=== PATIENT | female | born 1990 ===

== ENCOUNTER 2019-12-25 21:12 | Emergency (ER) | payer OTHER, SELFPAY ==
--- NOTE | ~2019-12-25 | XR_ITS ---
EXAMINATION: XR ankle LT min 3V DATE: 12/25/2019 22:10 INDICATION: Lateral sided left ankle pain and swelling TECHNIQUE: Anteroposterior, oblique, mortise, and lateral views of the left ankle were obtained. COMPARISON: None. FINDINGS: Alignment is normal. No fracture. Joint spaces are well maintained. Small plantar calcaneal spur. No ankle joint effusion. Soft tissue swelling overlying the lateral malleolus. IMPRESSION: 1. No acute osseous abnormality. Reviewed, dictated and finalized at location A.
[2019-12-25 21:13] VITALS: BP 154/97; PULSE 114; RESP 18; TEMP 36.8; O2SAT 98
--- NOTE | 2019-12-25 23:12 | ED.LOWEXIN ---
HPI - Extremity Injury (Lower) General Chief Complaint: Extremity Injury, Lower Stated Complaint: ankle injury Time Seen by Provider: 12/25/19 23:03 History of Present Illness HPI Narrative: Patient presents with her boyfriend after stepping into the grass and twisting her left ankle. That happened prior to presentation. The left ankle is swollen and she has difficulty bearing weight. She has not previously had an ankle fracture. She works as a camp counselor, in [employer]. She has not been sick in the last week or 2. She vapes, drinks some alcohol, does not do marijuana. She takes several psychiatric medications, and metformin. complaint: ankle injury and fall Onset (ago): hour(s) Injury: Left: ankle Type of Injury: inversion Place: street/outdoors Severity: moderate Relieving factors: immobilization Exacerbating factors: weight bearing Related Data Home Medications Medication Instructions Recorded Confirmed aripiprazole mg 12/25/19 buspirone mg 12/25/19 duloxetine mg PO 12/25/19 metformin mg PO 12/25/19 Allergies Allergy/AdvReac Type Severity Reaction Status Date / Time codeine Allergy Unknown Unknown Verified 12/25/19 21:22 cobalt Allergy Unknown Verified 12/25/19 21:22 No Known Allergies Allergy Verified 12/25/19 21:22 Review of Systems Review of Systems: Narrative: CONSTITUTIONAL: Denies fever, chills, or sweats. EYES: Denies visual changes, redness, or discharge. ENT: Denies rhinorrhea, congestion, sore throat, or otalgia. CARDIOVASCULAR: Denies chest pain, palpitations, or edema. RESPIRATORY: Denies cough or dyspnea. GASTROINTESTINAL: Denies abdominal pain, nausea, vomiting, or diarrhea. GENITOURINARY: Denies dysuria or hematuria. SKIN: Denies rash or itching. MUSCULOSKELETAL: Denies back pain, or myalgia. NEUROLOGIC: Denies headache, numbness, or weakness. PSYCHIATRIC: Denies anxiety or depression. [facility] Family History Family History (Updated 02/17/16 @ 23:19 by DOCTOR UNKNOWN) Father Hypertension Family history of diabetes mellitus in first degree relative Other Family history of cardiovascular disease Social History Social History (Updated 12/25/19 @ 23:14 by Arlin Schaefer MD) Smoking status: Never smoker Tobacco type: e-cigarettes/vaping Alcohol intake: current Substance use: never Gender identity (if verbalized by the patient): Female Exam Narrative: Exam Narrative: GENERAL: Well-appearing, well-nourished, and in no acute distress. HEAD: Normocephalic, atraumatic. EYES: PERRLA and EOMI. ENT: Nares clear, no rhinorrhea or epistaxis. Mucous membranes moist. NECK: Supple. CHEST: Clear to auscultation. No respiratory distress. HEART: Regular rate and rhythm. No murmur heard. Normal peripheral pulses. ABDOMEN: Soft, nontender, nondistended, normal active bowel sounds. EXTREMITIES: Left ankle swollen at the lateral side SKIN: Warm, dry, no rash. NEURO: No focal deficits. Alert and oriented x3. PSYCH: Normal mood and affect. Course Vital Signs Vital signs: Vital Signs Temperature 98.3 F 12/25/19 21:13 Pulse Rate 114 H 12/25/19 21:13 Respiratory Rate 18 12/25/19 21:13 Blood Pressure 154/97 H 12/25/19 21:13 Pulse Oximetry 98 12/25/19 21:13 Temperature 98 F 12/25/19 23:19 Pulse Rate 99 12/25/19 23:19 Respiratory Rate 16 12/25/19 23:19 Blood Pressure 142/93 H 12/25/19 23:19 Pulse Oximetry 96 12/25/19 23:19 MDM - Extremity Injury (Lower) Imaging Data Radiologist's impression: ITS Impressions Ankle X-Ray 12/25/19 22:24 IMPRESSION: 1. No acute osseous abnormality. Discharge Plan Discharge Clinical Impression: Ankle sprain Qualifiers: Encounter type: initial encounter Involved ligament of ankle: unspecified ligament Laterality: left Qualified Code(s): S93.402A - Sprain of unspecified ligament of left ankle, initial encounter Patient Disposition: Home, Self-Care Condition: Stable I
[2019-12-25 23:19] VITALS: BP 142/93; PULSE 99; RESP 16; TEMP 36.6; O2SAT 96
== END 2019-12-25 23:29 | disposition home or self-care (01) ==
PROVIDERS: Emergency Provider Emergency Medicine; PCP Family Medicine
DX: S93.402A Sprain of unspecified ligament of left ankle, initial encounter (principal); Z79.84 Long term (current) use of oral hypoglycemic drugs; X50.9XXA Other and unspecified overexertion or strenuous movements or postures, initial encounter; F17.290 Nicotine dependence, other tobacco product, uncomplicated
CPT/HCPCS: 73610; 99283; A9270

== ENCOUNTER 2025-02-17 04:20 | Outpatient (CLI) | payer OTHER, SELFPAY ==
[2025-02-17] VITALS (9 sets, daily range): BP systolic 116–160; BP diastolic 71–112; PULSE 89–101; RESP 24; O2SAT 97–100; BMI 48.8
--- OUTSIDE RECORDS SUMMARY | 2025-02-17 04:06 | XMS_ITS | Encounter Summary ---
Author Organization [facility] Address [facility]ly [facility] [place] [address] Care Team Providers Care Derrick Worker Name Role Phone Suad Haney COMPOSITE ENGINEER Primary Care Provider Cherelle Perez COMPOSITE ENGINEER Primary Care Provider [phone] Nadiya Vidal COMPOSITE ENGINEER Primary Care Provider [phone] Encounter Details Date Type Department Care Team (Late st Contact Info) Description 01/23/2022 [employer] Message Enc [facility] Medical [facility] Family Medicine - [address] [address] Suad Haney, MU Keto diet and diabetes Social History Tobacco Use Types Packs/Day Years Used Date Smoking Tobacco: Every Day Cigarettes Smokeless Tobacco: Never Comments:I use a nicotine va pe not tobacco. Alcohol Use Standard Drinks/Week Comments Yes 0 (1 standard drink = 0.6 oz pur e alcohol) Socially PHQ-2 Answer Date Recorded PHQ-2 Score - If the patient scores above 3, please move on to questions 3-9 1 10/19/2021 Comments No Sex and Gender Information Value Date Recorded Sex Assigned at Not on file Legal Sex Female 8:00 PM CDT Gender Identity Female 11/07/2023 9:43 AM CDT Sexual Orientation Straight 04/03/2022 3: 38 PM CDT documented as of this encounter Plan of Treatment Not on file documented as of this encounter Visit Diagnoses Not on filedocumented in this encounter Additional Health Concerns Assessment Noted Time PHQ-9 Depression Total Score: 1 10/20/19 22 8:33 AM CDT documented as of this encounter Care Teams Derrick Worker Relationship Specialty Start Date End Date Suad Haney, COMPOSITE ENGINEER PCP - General NURSE PRACTITIONER 12/17/18 12/18/23 Cherelle Brown NP [address] [place] [address] PCP - General NURSE PRACTITIONER 12/19/23 05/03/24 Nadiya Vidal NP [address] [place] [address] PCP - General NURSE PRACTITIONER 05/04/24 documented as of this encounter
--- OUTSIDE RECORDS SUMMARY | 2025-02-17 04:06 | XMS_ITS | Encounter Summary ---
Author Organization [facility] Address [facility] [place] [address] Care Team Providers Care Can Piler Name Role Phone Suad Haney CHAINSTITCH ZIPPER SETTER Primary Care Provider Cherelle Perez CHAINSTITCH ZIPPER SETTER Primary Care Provider [phone] Nadiya Vidal CHAINSTITCH ZIPPER SETTER Primary Care Provider [phone] Encounter Details Date Type Department Care Team (Late st Contact Info) Description 10/25/2023 [employer] - It's what's in storehart Message Enc [facility] Medical [facility] Family Medicine [address] [address] [place], [facility] Provider Cruz Social History Tobacco Use Types Packs/Day Years Used Date Smoking Tobacco: Former Cigarettes Smokeless Tobacco: Never Comments:I use a nicotine va pe not tobacco. Alcohol Use Standard Drinks/Week Comments Not Currently 0 (1 standard drink = 0.6 oz pur e alcohol) Socially PHQ-2 Answer Date Recorded Patient Health Questionnaire-2 Score 2 08/23/2022 Comments No Sex and Gender Information Value [...] Assessment Noted Time PHQ-9 Depression Total Score: 6 08/23/19 23 8:03 AM CHURCH WARDEN documented as of this encounter Care Teams Can Piler Relationship Specialty Start Date End Date Suad Haney NP PCP - General NURSE PRACTITIONER 12/17/18 12/18/23 Cherelle Brown NP [address] [place] [address] PCP - General NURSE PRACTITIONER 12/19/23 05/03/24 [address]ya Vidal [place] [address] PCP - General NURSE PRACTITIONER 05/04/24 documented as of this encounter
--- OUTSIDE RECORDS SUMMARY | 2025-02-17 04:06 | XMS_ITS | Encounter Summary ---
Author Organization [facility] Address [facility] [place] [address] Care Team Providers Care Vegetable Tester Name Role Phone Suad Haney MANAGER MECHANICAL Primary Care Provider Cherelle Perez MANAGER MECHANICAL Primary Care Provider [phone] Nadiya Vidal MANAGER MECHANICAL Primary Care Provider [phone] Encounter Details Date Type Department Care Team (Late st Contact Info) Description 06/05/2022 [employer] Message Enc [facility] Medical [facility] Family Medicine - [address] [address] Suad Haney, MANAGER MECHANICAL About [employer] Social History Tobacco Use Types Packs/Day Years [...] Orientation Straight 04/03/2022 3: 38 PM CDT COVID-19 Exposure Response Date Recorded In the last 10 days, have yo u been in contact with someone who was confirmed or suspected to have Coronavirus/COVID-19? No / Unsure 05/17/2022 7:41 AM CDT documented as of this encounter Progress Notes * Huy Flores RN - 06/05/2022 2:19 PM CST Please advise. Thanks RITY ASSURANCE SPECIALIST documented in this encounter Plan of Treatment Not on file documented as of this encounter Visit Diagnoses Not on filedocumented in this encounter Additional Health Concerns Assessment Noted Time PHQ-9 Depression Total Score: 1 10/20/19 22 8:33 AM CDT documented as of this encounter Care Teams Vegetable Tester Relationship Specialty Start Date End Date Suad Haney NP PCP - General NURSE PRACTITIONER 12/17/18 12/18/23 Cherelle Brown NP [address] [place] [address] PCP - General NURSE PRACTITIONER 12/19/23 05/03/24 Nadiya Vidal NP [address] [place] [address] PCP - General NURSE PRACTITIONER 05/04/24 documented as of this encounter
--- OUTSIDE RECORDS SUMMARY | 2025-02-17 04:06 | XMS_ITS | Encounter Summary ---
Author Organization [facility] Address [facility] [place] [address] Care Team Providers Care Business Developer Name Role Phone Suad Haney ROTARY DUMP OPERATOR Primary Care Provider Cherelle Perez ROTARY DUMP OPERATOR Primary Care Provider [phone] Nadiya Vidal ROTARY DUMP OPERATOR Primary Care Provider [phone] Encounter Details Date Type Department Care Team (Late st Contact Info) Description 06/05/2023 MyChart Message Enc [facility] Medical [facility] Family Medicine - [address] [address] Suad Haney, ROTARY DUMP OPERATOR psychiatry Social History Tobacco Use Types Packs/Day Years [...] PM CDT documented as of this encounter Progress Notes * Rasta Lin MA - 06/05/2023 2:53 PM CST See pt response. AIDE documented in this encounter Plan of Treatment Not on file documented as of this encounter Visit Diagnoses Not on filedocumented in this encounter Additional Health Concerns Assessment Noted Time PHQ-9 Depression Total Score: 6 08/23/19 23 8:03 AM DIET AIDE documented as of this encounter Care Teams Business Developer Relationship Specialty Start Date End Date Suad Haney NP PCP - General NURSE PRACTITIONER 12/17/18 12/18/23 Cherelle Brown NP [address] [place] [address] PCP - General NURSE PRACTITIONER 12/19/23 05/03/[address] [place] [address] PCP - General NURSE PRACTITIONER 05/04/24 documented as of this encounter
--- OUTSIDE RECORDS SUMMARY | 2025-02-17 04:06 | XMS_ITS | Encounter Summary ---
Author Organization [facility] Address [facility] [place] [address] Care Team Providers Care Auto Body Mechanic Name Role Phone Suad Haney VACCINE SPECIALIST Primary Care Provider Cherelle Perez VACCINE SPECIALIST Primary Care Provider [phone] Nadiya Vidal VACCINE SPECIALIST Primary Care Provider [phone] Encounter Details Date Type Department Care Team (Late st Contact Info) Description 01/24/2023 [employer] Message Enc [facility] Medical [facility] Family Medicine [address] [address] Suad Haney, VACCINE SPECIALIST Scheduling Labs Social History Tobacco Use Types Packs/Day Years [...] Total Score: 6 08/23/19 23 8:03 AM POWDERED SUGAR SUPERVISOR documented as of this encounter Care Teams Auto Body Mechanic Relationship Specialty Start Date End Date Suad Haney NP PCP - General NURSE PRACTITIONER 12/17/18 12/18/23 Cherelle Brown NP [address] [place] [address] PCP - General NURSE PRACTITIONER 12/19/23 05/03/24 Nadiya Vidal [place] [address] PCP - General NURSE PRACTITIONER 05/04/24 documented as of this encounter
--- OUTSIDE RECORDS SUMMARY | 2025-02-17 04:06 | XMS_ITS | Encounter Summary ---
Author Organization [facility] Address [facility] [place] [address] Care Team Providers Care Electromechanical Engineer Name Role Phone Suad Haney CLINICAL LABORATORY TECHNICIAN Primary Care Provider Cherelle Perez CLINICAL LABORATORY TECHNICIAN Primary Care Provider [phone] Nadiya Vidal CLINICAL LABORATORY TECHNICIAN Primary Care Provider [phone] Encounter Details Date Type Department Care Team (Late st Contact Info) Description 09/25/2022 MyChart Message Enc [facility] Medical Group Family Medicine [address] [address] Suad Haney, CLINICAL LABORATORY TECHNICIAN Should I schedule a covid test? Social History Tobacco Use Types Packs/Day Years [...] suspected to have Coronavirus/COVID-19? No / Unsure 09/10/2022 7:02 AM PAPER MAKER documented as of this encounter Progress Notes * Huy Flores RN - 09/25/2022 12:59 PM CST Please advise. Thanks R MAKER documented in this encounter Plan of Treatment Not on file documented as of this encounter Visit Diagnoses Not on filedocumented in this encounter Additional Health Concerns Assessment Noted Time PHQ-9 Depression Total Score: 6 08/23/19 23 8:03 AM PAPER MAKER documented as of this encounter Care Teams Electromechanical Engineer Relationship Specialty Start Date End Date Suad Haney NP PCP - General NURSE PRACTITIONER 12/17/18 12/18/23 Cherelle Brown NP [address] [place] [address] PCP - General NURSE PRACTITIONER 12/19/23 05/03/24 Nadiya [place] [address] PCP - General NURSE PRACTITIONER 05/04/24 documented as of this encounter
--- OUTSIDE RECORDS SUMMARY | 2025-02-17 04:06 | XMS_ITS | Clinical Summary ---
Author Organization [facility] Address [facility] [place] [address] Care Team Providers Care Manager Assessment Name Role Phone Nadiya Vidal MU Primary Care Provider [phone] Allergies Active Allergy Reactions Criticality Noted Date Comments [place] Unknown,Rash Medium 10/18/2015 Codeine Unknown,Rash Medium 10/18/2015 Lamotrigine Cough 01/20/2024 Losartan Dizziness,Other (see comment) 2023 Tape Unknown,Rash Medium 10/18/2015 Medications Blood Glucose Monitoring Suppl (BLOOD GLUCOSE MONITOR SYSTEM) w/Device KitIndications: Diabetes mellitus type 2 in obese ([facility]) Please give what is covered by insurance. Use with each blood sugar check once daily and when symtomatic 1 kit 9 Active Lancets MiscIndications :Type 2 diabetes mellitus with hyperglycemia, without long-term current use of insulin ([facility]) Ar finger qd for blood sugar check. 100 each 1 4 Active Glucose Blood (ONETOUCH VERIO) test stripIndication s:Type 2 diabetes mellitus with hyperglycemia, without long-term current use of insulin ([facility]) 1 strip by Other route daily. 100 strip 3 4 Active metFORMIN (GLUCOPHAGE) 500 MG tablet Take 1 tablet (500 mg total) by mouth daily with breakfast. Active Active Problems Problem Noted Date Diagnosed Date Anxiety and depression 01/20/2024 Overview (01/20/2024): Chronic condition that is controlled with current medications. Currently follows with psych every month. Also in therapy. Informed patient can discuss with psychiatry about switching patient from Abilify to Vraylar prevent progression and with metabolic syndrome. Type 2 diabetes mellitus wit hout complication, without long-term current use of insulin ([facility]) 02/19/2019 Overview (03/02/2024): Type 2 DM- Last A1C 7.0 11/14/23. Denies any polyuria, polydipsia, or polyphagia. Denies neuropathy. Is not checking her blood sugars currently. Is working on eating better. Diabetic eye exam is up to date. Assessment & Plan (03/02/2024 8:29 AM CDT): A1C 7.2 today. Will increase Rybelsus to 14mg -Goal for blood sugars to be between 80-130 fasting and 180 or less two hours after eating. Be sure you have a diabetic eye exam yearly. Encourage daily foot checks, avoid walking around barefoot. Goal for A1C to be below 7 MARIAELENA-no Statin- no Urine microalbumin - 08/13/23, normal Monofilament exam- 11/14/23 Encourage following a low fat, low carb diet, encorperate whole foods such as fresh fruits and vegetables and whole grains into your diet, encourage 5 small meals per day. Avoid sugar-sweetened beverages, added sugars, processed meats, refined grains and oils or other processed foods. Encourage to get at least 150 minutes of moderate aerobic activity or 75 minutes of vigorous aerobic activity a week, or a combination of moderate and vigorous activity. Assessment & Plan (01/20/2024 1:23 PM CDT): Type 2 DM- Last A1C 7.0 11/14/23. Denies any polyuria, polydipsia, or polyphagia. Denies neuropathy. Needing refills today on her Rybelsus and Jardiance. Tolerates them well. Is not checking her blood sugars currently. Is working on eating better. -Goal for blood sugars to be between 80-130 fasting and 180 or less two hours after eating. Be sure you have a diabetic eye exam yearly. Encourage daily foot checks, avoid walking around barefoot. Goal for A1C to below 7 MARIAELENA-no Statin- no Urine microalbumin - 08/13/23, normal Monofilament exam- 11/14/23 Elevated blood pressure reading 04/29/2018 Assessment & Plan (01/20/2024 1:29 PM CDT): BP elevated today. Will recheck at follow up. Anxious today as pulse is elevated some as well. Panic attack 03/14/2018 Assessment & Plan (01/20/2024 1:21 PM CDT): Uses clonidine PRN Obesity 10/18/2015 Assessment & Plan (01/20/2024 1:21 PM CDT): Diet and lifestyle discussed. Resolved Problems Problem Noted Date Diagnosed Date Resolved Date Generalized anxiety disorder 05/04/2019 01/20/2024 Gastroenteritis 05/13/2018 01/20/2024 Need for Tdap vaccination 05/05/2018 Tuberculosis screening 04/29/201804/01 Dysfunction of right eustachian tube 03/18/2017 01/20/2024 Upper respiratory infection 11/01/2016 01/20/2024 Annual physical exam 09/06/2016 024 Bipolar disorder, unspecifie d ([facility]) 10/18/2015 01/20/2024 Encounter for preventive health examination 10/18/2015 04/01/2020 Immunizations Immunization Administration Dates Next Due Dtap 10/22/1996,10/09/1993,1992 ,1992,1992 Hepatitis B Pediatric 11/24/1996,1992,03/23 Hib (PedvaxHIB)3 Dose 1992,1992 MMR 10/22/1996,05/22/1993 Polio IPV (Ipol) 10/22/1996,10/09/1993, 2,1992 Polio Ipv (Generic) 10/22/1996,10/09/1993,1991,1992 Tdap (Generic) 05/05/2018,05/05/2018 Family History Medical History Relation Comments Diabetes Father Rheumatoid Arthritis Father Heart Disease Maternal Grandfather Fibromyalgia Mother Rheumatoid Arthritis Mother Sjogrens Mother Diabetes Paternal Grandmother Diabetes Paternal Uncle Relation Status Comments Father Alive Maternal Grandfather Mother Alive Paternal Grandmother Paternal Uncle Social History Tobacco Use Types Packs/Day Years Used Date Smoking Tobacco: Former Cigarettes Passive Smoke Exposure: Past Smokeless Tobacco: Never Tobacco Cessation:Counseling Given: No Comments:I use a nicotine vape not tobacco. Alcohol Use Standard Drinks/Week Comments Not Currently 0 (1 standard drink = 0.6 oz pur e alcohol) Socially PHQ-2 Answer Date Recorded Patient Health Questionnaire-2 Score 0 07/23/2024 Hunger Vital Sign Answer Date Recorded Within the past 12 months, y ou worried that your food would run out before you got the money to buy more. Never true 07/09/20 24 Within the past 12 months, t he food you bought just didn't last and you didn't have money to get more. Never true 07/09/2024 Comments No Sex and Gender Information Value Date Recorded Sex Assigned at Not on file Legal Sex Female 8:00 PM CDT Gender Identity Female 11/07/2023 9:43 AM CDT Sexual Orientation Straight 04/03/2022 3: 38 PM CDT Last Filed Vital Signs Vital Sign Reading Time Taken Comments Blood Pressure 132/89 07/01/2024 10:04 AM VIBRATION ENGINEER Pulse 95 07/01/2024 9:56 AM VIBRATION ENGINEER Temperature 36.9 C (98.5 F) 07/01/2024 9:56 AM VIBRATION ENGINEER Respiratory Rate 14 07/01/2024 9:56 AM VIBRATION ENGINEER Oxygen Saturation 100% 07/01/2024 9:56 AM VIBRATION ENGINEER Inhaled Oxygen Concentration - - Weight 108.9 kg (240 lb) 07/01/2024 9:56 AM VIBRATION ENGINEER Height 160 cm (5' 3) 07/01/2024 9:56 AM VIBRATION ENGINEER Body Mass Index 42.51 07/01/2024 9:56 AM VIBRATION ENGINEER Plan of Treatment Health Maintenance Due Date Last Done Comments Pneumococcal Vaccine: Pediatrics (0 to 5 Years) and At-Risk Patients (6 to 49 Years) (1 of 2 - PCV) 02/11/2011 HPV Vaccines (1 - 3-dose SCDM series) 02/11/2019 Cervical Cancer Screening Pap with HPV Testing (Age 30 to 64) Every 5 Years 02/11/2022 COVID-19 Vaccine ( season) 2024 Cervical Cancer Screening Pap Smear (Age 30 to 64) Every 3 Years 10/24/2024 10/24/2021 Cervical Cancer Screening with HPV 10/24/2024 Diabetes: Retinopathy Eye Exam 12/22/2024 12/22/2022 Annual Physical 01/19/2025 01/20/2024 Hemoglobin A1C 02/03/2025 08/06/2024, 06/21, 03/02/2024, Additional history exists Kidney Health Evaluation 07/01/2025 07/01/2024 Lipid Panel 07/01/2025 07/01/2024, 02/19, 09/10/2022, Additional history exists DTaP, Tdap and Td Vaccines (8 - Td or Tdap) 05/05/2028 05/05/2018, 05/05/2018, 10/22/1996, Additional history exists Hepatitis B Vaccines Completed 11/24/1996, 1992, 1992 PHQ-2 (Physician [place]) Completed 07/23/2024 Hepatitis C Completed 08/06/2024, 06/21, 03/02/2024 Meningococcal B Vaccine Aged Out No l onger eligible based on patient's age to complete this topic Meningococcal Vaccine Aged Out No brittany edy eligible based on patient's age to complete this topic RSV Immunizations Under 20 Months Aged Out No longer eligible based on patient's age to complete this topic Procedures Procedure Name Priority Date/Time Associated Diagnosis Comments HEPATITIS C ANTIBODY Routine 07/01/2024 11:07 AM VIBRATION ENGINEER Type 2 diabetes mellitus with hyperglycemia, without long-term current use of insulin ([facility]) Positive test ([facility]) LIPID PANEL Routine 07/01/2024 11:07 AM VIBRATION ENGINEER Type 2 diabetes mellitus with hyperglycemia, without long-term current use of insulin ([facility]) Positive test ([facility]) HEMOGLOBIN, GLYCOSYLATED Routine 07/01/2024 11:07 AM VIBRATION ENGINEER Type 2 diabetes mellitus with hyperglycemia, without long-term current use of insulin ([facility]) Positive test ([facility]) DIABETIC RETINOPATHY EXAM (NEGATIVE)(SCAN ORDER) Routine 12/22/2022 from Last 3 Months or Most Recently Relevant to Health Maintenance Results * (ABNORMAL) HEMOGLOBIN, GLYCOSYLATED (07/01/2024 11:07 AM VIBRATION ENGINEER) HGB A1C 6.8(H) <5.7 % 07/01/2024 12:07 PM [facility] Comment: ADA GUIDELINES 2010 5.7 TO 6.4% INCREASED RISK OF DIABETES > OR = 6.5% CONSISTENT WITH DIABETES ESTIMATED AVG GLUCOSE 148 mg/dL 07/01/2024 12:07 PM [facility] 07/01/2024 11:0 7 AM VIBRATION ENGINEER Nadiya Vidal NP LABORATORY Final Result [facility] [address] [place] [address], * (ABNORMAL) LIPID PANEL (07/01/2024 11:07 AM VIBRATION ENGINEER) CHOLESTEROL 188 <200 MG/DL 07/01/2024 12:04 PM [facility] TRIGLYCERIDES 90 <150 MG/DL 07/01/2024 12:04 PM [facility] HDL 59 >40.0 MG/DL 07/01/2024 12:04 PM [facility] LDL (CALCULATED) 111(H) <100 MG/DL 07/01/2024 12:04 PM [facility] NON HDL CHOLESTEROL 129 <130 MG/DL 07/01/2024 12:04 PM [facility] CHOL/HDL RATIO 3.2 0.0 - 4.5 07/01/2024 12:04 PM VIBRATION ENGINEER [facility] VLDL CALCULATION 18 5 - 55 MG/DL 07/01/2024 12:04 PM VIBRATION ENGINEER [facility] LIPID INTERPRETATION 07/01/2024 12:04 PM VIBRATION ENGINEER [facility] Comment: NIH CONCENSUS REPORT RECOMMENDATIONS: ADULT CHILD LOW RISK: CHOLESTEROL <200 <170 TRIGLYCERIDE <150 --- HDL >=60 --- LDL <100 <110 BORDERLINE: CHOLESTEROL 200-239 170-199 TRIGLYCERIDE 150-199 --- HDL 40-59 --- LDL 100-159 110-129 HIGH RISK: CHOLESTEROL >=240 >=200 TRIGLYCERIDE >=200 --- HDL <40 --- LDL >=160 >=130 07/01/2024 11:0 7 AM VIBRATION ENGINEER Nadiya Vidal OFFICE ENGINEER LABORATORY Final Result Performing Organization Address City/[facility]/ZIP Co de Phone Number [facility] [address] [place] [address], [place] [phone] * HEPATITIS C ANTIBODY (07/01/2024 11:07 AM VIBRATION ENGINEER) HEPATITIS C AB NON-REACTI VE NON-REACTI VE 07/01/2024 12:35 PM VIBRATION ENGINEER [facility] 07/01/2024 11:0 7 AM VIBRATION ENGINEER Nadiya Marcy OFFICE ENGINEER LABORATORY Final Result Performing Organization Address City/[facility]/ZIP Co de Phone Number [facility] [address] [place] [address], [place] [phone] * DIABETIC RETINOPATHY EXAM (NEGATIVE)(SCAN) (12/22/2022) [facility] Scanned SCANNING Final Resu lt Performing Organization Address City/[facility]/ZIP Co de Phone Number [facility] from Last 3 Months or Most Recently Relevant to Health Maintenance Insurance BACH Care Teams Manager Assessment Relationship Specialty Start Date End Date Nadiya Vidal [place] [address] PCP - General NURSE PRACTITIONER 05/04/24
--- OUTSIDE RECORDS SUMMARY | 2025-02-17 04:06 | XMS_ITS | Encounter Summary ---
Author Organization [facility] Address [facility] [place] [address] Care Team Providers Care Licensed Customs Broker Name Role Phone Cherelle Brown ONCOLOGY RADIATION PHYSICIAN Primary Care Provider [phone] Nadiya Vidal ONCOLOGY RADIATION PHYSICIAN Primary Care Provider [phone] Encounter Details Date Type Department Care Team (Late st Contact Info) Description 05/01/2024 [employer] Message Enc [facility] Medical Group Family Medicine - [place] [address] [place], [place] [address] Cherelle Brown, ONCOLOGY RADIATION PHYSICIAN [address] [place] [address] Question about Rybelsus and at home testing Social History Tobacco Use Types Packs/Day Years Used Date Smoking Tobacco: Former Cigarettes Passive Smoke Exposure: Past Smokeless Tobacco: Never Comments:I use a nicotine va pe not tobacco. Alcohol Use Standard Drinks/Week Comments Yes 0 (1 standard drink = 0.6 oz pur e alcohol) Socially PHQ-2 Answer Date Recorded Patient Health Questionnaire-2 Score 1 01/20/2024 Comments No Sex and Gender Information Value [...] Assessment Noted Time PHQ-9 Depression Total Score: 2 01/20/20 24 12:46 PM CDT documented as of this encounter Care Teams Licensed Customs Broker Relationship Specialty Start Date End Date Cherelle Brown NP [address] [place] [address] PCP - General NURSE PRACTITIONER 12/19/23 05/03/24 Nadiya Vidal [place] [address] PCP - General NURSE PRACTITIONER 05/04/24 documented as of this encounter
--- OUTSIDE RECORDS SUMMARY | 2025-02-17 04:06 | XMS_ITS | Encounter Summary ---
Author Organization [facility] Address [facility] [place] [address] Care Team Providers Care Flight Attendant Inflight Services Name Role Phone Suad Haney BASEBOARD HEATING INSTALLER Primary Care Provider Cherelle Perez BASEBOARD HEATING INSTALLER Primary Care Provider [phone] Nadiya Vidal BASEBOARD HEATING INSTALLER Primary Care Provider [phone] Encounter Details Date Type Department Care Team (Late st Contact Info) Description 07/26/2023 [employer] Message Enc [facility] Medical Group Family Medicine [address] [address] [place], [facility] Provider [facility] Social History Tobacco Use Types Packs/Day Years [...] Total Score: 6 08/23/19 23 8:03 AM CATTLE FARMER documented as of this encounter Care Teams Flight Attendant Inflight Services Relationship Specialty Start Date End Date Suad Haney NP PCP - General NURSE PRACTITIONER 12/17/18 12/18/23 Cherelle Brown NP [address] [place] [address] PCP - General NURSE PRACTITIONER 12/19/23 05/03/24 Nadiya Vidal [place] [address] PCP - General NURSE PRACTITIONER 05/04/24 documented as of this encounter
--- OUTSIDE RECORDS SUMMARY | 2025-02-17 04:06 | XMS_ITS | Encounter Summary ---
Author Organization [facility] Address [facility] [place] [address] Care Team Providers Care Art Gallery Director Name Role Phone Suad Haney MACHINIST AUTOMOTIVE Primary Care Provider Cherelle Perez MACHINIST AUTOMOTIVE Primary Care Provider [phone] Nadiya Vidal MACHINIST AUTOMOTIVE Primary Care Provider [phone] Encounter Details Date Type Department Care Team (Late st Contact Info) Description 10/27/2022 MyChart Message Enc [facility] Medical Group Family Medicine [address] [address] Suad Haney, MACHINIST AUTOMOTIVE Trulicity Social History Tobacco Use Types Packs/Day Years [...] suspected to have Coronavirus/COVID-19? No / Unsure 10/16/2022 7:39 AM CDT documented as of this encounter Progress Notes * Aysha Courtney MA - 10/29/2022 3:43 PM CDTFrom: Vivien Youssef To: Suad Haney Sent: 10/27/2022 3:31 PM CDT Subject: Trulicity When my prescription for Trulicity was sent in, I was asked to inform you four weeks before needinga refill. I took my second of four doses yesterday. I do have a follow up appointment later this month on the , though I will have administered my last available dose on the . Also I did notice that my face gets extremely dry and flaky around my nose, mouth and under my eyes the day after Iinject a dose. It is slightly itchy and feels like windburn. Is that cause for concern? It does go away after two or three days, and a day faster if I put moisturizer on. Thank you for all your help! documented in this encounter Plan of Treatment Not on file documented as of this encounter Visit Diagnoses Not on filedocumented in this encounter Additional Health Concerns Assessment Noted Time PHQ-9 Depression Total Score: 6 08/23/19 23 8:03 AM WELLNESS RN documented as of this encounter Care Teams Art Gallery Director Relationship Specialty Start Date End Date Suad Haney, MU PCP - General NURSE PRACTITIONER 12/17/18 12/18/23 Cherelle Brown NP [address] [place] [address] PCP - General NURSE PRACTITIONER 12/19/23 05/03/24 Nadiya [place] [address] PCP - General NURSE PRACTITIONER 05/04/24 documented as of this encounter
--- OUTSIDE RECORDS SUMMARY | 2025-02-17 04:06 | XMS_ITS | Encounter Summary ---
Author Organization [facility] Address [facility] [place] [address] Care Team Providers Care Agriscience Technology Instructor Name Role Phone Suad Haney ACADEMIC ADVISOR Primary Care Provider Cherelle Perez ACADEMIC ADVISOR Primary Care Provider [phone] Nadiya Vidal ACADEMIC ADVISOR Primary Care Provider [phone] Encounter Details Date Type Department Care Team (Late st Contact Info) Description 04/30/2022 [employer] Message Enc [facility] Medical Group Family Medicine - [address] [address] Suad Haney, ACADEMIC ADVISOR Home tests and diabetes/medications Social History Tobacco Use Types Packs/Day Years [...] Progress Notes * Huy Flores RN - 04/30/2022 1:08 PM CDT Please advise. The orders in there now are . Thanks * Huy Flores RN - 04/30/2022 12:41 PM CDT Please advise. Thanks documented in this encounter Plan of Treatment Not on file documented as of this encounter Visit Diagnoses Not on filedocumented in this encounter Additional Health Concerns Assessment Noted Time PHQ-9 Depression Total Score: 1 10/20/19 22 8:33 AM CDT documented as of this encounter Care Teams Agriscience Technology Instructor Relationship Specialty Start Date End Date Suad Haney NP PCP - General NURSE PRACTITIONER 12/17/18 12/18/23 Cherelle Brown NP [address] [place] [address] PCP - General NURSE PRACTITIONER 12/19/23 05/03/24 Nadi[place] [address] PCP - General NURSE PRACTITIONER 05/04/24 documented as of this encounter
--- OUTSIDE RECORDS SUMMARY | 2025-02-17 04:06 | XMS_ITS | Referral Summary ---
Author Organization [facility] Address [address] [place] [address] Care Team Providers Care Computer Architect Name Role Phone No, Physician Primary Care Provider [phone] Encounters Date Type Department Care Team Description 02/16/2025 Documentation [facility] Maternal- Medicine [facility] [address] [facility] Medical Office [address] [place] [phone] Sis Edwards MD Glycemic control meeting 02/15/2025 Telephone [facility] Maternal- Medicine [facility] Outpatient Health 7th Floor [address] [place] [address] Tressa Soares, TRANSPORT ASSISTANT Appointment 02/11/2025 9:25 AM CDT - 02/15/2025 5:43 PM CDT Hospital Encounter [address] [phone] Yuval Madrid MD Whitley, Julia D.E., Jeb Arango MD care following vaginal delivery (Primary Dx) Discharge Disposition: Discharge to home or self care 02/13/2025 - 02/13/2025 1:40 AM CDT Surgery [address] [phone] Jeb Swift MD REPAIR VAGINA 2025 5:18 AM CDT Anesthesia Event [facility] 1 [place] [address] Galen Hoover MD Uche, Chiamaka P., MD 02/11/2025 Telephone [facility] Maternal- Medicine [address] [place] [address] Floor [address] [place] [address] Beulah Lee NP 02/11/2025 8:30 AM CDT Clinical Support [facility] Obstetrics and Gynecology [address] [place] [phone] Pre-existing type 2 diabetes mellitus during , antepartum (Primary Dx); Obesity affecting , antepartum, unspecified obesity type 02/09/2025 Documentation [facility] Maternal- Medicine [facility] [address] [facility] Medical Office [address] [place] [address] Sis Edwards MD Glycemic control meeting 02/08/2025 9:00 AM CDT Clinical Support [facility] Obstetrics and Gynecology [address] [place] [phone] Pre-existing type 2 diabetes mellitus during , antepartum (Primary Dx); Supervision of high-risk , third trimester; Obesity affecting , antepartum, unspecified obesity type 02/04/2025 8:30 AM CDT Clinical Support [facility] Obstetrics [facility] Gynecology [address] [place] [phone] Pre-existing type 2 diabetes mellitus during , antepartum (Primary Dx); Pre-existing essential hypertension complicating in third trimester; Obesity affecting , antepartum, unspecified obesity type 02/01/2025 10:30 AM CDT Clinical Support [facility] Obstetrics and Gynecology [address] [place] [phone] Supervision of high-risk , third trimester (Primary Dx); Pre-existing type 2 diabetes mellitus during , antepartum; Pre-existing essential hypertension complicating in second trimester 02/01/2025 11:15 AM CDT Office Visit [facility] Maternal- Medicine [address] [place] [address] Floor [address] [place] [address] Obesity affecting , antepartum, unspecified obesity type (Primary Dx); Pre-existing type 2 diabetes mellitus during , antepartum; Supervision of high-risk , third trimester; Anxiety and depression; Pre-existing essential hypertension complicating in second trimester; Polyhydramnios in third trimester, not applicable or unspecified fetus 01/28/2025 8:30 AM CDT Clinical Support [facility] Ob[facility]etrics [facility] Gynecology [address] [place] [phone] Pre-existing type 2 diabetes mellitus during , antepartum (Primary Dx); Pre-existing essential hypertension complicating in third trimester; Obesity affecting , antepartum, unspecified obesity type 01/26/[address] [phone] Sis Edwards MD Glycemic control meeting 01/25/2025 8:30 AM CDT Clinical Support [facility] Ob[facility]etrics [facility] Gynecology [address] [place] [phone] Supervision of high-risk , third trimester (Primary Dx); Pre-existing type 2 diabetes mellitus during , antepartum; Pre-existing essential hypertension complicating in second trimester 01/25/2025 9:04 AM CDT - 01/25/2025 12:26 PM CDT Hospital [address] [phone] Yuval Madrid MD Discharge Disposition: Discharge to home or self care 01/21/2025 9:00 AM CDT Clinical Support [facility] Obstetrics and Gynecology [address] [place] [phone] Pre-existing type 2 diabetes mellitus during , antepartum (Primary Dx); Pre-existing essential hypertension complicating in third trimester; Obesity affecting , antepartum, unspecified obesity type 01/19/2025 Orders Only [facility] Maternal- Medicine [address] [place] [address] Floor [address] [place] [phone] Regina Adan, RN Supervision of high-risk , third trimester (Primary Dx); Obesity affecting , antepartum, unspecified obesity type 01/18/2025 8:45 AM CDT Office Visit [facility] Maternal- Medicine [address] [place] [address] Health 7th Floor [address] [place] [address] Obesity affecting , antepartum, unspecified obesity type (Primary Dx); Pre-existing essential hypertension complicating in second trimester; Pre-existing type 2 diabetes mellitus during , antepartum; Polyhydramnios in third trimester, not applicable or unspecified fetus 01/18/2025 7:42 AM CDT - 01/18/2025 11:59 PM CDT Hospital Encounter [facility] Outpatient [facility] - Ultrasound [address] [place] [address], [address] [place] [address], [address] [place], [place] [phone] Pre-existing type 2 diabetes mellitus during , antepartum; Pyelectasis of fetus on ultrasound; Polyhydramnios in third trimester, not applicable or unspecified fetus Discharge Disposition: Discharge to home or self care 01/15/2025 9:00 AM CDT Clinical Support [facility] Obstetrics and Gynecology [address] [place] [phone] Pre-existing type 2 diabetes mellitus during , antepartum (Primary Dx); Pre-existing essential hypertension complicating in third trimester 01/12/2025 Documentation [facility] Maternal- Medicine [facility] [address] [facility] Medical [address] [place] [phone] Sis Edwards MD Glycemic control meeting 01/12/2025 8:20 AM CDT Office Visit [facility] Maternal- Medicine [address] [place] [address] [address] [place] [address] Anxiety and depression (Primary Dx); Obesity affecting , antepartum, unspecified obesity type; Polyhydramnios in third trimester, not applicable or unspecified fetus; Pre-existing essential hypertension complicating in second trimester; Pre-existing type 2 diabetes mellitus during , antepartum; Supervision of high-risk , second trimester; Rh negative state in antepartum period 01/12/2025 7:24 AM CDT - 01/12/2025 11:59 PM CDT Hospital Encounter [facility] Outpatient Health - Ultrasound [address] [place] [address], [address] [place] [address] Pre-existing type 2 diabetes mellitus during , antepartum; Pyelectasis of fetus on ultrasound; Polyhydramnios in third trimester, not applicable or unspecified fetus Discharge Disposition: Discharge to home or self care 01/07/2025 9:38 AM CDT - 01/07/2025 11:59 PM CDT Hospital Encounter [facility] - Ultrasound [address] [place] [address], [address] [place] [address] Pre-existing type 2 diabetes mellitus during , antepartum; Pyelectasis of fetus on ultrasound; Polyhydramnios in third trimester, not applicable or unspecified fetus Discharge Disposition: Discharge to home or self care 01/07/2025 Orders Only [facility] Maternal- Medicine [address] [place] [address] [address] [place] [address] Regina Adan RN 01/07/2025 9:00 AM CDT Clinical Support [facility] Obstetrics and Gynecology [address] [place] [phone] 01/05/2025 Documentation [facility] 1 [place] [address] Sis Edwards MD Glycemic control meeting 01/04/2025 11:52 AM CDT - 01/04/2025 11:59 PM CDT Hospital En[facility] [place] [address] [place] [address], [address] [place] [address] Pyelectasis of fetus on ultrasound; Polyhydramnios in third trimester, not applicable or unspecified fetus; Supervision of high-risk , second trimester Discharge Disposition: Discharge to home or self care 01/04/2025 1:30 PM CDT Office Visit [facility] Obstetrics and Gynecology [address] [place] [address] [address] [place] [address] Supervision of high-risk , second trimester (Primary Dx); Rh negative state in antepartum period; Pyelectasis of fetus on ultrasound; Pre-existing type 2 diabetes mellitus during , antepartum; Pre-existing essential hypertension complicating in second trimester; Polyhydramnios in third trimester, not applicable or unspecified fetus; Obesity affecting , antepartum, unspecified obesity type; Anxiety and depression 12/29/2024 Documentation [facility] 1 [place] [address] Sis Edwards MD Glycemic control review 12/24/2024 3:20 PM CDT Office Visit [facility] Maternal- Medicine [address] [place] [address] 7th Floor [address] [place] [phone] Anxiety and depression (Primary Dx); Obesity affecting , antepartum, unspecified obesity type; Pre-existing essential hypertension complicating in second trimester; Pre-existing type 2 diabetes mellitus during , antepartum; Pyelectasis of fetus on ultrasound; Supervision of high-risk , second trimester; Polyhydramnios in third trimester, not applicable or unspecified fetus 12/24/2024 2:30 PM CDT - 12/24/2024 11:59 PM CDT Hospital Encounter [facility] Outpatient [facility] - Ultrasound [address] [place] [address], 7th [facility], [address] [place] [address] Obesity affecting , antepartum, unspecified obesity type; Pre-existing essential hypertension complicating in second trimester; Pre-existing type 2 diabetes mellitus during , antepartum Discharge Disposition: Discharge to home or self care 12/15/2024 9:05 AM CDT Lab [facility] Outpatient Health [address] [place] [phone] Pre-existing type 2 diabetes mellitus during , antepartum; Supervision of high-risk , second trimester 12/15/2024 11:00 AM CDT Office Visit [facility] Maternal- Medicine [address] [place] [address] 7th Floor [address] [place] [phone] Supervision of high-risk , second trimester (Primary Dx); Pyelectasis of fetus on ultrasound; Pre-existing type 2 diabetes mellitus during , antepartum; Pre-existing essential hypertension complicating in second trimester; Obesity affecting , antepartum, unspecified obesity type; Anxiety and depression 12/08/[address] [phone] Yumiko Cox MD 12/04/2024 1:45 PM CDT Telemedicine [facility] Maternal- Medicine [facility] [address] [facility] [address] [place] [phone] Obesity affecting , antepartum, unspecified obesity type (Primary Dx); Pre-existing type 2 diabetes mellitus during , antepartum; GBS bacteriuria; Rh negative state in antepartum period; Supervision of high-risk , second trimester; Anxiety and depression; Pre-existing essential hypertension complicating in second trimester; Pyelectasis of fetus on ultrasound; Polyhydramnios in third trimester, not applicable or unspecified fetus 12/03/2024 Orders Only [facility] Maternal- Medicine [address] [place] [address] Outpatient Health 7th Floor [address] [place] [address] Celine Rose RN 12/01/[address] [phone] Dian Edwards MD 11/26/2024 4:20 PM CDT Office Visit [facility] Maternal- Medicine [address] [place] [address] Outpatient Health 7th Floor [address] [place] [address] Anxiety and depression (Primary Dx); Obesity affecting , antepartum, unspecified obesity type; Pre-existing essential hypertension complicating in second trimester; Pre-existing type 2 diabetes mellitus during , antepartum; Supervision of high-risk , second trimester; Pyelectasis of fetus on ultrasound 11/26/2024 2:30 PM CDT - 11/26/2024 11:59 PM CDT Hospital Encounter [facility] for Out[facility] - Ultrasound [address] [place] [address], 7th Floor, [address] [place] [facility] [place] [address] Pre-existing type 2 diabetes mellitus during , antepartum Discharge Disposition: Discharge to home or self care from Last 3 Months Allergies Active Allergy Reactions Criticality Noted Date Comments Adhesive Rash Medium 10/18/2015 [place] Rash Medium 10/18/2015 Codeine Rash Medium 10/18/2015 Lamotrigine Cough Low 01/20/2024 Losartan Dizziness,Other (See comments) Low 01/19 Medications OneTouch Delica Plus Lancet 33 gauge misc CHECK BLOOD SUGAR ONCE A DAY 07/17/20 24 Active vit [id number] -dha 27mg iron- 800 mcg-250 mg capsule Take by mouth Active blood-glucose meter,continu ous (Dexcom G7 [employer]idential [employer] Sales Manager) miscIndicatio ns:Pre-existi ng type 2 diabetes mellitus during in first trimester Use continuously to check blood sugars 1 each 2 08/10/19 25 Active blood-glucose sensor (Dexcom G7 Sensor) deviceIndicat ions:Pre-exis ting type 2 diabetes mellitus during in first trimester Use with Apptio clarity quirino to monitor your blood sugar values continuously. Please change the sensor every 10 days. 3 each 6 12/16/19 25 Active pen needle, diabetic (TRUEplus Pen Needle) 32 gauge x 5/32 needle USE TO INJECT FOUR TIMES DAILY 100 each 1 02/11/20 25 Active metFORMIN (GLUCOPHAGE) 500 mg tablet Take 1 tablet (500 mg total) by mouth daily with breakfast 30 tablet 2 02/17/20 25 025 Active acetaminophen 500 mg capsuleIndica tions:Pain Take 2 capsules (1,000 mg total) by mouth every 6 (six) hours as needed for pain 90 tablet 02/16/20 25 Active docusate sodium (COLACE) 100 mg capsuleIndica tions:constip ation,Stool Softener Take 1 capsule (100 mg total) by mouth 2 (two) times a day as needed for constipation 30 capsule 02/16/20 25 Active ferrous sulfate 325 mg (65 mg of elemental iron) tabletIndicat ions:Iron Deficiency Anemia Take 1 tablet (325 mg total) by mouth daily with breakfast 30 tablet 02/16/20 25 Active ibuprofen (ADVIL,MOTRIN ) 600 mg tabletIndicat ions:Pain Take 1 tablet (600 mg total) by mouth every 6 (six) hours as needed for pain 90 tablet 02/16/20 25 Active polyethylene glycol (MIRALAX) 17 gram/dose bulk powder Take 17 g by mouth daily as needed (constipation) 289 g 02/16/20 25 Active oxyCODONE (ROXICODONE) 5 mg immediate release tabletIndicat ions:Pain Take 0.5 tablets (2.5 mg total) by mouth every 4 (four) hours as needed for pain for up to 10 doses 5 tablet 02/16/20 25 Active gabapentin (NEURONTIN) 300 mg capsule Take 1 capsule (300 mg total) by mouth 3 (three) times a day as needed (pain) 30 capsule 02/16/20 25 Active OneTouch Verio test strips strip TEST BLOOD SUGAR ONCE A DAY INSTRUCTED 07/17/20 24 025 Discontinued(S top Taking at Discharge) blood glucose diagnostic (glucose blood) strip 1 each by other route daily 07/21/20 24 025 Discontinued(S top Taking at Discharge) aspirin 81 mg chewable tabletIndicat ions:Pre-exis ting type 2 diabetes mellitus during , antepartum Take 1 tablet (81 mg total) by mouth daily 30 tablet 11 08/05/19 025 Discontinued(S top Taking at Discharge) insulin glargine 100 unit/mL (3 mL) pen for injection Inject 20 units under the skin at bedtime. 15 mL 3 09/15/19 25 025 Discontinued(S top Taking at Discharge) glucagon (BAQSIMI) 3 mg/actuation spray,non-aer osol Administer 1 spray into one nostril as needed (hypoglycemia) 1 each 1 11/03/19 25 025 Discontinued(S top Taking at Discharge) pen needle, diabetic 33 gauge x 5/32 needle 4 INJECTIONS DAILY DIRECTED 100 each 3 11/05/19 25 025 Discontinued metFORMIN XR (GLUCOPHAGE XR) 500 mg 24 hr tablet Take 2 tablets (1,000 mg total) by mouth 2 (two) times a day 120 tablet 5 12/25/19 25 025 Discontinued(S top Taking at Discharge) insulin lispro (HumaLOG) 100 unit/mL pen for injection Inject 18 units under the skin with breakfast, 18 with lunch, and 22 units with dinner 15 mL 3 01/01/20 25 025 Discontinued(S top Taking at Discharge) Active Problems Problem Noted Date Diagnosed Date care following vaginal delivery 02/13 Overview (02/15/2025): # ID: Afebrile. No signs/symptoms of infection. S/p 2 doses of cefoxitin during vaginal laceration repair. #Rh neg: s/p rhogam 12/15/24. Per PP rhogam protocol, rhogam not needed as Rh negative. # Heme: EBL 2000mL Hemodynamically stable. Hgb trend 11.1 > 9.8 > 8.1 > 7.7 > 7.1 > 7.6> 8.4. PO iron ordered. S/p Iron transfusion and orthostats negative. Patient reports dizziness is resolved. # CV/Pulm: Chronic hypertension - Blood pressures well controlled on no meds. Asymptomatic, denies FLYNN/RUQ pain/vision changes. Enrolled in remote blood pressure monitoring.UPC 0.207, AST/ALT WNL, Cr 0.54. #Vaginal repair: Obstetric laceration with left sulcal; deep right sulcal involving pararectal, paravaginal spaces; bilateral labial minora lacerations following delivery. Urogyn consult for evaluation of deep right sulcal. Cysto with bilateral jets, right more sluggish. 2x iodoform tied together vaginal packing removed Saturday. Renal US ordered for 02/13 to assess for hydroureter on right, normal appearance of kidneys, no hydronephrosis. Passed void trial # GI/: Tolerating PO. Voiding spontaneously. # MSK: some left hip and leg flexion weakness. Improving today. Likely from positioning during prolonged vaginal repair and temporary femoral nerve paresis. Resolved. # Pain: Controlled with above regimen. # MOC: s/p nexplanon placement 02/15. #T2DM: Pre- regimen: metformin, Rybelsus, Jardiance OD. PP plan for metformin 500mg daily. Fasting BS 159 on PPD#1. Ordered for POC glucose TID beofre meals. #BMI 50 #Anxiety: On no meds. S/p SW PP # MOF: . Urine drug screen not indicated. Patient informed of results: N/A. # Post DVT prophylaxis: The patient has the following MAJOR risk factors BMI >/= 40 and the following MINOR risk factors none. enoxaparin 40 mg BID ordered for VTE prophylaxis to start Wednesday 02/14. # Disposition: Follow up task sent to [facility] scheduling pool for appointments in 2 and 6 weeks. Desires discharge home today. heart rate deceleratio ns affecting management of mother 02/11/2025 Encounter for induction of labor 02/11/2025 Overview (2025): Keisha Youssef is a 35 y.o. female at 37w2d who is dated by L=1 and is being admitted for an induction of labor secondary to decels at term. Admit to L&D: Labs: CBC Hgb 11.1, T&S done. Induction of labor with cervidil. Pt would like to try all other induction methods prior to pitocin due to concerns about relation of pitocin to PPD per prior notes. Upon discussion with her on admission, pt amenable to pitocin if it is felt necessary to progress her labor. Would like to try holding pitocin when starting to push but is fine with restarting if needed while pushing. FWB: Continuous monitoring. Reactive NST with variable decels ID: 3rd trimester HIV (>28 wga) negative on 12/15/24. GBS uria on 08/08/24, pt receiving PCN. RPR on admission: pending. History of genital HSV or HSV 1/2 seropositivity: No. Membrane Status: intact. Indications for UDS: none. Verbal consent obtained for UDS: Not indicated. MOF: Plans to breastfeed. Urine drug screen not indicated. Patient informed of results: N/A. MOC: Plans to use nexplanon for contraception. Pain management: Desires epidural. Post DVT prophylaxis: The patient has the following MAJOR risk factors BMI >/= 40 and the following MINOR risk factors none. enoxaparin 40 mg BID will be ordered for VTE prophylaxis . complicated by: #T2DM: current regimen: lantus 28q qHS, Lispro , Metformin 500mg BID. Pre- regimen: metformin, Rybelsus, Jardiance OD. For intrapartum insulin gtt. PP plan for metformin 500mg daily #cHTN: on no meds. MR BPs with current admission, one nonsustained severe BP 02/11. UPC 0.207, AST/ALT WNL, Cr 0.54. #BMI 50 #anxiety: on no meds. For SW PP #mild polyhydramnios: noted on 12/24/24 US, resolved, returned on 01/18/25 US with CAMILA 26.4cm #Rh neg: s/p rhogam 12/15/24. For PP rhogam protocol Polyhydramnios in third trim delvis, not applicable or unspecified fetus 12/24/2024 Overview (01/18/2025): 12/24/2024 mild poly, counseled in US -> resolved 01/0401/18/2025 Mild poly with amniotic fluid 26.4 cm Recommend tight glycemic control Continue to monitor Pyelectasis of fetus on ultrasound (res olved) 11/26/2024 Overview (01/15/2025): Noted on US 11/26/2024 and counseled S/p low risk NIPT 12/24/2024 Left renal pelvis is dilated to 7.4 mm and there is mild ureteral dilation seen. A2-3 UTD, s/p counseling in US- referral to [facility] to help coordinate peds urology 01/04: normal kidneys bilaterally - 6.8 and 6.4 mm. Recommend repeating kidney assessment on next US but no need for f/u if UTD remains resolved. If returns, can coordinate follow-up for baby. Back to [facility] Assessment & Plan (01/12/2025 12:20 PM CDT): Continue to monitor with serial US Anxiety and depression 09/01/2024 Overview (11/02/2024): History of MDD and CAN since 14 Previously treated by [facility] Previously on Duloxetine, Aripiprazole, Buspirone OD and Clonidine as needed Current regimen: No meds Info provided for [facility] psych and therapy Close monitoring of her mood with restart of pharmacologic therapy if needed. Assessment & Plan (01/04/2025 1:26 PM CDT): EPDS 16 today with never for Q10. Her mood is up and down but tolerable off medications. Her partner corroborates this. She declines restarting medication at this time. Assessment & Plan (10/30/2024 2:49 PM CDT): Emotional support provided. Assessment & Plan (09/24/2024 3:50 PM HOME THERAPY CLINICIAN): Mood is stable. No acute concerns today. Pre-existing essential hyper tension complicating in second trimester 09/01/2024 Overview (01/15/2025): Ms Youssef does not have a formal diagnosis of HTN but review of her notes after she was seen is consistent with HTN. Her DBP is mildly elevated at initial M visit Previously counseled Current regimen: No meds Plan [x] ASA 81 mg daily [x] Labs: Baseline wnl [x] EKG - ordered 09/24/24 WNL [] Growth and testing per GDM Assessment & Plan (01/04/2025 1:24 PM CDT): DBP 90 today, asymptomatic. Assessment & Plan (12/24/2024 5:04 PM CDT): BP mild range today. Pt reports bps are always higher in the office and then normalize. Pt asymptomatic. PreE precautions reviewed. Attempted to validate a bp cuff but was not successful. Plan for close monitoring during weekly nst visits. Assessment & Plan (12/15/2024 11:27 AM CDT): BP mild range today, repeat normal. Asymptomatic. PreE precautions reviewed. Assessment & Plan (09/24/2024 3:49 PM HOME THERAPY CLINICIAN): Normotensive today Plan [x] ASA 81 mg daily [x] Labs: Baseline wnl [] EKG - ordered 09/24/24 [] Serial US q 4 weeks at 24 weeks [] NST at 32 weeks ( Diabetes Mellitus) [] TOD 38-39 but earlier if indicated Rh negative state in antepartum period Overview (01/04/2025): S/p 28w RhoGam Supervision of high-risk , third trimes ter 08/17/2024 Overview (02/04/2025): [x] Full MFM Care; [x] Blue Team MEI per pt request, Primary OB aware per the pt, email for global sent on 09/30 Referring Provider: Glen Velazquez [phone] [] or Medicare Insurance [x] Dating Criteria: LMP 05/26/24 with RUPA 03/02/25 [x] Labs: Rh [A-], Ab [negative], Rubella [immune], HIV [non-reactive], HepBSAg [non-reactive], HepBSAb [not done], HepBCAb {non-reactive], RPR [non-reactive], Hep C [non-reactive], Varicella [not done], GC/CT [negative/negative] [x] Aneuploidy Screenin08/12/24: NIPT low risk [] Carrier Screening: [x] Hgb electrophoresis: 08/06/24 normal Hgb pattern [x] CBC/Hgb: 13.9/42.9/plt 354 [x] A1c 08/06/24: 6.6 [x] UCx: 08/06/24: <100,000 colonies/mL GBS [x] Pap: 10/24/21: NILM [x] LD ASA (if indicated): taking [] EPDS [ ]; PNBHS referral (if indicated): 2nd Trimester [x] Anatomy ultrasound: complete [x] CBC 24-28wks: [x] Rhogam at 28 wks (if Rh neg): 12/15/2024 3rd Trimester [x] CBC: 12.1/35.5/364K HIV: NR RPR: NR T&S: A negative, negative [x] GBS: +uria [] testinx/weekly at 32w 2/2 diabetes Counseling [x] MOD: IOL to be scheduled at 39w, 02/25/25 [x] Place of delivery: [facility] [] Epidural: [] Accepts Blood Products: [] Stop ASA: [x] MOC: Nexplanon [x] Method of feeding: breast [] Supervisor [employer] (specifically which provider): pt calling around [x] PP Depression Discussed: [] PP visits scheduled: Vaccines [] Flu Shot (Mar-Jun): [] COVID vaccine: [x] Tdap (27-36wks): 12/15/2024 Patient hopes to avoid induction of labor and epidural. She is very worried about increased risk of pp depression following pitocin and would like to try everything else possible before starting pitocin. She has been well counseled on induction meds, recommendations to use pitocin and that there is no good data for increased risks of pp depression in the setting of pitocin use. She has been counseled and understands risks of diabetes in and does not want to increase risks by waiting spontaneous labor after 39w. Will continue to address. Assessment & Plan (09/24/2024 3:50 PM HOME THERAPY CLINICIAN): Continue co-management with primary OB GBS bacteriuria 08/10/2024 Obesity affecting , antepartum 08/05/19 Overview (02/01/2025): Previously counseled Plan: [x] Initiate aspirin 81 mg at 12 weeks for preeclampsia risk reduction [x] Specialized anatomic survey at 20 weeks [] Anesthesia consult 02/01/25 @ 1300 [] testing per T2DM Assessment & Plan (09/24/2024 3:49 PM HOME THERAPY CLINICIAN): Plan: [x] Initiate aspirin 81 mg at 12 weeks for preeclampsia risk reduction [] Specialized anatomic survey at 20 weeks [] 3rd trimester anesthesia consultation if BMI >/=50 [] NST/BPP ( see DM) - Type 2 diabetes 08/05/2024 Overview (02/16/2025): History & Counseling Diagnosed age 29 ( 2019 with A1C 7.4) History of DKA? N Last hemoglobin A1C: 6.6% on 08/06/24 Pre- regimen: metformin, Rybelsus and Jardiance OD Pre- weight: 246 lbs MFM counselin08/27/2024 Dexcom: clinic login, name is Keisha Mena Plan FROM FAVD ON 02/13 Current regimen: 02/16/2025 - no changes Metformin 500 mg qD MFM suspended remote reviews on 02/16 - Physician adjusting insulin dosage: MFM Assessment & Plan (01/12/2025 12:20 PM CDT): Hypoglycemic precautions reviewed Assessment & Plan (12/15/2024 11:25 AM CDT): Continues to have elevated blood sugars with meals. Slight adjustments made after discussion with the patient. Encouraged continued calibration and making notes when sensor is not accurate. Assessment & Plan (12/04/2024 1:53 PM CDT): Will increase dosing another 20% today. Plan - Current regimen: 12/04/2024 Lantus 24u qHS > 28u QHS Lispro 07/02/14 > Metformin 1000 mg BID Assessment & Plan (10/30/2024 2:52 PM CDT): BS reviewed and insulin adjustments above. Hypoglycemic precautions reviewed. Discussed risks of diabetes in and increased risk of stillbirth/LGA growth and recommendation for delivery by 39 weeks. Discussed IOL methods. Reviewed risks of failed IOL without the use of pitocin. To my knowledge there is no data for increased risks of pp depression with pitocin but will f/u with MFM team. Will continue to address as the progresses. Pt understands that she is in control the the decisions she makes regarding her ongoing care and that these are just our recommendations. Assessment & Plan (10/16/2024 3:26 PM CDT): Overall good control. Continue current regimen. Assessment & Plan (09/24/2024 3:48 PM HOME THERAPY CLINICIAN): 09/24/24 CGM data reviewed. Fasting values improved with Lantus. Postprandial excursions may be secondary to diet choices. We reviewed that mealtime insulin may be needed if values remain elevated going forward. Plan - Current regimen: 09/24/2024 Lantus 20u qHS Metformin 1000 mg BID - Physician adjusting insulin dosage: MFM [x] Counseling performed - done 08/27/24 [x] Diabetes education, completed on 08/20/24 [] Recommend weekly review of BG/insulin data to adjust insulin dosing [] Glucagon prescribed [] Needs ophthalmology for comprehensive eye exam ( last eye exam 2022) [x] Baseline CMP wnl, recommend baseline UP:C, done on 08/27/24 [] A1c qTrimester [x] 1st T: 6.6% [] 2nd T: [] 3rd T: [x] First trimester TSH - normal [x] ASA starting at 12 weeks gestation [] Baseline EKG, consider maternal TTE - EKG Ordered 09/24/24 [] Specialized anatomy ultrasound at 18-20 weeks [] echocardiogram at 20-22 weeks - ordered 09/24/24 [] Serial growth scans starting at 24 weeks [] Twice weekly testing starting at 32 weeks [] insulin plan by 32 weeks [] Delivery at 39 0/7-39 6/7 (36 0/7 to 38 6/7 with vascular complications or poorly controlled) Generalized anxiety disorder 05/04/2019 Panic attack 03/14/2018 Bipolar disorder, unspecified 10/18/2015 Immunizations Immunization Administration Dates Next Due DTaP 10/22/1996, 4,1992,1992,0 1992 DTaP / IPV 10/22/1996,10/09/1993,1992 ,1992 Hep B, Adolescent or Pediatric 11/24/1996,1991,1992 Hib (PRP-OMP) 1992,1992 IPV 10/22/1996,10/09/1993,1992 ,1992 MMR 10/22/1996,05/22/1993 Tdap 12/15/2024,05/05/2018 Social History Tobacco Use Types Packs/Day Years Used Date Smoking Tobacco: Former Vaping Smokeless Tobacco: Never Tobacco Cessation:Counseling Given: Not Answered Comments:Will quit when/if I become . [facility] Utilities Answer Date Recorded In the past 12 months has th e FRS, gas, oil, or water company threatened to shut off services in your home? No 02/14/2025 Social Connection and Isolat ion Panel [NHANES] Answer Date Recorded In a typical week, how many times do you talk on the phone with family, friends, or neighbors? More than three times a week 02/14/2025 How often do you get togethe r with friends or relatives? More than three times a week 02/14/2025 How often do you attend chur ch or gnosticism services? Never 02/14/2025 Do you belong to any clubs o r organizations such as anabaptism groups, unions, fraternal or athletic groups, or school groups? No 02/14/2025 How often do you attend meet ings of the clubs or organizations you belong to? Never 02/14/2025 Are you , , di vorced, , never , or living with a partner? Living with partner 02/14/2025 AUDIT-C Answer Date Recorded Q1: How often do you have a drink containing alcohol? Never 08/27/2024 Q2: How many drinks containi ng alcohol do you have on a typical day when you are drinking? Patient does not drink Q3: How often do you have si x or more drinks on one occasion? Never 08/27/2024 Overall Financial Resource Strain (CARDIA) Answe r Date Recorded How hard is it for you to pa y for the very basics like food, housing, medical care, and heating? Not hard at all 02/14/2025 PHQ-2 Answer Date Recorded PHQ-2 Total Score 0 02/14/2025 Hunger Vital Sign Answer Date Recorded Within the past 12 months, y ou worried that your food would run out before you got the money to buy more. Never true 02/15/20 25 Within the past 12 months, t he food you bought just didn't last and you didn't have money to get more. Never true 02/14/2025 PRAPARE - Transportation Answer Date Re corded In the past 12 months, has l ack of transportation kept you from medical appointments or from getting medications? No 01/20 In the past 12 months, has l ack of transportation kept you from meetings, work, or from getting things needed for daily living? No 02/14/2025 [place] Depression Scale Answer Date Recorded [place] Depression Scale Total 14 08/05/2024 The thought of harming myself has occurred to me . Never 08/05/2024 Housing Stability Vital Sign Answer Gurmeet e Recorded In the last 12 months, was t here a time when you were not able to pay the mortgage or rent on time? No 02/14/2025 In the past 12 months, how m any times have you moved where you were living? 0 02/14/2025 At any time in the past 12 m [facility], were you homeless or living in a assisted (including now)? No 02/14/2025 Personal Safety Answer Date Recorded Have you ever been in or are you currently in a harmful physical or emotional relationship or is someone making you feel afraid or unsafe? Denies 02/11/2025 Comments No Sex and Gender Information Value Date Recorded Sex Assigned at Not on file Legal Sex Female 9:29 PM HOME THERAPY CLINICIAN Gender Identity Not on file Sexual Orientation Straight 04/04/2022 8: 28 AM CDT Last Filed Vital Signs Vital Sign Reading Time Taken Comments Blood Pressure 107/71 02/15/2025 3:50 PM CDT Pulse 86 02/15/2025 3:50 PM CDT Temperature 37.1 C (98.8 F) 02/15/2025 2:25 PM CDT Respiratory Rate 17 02/15/2025 7:22 AM CDT Oxygen Saturation 100% 02/15/2025 3:50 PM CDT Inhaled Oxygen Concentration - - Weight 128.5 kg (283 lb 3.2 oz) 02/11/2025 9:30 AM CDT Height 160 cm (5' 3) 02/11/2025 9:30 AM CDT Body Mass Index 50.17 02/11/2025 9:30 AM CDT Plan of Treatment Not on file Procedures Procedure Name Priority Date/Time Associated Diagnosis Comments CBC WITHOUT DIFFERENTIAL STAT 025 9:59 AM CDT POCT GLUCOSE DEVICE Routine 02/15/2025 9:01 AM CDT POCT GLUCOSE DEVICE Routine 02/14/2025 11:34 PM CDT POCT GLUCOSE DEVICE Routine 02/14/2025 4:48 PM CDT POCT GLUCOSE DEVICE Routine 02/14/2025 1:22 PM CDT CBC WITHOUT DIFFERENTIAL Timed 025 10:30 AM CDT POCT GLUCOSE DEVICE Routine 02/14/2025 8:33 AM CDT EGFR Routine 02/14/2025 3:51 AM CDT BASIC METABOLIC PANEL Routine 02/14/2025 3:51 AM CDT CBC WITHOUT DIFFERENTIAL Routine 025 3:51 AM CDT POCT GLUCOSE DEVICE Routine 02/13/2025 9:37 PM CDT US KIDNEY COMPLETE IP Routine 02/13/2025 8:50 PM CDT POCT GLUCOSE DEVICE Routine 02/13/2025 6:51 PM CDT ABO/RH Routine 02/13/2025 1:01 PM CDT EGFR Timed 02/13/2025 12:23 PM CDT RH IMMUNE GLOBULIN EVAL Timed 02/14/20 12:23 PM CDT BASIC METABOLIC PANEL Timed 02/13/2025 12:23 PM CDT CBC WITHOUT DIFFERENTIAL Timed 025 12:23 PM CDT POCT GLUCOSE DEVICE Routine 02/13/2025 7:17 AM CDT POCT GLUCOSE DEVICE Routine 02/13/2025 6:11 AM CDT EGFR Timed 02/13/2025 3:21 AM CDT FIBRINOGEN Timed 02/13/2025 3:21 AM CDT PROTIME-INR Timed 02/13/2025 3:21 AM CDT COMPREHENSIVE METABOLIC PANEL Timed 02/13/2025 3:21 AM CDT CBC WITHOUT DIFFERENTIAL Timed 025 3:21 AM CDT APTT Timed 02/13/2025 3:21 AM CDT POC THROMBOELASTOMETRY PANEL - HEPARIN Routine 02/13/2025 1:02 AM CDT POC THROMBOELASTOMETRY PANEL - INTRINSIC Routine 02/13/2025 1:01 AM CDT POC THROMBOELASTOMETRY PANEL - EXTRINSIC Routine 02/13/2025 1:01 AM CDT POC THROMBOELASTOMETRY PANEL - FIBRINOGEN Routine 02/13/2025 1:00 AM CDT POC BLOOD GAS AND CHEMISTRIES, VENOUS Routine 02/13/2025 1:00 AM CDT CRITICAL RESULT CALLBACK HEMATOLOGY STAT 02/13/2025 12:52 AM CDT FIBRINOGEN STAT 02/13/2025 12:52 AM CDT APTT STAT 02/13/2025 12:52 AM CDT PROTIME-INR STAT 02/13/2025 12:52 AM CDT CBC WITHOUT DIFFERENTIAL STAT 025 12:52 AM CDT POCT GLUCOSE DEVICE Routine 2025 11:14 PM CDT URINALYSIS, MICROSCOPIC ONLY Routine 2025 10:11 PM CDT URINE CULTURE Routine 2025 10:11 PM CDT URINALYSIS AND REFLEX TO MICROSCOPIC AND CULTURE Routine 2025 10:11 PM CDT POCT GLUCOSE DEVICE Routine 2025 10:10 PM CDT POCT GLUCOSE DEVICE Routine 2025 9:11 PM CDT POCT GLUCOSE DEVICE Routine 2025 8:06 PM CDT POCT GLUCOSE DEVICE Routine 2025 7:30 PM CDT VARICELLA ZOSTER ANTIBODY, IGG Routine 2025 7:30 PM CDT POCT GLUCOSE DEVICE Routine 2025 5:17 PM CDT POCT GLUCOSE DEVICE Routine 2025 2:54 PM CDT POCT GLUCOSE DEVICE Routine 2025 12:03 PM CDT POCT GLUCOSE DEVICE Routine 2025 10:01 AM CDT POCT GLUCOSE DEVICE Routine 2025 8:01 AM CDT POCT GLUCOSE DEVICE Routine 2025 6:47 AM CDT POCT GLUCOSE DEVICE Routine 2025 5:57 AM CDT MA AN PROCEDURE PLACEHOLDER Routine 2025 5:23 AM CDT POCT GLUCOSE DEVICE Routine 2025 4:53 AM CDT POCT GLUCOSE DEVICE Routine 2025 2:55 AM CDT POCT GLUCOSE DEVICE Routine 2025 12:43 AM CDT POCT GLUCOSE DEVICE Routine 02/11/2025 10:22 PM CDT POCT GLUCOSE DEVICE Routine 02/11/2025 8:24 PM CDT POCT GLUCOSE DEVICE Routine 02/11/2025 6:28 PM CDT POCT GLUCOSE DEVICE Routine 02/11/2025 4:57 PM CDT POCT GLUCOSE DEVICE Routine 02/11/2025 2:55 PM CDT POCT GLUCOSE DEVICE Routine 02/11/2025 12:35 PM CDT TYPE AND SCREEN STAT 02/11/2025 11:27 AM CDT RPR STAT 02/11/2025 11:27 AM CDT EGFR STAT 02/11/2025 10:15 AM CDT DIFFERENTIAL AUTO STAT 02/11/2025 10:15 AM CDT PROTEIN / CREATININE RATIO, URINE, RANDOM STAT 02/11/2025 10:15 AM CDT COMPREHENSIVE METABOLIC PANEL STAT 02/11/2025 10:15 AM CDT CBC WITH AUTO DIFFERENTIAL STAT 02/11/2025 10:15 AM CDT POCT URINALYSIS (CLINITEK) Routine 02/11/2025 10:13 AM CDT NONSTRESS TEST Routine 02/11/2025 9:56 AM CDT Pre-existing type 2 diabetes mellitus during , antepartum Obesity affecting , antepartum, unspecified obesity type NONSTRESS TEST Routine 02/08/2025 9:59 AM CDT Pre-existing type 2 diabetes mellitus during , antepartum Supervision of high-risk , third trimester Obesity affecting , antepartum, unspecified obesity type NONSTRESS TEST Routine 02/04/2025 9:53 AM CDT Pre-existing type 2 diabetes mellitus during , antepartum Pre-existing essential hypertension complicating in third trimester Obesity affecting , antepartum, unspecified obesity type NONSTRESS TEST Routine 02/01/2025 11:05 AM CDT Supervision of high-risk , third trimester Pre-existing type 2 diabetes mellitus during , antepartum Pre-existing essential hypertension complicating in second trimester NONSTRESS TEST Routine 01/28/2025 9:01 AM CDT Pre-existing type 2 diabetes mellitus during , antepartum Pre-existing essential hypertension complicating in third trimester Obesity affecting , antepartum, unspecified obesity type POCT GLUCOSE DEVICE Routine 01/25/2025 9:55 AM CDT EGFR STAT 01/25/2025 9:48 AM CDT DIFFERENTIAL AUTO STAT 01/25/2025 9:48 AM CDT PROTEIN / CREATININE RATIO, URINE, RANDOM STAT 01/25/2025 9:48 AM CDT COMPREHENSIVE METABOLIC PANEL STAT 01/25/2025 9:48 AM CDT CBC WITH AUTO DIFFERENTIAL STAT 01/25/2025 9:48 AM CDT POCT URINALYSIS (CLINITEK) Routine 01/25/2025 9:44 AM CDT NONSTRESS TEST Routine 01/25/2025 8:52 AM CDT Supervision of high-risk , third trimester Pre-existing type 2 diabetes mellitus during , antepartum Pre-existing essential hypertension complicating in second trimester NONSTRESS TEST Routine 01/21/2025 9:51 AM CDT Pre-existing type 2 diabetes mellitus during , antepartum Pre-existing essential hypertension complicating in third trimester Obesity affecting , antepartum, unspecified obesity type OB FOLLOW UP Schedule Routine, Read Routine (OP Routine) 01/18/2025 7:42 AM CDT Pre-existing type 2 diabetes mellitus during , antepartum Pyelectasis of fetus on ultrasound Polyhydramnios in third trimester, not applicable or unspecified fetus NONSTRESS TEST Routine 01/15/2025 9:27 AM CDT Pre-existing type 2 diabetes mellitus during , antepartum Pre-existing essential hypertension complicating in third trimester US OB LIMITED Schedule Routine, Read Routine (OP Routine) 01/12/2025 7:24 AM CDT Pre-existing type 2 diabetes mellitus during , antepartum Pyelectasis of fetus on ultrasound Polyhydramnios in third trimester, not applicable or unspecified fetus US OB LIMITED Schedule Routine, Read Routine (OP Routine) 01/07/2025 9:38 AM CDT Pre-existing type 2 diabetes mellitus during , antepartum Pyelectasis of fetus on ultrasound Polyhydramnios in third trimester, not applicable or unspecified fetus US OB DETAIL ANATOMY SINGLE OR FIRST GESTATION Schedule Routine, Read Routine (OP Routine) 01/04/2025 11:52 AM CDT Pyelectasis of fetus on ultrasound Polyhydramnios in third trimester, not applicable or unspecified fetus Supervision of high-risk , second trimester US OB FOLLOW UP Schedule Routine, Read Routine (OP Routine) 12/24/2024 2:30 PM CDT Obesity affecting , antepartum, unspecified obesity type Pre-existing essential hypertension complicating in second trimester Pre-existing type 2 diabetes mellitus during , antepartum CBC WITHOUT DIFFERENTIAL Routine 025 9:14 AM CDT Supervision of high-risk , second trimester HEMOGLOBIN A1C Routine 12/15/2024 9:14 AM CDT Pre-existing type 2 diabetes mellitus during , antepartum HIV 1/2 ANTIBODY PLUS P24 ANTIGEN Routine 12/15/2024 9:14 AM CDT Supervision of high-risk , second trimester RPR Routine 12/15/2024 9:14 AM CDT Supervision of high-risk , second trimester TYPE AND SCREEN Routine 12/15/2024 9:11 AM CDT Supervision of high-risk , second trimester OB FOLLOW UP Schedule Routine, Read Routine (OP Routine) 11/26/2024 2:30 PM CDT Pre-existing type 2 diabetes mellitus during , antepartum HEPATITIS C ANTIBODY Routine 08/06/2024 9:00 AM HOME THERAPY CLINICIAN Encounter for supervision of normal in first trimester, unspecified PAP WITH REFLEX TO HIGH RISK HPV Routine 10/24/2021 11:19 AM CDT Encounter for annual routine gynecological examination from Last 3 Months or Most Recently Relevant to Health Maintenance Results * (ABNORMAL) CBC without differential (02/15/2025 9:59 AM CDT) WBC 16.54(H) 3.80 - 9.90 K/cumm Hgb 8.4(L) 11.9 - 15.5 g/dL [facility] Hct 25.8(L) 35.6 - 45.5 % [facility] Plt 326 150 - 400 K/cumm [facility] MPV 9.6 9.1 - 12.3 fL [facility] RBC 2.94(L) 3.90 - 5.20 M/cumm [facility] MCV 87.8 81.3 - 96.4 fL [facility] MCH 28.6 27.1 - 33.3 pg [facility] MCHC 32.6 32.3 - 35.7 g/dL [facility] RDW CV 14.1 11.1 - 14.9 % [facility] RDW SD 44.7 35.7 - 48.1 fL [facility] NRBC abs 0.03(H) 0.00 - 0.01 K/cumm [facility] Blood 02/15/2025 9:59 AM CDT 02/15/2025 10:10 AM CDT Khadijah Pate NP LAB BLOOD ORDERABLES Final Result Performing Organization Address [facility] de Phone Number [facility] [place] [address] * POCT glucose (02/15/2025 9:01 AM CDT) Glucose, POC 142 70 - 199 mg/dL Blood 02/15/2025 9:01 AM CDT 02/15/2025 9:01 AM CDT Jeb Swift MD LAB POCT ORDERABLES - DEV ICE Final Result Performing Organization Address [facility] de Phone Number [facility] [place] [address] * POCT glucose (02/14/2025 11:34 PM CDT) Glucose, POC 155 70 - 199 mg/dL Blood 02/14/2025 11:3 4 PM CDT 02/14/2025 11:34 PM CDT Jeb Swift MD LAB POCT ORDERABLES - DEV ICE Final Result Performing Organization Address [facility] de Phone Number [facility] [place] [address] * POCT glucose (02/14/2025 4:48 PM CDT) Glucose, POC 165 70 - 199 mg/dL Blood 02/14/2025 4:48 PM CDT 02/14/2025 4:48 PM CDT Jeb Swift MD LAB POCT ORDERABLES - DEV ICE Final Result Performing Organization Address [facility] de Phone Number [facility] Department [place] [address] * POCT glucose (02/14/2025 1:22 PM CDT) [facility] Glucose, POC 103 70 - 199 mg/dL Blood 02/14/2025 1:22 PM CDT 02/14/2025 1:22 PM CDT us Jeb Swift MD LAB POCT ORDERABLES - DEV ICE Final Result Performing Organization Address [facility] de Phone Number [facility] [place] [address] * (ABNORMAL) CBC without differential (02/14/2025 10:30 AM CDT) [facility] WBC 18.68(H) 3.80 - 9.90 K/cumm Hgb 7.6(L) 11.9 - 15.5 g/dL [facility] Hct 23.4(L) 35.6 - 45.5 % [facility] Plt 299 150 - 400 K/cumm [facility] MPV 9.8 9.1 - 12.3 fL [facility] RBC 2.67(L) 3.90 - 5.20 M/cumm [facility] MCV 87.6 81.3 - 96.4 fL [facility] MCH 28.5 27.1 - 33.3 pg [facility] MCHC 32.5 32.3 - 35.7 g/dL [facility] RDW CV 14.2 11.1 - 14.9 % [facility] RDW SD 44.6 35.7 - 48.1 fL [facility] NRBC abs 0.00 0.00 - 0.01 K/cumm [facility] Blood 02/14/2025 10:3 0 AM CDT 02/14/2025 10:53 AM CDT us Jeb Swift MD LAB BLOOD ORDERABLES Farhana l Result Performing Organization Address City/[facility]/ZIP Co de Phone Number [facility] [place] [address] * POCT glucose (02/14/2025 8:33 AM CDT) Glucose, POC 103 70 - 199 mg/dL Blood 02/14/2025 8:33 AM CDT 02/14/2025 8:33 AM CDT Jeb Swift MD LAB POCT ORDERABLES - DEV ICE Final Result Performing Organization Address [facility] Co de Phone Number [facility] [place] [address] * eGFR (02/14/2025 3:51 AM CDT) [facility] eGFR >90 >=60 mL/min/1. 73 m2 Comment: Interpretive Data Reference Interval Normal >/= 90 mL/min/1.73m2 Mildly decreased* 60 - 89 mL/min/1.73m2 Mildly to moderately decreased 45 - 59 mL/min/1.73m2 Moderately to severely decreased 30 - 44 mL/min/1.73m2 Severely decreased 15 - 29 mL/min/1.73m2 Kidney Failure < 15 mL/min/1.73m2 *Relative to young adult level Estimated glomerular filtration rate is determined by the 2020 CKD-EPI equation recommended by the National Kidney Foundation (A Unifying Approach to GFR Estimation: Recommendations of the NKF-ASK Task Force on Reassessing the Inclusion of Race in Diagnosing Kidney Disease, JASN 2020). The CKD-EPI equation should not be used for patients with unstable renal function and has not been validated in children and those over 70. Current interpretive data was last reviewed 2021. Blood 02/14/2025 3:51 AM CDT 02/14/2025 4:36 AM CDT us Jeb Swift MD LAB BLOOD ORDERABLES Farhana l Result Performing Organization Address City/[facility]/ZIP Co de Phone Number [facility] [place] [address] * (ABNORMAL) CBC without differential (02/14/2025 3:51 AM CDT) [facility] WBC 18.03(H) 3.80 - 9.90 K/cumm Hgb 7.1(L) 11.9 - 15.5 g/dL [facility] Hct 21.5(L) 35.6 - 45.5 % [facility] Plt 291 150 - 400 K/cumm [facility] MPV 9.8 9.1 - 12.3 fL [facility] RBC 2.48(L) 3.90 - 5.20 M/cumm [facility] MCV 86.7 81.3 - 96.4 fL [facility] MCH 28.6 27.1 - 33.3 pg [facility] MCHC 33.0 32.3 - 35.7 g/dL [facility] RDW CV 13.9 11.1 - 14.9 % [facility] RDW SD 43.7 35.7 - 48.1 fL [facility] NRBC abs 0.00 0.00 - 0.01 K/cumm [facility] Blood 02/14/2025 3:51 AM CDT 02/14/2025 4:36 AM CDT us Jeb Swift MD LAB BLOOD ORDERABLES Farhana l Result [facility] [place] [address] * (ABNORMAL) Basic metabolic panel (02/14/2025 3:51 AM CDT) [facility] Sodium 139 135 - 145 mmol/L Potassium, pl 4.1 3.3 - 4.9 mmol/L [facility] Chloride 107 97 - 110 mmol/L [facility] CO2 24 22 - 32 mmol/L [facility] Anion gap 8 2 - 15 mmol/L [facility] BUN 6 6 - 25 mg/dL [facility] Creatinine 0.54(L) 0.60 - 1.10 mg/dL [facility] Glucose 87 70 - 199 mg/dL [facility] Comment: Interpretive Data Fasting glucose >/= 126 mg/dl is diagnostic for diabetes. Fasting is defined as no caloric intake for at least 8 hours. Fasting glucose between 100 mg/dl to 125 mg/dl is diagnostic of prediabetes. In a patient with classic symptoms of hyperglycemia or hyperglycemic crisis, a random glucose >/= 200 mg/dl is diagnostic for diabetes. In the absence of unequivocal hyperglycemia, results should be confirmed by repeat testing. The classification and Diagnosis of Diabetes Diabetes Care 2021; 46: S19-S40. Current interpretive data was last revised 2022. Calcium 8.5 8.5 - 10.3 mg/dL [facility] Blood 02/14/2025 3:51 AM CDT 02/14/2025 4:36 AM CDT Jeb Swift MD LAB BLOOD ORDERABLES Farhana l Result Performing Organization Address City/[facility]/ZIP Co de Phone Number [facility] [place] [address] * POCT glucose (02/13/2025 9:37 PM CDT) [facility] Signature Glucose, POC 105 70 - 199 mg/dL Blood 02/13/2025 9:37 PM CDT 02/13/2025 9:37 PM CDT Jeb Swift MD LAB POCT ORDERABLES - DEV ICE Final Result Performing Organization Address [facility]/ZIP Co de Phone Number [facility] [place] [address] * US Kidney Complete (02/13/2025 8:50 PM CDT) Anatomical Region Laterality Modality Kidney N/A Ultrasound 02/14/2025 7:14 AM CDT Impressions 02/14/2025 7:14 AM CDT Normal ultrasound appearance of the kidneys. No hydronephrosis. Electronically signed by: Galen Houser M.D. Narrative 02/14/2025 7:14 AM CDT EXAMINATION: COMPLETE RENAL SONOGRAM HISTORY: Assess for hydronephrosis FINDINGS: Kidneys: The echogenicity of both kidneys is normal. The kidneys are normal in size. There is no hydronephrosis in either kidney. There are no renal calculi visualized. Bladder: The urinary bladder is decompressed by a Hopper catheter. There is small volume fluid in the pelvis surrounding the urinary bladder. Procedure Note Galen Houser MD - 02/14/2025 EXAMINATION: COMPLETE RENAL SONOGRAM HISTORY: Assess for hydronephrosis FINDINGS: Kidneys: The echogenicity of both kidneys is normal. The kidneys are normal in size. There is no hydronephrosis in either kidney. There are no renal calculi visualized. Bladder: The urinary bladder is decompressed by a Hopper catheter. There is small volume fluid in the pelvis surrounding the urinary bladder. IMPRESSION: Normal ultrasound appearance of the kidneys. No hydronephrosis. Electronically signed by: Galen Houser M.D. us Jeb Swift MD IMG US PROCEDURES Final R esult * POCT glucose (02/13/2025 6:51 PM CDT) Glucose, POC 115 70 - 199 mg/dL Blood 02/13/2025 6:51 PM CDT 02/13/2025 6:51 PM CDT us Jeb Swift MD LAB POCT ORDERABLES - DEV ICE Final Result [facility] Department [place] [address] * ABO/Rh (02/13/2025 1:01 PM CDT) ABO Rh A Negative Blood 02/13/2025 1:01 PM CDT 02/13/2025 1:01 PM CDT us Jeb Swift MD LAB BLOOD BANK TEST ORDER SOLOMON Final Result Performing Organization Address City/[facility] Co de Phone Number [facility] [place] [address] * Rh Immune Globulin Eval (02/13/2025 12:23 PM CDT) RhIg Administration Not applicable RhIg Eligible No, not eligible [facility] Blood 02/13/2025 12:2 3 PM CDT 02/13/2025 12:34 PM CDT Narrative [facility] - 02/13/2025 1:03 PM CDT Number of weeks ?->Greater than or equal to 12 weeks antibody screen result:->Negative Rhogam given?->Unknown Number of vials requested:->1 Jeb Swift MD LAB BLOOD BANK TEST ORDER SOLOMON Final Result Performing Organization Address [facility] de Phone Number [facility] [place] [address] * eGFR (02/13/2025 12:23 PM CDT) eGFR >90 >=60 mL/min/1. 73 m2 Comment: Interpretive Data Reference Interval Normal >/= 90 mL/min/1.73m2 Mildly decreased* 60 - 89 mL/min/1.73m2 Mildly to moderately decreased 45 - 59 mL/min/1.73m2 Moderately to severely decreased 30 - 44 mL/min/1.73m2 Severely decreased 15 - 29 mL/min/1.73m2 Kidney Failure < 15 mL/min/1.73m2 *Relative to young adult level Estimated glomerular filtration rate is determined by the 2020 CKD-EPI equation recommended by the National Kidney Foundation (A Unifying Approach to GFR Estimation: Recommendations of the NKF-ASK Task Force on Reassessing the Inclusion of Race in Diagnosing Kidney Disease, JASN 2020). The CKD-EPI equation should not be used for patients with unstable renal function and has not been validated in children and those over 70. Current interpretive data was last reviewed 2021. Blood 02/13/2025 12:2 3 PM CDT 02/13/2025 12:32 PM CDT us Jeb Swift MD LAB BLOOD ORDERABLES Farhana espinoza Result Performing Organization Address [facility]/ZIP Co de Phone Number [facility] [place] [address] * (ABNORMAL) CBC without differential (02/13/2025 12:23 PM CDT) WBC 16.71(H) 3.80 - 9.90 K/cumm Hgb 7.7(L) 11.9 - 15.5 g/dL [facility] Hct 23.0(L) 35.6 - 45.5 % [facility] Plt 271 150 - 400 K/cumm [facility] MPV 9.9 9.1 - 12.3 fL [facility] RBC 2.66(L) 3.90 - 5.20 M/cumm [facility] MCV 86.5 81.3 - 96.4 fL [facility] MCH 28.9 27.1 - 33.3 pg [facility] MCHC 33.5 32.3 - 35.7 g/dL [facility] RDW CV 13.8 11.1 - 14.9 % [facility] RDW SD 43.3 35.7 - 48.1 fL [facility] NRBC abs 0.00 0.00 - 0.01 K/cumm [facility] Blood 02/13/2025 12:2 3 PM CDT 02/13/2025 12:32 PM CDT us Jeb Swift MD LAB BLOOD ORDERABLES Farhana l Result Performing Organization Address City/[facility]/ZIP Co de Phone Number [facility] [place] [address] * (ABNORMAL) Basic metabolic panel (02/13/2025 12:23 PM CDT) Pathologist [facility] Sodium 135 135 - 145 mmol/L Potassium, pl 3.8 3.3 - 4.9 mmol/L [facility] Chloride 104 97 - 110 mmol/L [facility] CO2 22 22 - 32 mmol/L [facility] Anion gap 9 2 - 15 mmol/L [facility] BUN 9 6 - 25 mg/dL [facility] Creatinine 0.59(L) 0.60 - 1.10 mg/dL [facility] Glucose 171 70 - 199 mg/dL [facility] Comment: Interpretive Data Fasting glucose >/= 126 mg/dl is diagnostic for diabetes. Fasting is defined as no caloric intake for at least 8 hours. Fasting glucose between 100 mg/dl to 125 mg/dl is diagnostic of prediabetes. In a patient with classic symptoms of hyperglycemia or hyperglycemic crisis, a random glucose >/= 200 mg/dl is diagnostic for diabetes. In the absence of unequivocal hyperglycemia, results should be confirmed by repeat testing. The classification and Diagnosis of Diabetes Diabetes Care 2021; 46: S19-S40. Current interpretive data was last revised 2022. Calcium 8.4(L) 8.5 - 10.3 mg/dL [facility] Blood 02/13/2025 12:2 3 PM CDT 02/13/2025 12:32 PM CDT Jeb Swift MD LAB BLOOD ORDERABLES Farhana l Result Performing Organization Address City/[facility]/ZIP Co de Phone Number [facility] [place] [address] * POCT glucose (02/13/2025 7:17 AM CDT) Glucose, POC 147 70 - 199 mg/dL Blood 02/13/2025 7:17 AM CDT 02/13/2025 7:17 AM CDT Jeb Swift MD LAB POCT ORDERABLES - DEV ICE Final Result Performing Organization Address [facility]/ZIP Co de Phone Number [facility] [place] [address] * POCT glucose (02/13/2025 6:11 AM CDT) Glucose, POC 159 70 - 199 mg/dL Blood 02/13/2025 6:11 AM CDT 02/13/2025 6:11 AM CDT Jeb Swift MD LAB POCT ORDERABLES - DEV ICE Final Result Performing Organization Address [facility] Co de Phone Number SHAYE [facility] [place] [address] * eGFR (02/13/2025 3:21 AM CDT) Pathologist [facility] eGFR >90 >=60 mL/min/1. 73 m2 Comment: Interpretive Data Reference Interval Normal >/= 90 mL/min/1.73m2 Mildly decreased* 60 - 89 mL/min/1.73m2 Mildly to moderately decreased 45 - 59 mL/min/1.73m2 Moderately to severely decreased 30 - 44 mL/min/1.73m2 Severely decreased 15 - 29 mL/min/1.73m2 Kidney Failure < 15 mL/min/1.73m2 *Relative to young adult level Estimated glomerular filtration rate is determined by the 2020 CKD-EPI equation recommended by the National Kidney Foundation (A Unifying Approach to GFR Estimation: Recommendations of the NKF-ASK Task Force on Reassessing the Inclusion of Race in Diagnosing Kidney Disease, JASN 2020). The CKD-EPI equation should not be used for patients with unstable renal function and has not been validated in children and those over 70. Current interpretive data was last reviewed 2021. Blood 02/13/2025 3:21 AM CDT 02/13/2025 4:06 AM CDT Jeb Swift MD LAB BLOOD ORDERABLES Farhana l Result Performing Organization Address City/[facility]/ZIP Co de Phone Number [facility] [place] [address] * (ABNORMAL) aPTT (02/13/2025 3:21 AM CDT) aPTT 22(L) 28 - 38 sec Comment: Interpretive Data Heparin therapeutic range: 66.0 - 100.0 seconds. Range based on correlation with therapeutic heparin activity range of 0.3 - 0.7 Units/mL. Current interpretive data was last revised on 2023. Blood 02/13/2025 3:21 AM CDT 02/13/2025 4:09 AM CDT Jeb Swift MD LAB BLOOD ORDERABLES Farhana l Result Performing Organization Address [facility] Co de Phone Number SHAYE [facility] [place] [address] * Protime-INR (02/13/2025 3:21 AM CDT) Pathologist [facility] PT 10.8 9.7 - 13.0 sec INR 1.00 0.90 - 1.20 [facility] Comment: Interpretive data Oral anticoagulant therapeutic ranges: Venous thromboembolism prophylaxis or treatment: 2.0-3.0 CARDIOLOGY Standard range: 2.0-3.0 High-intensity range: 2.5-3.5 Refer to indication-specific guidelines for appropriate target ranges for prosthetic heart valve replacement. Current interpretive data was last revised on 2019. Blood 02/13/2025 3:21 AM CDT 02/13/2025 4:09 AM CDT Jbe Swift MD LAB BLOOD ORDERABLES Farhana l Result Performing Organization Address [facility] Co de Phone Number [facility] [place] [address] * (ABNORMAL) Fibrinogen (02/13/2025 3:21 AM CDT) Fibrinogen 520(H) 170 - 400 mg/dL Blood 02/13/2025 3:21 AM CDT 02/13/2025 4:09 AM CDT Jeb Swift MD LAB BLOOD ORDERABLES Farhana l Result [facility] [place] [address] * (ABNORMAL) CBC without differential (02/13/2025 3:21 AM CDT) Pathologist [facility] WBC 20.21(H) 3.80 - 9.90 K/cumm Hgb 8.1(L) 11.9 - 15.5 g/dL [facility] Hct 24.4(L) 35.6 - 45.5 % [facility] Plt 296 150 - 400 K/cumm [facility] MPV 9.9 9.1 - 12.3 fL [facility] RBC 2.84(L) 3.90 - 5.20 M/cumm [facility] MCV 85.9 81.3 - 96.4 fL [facility] MCH 28.5 27.1 - 33.3 pg [facility] MCHC 33.2 32.3 - 35.7 g/dL [facility] RDW CV 13.7 11.1 - 14.9 % [facility] RDW SD 43.0 35.7 - 48.1 fL [facility] NRBC abs 0.00 0.00 - 0.01 K/cumm [facility] Blood 02/13/2025 3:21 AM CDT 02/13/2025 4:06 AM CDT us Jeb Swift MD LAB BLOOD ORDERABLES Farhana l Result [facility] Department of [facility] [place], [place] [id number] * (ABNORMAL) Comprehensive metabolic panel (02/13/2025 3:21 AM CDT) Pathologist [facility] Sodium 136 135 - 145 mmol/L Potassium, pl 3.8 3.3 - 4.9 mmol/L [facility] Chloride 106 97 - 110 mmol/L [facility] CO2 19(L) 22 - 32 mmol/L [facility] Anion gap 11 2 - 15 mmol/L [facility] BUN 9 6 - 25 mg/dL [facility] Creatinine 0.56(L) 0.60 - 1.10 mg/dL [facility] Glucose 155 70 - 199 mg/dL [facility] Comment: Interpretive Data Fasting glucose >/= 126 mg/dl is diagnostic for diabetes. Fasting is defined as no caloric intake for at least 8 hours. Fasting glucose between 100 mg/dl to 125 mg/dl is diagnostic of prediabetes. In a patient with classic symptoms of hyperglycemia or hyperglycemic crisis, a random glucose >/= 200 mg/dl is diagnostic for diabetes. In the absence of unequivocal hyperglycemia, results should be confirmed by repeat testing. The classification and Diagnosis of Diabetes Diabetes Care 202; 46: S19-S40. Current interpretive data was last revised 2022. Calcium 7.7(L) 8.5 - 10.3 mg/dL [facility] Bilirubin, total 0.5 0.1 - 1.2 mg/dL [facility] Protein, pl 5.2(L) 6.5 - 8.5 g/dL [facility] Albumin 2.6(L) 3.5 - 5.0 g/dL [facility] Alk phos 92 40 - 130 Units/L [facility] ALT 10 7 - 45 Units/L [facility] AST 15 10 - 45 Units/L [facility] Blood 02/13/2025 3:21 AM CDT 02/13/2025 4:06 AM CDT us Jeb Swift MD LAB BLOOD ORDERABLES Farhana l Result [facility] Department [place] [address] * (ABNORMAL) POC Thromboelastometry Panel - Heparin (02/13/2025 1:02 AM CDT) HEPTEM-CT, POC <122(L) 141 - 215 sec HEPTEM-A5, POC 52(H) 33 - 51 mm [facility] HEPTEM-A10, POC 63(H) 44 - 61 mm [facility] HEPTEM-A20, POC 71(H) 52 - 67 mm [facility] HEPTEM-MCF, POC 75(H) 54 - 69 mm [facility] HEPTEM-Run Time, POC (hh:mm:ss) 02:00:01 [facility] Blood 02/13/2025 1:02 AM CDT 02/13/2025 1:02 AM CDT Jeb Swift MD LAB POCT ORDERABLES - DEV ICE Edited Result - Final Performing Organization Address [facility]/ZIP Co de Phone Number [facility] [place] [address] * (ABNORMAL) POC Thromboelastometry Panel - Intrinsic (02/13/2025 1:01 AM CDT) [facility] INTEM-CT, POC <123(L) 139 - 205 sec INTEM-A5, POC 54 36 - 54 mm [facility] INTEM-A10, POC 65(H) 46 - 63 mm [facility] INTEM-A20, POC 72(H) 53 - 68 mm [facility] INTEM-MCF, POC 76(H) 55 - 70 mm [facility] INTEM-LI60, POC 100 93 - 100 % [facility] INTEM-ML, POC 4 0 - 7 % [facility] INTEM-Run Time, POC (hh:mm:ss) 02:00:01 [facility] Blood 02/13/2025 1:01 AM CDT 02/13/2025 1:01 AM CDT us Jeb Swift MD LAB POCT ORDERABLES - DEV ICE Edited Result - Final Performing Organization Address City/[facility]/ZIP Co de Phone Number [facility] [place] [address] * (ABNORMAL) POC Thromboelastometry Panel - Extrinsic (02/13/2025 1:01 AM CDT) EXTEM-CT, POC <45(L) 51 - 73 sec EXTEM-A5, POC 59(H) 33 - 52 mm [facility] EXTEM-A10, POC 69(H) 45 - 62 mm [facility] EXTEM-A20, POC 75(H) 54 - 69 mm [facility] EXTEM-MCF, POC 77(H) 57 - 72 mm [facility] EXTEM-LI60, POC 100 94 - 100 % [facility] EXTEM-ML, POC 5 0 - 6 % [facility] EXTEM-Run Time, POC (hh:mm:ss) 02:00:01 [facility] Blood 02/13/2025 1:01 AM CDT 02/13/2025 1:01 AM CDT Jeb Swift MD LAB POCT ORDERABLES - DEV ICE Edited Result - Final SHAYE GUTIERREZ [facility] Department [place] [address] * (ABNORMAL) POC Thromboelastometry Panel - Fibrinogen (02/13/2025 1:00 AM CDT) FIBTEM-A5, POC 24(H) 5 - 16 mm FIBTEM-A10, POC 26(H) 6 - 17 mm [facility] FIBTEM-A20, POC 28(H) 6 - 18 mm [facility] FIBTEM-MCF, POC 30(H) 9 - 19 mm [facility] FIBTEM-Run Time, POC (hh:mm:ss) 02:00:02 [facility] Blood 02/13/2025 1:00 AM CDT 02/13/2025 1:00 AM CDT Jeb Swift MD LAB POCT ORDERABLES - DEV ICE Edited Result - Final Performing Organization Address City/[facility]/ZIP Co de Phone Number SH[facility] [place] [address] * (ABNORMAL) POC Blood Gas and Chemistries, Venous - (02/13/2025 1:00 AM CDT) pH, Dalila POC 7.38 7.32 - 7.43 pCO2, dalila POC 28(L) 40 - 50 mmHg [facility] pO2, dalila POC 69 mmHg [facility] Na, POC 134(L) 135 - 145 mmol/L [facility] K POC 4.2 3.3 - 4.9 mmol/L [facility] Comment: Interpretive Data Not all point of care methods assess for hemolysis. Confirm with instrument and retest K+ if not consistent with clinical signs and symptoms. Current Interpretive Data was last revised on 2023. Cl, POC 109 97 - 110 mmol/L [facility] Ionized Ca, POC 4.04(L) 4.50 - 5.10 mg/dL [facility] Glucose, POC 157 70 - 199 mg/dL [facility] Lactate POC 3.2(H) 0.7 - 2.0 mmol/L [facility] O2 Sat, Dalila POC (Ethel) 94 % [facility] Base excess, POC -7.4 mmol/L [facility] HCO3, Dalila POC 17(L) 20 - 30 mmol/L [facility] Hct, POC 32.0(L) 36.3 - 45.3 % [facility] Total Hb, POC 10.6(L) 11.9 - 15.5 g/dL [facility] Blood 02/13/2025 1:00 AM CDT 02/13/2025 1:00 AM CDT us Jeb Swift MD LAB POCT ORDERABLES - DEV ICE Final Result [facility] Department [place] [address] * Critical Result Callback Hematology (02/13/2025 12:52 AM CDT) Date Notified [id number] Time Notified 156 [facility] TestName aPTT SH[facility] Called/Read Back Manuel CR [facility] Credentials RN SHAYE [facility] Called By JÚNIOR CR [facility] Blood 02/13/2025 12:5 2 AM CDT 02/13/2025 1:17 AM CDT Ashutosh De Los Santos MD LAB BLOOD ORDERABLES Final Result Performing Organization Address [facility] Co de Phone Number [facility] [place] [address] * (ABNORMAL) aPTT (02/13/2025 12:52 AM CDT) aPTT >150(C) 28 - 38 sec Comment: Repeated and verified. Interpretive Data Heparin therapeutic range: 66.0 - 100.0 seconds. Range based on correlation with therapeutic heparin activity range of 0.3 - 0.7 Units/mL. Current interpretive data was last revised on 2023. Blood 02/13/2025 12:5 2 AM CDT 02/13/2025 1:17 AM CDT Ashutosh De Los Santos MD LAB BLOOD ORDERABLES Final Result Performing Organization Address [facility] de Phone Number [facility] [place] [address] * Protime-INR (02/13/2025 12:52 AM CDT) PT 9.9 9.7 - 13.0 sec INR 0.92 0.90 - 1.20 [facility] Comment: Interpretive data Oral anticoagulant therapeutic ranges: Venous thromboembolism prophylaxis or treatment: 2.0-3.0 CARDIOLOGY Standard range: 2.0-3.0 High-intensity range: 2.5-3.5 Refer to indication-specific guidelines for appropriate target ranges for prosthetic heart valve replacement. Current interpretive data was last revised on 2019. Blood 02/13/2025 12:5 2 AM CDT 02/13/2025 1:17 AM CDT Ashutosh De Los Santos MD LAB BLOOD ORDERABLES Final Result Performing Organization Address [facility] de Phone Number [facility] [place] [address] * (ABNORMAL) Fibrinogen (02/13/2025 12:52 AM CDT) Fibrinogen 586(H) 170 - 400 mg/dL Blood 02/13/2025 12:5 2 AM CDT 02/13/2025 1:17 AM CDT Ashutosh De Los Santos MD LAB BLOOD ORDERABLES Final Result Performing Organization Address [facility] de Phone Number [facility] [place] [address] * (ABNORMAL) CBC without differential (02/13/2025 12:52 AM CDT) Pathologist [facility] WBC 23.41(H) 3.80 - 9.90 K/cumm Hgb 9.8(L) 11.9 - 15.5 g/dL [facility] Hct 29.4(L) 35.6 - 45.5 % [facility] Plt 352 150 - 400 K/cumm [facility] MPV 10.0 9.1 - 12.3 fL [facility] RBC 3.38(L) 3.90 - 5.20 M/cumm [facility] MCV 87.0 81.3 - 96.4 fL [facility] MCH 29.0 27.1 - 33.3 pg [facility] MCHC 33.3 32.3 - 35.7 g/dL [facility] RDW CV 13.8 11.1 - 14.9 % [facility] RDW SD 43.8 35.7 - 48.1 fL [facility] NRBC abs 0.00 0.00 - 0.01 K/cumm [facility] Blood 02/13/2025 12:5 2 AM CDT 02/13/2025 1:05 AM CDT us Ashutosh De Los Santos MD LAB BLOOD ORDERABLES Final Result Performing Organization Address City/[facility]/ZIP Co de Phone Number [facility] [place] [address] * POCT glucose (2025 11:14 PM CDT) Glucose, POC 111 70 - 199 mg/dL Blood 2025 11:1 4 PM CDT 2025 11:14 PM CDT Jeb Swift MD LAB POCT ORDERABLES - DEV ICE Final Result Performing Organization Address [facility] de Phone Number [facility] [place] [address] * (ABNORMAL) Urinalysis reflex to microscopic and culture Urine, bladder (2025 10:11 PM CDT) Color, ur Yellow Yellow Clarity, ur Cloudy(A) Clear [facility] Specific gravity, ur 1.037(H) 1.003 - 1.030 [facility] pH, urine 6.0 [facility] Comment: Interpretive Data U rine pH is affected by diet, medications, systemic acid-base disturbances, and renal tubular function. pH may affect urinary stone formation. For example, urine pH below 6.0 may help reduce the tendency for calcium phosphate stones and pH greater than 6.0 may reduce the tendency for uric acid stone formation. Source: [facility] Current Interpretive Data was last revised on 2017 Protein, ur ql 3+(A) Negative [facility] Glucose, ur ql Trace(A) Negative [facility] Ketones, ur 4+(A) Negative [facility] Bilirubin, ur Negative Negative [facility] Blood, ur 3+(A) Negative [facility] Urobilinogen, ur <2.0 <2.0 mg/dL [facility] Nitrite, ur Negative Negative [facility] Leukocyte esterase, ur Trace(A) Negative [facility] UA reflex comment Reflex to microscopic UA will be performed. [facility] Urine, bladder 2025 10 :11 PM CDT 2025 10:23 PM CDT Jeb Swift MD LAB MICROBIOLOGY - GENERA L ORDERABLES Final Result Performing Organization Address [facility] de Phone Number [facility] [place] [address] * (ABNORMAL) Urinalysis, microscopic only (2025 10:11 PM CDT) WBC, ur 21-50(A) 0 - 5 /HPF RBC, ur >50(A) 0 - 2 /HPF [facility] Epithelial cells, squamous, ur 6-10(A) 0 - 5 /HPF [facility] Comment:Suggestive of contam ination. Consider recollection by clean catch. Mucous, ur Present(A) [facility] Culture Reflex Comment Reflex to urine culture will be performed. [facility] Urine, bladder 2025 10 :11 PM CDT 2025 10:23 PM CDT Jeb Swift MD LAB URINE ORDERABLES Farhana l Result Performing Organization Address [facility] de Phone Number [facility] [place] [address] * Urine culture Urine, bladder (2025 10:11 PM CDT) Report Final Report: No growth Urine, bladder 2025 10 :11 PM CDT 2025 10:58 PM CDT Narrative [facility] - 02/14/2025 7:31 AM CDT Urine culture reflexed based upon urinalysis results. Testing performed by [facility] ([phone]) Jeb Swift MD LAB MICROBIOLOGY - GENERA L ORDERABLES Final Result Performing Organization Address [facility] de Phone Number [facility] [place] [address] * POCT glucose (2025 10:10 PM CDT) Glucose, POC 102 70 - 199 mg/dL Blood 2025 10:1 0 PM CDT 2025 10:10 PM CDT us Jeb Swift MD LAB POCT ORDERABLES - DEV ICE Final Result Performing Organization Address [facility] de Phone Number [facility] [place] [address] * POCT glucose (2025 9:11 PM CDT) Glucose, POC 110 70 - 199 mg/dL Blood 2025 9:11 PM CDT 2025 9:11 PM CDT Jeb Swift MD LAB POCT ORDERABLES - DEV ICE Final Result Performing Organization Address [facility] de Phone Number [facility] [place] [address] * POCT glucose (2025 8:06 PM CDT) Glucose, POC 109 70 - 199 mg/dL Blood 2025 8:06 PM CDT 2025 8:06 PM CDT Jeb Swift MD LAB POCT ORDERABLES - DEV ICE Final Result Performing Organization Address [facility]/ZIP Co de Phone Number [facility] [place] [address] * POCT glucose (2025 7:30 PM CDT) Glucose, POC 98 70 - 199 mg/dL Blood 2025 7:30 PM CDT 2025 7:30 PM CDT us Jeb Swift MD LAB POCT ORDERABLES - DEV ICE Final Result Performing Organization Address [facility] [place] [address] * Varicella Zoster IgG antibody Blood (2025 7:30 PM CDT) [facility] VZV IgG Reactive Reactive Comment:Reactive: Results zaman ggest response to immunization or prior exposure to the virus. Blood 2025 7:30 PM CDT 2025 8:11 PM CDT Yuval Madrid MD LAB MICROBIOLOGY - GENERAL ORDERABLES Final Result Performing Organization Address [facility] Co de Phone Number [facility] [place] [address] * POCT glucose (2025 5:17 PM CDT) [facility] Glucose, POC 104 70 - 199 mg/dL Blood 2025 5:17 PM CDT 2025 5:17 PM CDT Yuvla Madrid MD LAB POCT ORDERABL ES - DEVICE Final Result Performing Organization Address [facility] Co de Phone Number [facility] [place] [address] * POCT glucose (2025 2:54 PM CDT) Glucose, POC 98 70 - 199 mg/dL Blood 2025 2:54 PM CDT 2025 2:54 PM CDT Yuval Madrid MD LAB POCT ORDERABL ES - DEVICE Final Result Performing Organization Address [facility] Co de Phone Number [facility] [place] [address] * POCT glucose (2025 12:03 PM CDT) Glucose, POC 97 70 - 199 mg/dL Blood 2025 12:0 3 PM CDT 2025 12:03 PM CDT Yuval Madrid MD LAB POCT ORDERABL ES - DEVICE Final Result Performing Organization Address [facility] Co de Phone Number [facility] [place] [address] * POCT glucose (2025 10:01 AM CDT) Glucose, POC 101 70 - 199 mg/dL Blood 2025 10:0 1 AM CDT 2025 10:01 AM CDT Yuval Madrid MD LAB POCT ORDERABL ES - DEVICE Final Result Performing Organization Address [facility] Co de Phone Number [facility] [place] [address] * POCT glucose (2025 8:01 AM CDT) Glucose, POC 115 70 - 199 mg/dL Blood 2025 8:01 AM CDT 2025 8:01 AM CDT Cecilia Archer MD LAB POCT ORDERABLES - RAKEL CE Final Result Performing Organization Address [facility] de Phone Number [facility] [place] [address] * POCT glucose (2025 6:47 AM CDT) Glucose, POC 132 70 - 199 mg/dL Blood 2025 6:47 AM CDT 2025 6:47 AM CDT Cecilia Archer MD LAB POCT ORDERABLES - RAKEL CE Final Result Performing Organization Address [facility] Phone Number [facility] [place] [address] * POCT glucose (2025 5:57 AM CDT) Glucose, POC 130 70 - 199 mg/dL Blood 2025 5:57 AM CDT 2025 5:57 AM CDT Cecilia Archer MD LAB POCT ORDERABLES - RAKEL CE Final Result Performing Organization Address [facility] [place] [address] * MA AN PROCEDURE PLACEHOLDER (2025 5:23 AM CDT) Narrative Galen Hoover MD - 2025 5:23 AM CDT Galen Hoover MD 2025 5:24 AM Epidural Block Patient location: L&D Start time: 2025 5:07 AM End time: 2025 5:23 AM Reason for block: labor analgesia Staff: Supervising provider: Galen Hoover MD Placed by: Resident: Radha Sheffield MD Procedure prep: Preprocedure checklist: patient identified, procedure contraindications assessed, procedure consent obtained, surgical consent, IV checked, risks, benefits and alternatives discussed, monitors and equipment checked and timeout performed Patient Position: sitting Procedure performed while patient: awake Monitoring: ECG, oximetry and blood pressure Prep solution: chlorhexadine/alcohol PPE: provider hat/mask, sterile gloves and sterile drape Skin infiltrated with lidocaine 1%: yes Epidural: Approach: midline Location: L3-4 Number of attempts:3 Epidural needle: Injection technique: NANCY saline Needle type: Tuohy Needle gauge: 17 G Needle length: 9 cm Loss of resistance: 9 cm Catheter: Catheter type: multi-orifice. Catheter at skin depth: 14 cm Negative aspiration of blood: no Negative aspiration of CSF: no Test dose: negative Assessment: Sensory level - left: full eval pending Sensory level - right: full eval pending Events: patient tolerated procedure well with no complications Galen Hoover MD ANESTHESIA ORDERABLES Final Re sult * POCT glucose (2025 4:53 AM CDT) Glucose, POC 124 70 - 199 mg/dL Blood 2025 4:53 AM CDT 2025 4:53 AM CDT Cecilia Archer MD LAB POCT ORDERABLES - RAKEL CE Final Result Performing Organization Address [facility] Co fl Phone Number [facility] [place] [address] * POCT glucose (2025 2:55 AM CDT) Glucose, POC 103 70 - 199 mg/dL Blood 2025 2:55 AM CDT 2025 2:55 AM CDT Cecilia Archer MD LAB POCT ORDERABLES - RAKEL CE Final Result Performing Organization Address [facility] Co de Phone Number [facility] [place] [address] * POCT glucose (2025 12:43 AM CDT) Glucose, POC 93 70 - 199 mg/dL Blood 2025 12:4 3 AM CDT 2025 12:43 AM CDT Cecilia Archer MD LAB POCT ORDERABLES - RAKEL CE Final Result Performing Organization Address [facility] [place] [address] * POCT glucose (02/11/2025 10:22 PM CDT) Glucose, POC 103 70 - 199 mg/dL Blood 02/11/2025 10:2 2 PM CDT 02/11/2025 10:22 PM CDT Cecilia Archer MD LAB POCT ORDERABLES - RAKEL CE Final Result Performing Organization Address [facility] Co de Phone Number [facility] [place] [address] * POCT glucose (02/11/2025 8:24 PM CDT) Glucose, POC 89 70 - 199 mg/dL Blood 02/11/2025 8:24 PM CDT 02/11/2025 8:24 PM CDT Cecilia Archer MD LAB POCT ORDERABLES - RAKEL CE Final Result Performing Organization Address [facility] Co de Phone Number [facility] [place] [address] * POCT glucose (02/11/2025 6:28 PM CDT) Glucose, POC 93 70 - 199 mg/dL Blood 02/11/2025 6:28 PM CDT 02/11/2025 6:28 PM CDT Yuval Madrid MD LAB POCT ORDERABL ES - DEVICE Final Result Performing Organization Address [facility] Co de Phone Number [facility] [place] [address] * POCT glucose (02/11/2025 4:57 PM CDT) Glucose, POC 83 70 - 199 mg/dL Blood 02/11/2025 4:57 PM CDT 02/11/2025 4:57 PM CDT Yuvla Madrid MD LAB POCT ORDERABL ES - DEVICE Final Result Performing Organization Address [facility] de Phone Number [facility] [place] [address] * POCT glucose (02/11/2025 2:55 PM CDT) Glucose, POC 86 70 - 199 mg/dL Blood 02/11/2025 2:55 PM CDT 02/11/2025 2:55 PM CDT Yuval Madrid MD LAB POCT ORDERABL ES - DEVICE Final Result Performing Organization Address [facility] de Phone Number [facility] [place] [address] * POCT glucose (02/11/2025 12:35 PM CDT) Glucose, POC 93 70 - 199 mg/dL Blood 02/11/2025 12:3 5 PM CDT 02/11/2025 12:35 PM CDT Yuval Madrid MD LAB POCT ORDERABL ES - DEVICE Final Result Performing Organization Address [facility] Co de Phone Number [facility] [place] [address] * RPR Blood (02/11/2025 11:27 AM CDT) Pathologist [facility] RPR Nonreactive Nonreactive Blood 02/11/2025 11:2 7 AM CDT 02/11/2025 11:46 AM CDT Margaret Velazquez NP LAB MICROBIOLOGY - GENERAL ORDERABLES Final Result Performing Organization Address [facility] Co de Phone Number [facility] [place] [address] * Type and screen (02/11/2025 11:27 AM CDT) [facility] Nubia, indirect Negative ABO Rh A Negative [facility] Blood 02/11/2025 11:2 7 AM CDT 02/11/2025 11:39 AM CDT Narrative [facility] - 02/11/2025 12:50 PM CDT Has the patient had Daratumumab or Isatuximab in the past 6 months?->Unknown Margaret Velazquez NP LAB BLOOD BANK MARU T ORDERABLES Final Result Performing Organization Address [facility] Co de Phone Number [facility] [place] [address] * eGFR (02/11/2025 10:15 AM CDT) [facility] eGFR >90 >=60 mL/min/1. 73 m2 Comment: Interpretive Data Reference Interval Normal >/= 90 mL/min/1.73m2 Mildly decreased* 60 - 89 mL/min/1.73m2 Mildly to moderately decreased 45 - 59 mL/min/1.73m2 Moderately to severely decreased 30 - 44 mL/min/1.73m2 Severely decreased 15 - 29 mL/min/1.73m2 Kidney Failure < 15 mL/min/1.73m2 *Relative to young adult level Estimated glomerular filtration rate is determined by the 2020 CKD-EPI equation recommended by the National Kidney Foundation (A Unifying Approach to GFR Estimation: Recommendations of the NKF-ASK Task Force on Reassessing the Inclusion of Race in Diagnosing Kidney Disease, JASN 2020). The CKD-EPI equation should not be used for patients with unstable renal function and has not been validated in children and those over 70. Current interpretive data was last reviewed 2021. Blood 02/11/2025 10:1 5 AM CDT 02/11/2025 10:34 AM CDT Margaret Velazquez NP LAB BLOOD ORDERABL ES Final Result [facility] [place] [address] * (ABNORMAL) Differential, auto (02/11/2025 10:15 AM CDT) Neutrophil abs 9.42(H) 1.50 - 6.50 K/cumm Imm gran abs 0.13(H) 0.00 - 0.10 K/cumm [facility] Lymphocyte abs 2.64 0.80 - 3.30 K/cumm [facility] Monocyte abs 1.22(H) 0.20 - 0.80 K/cumm [facility] Eosinophil abs 0.15 0.00 - 0.50 K/cumm [facility] Basophil abs 0.05 0.00 - 0.10 K/cumm [facility] Neutrophil pct 69.1 % [facility] Comment: Interpretive Data Percent cell count reference ranges are not reported, since discordance with absolute values may lead to misinterpretation of CBC data. Current Interpretive Data was last revised on 2017. Imm gran pct 1.0 % [facility] Comment: Interpretive Data Percent cell count reference ranges are not reported, since discordance with absolute values may lead to misinterpretation of CBC data. Current Interpretive Data was last revised on 2017. Lymphocyte pct 19.4 % [facility] Comment: Interpretive Data Percent cell count reference ranges are not reported, since discordance with absolute values may lead to misinterpretation of CBC data. Current Interpretive Data was last revised on 2017. Monocyte pct 9.0 % [facility] Comment: Interpretive Data Percent cell count reference ranges are not reported, since discordance with absolute values may lead to misinterpretation of CBC data. Current Interpretive Data was last revised on 2017. Eosinophil pct 1.1 % [facility] Comment: Interpretive Data Percent cell count reference ranges are not reported, since discordance with absolute values may lead to misinterpretation of CBC data. Current Interpretive Data was last revised on 2017. Basophil pct 0.4 % [facility] Comment: Interpretive Data Percent cell count reference ranges are not reported, since discordance with absolute values may lead to misinterpretation of CBC data. Current Interpretive Data was last revised on 2017. Blood 02/11/2025 10:1 5 AM CDT 02/11/2025 10:36 AM CDT Margaret Velazquez BILINGUAL RECEPTIONIST LAB BLOOD ORDERABL ES Final Result [facility] [place] [address] * (ABNORMAL) CBC with auto differential (02/11/2025 10:15 AM CDT) WBC 13.61(H) 3.80 - 9.90 K/cumm Hgb 11.1(L) 11.9 - 15.5 g/dL [facility] Hct 32.7(L) 35.6 - 45.5 % [facility] Plt 347 150 - 400 K/cumm [facility] MPV 10.0 9.1 - 12.3 fL [facility] RBC 3.87(L) 3.90 - 5.20 M/cumm [facility] MCV 84.5 81.3 - 96.4 fL [facility] MCH 28.7 27.1 - 33.3 pg [facility] MCHC 33.9 32.3 - 35.7 g/dL [facility] RDW CV 13.7 11.1 - 14.9 % [facility] RDW SD 42.4 35.7 - 48.1 fL [facility] NRBC abs 0.00 0.00 - 0.01 K/cumm [facility] Blood 02/11/2025 10:1 5 AM CDT 02/11/2025 10:36 AM CDT Margaret Velazquez NP LAB BLOOD ORDERABL ES Final Result Performing Organization Address [facility] de Phone Number [facility] [place] [address] * (ABNORMAL) Protein / creatinine ratio, urine, random (02/11/2025 10:15 AM CDT) Protein, ur, quant 27.2 mg/dL Comment: Interpretive Data No reference range established. Current interpretive data was last revised 2018. Creatinine Ur 131.4 mg/dL [facility] Comment: Interpretive Data No reference range established. Current interpretive data was last revised 2018. Protein/creatinin e ratio 207.0(H) 0.0 - 180.0 mg/g CR [facility] Urine 02/11/2025 10:1 5 AM CDT 02/11/2025 10:33 AM CDT Margaret Velazquez NP LAB URINE ORDERABL ES Final Result Performing Organization Address [facility] de Phone Number [facility] [place] [address] * (ABNORMAL) Comprehensive metabolic panel (02/11/2025 10:15 AM CDT) [facility] Sodium 138 135 - 145 mmol/L Potassium, pl 3.9 3.3 - 4.9 mmol/L [facility] Chloride 105 97 - 110 mmol/L [facility] CO2 21(L) 22 - 32 mmol/L [facility] Anion gap 12 2 - 15 mmol/L [facility] BUN 9 6 - 25 mg/dL [facility] Creatinine 0.54(L) 0.60 - 1.10 mg/dL [facility] Glucose 110 70 - 199 mg/dL [facility] Comment: Interpretive Data Fasting glucose >/= 126 mg/dl is diagnostic for diabetes. Fasting is defined as no caloric intake for at least 8 hours. Fasting glucose between 100 mg/dl to 125 mg/dl is diagnostic of prediabetes. In a patient with classic symptoms of hyperglycemia or hyperglycemic crisis, a random glucose >/= 200 mg/dl is diagnostic for diabetes. In the absence of unequivocal hyperglycemia, results should be confirmed by repeat testing. The classification and Diagnosis of Diabetes Diabetes Care 202; 46: S19-S40. Current interpretive data was last revised 2022. Calcium 9.0 8.5 - 10.3 mg/dL [facility] Bilirubin, total 0.3 0.1 - 1.2 mg/dL [facility] Protein, pl 7.0 6.5 - 8.5 g/dL [facility] Albumin 3.4(L) 3.5 - 5.0 g/dL [facility] Alk phos 116 40 - 130 Units/L [facility] ALT 15 7 - 45 Units/L [facility] AST 18 10 - 45 Units/L [facility] Blood 02/11/2025 10:1 5 AM CDT 02/11/2025 10:34 AM CDT Margaret Velazquez NP LAB BLOOD ORDERABL ES Final Result [facility] [place] [address] * (ABNORMAL) POCT urinalysis (Clinitek) (02/11/2025 10:13 AM CDT) Color, ur, POC Yellow Yellow Clarity, UA, POC Clear Clear [facility] Glucose, ur, POC 2+(A) Negative [facility] Bilirubin, ur, POC Negative Negative [facility] Ketones, ur, POC 1+(A) Negative [facility] Specific gravity, ur, POC >=1.030(A) 1.010 - 1.025 [facility] Blood, ur, POC Negative Negative [facility] pH, ur, POC 6.0 [facility] Comment: Interpretive Data Urine pH is affected by diet, medications, systemic acid-base disturbances, and renal tubular function. pH may affect urinary stone formation. For example, urine pH below 6.0 may help reduce the tendency for calcium phosphate stones and pH greater than 6.0 may reduce the tendency for uric acid stone formation. Source: [facility]. Last Revised Date: 08-01-2017 Protein, ur, POC 1+(A) Negative [facility] Urobilinogen, ur, POC 0.2 mg/dL mg/dL [facility] Nitrites, ur, POC Negative Negative [facility] Leukocyte esterase, ur, POC Trace(A) Negative [facility] Urine 02/11/2025 10:1 3 AM CDT 02/11/2025 10:13 AM CDT Yuavl Madrid MD LAB POCT ORDERABL ES - DEVICE Final Result Performing Organization Address City/State/[facility] Co de Phone Number [facility] [place] [address] * (ABNORMAL) nonstress test - (02/11/2025 9:56 AM CDT) Beulah Lee NP OB GYNE ORDERABLES Final Result * nonstress test - (02/08/2025 9:59 AM CDT) Result [facility] Gaby Quesada MD OB GYNE ORDERABLES Final Result * nonstress test - (02/04/2025 9:53 AM CDT) Zakia Pulido MD OB GYNE ORDERABLE S Final Result * nonstress test - (02/01/2025 11:05 AM CDT) Yuval Madrid MD OB GYNE ORDERABLE S Final Result * nonstress test - (01/28/2025 9:01 AM CDT) Dian Edwards MD OB GYNE ORDERABLES Final R esult * POCT glucose (01/25/2025 9:55 AM CDT) Glucose, POC 83 70 - 199 mg/dL Blood 01/25/2025 9:55 AM CDT 01/25/2025 9:55 AM CDT Yuval Madrid MD LAB POCT ORDERABL ES - DEVICE Final Result Performing Organization Address City/State/[facility] Co de Phone Number [facility] [place] [address] * eGFR (01/25/2025 9:48 AM CDT) eGFR >90 >=60 mL/min/1. 73 m2 Comment: Interpretive Data Reference Interval Normal >/= 90 mL/min/1.73m2 Mildly decreased* 60 - 89 mL/min/1.73m2 Mildly to moderately decreased 45 - 59 mL/min/1.73m2 Moderately to severely decreased 30 - 44 mL/min/1.73m2 Severely decreased 15 - 29 mL/min/1.73m2 Kidney Failure < 15 mL/min/1.73m2 *Relative to young adult level Estimated glomerular filtration rate is determined by the 2020 CKD-EPI equation recommended by the National Kidney Foundation (A Unifying Approach to GFR Estimation: Recommendations of the NKF-ASK Task Force on Reassessing the Inclusion of Race in Diagnosing Kidney Disease, JASN 2020). The CKD-EPI equation should not be used for patients with unstable renal function and has not been validated in children and those over 70. Current interpretive data was last reviewed 2021. Blood 01/25/2025 9:48 AM CDT 01/25/2025 10:17 AM CDT Margaret Velazquez BILINGUAL RECEPTIONIST LAB BLOOD ORDERABL ES Final Result [facility] [place] [address] * (ABNORMAL) Differential, auto (01/25/2025 9:48 AM CDT) Neutrophil abs 8.78(H) 1.50 - 6.50 K/cumm Imm gran abs 0.15(H) 0.00 - 0.10 K/cumm [facility] Lymphocyte abs 2.67 0.80 - 3.30 K/cumm [facility] Monocyte abs 0.99(H) 0.20 - 0.80 K/cumm [facility] Eosinophil abs 0.16 0.00 - 0.50 K/cumm [facility] Basophil abs 0.05 0.00 - 0.10 K/cumm [facility] Neutrophil pct 68.5 % [facility] Comment: Interpretive Data Percent cell count reference ranges are not reported, since discordance with absolute values may lead to misinterpretation of CBC data. Current Interpretive Data was last revised on 2017. Imm gran pct 1.2 % [facility] Comment: Interpretive Data Percent cell count reference ranges are not reported, since discordance with absolute values may lead to misinterpretation of CBC data. Current Interpretive Data was last revised on 2017. Lymphocyte pct 20.9 % [facility] Comment: Interpretive Data Percent cell count reference ranges are not reported, since discordance with absolute values may lead to misinterpretation of CBC data. Current Interpretive Data was last revised on 2017. Monocyte pct 7.7 % [facility] Comment: Interpretive Data Percent cell count reference ranges are not reported, since discordance with absolute values may lead to misinterpretation of CBC data. Current Interpretive Data was last revised on 2017. Eosinophil pct 1.3 % [facility] Comment: Interpretive Data Percent cell count reference ranges are not reported, since discordance with absolute values may lead to misinterpretation of CBC data. Current Interpretive Data was last revised on 2017. Basophil pct 0.4 % [facility] Comment: Interpretive Data Percent cell count reference ranges are not reported, since discordance with absolute values may lead to misinterpretation of CBC data. Current Interpretive Data was last revised on 2017. Blood 01/25/2025 9:48 AM CDT 01/25/2025 10:17 AM CDT us Margaret Velazquez BILINGUAL RECEPTIONIST LAB BLOOD ORDERABL ES Final Result [facility] Department [place] [address] * (ABNORMAL) CBC with auto differential (01/25/2025 9:48 AM CDT) WBC 12.80(H) 3.80 - 9.90 K/cumm Hgb 12.1 11.9 - 15.5 g/dL [facility] Hct 36.1 35.6 - 45.5 % [facility] Plt 368 150 - 400 K/cumm [facility] MPV 9.8 9.1 - 12.3 fL [facility] RBC 4.20 3.90 - 5.20 M/cumm [facility] MCV 86.0 81.3 - 96.4 fL [facility] MCH 28.8 27.1 - 33.3 pg [facility] MCHC 33.5 32.3 - 35.7 g/dL [facility] RDW CV 14.0 11.1 - 14.9 % [facility] RDW SD 43.7 35.7 - 48.1 fL [facility] NRBC abs 0.00 0.00 - 0.01 K/cumm [facility] Blood 01/25/2025 9:48 AM CDT 01/25/2025 10:17 AM CDT us Margaret Velazquez NP LAB BLOOD ORDERABL ES Final Result Performing Organization Address [facility] Co de Phone Number [facility] [place] [address] * Protein / creatinine ratio, urine, random (01/25/2025 9:48 AM CDT) Protein, ur, quant 10.9 mg/dL Comment: Interpretive Data No reference range established. Current interpretive data was last revised 2018. Creatinine Ur 77.9 mg/dL [facility] Comment: Interpretive Data No reference range established. Current interpretive data was last revised 2018. Protein/creatinin e ratio 139.9 0.0 - 180.0 mg/g CR [facility] Urine 01/25/2025 9:48 AM CDT 01/25/2025 10:17 AM CDT Margaret Velazquez NP LAB URINE ORDERABL ES Final Result Performing Organization Address [facility] de Phone Number [facility] Department [place] [address] * (ABNORMAL) Comprehensive metabolic panel (01/25/2025 9:48 AM CDT) [facility] Sodium 137 135 - 145 mmol/L Potassium, pl 4.2 3.3 - 4.9 mmol/L [facility] Chloride 103 97 - 110 mmol/L [facility] CO2 22 22 - 32 mmol/L [facility] Anion gap 12 2 - 15 mmol/L [facility] BUN 8 6 - 25 mg/dL [facility] Creatinine 0.51(L) 0.60 - 1.10 mg/dL [facility] Glucose 82 70 - 199 mg/dL [facility] Comment: Interpretive Data Fasting glucose >/= 126 mg/dl is diagnostic for diabetes. Fasting is defined as no caloric intake for at least 8 hours. Fasting glucose between 100 mg/dl to 125 mg/dl is diagnostic of prediabetes. In a patient with classic symptoms of hyperglycemia or hyperglycemic crisis, a random glucose >/= 200 mg/dl is diagnostic for diabetes. In the absence of unequivocal hyperglycemia, results should be confirmed by repeat testing. The classification and Diagnosis of Diabetes Diabetes Care 2021; 46: S19-S40. Current interpretive data was last revised 2022. Calcium 9.4 8.5 - 10.3 mg/dL [facility] Bilirubin, total 0.3 0.1 - 1.2 mg/dL [facility] Protein, pl 7.2 6.5 - 8.5 g/dL [facility] Albumin 3.6 3.5 - 5.0 g/dL [facility] Alk phos 107 40 - 130 Units/L [facility] ALT 11 7 - 45 Units/L [facility] AST 14 10 - 45 Units/L [facility] Blood 01/25/2025 9:48 AM CDT 01/25/2025 10:17 AM CDT Margaret Velazquez NP LAB BLOOD ORDERABL ES Final Result [facility] Department [place] [address] * (ABNORMAL) POCT urinalysis (Clinitek) (01/25/2025 9:44 AM CDT) Color, ur, POC Yellow Yellow Clarity, UA, POC Clear Clear [facility] Glucose, ur, POC Negative Negative [facility] Bilirubin, ur, POC Negative Negative [facility] Ketones, ur, POC 2+(A) Negative [facility] Specific gravity, ur, POC 1.015 1.010 - 1.025 [facility] Blood, ur, POC Negative Negative [facility] pH, ur, POC 6.0 [facility] Comment: Interpretive Data Urine pH is affected by diet, medications, systemic acid-base disturbances, and renal tubular function. pH may affect urinary stone formation. For example, urine pH below 6.0 may help reduce the tendency for calcium phosphate stones and pH greater than 6.0 may reduce the tendency for uric acid stone formation. Source: [employer]. Last Revised Date: 08-01-2017 Protein, ur, POC Negative Negative [facility] Urobilinogen, ur, POC 0.2 mg/dL mg/dL [facility] Nitrites, ur, POC Negative Negative [facility] Leukocyte esterase, ur, POC 1+(A) Negative [facility] Urine 01/25/2025 9:44 AM CDT 01/25/2025 9:44 AM CDT Yuval Madrid MD LAB POCT ORDERABL ES - DEVICE Final Result [facility] Department [place] [address] * nonstress test - (01/25/2025 8:52 AM CDT) Gilma King MD OB GYNE ORDERABLES Fi nal Result * nonstress test - (01/21/2025 9:51 AM CDT) Gilma King MD OB GYNE ORDERABLES Fi nal Result * US Ob Follow Up (01/18/2025 7:42 AM CDT) Fetus# Fetus1 VIEWPOINT Estimated Weight 2,390 g&grams VIEWPOINT Placenta Details anterior, Previa-no, no placental masses VIEWPOINT Presentation Vertex VIEWPOINT Anatomical Region Laterality Modality Abdomen N/A Ultrasound 01/18/2025 7:43 AM CDT Impressions 01/18/2025 8:36 AM CDT Normal biometry 2390 g at 56%. Mild polyhydramnios with amniotic fluid 26.4 cm. The biophysical profile is 8/8 with normal breathing motion, body motion, tone and amniotic fluid volume. Stable fibroid. Narrative Procedure Note Janae Mayorga MD - 01/18/2025 IMPRESSION: Normal biometry 2390 g at 56%. Mild polyhydramnios with amniotic fluid26.4 cm. The biophysical profile is 8/8 with normal breathing motion,body motion, tone and amniotic fluid volume. Stable fibroid. Beulah Lee NP IMG OB US PROCEDURE S Final Result * nonstress test - (01/15/2025 9:27 AM CDT) Gaby Quesada MD OB GYNE ORDERABLES Final Result * US Ob Limited (01/12/2025 7:24 AM CDT) Fetus# Fetus1 VIEWPOINT Placenta Details anterior, Previa-no, no placental masses VIEWPOINT Presentation Vertex VIEWPOINT Anatomical Region Laterality Modality Abdomen N/A Ultrasound 01/12/2025 7:34 AM CDT Impressions 01/12/2025 8:52 AM CDT IUP at 33 weeks for surveillance. Vertex presentation. The BPP was 8 out of 8 and reassuring. Bilateral UTD A1 is noted. The amniotic fluid volume measured within normal limits. Narrative Procedure Note Gilma King MD - 01/12/2025 IMPRESSION: IUP at 33 weeks for surveillance. Vertex presentation. The BPPwas 8 out of 8 and reassuring. Bilateral UTD A1 is noted. The amnioticfluid volume measured within normal limits. Beulah Lee NP IMG OB US PROCEDURE S Final Result * US Ob Limited (01/07/2025 9:38 AM CDT) Fetus# Fetus1 VIEWPOINT Placenta Details anterior, Previa-no, no placental masses VIEWPOINT Presentation Vertex VIEWPOINT Anatomical Region Laterality Modality Abdomen N/A Ultrasound 01/07/2025 9:43 AM CDT Impressions 01/07/2025 10:52 AM CDT 32w 2d IUP for evaluation of wellbeing ? BPP 8/8. Vertex presentation. Normal CAMILA. Narrative Procedure Note Janae Mayorga MD - 06/19/2025 IMPRESSION: 32w 2d IUP for evaluation of wellbeing ? BPP 8/8. Vertexpresentation. Normal CAMILA. us Beulah Lee NP IMG OB US PROCEDURE S Final Result * US Ob Detail Anatomy Single Or First Gestation (01/04/2025 11:52 AM CDT) Fetus# Fetus1 VIEWPOINT Placenta Details anterior, Previa-no VIEWPOINT Presentation Vertex VIEWPOINT Anatomical Region Laterality Modality Body N/A Ultrasound 01/04/2025 11:5 6 AM CDT Impressions 01/04/2025 1:16 PM CDT IUP at 31w6d who presents for reevaluation of the kidneys and BPP in setting of T2DM. 1. Vertex presentation. 2. The bilateral kidney, ureters, bladder, and amniotic fluid are all normal today. The UTD has resolved on today's scan. 3. The biophysical profile is 8/8 with normal breathing motion, body motion, tone and amniotic fluid volume. Narrative Procedure Note Zakia Pulido MD - 01/04/2025 IMPRESSION: IUP at 31w6d who presents for reevaluation of the kidneys and BPP insetting of T2DM. 1. Vertex presentation. 2. The bilateral kidney, ureters, bladder, and amniotic fluid are allnormal today. The UTD has resolved on today's scan. 3. The biophysical profile is 8/8 with normal breathing motion, bodymotion, tone and amniotic fluid volume. us Glen Velazquez MD IMG OB US PROCEDURES Final Result * US Ob Follow Up (12/24/2024 2:30 PM CDT) Fetus# Fetus1 VIEWPOINT Estimated Weight 1,658 g&grams VIEWPOINT Placenta Details anterior, Previa-no VIEWPOINT Presentation Vertex VIEWPOINT Anatomical Region Laterality Modality Abdomen N/A Ultrasound 12/24/2024 2:31 PM CDT Impressions 12/24/2024 3:11 PM CDT IUP at 30w 2d who presents for growth assessment. Vertex presentation. Normal growth. The EFW plots at the 58%. Left renal pelvis is dilated to 7.4 mm and there is mild ureteral dilation seen. A2-3 UTD. The amniotic fluid volume is increased- mild polyhydramnios. Findings reviewed with the patient. referral to pediatric urology recommended through the [facility]. MFM BILINGUAL RECEPTIONIST visit to follow. Narrative Procedure Note Zakia Giordano MD - 12/24/2024 IMPRESSION: IUP at 30w 2d who presents for growth assessment. Vertex presentation. Normal growth. The EFW plots at the 58%. Left renal pelvis is dilated to 7.4 mm and there is mild ureteral dilationseen. A2-3 UTD. The amniotic fluid volume is increased- mild polyhydramnios. Findingsreviewed with the patient. referral to pediatric urologyrecommended through the [facility]. MFM BILINGUAL RECEPTIONIST visit to follow. us Beulah Lee NP IMG OB US PROCEDURE S Final Result * HIV 1/2 Antibody plus p24 Antigen Blood (12/15/2024 9:14 AM CDT) HIV 1/2 ab + p24 ag Nonreactive Nonreactive Comment:Nonreactive for HIV- 1 antigen and HIV-1/HIV-2 antibodies. No laboratory evidence of HIV infection. If acute HIV infection is suspected, consider testing for HIV-1 RNA. Current interpretive data was last revised on 22. Blood 12/15/2024 9:14 AM CDT 12/15/2024 10:03 AM CDT us Beulah Lee NP LAB MICROBIOLOGY - GENERAL ORDERABLES Final Result [facility] Department [place] [address] * RPR Blood (12/15/2024 9:14 AM CDT) Pathologist [facility] RPR Nonreactive Nonreactive Blood 12/15/2024 9:14 AM CDT 12/15/2024 10:03 AM CDT Beulah Lee BILINGUAL RECEPTIONIST LAB MICROBIOLOGY - GENERAL ORDERABLES Final Result Performing Organization Address City/[facility]/ZIP Co de Phone Number [facility] [place] [address] * (ABNORMAL) CBC without differential (12/15/2024 9:14 AM CDT) [facility] WBC 14.46(H) 3.80 - 9.90 K/cumm Hgb 12.1 11.9 - 15.5 g/dL [facility] Hct 35.5(L) 35.6 - 45.5 % [facility] Plt 364 150 - 400 K/cumm [facility] MPV 10.0 9.1 - 12.3 fL [facility] RBC 4.07 3.90 - 5.20 M/cumm [facility] MCV 87.2 81.3 - 96.4 fL [facility] MCH 29.7 27.1 - 33.3 pg [facility] MCHC 34.1 32.3 - 35.7 g/dL [facility] RDW CV 14.9 11.1 - 14.9 % [facility] RDW SD 47.5 35.7 - 48.1 fL [facility] NRBC abs 0.00 0.00 - 0.01 K/cumm [facility] Blood 12/15/2024 9:14 AM CDT 12/15/2024 10:03 AM CDT Beulah Lee BILINGUAL RECEPTIONIST LAB BLOOD ORDERABLE S Final Result [facility] Department [place] [address] * (ABNORMAL) Hemoglobin A1c (12/15/2024 9:14 AM CDT) [facility] Hgb A1C 6.2(H) 4.0 - 5.6 % Estimated Average Glucose 131 mg/dL [facility] Comment: The ADA recommends reporting an estimated Average Glucose (eAG) with all Hemoglobin A1c results using the equation derived from a study of 507 normal and diabetic adults. Minority populations were underrepresented and children were not included. (Diabetes Care 2020; 43(S1): S66-S76). The eAG is not equivalent to a fasting glucose. Blood 12/15/2024 9:14 AM CDT 12/15/2024 10:03 AM CDT Beulah Lee NP LAB BLOOD ORDERABLE S Final Result Performing Organization Address City/[facility] Co de Phone Number [facility] Department [place] [address] * Type and screen (12/15/2024 9:11 AM CDT) [facility] ABO Rh A Negative Nubia, indirect Negative [facility] Blood 12/15/2024 9:11 AM CDT 12/15/2024 11:29 AM CDT Narrative [facility] - 12/15/2024 12:45 PM CDT Has the patient had Daratumumab or Isatuximab in the past 6 months?->Unknown Beulah Lee NP LAB BLOOD BANK TEST ORDERABLES Final Result [facility] [place] [address] * US Ob Follow Up (11/26/2024 2:30 PM CDT) [facility] Fetus# Fetus1 VIEWPOINT Estimated Weight 942 g&grams VIEWPOINT Placenta Details anterior, Previa-no VIEWPOINT Presentation Vertex VIEWPOINT Anatomical Region Laterality Modality Abdomen N/A Ultrasound 11/26/2024 2:57 PM CDT Impressions 11/26/2024 3:54 PM CDT Rowley IUP at 26w 2d who presents for growth assessment. 1. Vertex presentation. 2. The interval growth has been appropriate. The EFW plots at the 46%. 3. The left renal pelvis is dilated to 6.2 mm. The right kidney appears normal. There is no peripheral calyceal or ureteral dilation. The bladder and amniotic fluid volume are normal. This is consistent with UTD A1. 4. 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 The patient was counseled in ultrasound regarding persistent UTD A1. Discussed this is often a transient finding. Discussed possible associations, including UPJ or UVJ obstruction, posterior urethral valves, vesicoureteral reflux, or rare findings like MCDK. Discussed that though this can be associated with trisomy 21, in the setting of low-risk cffDNA, this association is unlikely. Plan for repeat evaluation with growth ultrasounds. Narrative Procedure Note Sis Edwards MD - 11/26/2024 IMPRESSION: Rowley IUP at 26w 2d who presents for growth assessment. 1. Vertex presentation. 2. The interval growth has been appropriate. The EFW plots at the46%. 3. The left renal pelvis is dilated to 6.2 mm. The right kidney appearsnormal. There is no peripheral calyceal or ureteral dilation. The bladderand amniotic fluid volume are normal. This is consistent with UTD A1. 4. There is a myoma in the left lateral wall of the uterus measuring 5.1cm, stable from prior imaging. The patient was counseled in ultrasound regarding persistent UTD A1.Discussed this is often a transient finding. Discussed possibleassociations, including UPJ or UVJ obstruction, posterior urethral valves,vesicoureteral reflux, or rare findings like MCDK. Discussed that thoughthis can be associated with trisomy 21, in the setting of low-risk cffDNA,this association is unlikely. Plan for repeat evaluation with growthultrasounds. us Beulah Lee NP IMG OB US PROCEDURE S Final Result * Hepatitis C antibody Blood (08/06/2024 9:00 AM HOME THERAPY CLINICIAN) Hep C Ab Nonreactive Nonreactive Comment: Antibodies to HCV not detected. Does NOT exclude the possibility of recent exposure to HCV. Current interpretive data was last revised on 22 Interpretive Data Nonreactive: Antibodies to HCV not detected. Does NOT exclude the possibility of recent exposure to HCV. Equivocal: Equivocal for HCV antibodies. Supplemental molecular testing will be automatically performed to determine infection status in accordance with current CDC screening recommendations. Reactive: Positive for HCV antibodies. This may represent current or past HCV infection. Supplemental molecular testing will be automatically performed to determine current infection status in accordance with current CDC screening recommendations. Interpretive data was last revised on 2019. Blood 08/06/2024 9:00 AM HOME THERAPY CLINICIAN 08/06/2024 12:38 PM HOME THERAPY CLINICIAN us Glen Velazquez MD LAB MICROBIOLOGY - GENERAL ORDERABLES Final Result Performing Organization Address City/State/[facility] Co fl Phone Number [facility] [address] [facility] [place] [address] * Pap with reflex to High Risk HPV (10/24/2021 11:19 AM CDT) Thin prep (Pap test) 10/24/2021 11:19 AM CDT 10/25/2021 11:19 AM CDT Narrative PATHOLOGY [facility] - 10/31/2021 4:06 PM CDT [facility] Department of Pathology [address] [place] [id number] Final Report Note to Patients: This report may contain a detailed description of human tissue sent by a health care provider to the laboratory for pathologic evaluation. The content of this report is essential for diagnosis and may provide important critical findings. This information may be unfamiliar to patients to review without a medical professional present. It is advised that the patient review this report in the presence of a health care provider who can answer questions and explain the details. Patient Name: KEISHA YOUSSEF Address: [address] [place] [id number] Gender: F : 1990 (Age: 31) Service: Laboratory Location: Hospital #: [id number] Patient Type: [facility] SPECIMEN Taken: 10/24/2021 Received: 10/25/2021 Accessioned:: 10/26/2021 Reported: 10/31/2021 Physician(s): Melida Artis [facility] Diagnosis: Source of Specimen: Imaged Thinprep Pap Test w/ Reflex HPV - Balance Staff Inspector Cytologic Material Specimen Adequacy: - Satisfactory for evaluation; endocervical/transformation zone component present General Category: - Negative for intraepithelial lesion or malignancy HUY Harvey(ASCP) HUY Sanchez(ASCP) Report Electronically Reviewed and Signed Out By HUY Sanchez(ASCP) 10/31/2021 16:06:44 Specimen(s) Received: A: Imaged Thinprep Pap Test w/ Reflex HPV - Balance Staff Inspector Cytologic Material Clinical History: Last Menstrual Period: 10/10/21 Menstrual History: Previous Negative Pap: 08/2019 per patient The Pap test is a screening test used to aid in the detection of cervical cancer and its precursors. It should not be the sole means by which malignant and premalignant lesions are diagnosed. Both false negative and false positive results may occur. It also has poor sensitivity for the detection of endometrial lesions and should not be used to evaluate suspected endometrial abnormalities. For these reasons it is most important to obtain Pap tests at regular intervals. The performance characteristics of some immunohistochemical stains, fluorescence in-situ hybridization tests and immunophenotyping by flow cytometry cited in this report (if any) were determined by the Surgical Pathology Department at [facility] as part of an ongoing quality assurance qa lab analyst program and in compliance with federally mandated regulations drawn from the Clinical Laboratory Improvement Act of 1988 (CLIA '88). Some of these tests rely on the use of analyte specific reagents and are subject to specific labeling requirements by the US Food and Drug Administration. Such diagnostic tests may only be performed in a facility that is certified by the Department of Health and Human Services as a high complexity laboratory under CLIA '88. The FDA has determined that such clearance or approval is not necessary. This test is used for clinical purposes. It should not be regarded as investigational or for research. Nevertheless, federal rules concerning the medical use of analyte specific reagents require that the following disclaimer be attached to the report: This test was developed and its performance characteristics determined by the Surgical Pathology Department [facility]. It has not been cleared or approved by the U. S. Food and Drug Administration. Shante Muhammad NP LAB CYTOLOGY ORDERABLES Final Re sult PATHOLOGY [facility] from Last 3 Months or Most Recently Relevant to Health Maintenance Insurance [facility] Advance Directives For more information, please contact: [phone] * Full Code (Latest Code Status on File) Date Activated Date Inactivated Comments 02/13/2025 5:53 AM 02/15/2025 9:53 PM * Full Code Date Activated Date Inactivated Comments 02/11/2025 11:03 AM 02/13/2025 5:53 AM Full CPR in case of cardiopulmonary arrest Care Teams Computer Architect Relationship Specialty Start Date End Date No, Physician PCP - General 11/18/24
--- OUTSIDE RECORDS SUMMARY | 2025-02-17 04:06 | XMS_ITS | Encounter Summary ---
Author Organization [facility] Address [facility] [place] [address] Care Team Providers Care Coating Machine Operator Helper Name Role Phone Suad Haney ROUTE RIDER Primary Care Provider Cherelle Perez ROUTE RIDER Primary Care Provider [phone] Nadiya Vidal ROUTE RIDER Primary Care Provider [phone] Encounter Details Date Type Department Care Team (Latest Contact Info) Description 09/11/2023 [place] [employer] Message Enc [facility] Medical Group Family Medicine - [address] [address] Suad Haney NP About prior authorization timeline. Social History Tobacco Use Types Packs/Day Years [...] Total Score: 6 08/23/19 23 8:03 AM CUSTOMER RELATIONSHIP SPECIALIST documented as of this encounter Care Teams Coating Machine Operator Helper Relationship Specialty Start Date End Date Suad Haney NP PCP - General NURSE PRACTITIONER 12/17/18 12/18/23 Cherelle Brown NP [address] [place] [address] PCP - General NURSE PRACTITIONER 12/19/23 05/03/24 Nadi[place] [address] PCP - General NURSE PRACTITIONER 05/04/24 documented as of this encounter
--- OUTSIDE RECORDS SUMMARY | 2025-02-17 04:06 | XMS_ITS | Patient Health Record ---
Author Organization [facility] [employer] [facility] Address [address] [facility] [address] [place] [address] Care Team Providers Care Tugboat Pilot Name Role Phone Wai Alvarado Unavailable [phone] Reason For Referral No Information Medications Medication SIG (Take, Route, Fr equency, Duration) Notes Start Date End Date Status clonazePAM 0.5 MG Oral Ac tive ARIPiprazole 5 MG Oral Ac tive cloNIDine HCl 0.1 MG Oral Active DULoxetine HCl 60 MG Oral Active Plan Of Treatment No Information
--- OUTSIDE RECORDS SUMMARY | 2025-02-17 04:06 | XMS_ITS | Encounter Summary ---
Author Organization [facility] Address [facility] [place] [address] Care Team Providers Care Clinical Coordinator Name Role Phone Suad Haney TANK WELDER Primary Care Provider Cherelle Perez TANK WELDER Primary Care Provider [phone] Nadiya Vidal TANK WELDER Primary Care Provider [phone] Encounter Details Date Type Department Care Team (Late st Contact Info) Description 01/09/2023 MyChart Message Enc [facility] Medical Group Family Medicine - [address] [address] Suad Haney, TANK WELDER Rash around neck. Social History Tobacco Use Types Packs/Day Years [...] Progress Notes * Rasta Lin MA - 01/09/2023 1:57 PM CDT Please advise. documented in this encounter Plan of Treatment Not on file documented as of this encounter Visit Diagnoses Not on filedocumented in this encounter Additional Health Concerns Assessment Noted Time PHQ-9 Depression Total Score: 6 08/23/19 23 8:03 AM BALLAST CLEANING MACHINE OPERATOR documented as of this encounter Care Teams Clinical Coordinator Relationship Specialty Start Date End Date Suad Haney NP PCP - General NURSE PRACTITIONER 12/17/18 12/18/23 Cherelle Brown NP [address] [place] [address] PCP - General NURSE PRACTITIONER 12/19/23 05/03/[address] [place] [address] PCP - General NURSE PRACTITIONER 05/04/24 documented as of this encounter
--- OUTSIDE RECORDS SUMMARY | 2025-02-17 04:06 | XMS_ITS | Encounter Summary ---
Author Organization [facility] Address [facility] [place] [address] Care Team Providers Care Open Hearth Worker Name Role Phone Cherelle Brown ATTENDANCE OFFICER Primary Care Provider [phone] Nadiya Vidal ATTENDANCE OFFICER Primary Care Provider [phone] Encounter Details Date Type Department Care Team (Late st Contact Info) Description 03/03/2024 Food.eet Message Enc [facility] Family Medicine - [place] [address] [facility] [address] [place], [place] [address] hCerelle Brown, ATTENDANCE OFFICER [address] [place] [address] Question about supplements Social History Tobacco Use Types Packs/Day Years [...] documented as of this encounter Care Teams Open Hearth Worker Relationship Specialty Start Date End Date Cherelle Brown NP [address] [place] [address] PCP - General NURSE PRACTITIONER 12/19/23 05/03/24 Nadiya [place] [address] PCP - General NURSE PRACTITIONER 05/04/24 documented as of this encounter
--- OUTSIDE RECORDS SUMMARY | 2025-02-17 04:06 | XMS_ITS | Encounter Summary ---
Author Organization [facility] Address [address] [place] [address] Phone Care Team Providers Care Business Machine Operator Name Role Phone No, Physician Primary Care Provider [phone] Reason for Visit * Reason Onset Date Comments Glycemic control meeting 02/16/2025 Encounter Details Date Type Department Care Team (Late st Contact Info) Description 02/16/2025 [facility]ation [facility] [address] [facility] [address] [place] [address] Sis Edwards MD [address] [facility] [address] [place] [address] Glycemic control meeting Social History Tobacco Use Types Packs/Day Years Used Date Smoking Tobacco: Former Vaping Smokeless Tobacco: Never Comments:Will quit when/if I become . [facility] Utilities Answer Date Recorded In the past 12 months has anydooR electric, gas, oil, or water company threatened to [...] often do you attend chur ch or druze services? Never 02/14/2025 Do you belong to any clubs o r organizations such as episcopal groups, unions, fraternal or athletic groups, or [...] things needed for daily living? No 02/14/2025 Naylor Depression Scale Answer Date Recorded Naylor Depression Scale Total 14 08/05/2024 The thought [...] any time in the past 12 m [facility], were you homeless or living in a fci (including now)? No 02/14/2025 Personal Safety Answer Date Recorded Have you ever been in or are you currently in a harmful physical or emotional relationship or is someone making you feel afraid or unsafe? Denies 02/11/2025 Comments No Sex and Gender Information Value Date Recorded Sex Assigned at Not on file Legal Sex Female 9:29 PM ADVERTISING SALES REPRESENTATIVE Gender Identity Not on file Sexual Orientation Straight 04/04/2022 8: 28 AM CDT documented as of this encounter Progress Notes * Sis Edwards MD - 02/16/2025 10:32 AM CDT Images from the original note were not included. Glycemic Control Meeting 02/16/2025 This patient was discussed at the glycemic control meeting on 02/16/2025. No data since 02/11/25 (date of admission to the hospital for delivery). The following adjustments have been proposed: FROM FAVD ON 02/13 Current regimen: 02/16/2025 - no changes Metformin 500 mg qD spool fixer - patient now discharged from the hospital and no glycemic data since admission for delivery. Since she is only on metformin, it is reasonable to not wear a Dexcom if she would like. If that is her preference, we can suspend weekly reviews. If she would like to continue wearing a CGM I am happy to continue looking at her blood sugars to see if additional metformin is needed. Please confirm her preference. This note has been sent to MFM RN clinical pool for coordination of patient care and to communicateproposed adjustments. The problem list has been updated. I have spent 10 total minutes on remote diabetes management. Sis Edwards MD Supervisor Coin Machine Division of Maternal- Medicine and Ultrasound Department of Obstetrics and Gynecology [facility] in [employer] ~~~~~~~~~~~~~~~~~~~~~~~~~~~~~~~~~~~~~~~~~~~~~~~~~~~~~~~~~~ Addendum: Patient plans to follow with endocrinology in the future for diabetes care. MFM to suspend weekly glycemic control reviews for now after discussing with patient. PL updated. documented in this encounter Plan of Treatment Not on file documented as of this encounter Visit Diagnoses Diagnosis - Type 2 diabetes- Primary documented in this encounter Care Teams Business Machine Operator Relationship Specialty Start Date End Date No, Physician PCP - General 11/18/24 documented as of this encounter
--- OUTSIDE RECORDS SUMMARY | 2025-02-17 04:06 | XMS_ITS | Encounter Summary ---
Author Organization [facility] Address [facility] [place] [address] Care Team Providers Care Whipper Name Role Phone Suad Haney PLATE SETTER Primary Care Provider Cherelle Perez PLATE SETTER Primary Care Provider [phone] Nadiya Vidal PLATE SETTER Primary Care Provider [phone] Encounter Details Date Type Department Care Team (Late st Contact Info) Description 06/21/2023 MyChart Message Enc [facility] Medical Group Family Medicine - [address] [address] Suad Haney, PLATE SETTER Today's dose of Trulicity malfunctioned. Social History Tobacco Use Types Packs/Day Years [...] Progress Notes * Rasta Lin MA - 06/21/2023 10:30 AM CST Please advise. NETWORK ARCHITECT documented in this encounter Plan of Treatment Not on file documented as of this encounter Visit Diagnoses Not on filedocumented in this encounter Additional Health Concerns Assessment Noted Time PHQ-9 Depression Total Score: 6 08/23/19 23 8:03 AM LEAD NETWORK ARCHITECT documented as of this encounter Care Teams Whipper Relationship Specialty Start Date End Date Suad Haney PLATE SETTER PCP - General NURSE PRACTITIONER 12/17/18 12/18/23 Cherelle Brown NP [address] [place] [address] PCP - General NURSE PRACTITIONER 12/19/23 05/03/24 N[place] [address] [place] [address] PCP - General NURSE PRACTITIONER 05/04/24 documented as of this encounter
--- OUTSIDE RECORDS SUMMARY | 2025-02-17 04:06 | XMS_ITS | Encounter Summary ---
Author Organization [facility] Address [facility] [place] [address] Care Team Providers Care Forging Press Lever Tender Name Role Phone Suad Haney DRILLER MULTIPLE SPINDLE Primary Care Provider Cherelle Perez DRILLER MULTIPLE SPINDLE Primary Care Provider [phone] Nadiya Vidal DRILLER MULTIPLE SPINDLE Primary Care Provider [phone] Encounter Details Date Type Department Care Team (Late st Contact Info) Description 05/14/2023 Baby Blendyt Message Enc [facility] Medical Group Family Medicine [address] [address] Suad Haney, DRILLER MULTIPLE SPINDLE Lower Left Back Pain Social History Tobacco Use Types Packs/Day Years [...] Total Score: 6 08/23/19 23 8:03 AM MINGLER OPERATOR documented as of this encounter Care Teams Forging Press Lever Tender Relationship Specialty Start Date End Date Suad Haney NP PCP - General NURSE PRACTITIONER 12/17/18 12/18/23 Cherelle Brown NP [address] [place] [address] PCP - General NURSE PRACTITIONER 12/19/23 05/03/24 Nadiya V[place] [address] PCP - General NURSE PRACTITIONER 05/04/24 documented as of this encounter
--- OUTSIDE RECORDS SUMMARY | 2025-02-17 04:06 | XMS_ITS | Encounter Summary ---
Author Organization [facility] Address [facility] [place] [address] Care Team Providers Care Webbing Tacker Name Role Phone Suad Haney VICE PRESIDENT OF CONTRACTS Primary Care Provider Cherelle Perez VICE PRESIDENT OF CONTRACTS Primary Care Provider [phone] Nadiya Vidal VICE PRESIDENT OF CONTRACTS Primary Care Provider [phone] Encounter Details Date Type Department Care Team (Late st Contact Info) Description 10/20/2022 Analyze Rehart Message Enc [facility] Medical Group Family Medicine [address] [address] Suad Haney, VICE PRESIDENT OF CONTRACTS Possible trulicity side effect? Social History Tobacco Use Types Packs/Day Years [...] AM CDT documented as of this encounter Plan of Treatment Not on file documented as of this encounter Visit Diagnoses Not on filedocumented in this encounter Additional Health Concerns Assessment Noted Time PHQ-9 Depression Total Score: 6 08/23/19 23 8:03 AM SWITCHMAN documented as of this encounter Care Teams Webbing Tacker Relationship Specialty Start Date End Date Suad Haney, VICE PRESIDENT OF CONTRACTS PCP - General NURSE PRACTITIONER 12/17/18 12/18/23 Cherelle Brown, MU [address] [place] [address] PCP - General NURSE PRACTITIONER 12/19/23 05/03/24 Nadiya [place] [address] PCP - General NURSE PRACTITIONER 05/04/24 documented as of this encounter
--- OUTSIDE RECORDS SUMMARY | 2025-02-17 04:06 | XMS_ITS | Encounter Summary ---
Author Organization [facility] Address [facility] [place] [address] Care Team Providers Care Drop Forge Hand Name Role Phone Nadiya Vidal MU Primary Care Provider [phone] Encounter Details Date Type Department Care Team (Late st Contact Info) Description 08/11/2024 Popcorn network Message [employer] [facility] [address] [place] [address] [facility], [facility] Provider Patient Amendment Request Social History Tobacco Use Types Packs/Day Years [...] Assessment Noted Time PHQ-9 Depression Total Score: 0 07/23/19 25 3:42 PM BOMB TECHNICIAN documented as of this encounter Care Teams Drop Forge Hand Relationship Specialty Start Date End Date Nadiya [place] [address] PCP - General NURSE PRACTITIONER 05/04/24 documented as of this encounter
--- OUTSIDE RECORDS SUMMARY | 2025-02-17 04:06 | XMS_ITS | Encounter Summary ---
Author Organization [facility] Address [facility] [place] [address] Care Team Providers Care Online Program Coordinator Name Role Phone Nadiya Vidal FRENCH BINDING FOLDER Primary Care Provider [phone] Encounter Details Date Type Department Care Team (Late st Contact Info) Description 08/08/2024 Reality Mobilet Message Enc [facility] Medical Group Family Medicine - [place] [address] [place] [address] Nadiya Vidal NP [address] [place] [address] About nurse Gilma Mantilla Social History Tobacco Use Types Packs/Day Years [...] Total Score: 0 07/23/19 25 3:42 PM TAPPET ADJUSTER documented as of this encounter Care Teams Online Program Coordinator Relationship Specialty Start Date End Date Nadiya V[place] [address] PCP - General NURSE PRACTITIONER 05/04/24 documented as of this encounter
--- OUTSIDE RECORDS SUMMARY | 2025-02-17 04:06 | XMS_ITS | Encounter Summary ---
Author Organization [facility] Address [facility] [place] [address] Care Team Providers Care Document Restorer Name Role Phone Nadiya Vidal BUSINESS SUPERVISOR Primary Care Provider [phone] Encounter Details Date Type Department Care Team (Late st Contact Info) Description 08/07/2024 Celsiont Message Enc [facility] Medical Group Family Medicine - [place] [address] [place] [address] Nadiya Vidal NP [address] [place] [address] Continuous Glucose Meter Question. Social History Tobacco Use Types Packs/Day Years [...] Total Score: 0 07/23/19 25 3:42 PM STEEL FINISHER documented as of this encounter Care Teams Document Restorer Relationship Specialty Start Date End Date Nadiya [place] [address] PCP - General NURSE PRACTITIONER 05/04/24 documented as of this encounter
--- OUTSIDE RECORDS SUMMARY | 2025-02-17 04:06 | XMS_ITS | Encounter Summary ---
Author Organization [facility] Address [facility] [place] [address] Care Team Providers Care Railroad Car Checker Name Role Phone Suad Haney QUARTER SEAMER Primary Care Provider Cherelle Perez QUARTER SEAMER Primary Care Provider [phone] Nadiya Vidal QUARTER SEAMER Primary Care Provider [phone] Encounter Details Date Type Department Care Team (Late st Contact Info) Description 01/10/2023 InteliVideot Message Enc [facility] Medical Group Family Medicine [address] [address] Suad Haney, QUARTER SEAMER Question about Ozempic. Social History Tobacco Use Types Packs/Day Years [...] Total Score: 6 08/23/19 23 8:03 AM FLOTATION TENDER documented as of this encounter Care Teams Railroad Car Checker Relationship Specialty Start Date End Date Suad Haney NP PCP - General NURSE PRACTITIONER 12/17/18 12/18/23 Cherelle Brown NP [address] [place] [address] PCP - General NURSE PRACTITIONER 12/19/23 05/03/24 Nadiya [place] [address] PCP - General NURSE PRACTITIONER 05/04/24 documented as of this encounter
--- OUTSIDE RECORDS SUMMARY | 2025-02-17 04:06 | XMS_ITS | Encounter Summary ---
Author Organization [facility] Address [facility] [place] [address] Care Team Providers Care Machine Gunner Name Role Phone Suad Haney TICKET COLLECTOR OR USHER Primary Care Provider Cherelle Perez TICKET COLLECTOR OR USHER Primary Care Provider [phone] Nadiya Vidal TICKET COLLECTOR OR USHER Primary Care Provider [phone] Encounter Details Date Type Department Care Team (Late st Contact Info) Description 07/09/2022 Moto Europat Message Enc [facility] Medical Group Family Medicine [address] [address] Suad Haney, TICKET COLLECTOR OR USHER Duloxetine refill. Social History Tobacco Use Types Packs/Day Years [...] Progress Notes * Rasta Lin MA - 07/10/2022 12:02 PM CST Please advise. POUND ATTENDANT documented in this encounter Plan of Treatment Not on file documented as of this encounter Visit Diagnoses Not on filedocumented in this encounter Additional Health Concerns Assessment Noted Time PHQ-9 Depression Total Score: 1 10/20/19 22 8:33 AM CDT documented as of this encounter Care Teams Machine Gunner Relationship Specialty Start Date End Date Suad Haney TICKET COLLECTOR OR USHER PCP - General NURSE PRACTITIONER 12/17/18 12/18/23 Cherelle Brown NP [address] [place] [address] PCP - General NURSE PRACTITIONER 12/19/23 05/03/[address] V[address] [place] [address] PCP - General NURSE PRACTITIONER 05/04/24 documented as of this encounter
--- OUTSIDE RECORDS SUMMARY | 2025-02-17 04:07 | XMS_ITS | Clinical Summary ---
Author Organization [facility] Address [address] [place] [address] Care Team Providers Care Entry Rep Name Role Phone No, Physician Primary Care Provider [phone] Allergies Active Allergy Reactions Criticality Noted Date Comments Adhesive Rash Medium 10/18/2015 [place] Rash Medium 10/18/2015 Codeine Rash Medium 10/18/2015 Lamotrigine Cough Low 01/20/2024 Losartan Dizziness,Other (See comments) Low 01/19 Medications OneTouch Delica Plus Lancet 33 gauge misc CHECK BLOOD SUGAR ONCE A DAY 07/17/20 24 Active vit 66-wpuw-woyky -dha 27mg iron- 800 mcg-250 mg capsule Take by mouth Active blood-glucose meter,continu ous (Dexcom G7 Mounting Machine Operator) miscIndicatio ns:Pre-existi ng type 2 diabetes mellitus during in first trimester Use continuously to check blood sugars 1 each 2 08/10/19 25 Active blood-glucose sensor (Dexcom G7 Sensor) deviceIndicat ions:Pre-exis ting type 2 diabetes mellitus during in first trimester Use with dexcom clarity quirino to monitor your blood sugar [...] by mouth daily 30 tablet 11 08/05/19 25 025 Discontinued(S top Taking at Discharge) [...] times a day 120 tablet 5 12/25/19 025 Discontinued(S top Taking at Discharge) insulin [...] # Disposition: Follow up task sent to [facility] scheduling pool for appointments in 2 and 6 weeks. Desires discharge home today. heart rate deceleratio ns affecting management of mother 02/11/2025 Encounter for induction of labor 02/11/2025 Overview (2025): Vivien Albright is a 35 y.o. female at 37w2d [...] UTD, s/p counseling in [place]- referral to [facility] to help coordinate peds urology 01/04: normal kidneys bilaterally - 6.8 and 6.4 mm. Recommend repeating kidney assessment on next US but no need for f/u if UTD remains resolved. If returns, can coordinate follow-up for baby. Back to [facility] Assessment & Plan (01/12/2025 12:20 PM CDT): Continue to monitor with serial US Anxiety and depression 09/01/2024 Overview (11/02/2024): History of MDD and CAN since 14 Previously treated by [facility] ([facility] [employer]) Previously on Duloxetine, Aripiprazole, Buspirone OD and [...] provided. Assessment & Plan (09/24/2024 3:[address]IGN INSTALLER): Mood is stable. No acute concerns today. Pre-existing essential hyper tension complicating in second trimester 09/01/2024 Overview (01/15/2025): Ms Albright does not have a formal diagnosis of HTN but review of her notes after she was seen is consistent with HTN. Her DBP is mildly elevated at initial [facility] visit Previously counseled Current regimen: No meds [...] reviewed. Assessment & Plan (09/24/2024 3:[address]IGN INSTALLER): Normotensive today Plan [x] ASA 81 mg [...] sent on 09/30 Referring Provider: Glen Velazquez [phone] [] or Medicare Insurance [x] Dating Criteria: [...] Nexplanon [x] Method of feeding: breast [] Artificial Intelligence Specialist (specifically which provider): pt calling around [x] PP Depression Discussed: [] PP visits scheduled: Vaccines [] Flu Shot (Sep-Jun): [] COVID vaccine: [x] Tdap (27-36wks): 12/15/2024 [...] address. Assessment & Plan (09/24/2024 3:[address]IGN INSTALLER): Continue co-management with primary OB GBS bacteriuria 08/10/2024 Obesity affecting , antepartum 08/05/19 Overview (02/01/2025): Previously counseled Plan: [x] Initiate aspirin 81 mg at 12 weeks for preeclampsia risk reduction [x] Specialized anatomic survey at 20 weeks [] Anesthesia consult 02/01/25 @ 1300 [] testing per T2DM Assessment & Plan (09/24/2024 3:[address] SIGN INSTALLER): Plan: [x] Initiate aspirin 81 mg at [...] MFM counselin08/27/2024 Dexcom: clinic login, name is Vivien Mena Plan FROM FAVD ON 02/13 Current [...] regimen. Assessment & Plan (09/24/2024 3:[address] SIGN INSTALLER): 09/24/24 CGM data reviewed. Fasting values improved [...] Panic attack 03/14/2018 Bipolar disorder, unspecified 10/18/2015 Encounters Date Type Department Care Team Description 02/16/2025 Documentation [facility] Maternal- Medicine [facility] [address] [place] [phone] Sis Edwards MD Glycemic control meeting 02/15/2025 Telephone [facility] Maternal- Medicine [address] [place] [address] 7th Floor [address] [place] [phone] Tressa Soares CMA Appointment 02/13/2025 - 02/13/2025 1:40 AM CDT Surgery [address] [phone] Jeb Swift MD REPAIR VAGINA 2025 5:18 AM CDT Anesthesia Event [address] [phone] Galen Hoover MD Uche, Chiamaka P., MD 02/11/2025 9:25 AM CDT - 02/15/2025 5:43 PM CDT Hospital Encounter [address] [address] Yuval Madrid MD Whitley, Julia D.E., MD Hensel, Drew Michael, MD care following vaginal delivery (Primary Dx) Discharge Disposition: Discharge to home or self care 02/11/2025 8:30 AM CDT Clinical Support [facility]s [facility]ne[facility] [address] [place] [phone] Pre-existing type 2 diabetes mellitus during , antepartum (Primary Dx); Obesity affecting , antepartum, unspecified obesity type 02/11/2025 Telephone [facility] Maternal- Medicine [address] [place] [address] 7th Floor [address] [place] [address] Beulah Lee, MU 02/09/2025 Documentation [facility] Maternal- Medicine [facility] [address] [place] [phone] Sis Edwards MD Glycemic control meeting 02/08/2025 9:00 AM CDT Clinical Support [facility] [address] [place] [phone] Pre-existing type 2 diabetes mellitus during , antepartum (Primary Dx); Supervision of high-risk , third trimester; Obesity affecting , antepartum, unspecified obesity type 02/04/2025 8:30 AM CDT Clinical Support [facility] [address] [place] [address] Outpatient Health [address] [place] [phone] Pre-existing type 2 diabetes mellitus during , antepartum (Primary Dx); Pre-existing essential hypertension complicating in third trimester; Obesity affecting , antepartum, unspecified obesity type 02/01/2025 11:15 AM CDT Office Visit [facility] Maternal- Medicine [address] [place] [address] [address] [place] [address] Obesity affecting , antepartum, unspecified obesity type (Primary Dx); Pre-existing type 2 diabetes mellitus during , antepartum; Supervision of high-risk , third trimester; Anxiety and depression; Pre-existing essential hypertension complicating in second trimester; Polyhydramnios in third trimester, not applicable or unspecified fetus 02/01/2025 10:30 AM CDT Clinical Support [facility] [address] [place] [phone] Supervision of high-risk , third trimester (Primary Dx); Pre-existing type 2 diabetes mellitus during , antepartum; Pre-existing essential hypertension complicating in second trimester 01/28/2025 8:30 AM CDT Clinical Support [facility] [address] [place] [address] [place] [phone] Pre-existing type 2 diabetes mellitus during , antepartum (Primary Dx); Pre-existing essential hypertension complicating in third trimester; Obesity affecting , antepartum, unspecified obesity type 01/26/[address] [phone] Sis Edwards MD Glycemic control meeting 01/25/2025 9:04 AM CDT - 01/25/2025 12:26 PM CDT [address] [place] [address] Yuval Madrid MD Discharge Disposition: Discharge to home or self care 01/25/2025 8:30 AM CDT Clinical Support [facility] [address] [place] [phone] Supervision of high-risk , third trimester (Primary Dx); Pre-existing type 2 diabetes mellitus during , antepartum; Pre-existing essential hypertension complicating in second trimester 01/21/2025 9:00 AM CDT Clinical Support [facility] [address] [place] [phone] Pre-existing type 2 diabetes mellitus during , antepartum (Primary Dx); Pre-existing essential hypertension complicating in third trimester; Obesity affecting , antepartum, unspecified obesity type 01/19/2025 Orders Only [facility] Maternal- Medicine [address] [place] [address] Floor [address] [place] [address] Regina Adan, ADELAIDE Supervision of high-risk , third trimester (Primary Dx); Obesity affecting , antepartum, unspecified obesity type 01/18/2025 8:45 AM CDT Office Visit [facility] Maternal- Medicine [address] [place] [address] Floor [address] [place] [phone] Obesity affecting , antepartum, unspecified obesity type (Primary Dx); Pre-existing essential hypertension complicating in second trimester; Pre-existing type 2 diabetes mellitus during , antepartum; Polyhydramnios in third trimester, not applicable or unspecified fetus 01/18/2025 7:42 AM CDT - 01/18/2025 11:59 PM CDT Hospital Encounter [facility] Outpatient Health - Ultrasound [address] [place] [address], [address] [place] [address], [address] [place] [address] Pre-existing type 2 diabetes mellitus during , antepartum; Pyelectasis of fetus on ultrasound; Polyhydramnios in third trimester, not applicable or unspecified fetus Discharge Disposition: Discharge to home or self care 01/15/2025 9:00 AM CDT Clinical Support [facility] [address] [place] [phone] Pre-existing type 2 diabetes mellitus during , antepartum (Primary Dx); Pre-existing essential hypertension complicating in third trimester 01/12/2025 8:20 AM CDT Office Visit [facility] Maternal- Medicine [address] [place] [address] 7th Floor [address] [place] [phone] Anxiety and depression (Primary Dx); Obesity affecting , antepartum, unspecified obesity type; Polyhydramnios in third trimester, not applicable or unspecified fetus; Pre-existing essential hypertension complicating in second trimester; Pre-existing type 2 diabetes mellitus during , antepartum; Supervision of high-risk , second trimester; Rh negative state in antepartum period 01/12/2025 7:24 AM CDT - 01/12/2025 11:59 PM CDT Hospital Encounter [facility] Outpatient Health - Ultrasound [address] [place] [address], [address] [place] [address] Pre-existing type 2 diabetes mellitus during , antepartum; Pyelectasis of fetus on ultrasound; Polyhydramnios in third trimester, not applicable or unspecified fetus Discharge Disposition: Discharge to home or self care 01/12/2025 Documentation [facility] Maternal- Medicine [facility] [address] [place] [address] Sis Edwards MD Glycemic control meeting 01/07/2025 9:38 AM CDT - 01/07/2025 11:59 PM CDT Hospital Encounter [facility] Outpatient Health - Ultrasound [address] [place] [address], [address] [place] [address] Pre-existing type 2 diabetes mellitus during , antepartum; Pyelectasis of fetus on ultrasound; Polyhydramnios in third trimester, not applicable or unspecified fetus Discharge Disposition: Discharge to home or self care 01/07/2025 9:00 AM CDT Clinical Support [facility] [address] [place] [phone] 01/07/2025 Orders Only [facility] Maternal- Medicine [address] [facility] 7th Floor [address] [place] [address] Regina Adan RN 01/05/[address] [phone] Sis Edwards MD Glycemic control meeting 01/04/2025 1:30 PM CDT Office Visit [facility] [address] [facility] 7th Floor [address] [place] [address] Supervision of high-risk , second trimester (Primary Dx); Rh negative state in antepartum period; Pyelectasis of fetus on ultrasound; Pre-existing type 2 diabetes mellitus during , antepartum; Pre-existing essential hypertension complicating in second trimester; Polyhydramnios in third trimester, not applicable or unspecified fetus; Obesity affecting , antepartum, unspecified obesity type; Anxiety and depression 01/04/2025 11:52 AM CDT - 01/04/2025 11:59 PM CDT Hospital Encounter [facility] Outpatient [facility] - Ultrasound [address] [facility], 7th Floor, [address] [place] [address] Pyelectasis of fetus on ultrasound; Polyhydramnios in third trimester, not applicable or unspecified fetus; Supervision of high-risk , second trimester Discharge Disposition: Discharge to home or self care 12/29/[address] [phone] Sis Edwards MD Glycemic control review 12/24/2024 3:20 PM CDT Office Visit [facility] Maternal- Medicine [address] [facility] 7th Floor [address] [place] [phone] Anxiety and depression (Primary Dx); Obesity affecting , antepartum, unspecified obesity type; Pre-existing essential hypertension complicating in second trimester; Pre-existing type 2 diabetes mellitus during , antepartum; Pyelectasis of fetus on ultrasound; Supervision of high-risk , second trimester; Polyhydramnios in third trimester, not applicable or unspecified fetus 12/24/2024 2:30 PM CDT - 12/24/2024 11:59 PM CDT Hospital Encounter [facility] Outpatient Health - Ultrasound [facility], 7th Floor, [address] [place] [address] Obesity affecting , antepartum, unspecified obesity type; Pre-existing essential hypertension complicating in second trimester; Pre-existing type 2 diabetes mellitus during , antepartum Discharge Disposition: Discharge to home or self care 12/15/2024 11:00 AM CDT Office Visit [facility] Maternal- Medicine [address] [place] [address] 7th Floor [address] [place] [address] Supervision of high-risk , second trimester (Primary Dx); Pyelectasis of fetus on ultrasound; Pre-existing type 2 diabetes mellitus during , antepartum; Pre-existing essential hypertension complicating in second trimester; Obesity affecting , antepartum, unspecified obesity type; Anxiety and depression 12/15/2024 9:05 AM CDT Lab [facility] Outpatient Health [address] [place] [address] Pre-existing type 2 diabetes mellitus during , antepartum; Supervision of high-risk , second trimester 12/08/[address] [phone] Yumiko Cox MD 12/04/2024 1:45 PM CDT Telemedicine [facility] Maternal- Medicine [address] [place] [phone] Obesity affecting , antepartum, unspecified obesity type (Primary Dx); Pre-existing type 2 diabetes mellitus during , antepartum; GBS bacteriuria; Rh negative state in antepartum period; Supervision of high-risk , second trimester; Anxiety and depression; Pre-existing essential hypertension complicating in second trimester; Pyelectasis of fetus on ultrasound; Polyhydramnios in third trimester, not applicable or unspecified fetus 12/03/2024 Orders Only [facility] Maternal- Medicine [address] [facility] 7th Floor [address] [place] [address] Celine Rose RN 12/01/2024 Documentation [facility] [address] [place] [address] Dian Edwards MD 11/26/2024 4:20 PM CDT Office Visit [facility] M[facility]- Medicine [address] [facility] 7th Floor [address] [place] [address] Anxiety and depression (Primary Dx); Obesity affecting , antepartum, unspecified obesity type; Pre-existing essential hypertension complicating in second trimester; Pre-existing type 2 diabetes mellitus during , antepartum; Supervision of high-risk , second trimester; Pyelectasis of fetus on ultrasound 11/26/2024 2:30 PM CDT - 11/26/2024 11:59 PM CDT Hospital Encounter [facility] Outpatient [facility] - Ultrasound [facility], 7th Floor, [address] [place] [address] Pre-existing type 2 diabetes mellitus during , antepartum Discharge Disposition: Discharge to home or self care from Last 3 Months Immunizations Immunization Administration Dates Next Due DTaP 10/22/1996, 4,1992,1992,0 1992 DTaP / IPV 10/22/1996,10/09/1993,1992 ,1992 Hep B, Adolescent or Pediatric 11/24/1996,1991,1992 Hib (PRP-OMP) 1992,1992 IPV 10/22/1996,10/09/1993,1992 ,1992 MMR 10/22/1996,05/22/1993 Tdap 12/15/2024,05/05/2018 Surgical History Surgery Date Site/Laterality Comments TONSILECTOMY, ADENOIDECTOMY, BILATERAL MYRINGOTOMY AND TUBES Medical History Medical History Date Comments Anxiety and depression Diabetes mellitus, type II (HCC) Family History Medical History Relation Name Comments Arthritis Father Nasir Albright Diabetes Father Nasir Domonique Hypertension Father Nasir Albright Diabetes Father's Brother Ricardo Albrihgt Early Maternal Grandfather Cristofer Geronimo Heart attack Maternal Grandfather Cristofer Geronimo Heart disease Maternal Grandfather Cristofer Geronimo Depression Mother Maryuri Albright Diabetes Paternal Grandmother December Breast cancer Neg Hx Colon cancer Neg Hx Ovarian cancer Neg Hx Uterine cancer Neg Hx Relation Name Status Comments Father Nasir Albright Father's Brother Ricardo Albright Maternal Grandfather Cristofer Geronimo Mother Maryuri Albright Paternal Grandmother December Social History Tobacco Use Types Packs/Day Years Used Date Smoking Tobacco: Former Vaping Smokeless Tobacco: Never Tobacco Cessation:Counseling Given: Not Answered Comments:Will quit when/if I become . [facility] Utilities Answer Date Recorded In the past 12 months has th e electric, gas, oil, or water company threatened [...] often do you attend chur ch or bahai services? Never 02/14/2025 Do you belong to any clubs o r organizations such as catholic groups, unions, fraternal or athletic groups, or [...] things needed for daily living? No 02/14/2025 [place] Depression Scale Answer Date Recorded [place] Depression Scale Total 14 08/05/2024 The thought [...] [facility] the [facility] were you homeless or living in a [facility] (including now)? No 02/14/2025 Personal Safety Answer Date Recorded Have you ever been in or are you currently in a harmful physical or emotional relationship or is someone making you feel afraid or unsafe? Denies 02/11/2025 Comments No Sex and Gender Information Value Date Recorded Sex Assigned at Not on file Legal Sex Female 9:[address]STALLER Gender Identity Not on file Sexual Orientation Straight 04/04/2022 8: 28 AM CDT Obstetrics History Para Term AB IAB SAB Ectopic Multiple Livin g Live Births 1 1 1 0 0 0 0 0 0 1 1 Date Outcome GA Total Labor Labor/2nd/3rd Weight Sex Type Anes PTL Heather A1 A5 Name Clin 2024 Term 37w 3d 33h 59m 33h 06m/0h 46m/0h 07m 3.06 kg (6 lb 11.9 oz) M Vagina l Epidur al N Livin g 5 7 BoyPa ige Jougl khurram espinoza, Jeb puente MD Complications:None Delivery Location:[facility] Main C ampus ([facility] 58LD) Summary Episode Dates Number of Fetuses Estimated Date of Delivery 08/05/2024 - Present (02/17/2025) 1 03/02/2025 (set by Vita Mcclelland RN on 08/05/2024 based on Last Menstrual Period on 05/26/2024) Dating Summary Based On RUPA GA Diff Last Menstrual Period on 05/26/2024 03/02/2025 Working Ultrasound on 08/05/2024 03/07/2025 -5d GA:9w3d Overview and Plan :Rowley Support person:Ricci Delivery Plans Planned delivery method:Vaginal Planned delivery location:[facility] Overview Surveillance of EDC by LMP = 9 week US A-/I/-/-, HIV and RPR NR Genetics: low risk Anatomy: 20 weeks GCT: 26-28 weeks 3rd trim CBC/HIV/RPR Tdap: 27+ weeks GBS: URIA!!!! Social Barriers: none Mode of feeding: Method of contraception: Delivery Planning: TBD T2DM: on metformin Depression/ anxiety: EPDS at NOB 14 Vitals Pregravid Weight Height TWG (As of 02/17/2025) Pregrav id BMI 107 kg (236 lb) 160 cm (5' 3) 21.4 kg (47 lb 3.2 oz) 41.82 Date GA Fund Present FHR Mvmt BP Weight Edema Alb Glu Ket Dil/ Eff/Sta 5 13w2d Inpatient data not displayed here. See encounter summary. 5 19w2d Inpatient data not displayed here. See encounter summary. 5 20w2d Inpatient data not displayed here. See encounter summary. 5 22w2d Inpatient data not displayed here. See encounter summary. 5 26w2d Inpatient data not displayed here. See encounter summary. 5 30w2d Inpatient data not displayed here. See encounter summary. 5 31w6d Inpatient data not displayed here. See encounter summary. 5 32w2d Inpatient data not displayed here. See encounter summary. 5 33w0d Inpatient data not displayed here. See encounter summary. 5 33w6d Inpatient data not displayed here. See encounter summary. 5 34w6d Inpatient data not displayed here. See encounter summary. 5 37w3d Inpatient data not displayed here. See encounter summary. Notes Progress Notes - Documentati on - 02/16/2025 - GA:37w3d 02/16/2025 - 37w3d - Sis Edwards MD Images from the original note were not included. Glycemic Control Meeting 02/16/2025 This patient was discussed at the glycemic control meeting on 02/16/2025. No data since 02/11/25 (date of admission to the hospital for delivery). The following adjustments have been proposed: FROM FAVD ON 02/13 Current regimen: 02/16/2025 - no changes Metformin 500 mg qD jack spooler tender - patient now discharged from the hospital [...] for coordination of patient care and to communicate proposed adjustments. The problem list has been updated. I have spent 10 total minutes on remote diabetes management. Sis Edwards MD Computer Systems Security Administrator Division of Maternal- Medicine and Ultrasound Department of Obstetrics and Gynecology [facility] [employer] ~~~~~~~~~~~~~~~~~~~~~~~~~~~~~~~~~~~~~~~~~~~~~~~~~~~~~~~~~~ Addendum: Patient plans to follow with endocrinology in the future for diabetes care. MFM to suspend weekly glycemic control reviews for now after discussing with patient. PL updated. Progress Notes - Hospital En counter - 02/15/2025 - GA:37w3d 02/15/2025 - 37w3d - Pooja jones, Lyssa Weiner, PT Physical Therapy Physical Therapy Evaluation Note NOTE: This is a summary note of the farrar components of the evaluation session. For full details, review chart for all flowsheets documented on by this physical therapy clinician on this date. Vital signs are documented in the vital signs flowsheet. For questions, please review the treatment team and contact the PT or MEASUREMENT AND VERIFICATION ENGINEER currently assigned to this patient. If a physical therapy clinician is not assigned to this patient, please call [phone]. 02/15/25 1248 General Chart Reviewed Yes Session Type Evaluation (initial discharge) PT Received On 02/15/25 Subjective Agreeable to Therapy Physical Therapy-Patient Goal No goals identified for continued acute care PT. Precautions Precautions None Home Living Home Mobility Equipment-Available None Home Mobility Equipment-Currently Using None Additional Comments Patient does not state any concerns about accessing their home. Prior Function Level of [place] Independent with ADLs;Independent functional transfers;Independent with ambulation Prior Function Comments Patient reports independence with all mobility and ambulation. Pain Assessment Pain Assessment 0-10 Pain Score 4 Pain Location Perineum Pain Interventions Repositioned Cognition Arousal/Alertness Alert Orientation Oriented X4 (person, place, time, situation) Following Commands Follows all commands and directions without difficulty Sensation Light Touch WFL Balance Tests Balance Tests No (Formal balance assessment not performed at this time. Patient demonstrates safety with mobility and does not demonstrate need for additional balance testing.) Balance Balance Yes Static Sitting Balance Static Sitting-Balance Support No upper extremity supported;Feet supported Static Sitting-Sitting Surface Chair Static Sitting-Level of Assistance Independent Static Standing Balance Static Standing-Balance Support No upper extremity supported Static Standing-Standing Surface Floor Static Standing-Level of Assistance Independent Bed Mobility Bed Mobility Yes Bed Mobility 1 Bed Mobility From 1 Supine Bed Mobility Type 1 To and from Bed Mobility to 1 Edge of bed Level of Assistance 1 Standby Assist Bed Mobility Comments 1 Cues for safety and technique, Transfers Transfer Yes Transfer 1 Transfer From 1 Sit Transfer Type 1 To and from Transfer to 1 Stand Transfer Device 1 No device Transfer Level of Assistance 1 Modified Independent Trials/Comments 1 Increased time to complete Ambulation Ambulation Yes Ambulation 1 Distance (ft) 1 30 Surface 1 Level tile Device 1 No device Assistance 1 Modified Independent Quality of Gait 1 Decreased karl Stairs Stairs No Stair Comments Safety and technique were reviewed, no need for follow up. RUE Assessment RUE Assessment WFL LUE Assessment LUE Assessment WFL RLE Assessment RLE Assessment WFL LLE Assessment LLE Assessment WFL PT Treatment/Exercise Comments PT Treatment/Exercise Comments Education provided to patient about gentle strengthening exercises and abdominal engagement to promote postural and core retraining; importance of early mobility and ambulation for optimal healing; proper body mechanics and handling techniques for feeding and other childcare activities. Basic Mobility - 6 Click How much difficulty does the patient have: Turning over in bed 4 How much difficulty does the patient currently have: Sitting down and standing up from a chair with arms? 4 How much difficulty does the patient have: Moving from lying on back to sitting on the side of the bed? 4 How much difficulty does the patient have: Moving to and from a bed to a chair including wheelchair? 4 How much help does the patient currently need: Walk in hospital room? 4 How much help from another person does the patient currently need: Climbing 3-5 steps with a railing? 4 Total 6 Click Score (range 6-24) 24 Score Interpretation 57.68 Safe Environment End of Therapy Session Safe Environment End of Therapy Session Patient left supine in bed;Call light within reach;Overbed table within reach Assessment Prognosis Excellent Problem List Comments No acute care PT needs identified. Barriers to Discharge None Plan Plan Plan of care initiated;Discharge;If this is the last note, consider this the discharge summary Recommendation/Plan PT Recommendation/Plan Home with intermittent assist PT Recommendation/Plan Comments Patient provided with educated on appropriate resources for seeking outpatient women's health PT for pubic symphysis pain, pelvic floor dysfunction, pelvic girdle dysfunction, back pain, and bowel/bladder changes after follow-up visit with OB as indicated. PT Frequency during current admission One time visit (Discharge from this service) PT Equipment Recommended None PT - OK to Discharge Yes PT Evaluation Complete Yes PT Time Calculation PT Start Time 1248 PT Stop Time 1311 PT Time Calculation (min) 23 min Multi-Disciplinary Problems (from Physical Therapy) Active Problems Not on file 02/15/2025 - 37w3d - Khadijah Pate NP Post Progress Note Admission Date: 02/11/2025 LADARIUS Albright is a 35 y.o. day 3 s/p Vaginal. Pain: Controlled Bleeding: lochia minimal Oral Intake: taking regular diet Voiding: without difficulty Bowel function: flatus and bowel movement Ambulating: yes Mood: stable Feeding: No acute events overnight. Patient reports having some dizziness when getting up to the bathroom this morning. Patient agreeable to an iron transfusion. Denies FLYNN, visual changes, chest pain, SOB, or RUQ pain. States pain is well controlled and has minimal perineal swelling. Reports she is no longer having weakness in her leg and is ambulating with no issues. Denies the need for PT. Denies other concerns for discharge today pending nexplanon placement. OBJECTIVE Vitals: Temp Min: 36.4 C (97.5 F) Max: 37 C (98.6 F) Pulse Min: 83 Max: 114 BP Min: 111/66 Max: 128/88 Resp Min: 16 Max: 19 SpO2 Min: 97 % Max: 100 % Physical Exam General: No acute distress. Neurologic: Alert and oriented Lungs: Non-labored. Abdomen: Soft, non distended, appropriately tender to palpation. Fundus firm below umbilicus. Extremities: Warm and well-perfused. trace bilateral lower extremity edema with no calf tenderness. MARYANN hose ordered. Encouraged increased elevation and water intake. Return precautions given. Pelvic: Deferred. Lab Review: Recent Results (from the past 24 hours) POCT glucose Collection Time: 02/14/25 1:22 PM Result Value Ref Range Glucose, POC 103 70 - 199 mg/dL POCT glucose Collection Time: 02/14/25 4:48 PM Result Value Ref Range Glucose, POC 165 70 - 199 mg/dL POCT glucose Collection Time: 02/14/25 11:34 PM Result Value Ref Range Glucose, POC 155 70 - 199 mg/dL POCT glucose Collection Time: 02/15/25 9:01 AM Result Value Ref Range Glucose, POC 142 70 - 199 mg/dL CBC without differential Collection Time: 02/15/25 9:59 AM Result Value Ref Range WBC 16.54 (H) 3.80 - 9.90 K/cumm Hgb 8.4 (L) 11.9 - 15.5 g/dL Hct 25.8 (L) 35.6 - 45.5 % Plt 326 150 - 400 K/cumm MPV 9.6 9.1 - 12.3 fL RBC 2.94 (L) 3.90 - 5.20 M/cumm MCV 87.8 81.3 - 96.4 fL MCH 28.6 27.1 - 33.3 pg MCHC 32.6 32.3 - 35.7 g/dL RDW CV 14.1 11.1 - 14.9 % RDW SD 44.7 35.7 - 48.1 fL NRBC abs 0.03 (H) 0.00 - 0.01 K/cumm Lab Results Component Value Date ABORH A Negative 02/13/2025 IDCOOMB Negative 02/11/2025 [id number] Nonreactive 12/15/2024 LABRPR Nonreactive 02/11/2025 RUBELIGG Reactive 08/06/2024 HEPBSAG Nonreactive 08/06/2024 VZVIGG Reactive 2025 Current Meds: Scheduled Medications acetaminophen, 1,000 mg, oral, Q6H DEV docusate sodium, 100 mg, oral, BID enoxaparin, 40 mg, subcutaneous, Q12H DEV etonogestreL, 68 mg, subdermal, Once And lidocaine (PF), 5 mL, subcutaneous, Once ferrous sulfate, 65 mg of elemental iron, oral, BID with meals (bkfst, dinner) gabapentin, 300 mg, oral, TID ibuprofen, 600 mg, oral, Q6H DEV iron dextran, 975 mg, intravenous, Once metFORMIN, 500 mg, oral, Daily with breakfast ondansetron, 4 mg, oral, Q6H viatmin, 1 tablet, oral, Daily polyethylene glycol, 17 g, oral, BID PRN Medications benzocaine-menthoL calcium carbonate sodium chloride 0.9% hydrocortisone [id number]-gvkae-[id number] oxyCODONE varicella zoster ASSESSMENT/PLAN Vivien Albright is a 35 y.o. female day 3 s/p Vaginal. Problem Care Following Vaginal Delivery # ID: Afebrile. No signs/symptoms of infection. S/p 2 doses of cefoxitin during vaginal laceration repair. #Rh neg: s/p rhogam 12/15/24. Per PP rhogam protocol, rhogam not needed as Rh negative. # Heme: EBL 2000mL Hemodynamically stable. Hgb trend 11.1 > 9.8 > 8.1 > 7.7 > 7.1 > 7.6> 8.4. PO iron ordered. Iron transfusion and orthostats ordered. # CV/Pulm: Chronic hypertension - Blood pressures [...] Pain: Controlled with above regimen. # MOC: Desires nexplanon placement. #T2DM: Pre- regimen: metformin, Rybelsus, Jardiance OD. [...] # Disposition: Follow up task sent to [facility] scheduling pool for appointments in 2 and 6 weeks. Continue routine care. BEBA Dillon 02/15/25 Cosigned by Cindy Cohn MD at 02/15/2025 11:44 AM CDT Associated attestation - Cindy Cohn MD - 02/15/2025 11:44 AM CDT I have seen and examined the patient on 02/15/25. I agree with the findings and plan of care as documented in the resident's/fellow's note. Patient is PPD3 s/p FAVD c/b vaginal laceration requiring repair by urogynecology. Now s/p hopper removal and successful VT. also c/b: ABLA/ PPH: Reporting dizziness and SOB this morning. Vitals wnl. Hgb 8.4 this morning. If symptoms persist/ worsen, will consider EKG/ CXR. cHTN: CBC/ CMP wnl. Normotensive without meds. Denies preE sx. T2DM: Fasting BS 159 on PPD1. POC glucose ordered. Continue metformin. Cindy Cohn MD 02/14/2025 - 37Jeb Beckham MD MFM Fellow Update Note Vaginal packing removed s/p treatment with oxycodone and zofran. 2 strips of iodoform removed confirmed with ADELAIDE Otoole chaperoning. Digital exam with intact laceration repairs. Hopper removed. No active bleeding. ADELAIDE Otoole to update LDA charting. ISRI band removed. Plan for PO iron. No further labs required. For d/c tomorrow if pain controlled, ambulation improved, and PT seen. Jeb Swift MD Maternal Medicine Fellow Department of Obstetrics and Gynecology, PGY-7 02/14/2025 - Jeb Jang, MD Post Progress Note Delivery Date/Time: 2025t 11:31 PM Delivery method: Vaginal [[id number]] Subjective Flatus: Yes Pain: Well controlled Diet: Tolerating regular diet. Not yet ambulating. Hopper still in place Lochia packing in place Doing well this morning, reports legs are feeling better, less numb today, ready to ambulate more today. Packing still in place, she reports some possible slight bleeding through packing when she moved earlier this morning, no active bleeding happening, not having to change pads regularly. No other symptoms or concerns at this time. Scheduled Medications acetaminophen, 1,000 mg, oral, Q6H DEV docusate sodium, 100 mg, oral, BID enoxaparin, 40 mg, subcutaneous, Q12H DEV etonogestreL, 68 mg, subdermal, Once And lidocaine (PF), 5 mL, subcutaneous, Once ibuprofen, 600 mg, oral, Q6H DEV metFORMIN, 500 mg, oral, Daily with breakfast viatmin, 1 tablet, oral, Daily polyethylene glycol, 17 g, oral, BID PRN Medications benzocaine-menthoL calcium carbonate hydrocortisone nofhdgd-vxbtd-rwruyug ondansetron ODT OR ondansetron oxyCODONE varicella zoster Vitals: Temp: [36.5 C (97.7 F)-37.1 C (98.7 F)] 36.5 C (97.7 F) Pulse: [85-91] 88 BP: (102-114)/(60-66) 111/66 Resp: [16-18] 16 SpO2: [97 %-98 %] 98 % Intake/Output Summary (Last 24 hours) at 02/14/2025 1053 Last data filed at 02/14/2025 0719 Gross per 24 hour Intake 762.06 ml Output 2170 ml Net -1407.94 ml Physical Exam General: No acute distress. Cardiovascular: Regular rate. Lungs: Non-labored. Abdomen: Soft, mildly distended, appropriately tender to palpation. Fundus below umbilicus. Extremities: Warm and well-perfused. Neuro: Globally intact Recent Labs Lab Units 02/14/25 0833 02/14/25 0351 02/13/25 2137 02/13/25 1851 02/13/25 1223 02/13/25 0611 02/13/25 0321 02/11/25 1235 02/11/25 1015 WBC K/cumm -- 18.03* -- -- 16.71* -- 20.21* < > 13.61* HEMOGLOBIN, POC -- -- -- -- -- -- -- < > -- HEMOGLOBIN g/dL -- 7.1* -- -- 7.7* -- 8.1* < > 11.1* HEMATOCRIT % -- 21.5* -- -- 23.0* -- 24.4* < > 32.7* HEMATOCRIT POC -- -- -- -- -- -- -- < > -- PLATELETS K/cumm -- 291 -- -- 271 -- 296 < > 347 CREATININE mg/dL -- 0.54* -- -- 0.59* -- 0.56* -- 0.54* AST Units/L -- -- -- -- -- -- 15 -- 18 ALT Units/L -- -- -- -- -- -- 10 -- 15 PROTEIN/CREAT RATIO mg/g CR -- -- -- -- -- -- -- -- 207.0* GLUCOSE mg/dL -- 87 -- -- 171 -- 155 -- 110 POC GLUCOSE MONITOR mg/dL 103 -- 105 < > -- < > -- < > -- < > = values in this interval not displayed. B/L US Kidney IMPRESSION: Normal ultrasound appearance of the kidneys. No hydronephrosis. Assessment and Plan 35 y.o. PPD#2FAVD with 2x iodoform vaginal pacing in place. Problem Care Following Vaginal Delivery # ID: Afebrile. No signs/symptoms of infection. S/p 2 doses of cefoxitin during vaginal laceration repair. #Rh neg: s/p rhogam 12/15/24. Per PP rhogam protocol, rhogam not needed as Rh negative. # Heme: EBL 2000mL Hemodynamically stable. Hgb trend 11.1 > 9.8 > 8.1 > 7.7 > 7.1. Plan for repeat CBC at 1000. Plan for IV iron infusion 02/14 if Hgb remains above 7 and will give blood if <7. # CV/Pulm: Chronic hypertension - Blood pressures well controlled on no meds. Asymptomatic, denies FLYNN/RUQ pain/vision changes. Enrolled in remote blood pressure monitoring. On no meds. MR BPs with current admission, one nonsustained severe BP 02/11. UPC 0.207, AST/ALT WNL, Cr 0.54. #Vaginal repair: Obstetric laceration with left sulcal; deep right sulcal involving pararectal, paravaginal spaces; bilateral labial minora lacerations following delivery. Urogyn consult for evaluation of deep right sulcal. Cysto with bilateral jets, right more sluggish. 2x iodoform tied together vaginal packing in place to stay in place until Saturday with hopper. Will remove if Hgb stable later this AM. Renal US ordered for 02/13 to assess for hydroureter on right, normal appearance of kidneys, no hydronephrosis. Hopper plugging with draining when feels need to void on 02/13, good output. Plan to remove 02/14 as above. # GI/: Tolerating PO. Hopper in place until vaginal packing removed on 02/14 AM. For VT once packing comes out. # MSK: some left hip and leg flexion weakness. Improving today. Likely from positioning during prolonged vaginal repair and temporary femoral nerve paresis. Reviewed with patient that this should improve. For PT evaluation prior to d/c. # Pain: Controlled with above regimen. # MOC: Desires nexplanon placement. # MOF: . Urine drug screen not indicated. Patient informed of results: N/A. # Post DVT prophylaxis: The patient has the following MAJOR risk factors BMI >/= 40 and the following MINOR risk factors none. enoxaparin 40 mg BID ordered for VTE prophylaxis to start Wednesday 02/14. # Disposition: Follow up task sent to [facility] scheduling pool for appointments in 2 and 6 weeks. Continue routine care. c/b: #T2DM: Pre- regimen: metformin, Rybelsus, Jardiance OD. PP plan for metformin 500mg daily. Fasting BS 159 on PPD#1. Ordered for POC glucose TID beofre meals. #BMI 50 #Anxiety: On no meds. For SW PP Graciela Flor MD 02/14/2025 R4 Attestation I agree with the above documentation. PPD#2 from FAVD with complicated laceration. Packing remains in place with hopper. Appropriate UOP with plugging/unplugging. Renal US without hydronephrosis. Plan to remove packing and hopper today. Hb down trending. Will plan to repeat labs at 1000. If stable, consider iron infusion v. Blood transfusion. Will be for nexplanon placement prior to discharge. #T2DM with POC BS premeal. Not requiring SSI, continue on metformin. Continue care. Potential discharge today vs tomorrow to watch Hb and stability after packing removed. Hazel Teixeira MD PGY-4 OB Attending Attestation I have seen and discussed the patient, Vivien Albright, with the above provider and I am in agreement with the plan as documented in the resident's note. Patient recovering PPD1 with FAVD complicated by complex right sulcal/vaginal laceration s/p repair with urogyn. Hgb stable, plan for repeat to confirm no need for blood transfusion. If remains >7, for iron infusion and will remove packing and Hopper. BPs and BG stable, no further management needed. Lovenox ordered. Tasked for f/u. Reviewed left hip and leg flexion weakness likely from positioning during prolonged vaginal repair and temporary femoral nerve paresis. Reviewed with patient that this should improve. For PT evaluation prior to d/c which is anticipated tomorrow. Reinvited questions surrounding delivery and laceration repair. All addressed to patient's satisfaction. Jeb Swift MD Maternal Medicine Fellow Cosigned by Cindy Cohn MD at 02/15/2025 11:37 AM CDT Associated attestation - Cindy Cohn MD - 02/15/2025 11:37 AM CDT I agree with the findings and plan of care as documented in the resident's/fellow's note. I did not see the patient. Cindy Cohn MD 02/13/2025 - 37w3d - Silvia jones, Jessica Son MD R4 Update Recent Labs Lab Units 02/13/25 1223 02/13/25 0321 02/13/25 0100 02/13/25 0052 WBC K/cumm 16.71* 20.21* -- 23.41* HEMOGLOBIN, POC g/dL -- -- 10.6* -- HEMOGLOBIN g/dL 7.7* 8.1* -- 9.8* HEMATOCRIT % 23.0* 24.4* -- 29.4* HEMATOCRIT POC % -- -- 32.0* -- PLATELETS K/cumm 271 296 -- 352 Recent Labs Lab Units 02/13/25 1223 02/13/25 0717 02/13/25 0611 02/13/25 0321 02/11/25 1235 02/11/25 1015 SODIUM mmol/L 135 -- -- 136 -- 138 POTASSIUM PLASMA mmol/L 3.8 -- -- 3.8 -- 3.9 CHLORIDE mmol/L 104 -- -- 106 -- 105 CO2 mmol/L 22 -- -- 19* -- 21* BUN SERUM mg/dL 9 -- -- 9 -- 9 CREATININE mg/dL 0.59* -- -- 0.56* -- 0.54* GLUCOSE mg/dL 171 -- -- 155 -- 110 POC GLUCOSE MONITOR mg/dL -- 147 159 -- < > -- CALCIUM mg/dL 8.4* -- -- 7.7* -- 9.0 < > = values in this interval not displayed. Hgb and Cr stable. VS stable. Patient reporting increased pain due to laceration but otherwise asymptomatic at this time. Plan - okay for transfer to - repeat CBC in AM - packing and hopper to remain in place until Saturday - f/u renal US, not yet performed - will increase oxy frequency to q4h Discussed with Dr. Brooke Sarmiento MD PGY-4, Obstetrics & Gynecology 02/13/25 02/13/2025 - 37w3d Hazel Llanos MD Post Progress Note Delivery Date/Time: 2025t 11:31 PM Delivery method: Vaginal [[id number]] Subjective Flatus: No Pain: Well controlled Diet: Not yet tolerating regular diet Not yet ambulating. Hopper still in place Lochia less than menses Resting this morning after extensive repair early this morning. Appropriately tender. Otherwise doing well. Has no questions about delivery at this time. Scheduled Medications acetaminophen, 1,000 mg, oral, Q6H DEV cefOXitin, , , docusate sodium, 100 mg, oral, BID [START ON 02/14/2025] enoxaparin, 40 mg, subcutaneous, Q12H DEV ibuprofen, 600 mg, oral, Q6H DEV metFORMIN, 500 mg, oral, Daily with breakfast viatmin, 1 tablet, oral, Daily polyethylene glycol, 17 g, oral, BID PRN Medications benzocaine-menthoL calcium carbonate cefOXitin hydrocortisone cfbbqlb-xulcq-[id number] ondansetron ODT OR ondansetron oxyCODONE sodium chloride 0.9% varicella zoster Vitals: Temp: [36.8 C (98.2 F)-37.1 C (98.8 F)] 37.1 C (98.8 F) Pulse: [16-123] 105 BP: (78-154)/(44-89) 133/60 Resp: [16-18] 16 SpO2: [77 %-100 %] 98 % Intake/Output Summary (Last 24 hours) at 02/13/2025 0619 Last data filed at 02/13/2025 0532 Gross per 24 hour Intake 5756.62 ml Output 2885 ml Net 2871.62 ml Physical Exam General: No acute distress. Cardiovascular: tacycardic Lungs: Non-labored. Abdomen: Soft, mildly distended, appropriately tender to palpation. Fundus below umbilicus. Extremities: Warm and well-perfused. Neuro: Globally intact Recent Labs Lab Units 02/13/25 0321 02/13/25 0100 02/13/25 0052 02/12/25 2314 02/11/25 1235 02/11/25 1015 WBC K/cumm 20.21* -- 23.41* -- -- 13.61* HEMOGLOBIN, POC g/dL -- 10.6* -- -- -- -- HEMOGLOBIN g/dL 8.1* -- 9.8* -- -- 11.1* HEMATOCRIT % 24.4* -- 29.4* -- -- 32.7* HEMATOCRIT POC % -- 32.0* -- -- -- -- PLATELETS K/cumm 296 -- 352 -- -- 347 CREATININE mg/dL 0.56* -- -- -- -- 0.54* AST Units/L 15 -- -- -- -- 18 ALT Units/L 10 -- -- -- -- 15 PROTEIN/CREAT RATIO mg/g CR -- -- -- -- -- 207.0* GLUCOSE mg/dL 155 -- -- -- -- 110 POC GLUCOSE MONITOR mg/dL -- 157 -- 111 < > -- < > = values in this interval not displayed. Assessment and Plan 35 y.o. PPD#1FAVD with 2x iodoform vaginal pacing in place. Problem Care Following Vaginal Delivery # ID: Afebrile. No signs/symptoms of infection. S/p 2 doses of cefoxitin during vaginal laceration repair. #Rh neg: s/p rhogam 12/15/24. For PP rhogam protocol # Heme: EBL 2000mL Hemodynamically stable. Hgb trend 11.1 > 9.8 > 8.1. Repeat CBC 1200 on 02/13 and AM of 02/14 # CV/Pulm: Chronic hypertension - Blood pressures well controlled on no meds. Asymptomatic, denies FLYNN/RUQ pain/vision changes. To be enrolled in remote blood pressure monitoring. #cHTN: On no meds. MR BPs with current admission, one nonsustained severe BP 02/11. UPC 0.207, AST/ALT WNL, Cr 0.54. #Vaginal repair: Obstetric laceration with left sulcal; deep right sulcal involving pararectal, paravaginal spaces; bilateral labial minora lacerations following delivery. Urogyn consult for evaluation of deep right sulcal. Cysto with bilateral jets, right more sluggish. 2x iodoform tied together vaginal packing in place to stay in place until Saturday with hopper. Renal US ordered for 02/13 to assess for hydroureter on right. Hopper plugging with draining when feels need to void on 02/13 # GI/: Tolerating PO. Hopper in place until vaginal packing removed on 02/14 AM. Trend BMP at 1200 on 02/13 and AM of 02/14 # Pain: Controlled with above regimen. # MOC: Desires nexplanon placement. # MOF: . Urine drug screen not indicated. Patient informed of results: N/A. # Post DVT prophylaxis: The patient has the following MAJOR risk factors BMI >/= 40 and the following MINOR risk factors none. enoxaparin 40 mg BID ordered for VTE prophylaxis to start Wednesday 02/14. # Disposition: Follow up task not sent. Continue routine care. c/b: #T2DM: Pre- regimen: metformin, Rybelsus, Jardiance OD. PP plan for metformin 500mg daily. Fasting BS 159 on PPD#1. Ordered for POC glucose TID beofre meals. #BMI 50 #Anxiety: On no meds. For SW PP Hazel Teixeira MD LEAD FRONT DESK AGENT PGY-4 Cosigned by Yumiko Cox MD at 02/13/2025 11:03 AM CDT Associated attestation - Yumiko Cox MD - 02/13/2025 11:03 AM CDT Attending Attestation I have seen, examined, and discussed Vivien Albright with Dr. Teixeira on 02/13/2025. I agree with the findings and the plan of care as documented. 02/13/2025 - 37w3d - Jeb Swift MD MFM Fellow Update Note Patient began pushing at 2250. Moderate variability with accelerations and rare decelerations in 2000 hour. Recurrent variable and late decelerations since 2100. Reassured by moderate variability and accelerations (2305 and 2309). Pushing to +1. Currently ROT. Manual rotation attempted but unable to complete due to inability to completely access head. Chief resident to bedside to facilitate. Jeb Swift MD Maternal Medicine Fellow Department of Obstetrics and Gynecology, PGY-7 02/13/2025 - 37w3d - Hazel Teixeira MD Labor Update Note S: Patient s/p epidural O: BP 129/73 Pulse 94 Temp 36.8 C (98.3 F) (Oral) Resp 16 Ht 160 cm (5' 3) Wt 283 lb 3.2 oz (128.5 kg) LMP 05/26/2024 SpO2 96% BMI 50.17 kg/m SVE: 8 /-1 Monitoring: Baseline: 135 bpm, Variability: Moderate, Accelerations: Absent and Decelerations: Yes, variables with ctx Uterine Activity: Contractions present, q5 minutes A/P: 35 y.o. at 37w3d Category II tracing, reassured by moderate variability and continued cervical change Vitals: reviewed and normal Additional medications/infusions: - OT previously held and now titrated up to 14u - Insulin gtt ordered. Not currently needed - Continue ampicillin for GBS Hazel Teixeira MD LEAD [employer] DESK AGENT PGY-4 2025 - 37wanaly - Jeb Swift MD Labor Update Note S: Patient Feeling painful contractions, s/p epidural, and no headache, vision changes, SOB, or RUQ pain O: BP 122/60 Pulse 99 Temp 36.8 C (98.3 F) (Oral) Resp 16 Ht 160 cm (5' 3) Wt 283 lb 3.2 oz (128.5 kg) LMP 05/26/2024 SpO2 98% BMI 50.17 kg/m SVE: /- Monitoring: Baseline: 135 bpm, Variability: Moderate, Accelerations: Present at 1708 and 1717 and Decelerations: Yes, recurrent late decelerations since 1719 Uterine Activity: Contractions present, q3-4 minutes A/P: 35 y.o. at 37w3d Category 2 tracing since ~1719, reassured by accelerations and moderate variability. Patient making cervical change and 6 to 7cm with contractions. OT paused with improvement in late decelerations. Repositioned and will allow for recovery. Reviewed category 2 tracing that we are resuscitating with patient. Discussed possibility of NRFS in second stage of labor. Discussed risks of operative vaginal delivery including but not limited to cephalohematoma, 3rd or 4th degree lacerations, face and eye lacerations, intracranial hemorrhage. Would be amenable if it means avoiding section. Recheck at 1999 and restart OT if unchanged. Vitals Reviewed and normal T2DM: most recent BG 104. Insulin drip off. AROM'd at 1215. BMI 50, Hgb 11.1/Platelet 347, GBS+, nexplanon, 3T labs normal, vertex confirmed. Jeb Swift MD 2025 - w3d - Eagle Charles ace, MD R1 Labor Update Note S: Patient s/p epidural and comfortable O: BP 120/68 Pulse 91 Temp 36.8 C (98.3 F) (Oral) Resp 16 Ht 160 cm (5' 3) Wt 283 lb 3.2 oz (128.5 kg) LMP 05/26/2024 SpO2 100% BMI 50.17 kg/m SVE: Monitoring: Baseline: 145 bpm, Variability: Moderate, Accelerations: Absent and Decelerations: Yes, recurrent lates Uterine Activity: Contractions present, q3 minutes A/P: 35 y.o. at 37w3d Category II tracing overall reassured by moderate variability and improvement with R lateral position Vitals: cHTN, most recently normotensive Additional medications/infusions: -oxytocin - will continue to titrate per protocol, @8 -ampicillin for GBSuria SVE with no change from last check Plan to continue position on right lateral, will ctm FHT. If no cervical change advisor time with continued shallow decels on FHT, will consider delivery. Discussed with patient by Dr. Luigi MD PGY-1 Cosigned by Yuval Madrid MD at 2025 3:08 PM CDT Associated attestation - Yuval Madrid MD - 2025 3:08 PM CDT Reviewed FHT trend over past few hours with Ms Albright and partner. 2025 - 37w3d - Graciela Decker MD Labor Update Note S: Patient s/p epidural and comfortable O: BP 131/69 Pulse 88 Temp 36.8 C (98.3 F) (Oral) Resp 16 Ht 160 cm (5' 3) Wt 283 lb 3.2 oz (128.5 kg) LMP 05/26/2024 SpO2 98% BMI 50.17 kg/m SVE: Monitoring: Baseline: 135 bpm, Variability: Moderate, Accelerations: Present and Decelerations: Yes, variable and late decels, not recurrent Uterine Activity: Contractions previously q3-4 minutes, currently with uterine irritability A/P: 35 y.o. at 37w3d Category 2 tracing, reassured by good baseline, moderate variability Vitals: cHTN, one unsustained severe range BP yesterday, persistent mild range BPs today. Will CTM. Additional medications/infusions: oxytocin@12 pre-AROM now 6. Antibiotics ampicillin for GBS+ AROM@1215 to copious clear fluid. Head well applied. IUPC placed. SVE after AROM 5/75/-3. Pitocin cut to half dose of 6 given late decels Graciela Flor MD 2025 - 37w3d - Eagle Charles ace, MD R1 Labor Update Note S: Patient s/p epidural and comfortable O: BP 108/59 Pulse 84 Temp 36.8 C (98.2 F) (Oral) Resp 16 Ht 160 cm (5' 3) Wt 283 lb 3.2 oz (128.5 kg) LMP 05/26/2024 SpO2 98% BMI 50.17 kg/m SVE: 4.5 /50 /Ballotable Monitoring: Baseline: 120 bpm, Variability: Moderate, Accelerations: Present and Decelerations: Yes, variable Uterine Activity: uterine irritability A/P: 35 y.o. at 37w3d Category II tracing, reassured by moderate variability and accels Vitals: cHTN most recently normotensive Additional medications/infusions: -oxytocin - will continue to titrate per protocol, @8 -ampicillin for GBSuria started at 0608 02/12 (s/p PCN) -insulin gtt stopped at 0800 02/12 Plan to assess for AROM at next check Audelia Charles MD PGY-1 2025 - w3d - Ese Dallas MD Labor Update Note S: Patient s/p epidural and comfortable O: BP 119/72 Pulse 96 Temp 36.6 C (97.9 F) (Oral) Resp 18 Ht 160 cm (5' 3) Wt 283 lb 3.2 oz (128.5 kg) LMP 05/26/2024 SpO2 100% BMI 50.17 kg/m SVE: /Ballotable Monitoring: Baseline: 135 bpm, Variability: Moderate, Accelerations: Present and Decelerations: None Uterine Activity: Contractions present, q4-5 minutes A/P: 35 y.o. at 37w3d Category 1 tracing Vitals: reviewed and normal #IOL - spCervidil, Miso, cook catheter - bloody show - start on OT - assess for AROM at next check #T2DM: current regimen: lantus 28q qHS, Lispro , Metformin 500mg BID. Pre- regimen: metformin, Rybelsus, Jardiance OD. For intrapartum insulin gtt. PP plan for metformin 500mg daily #cHTN: on no meds Ese Dallas MD Cosigned by Yuval Madrid MD at 2025 10:26 AM CDT Associated attestation - Yuval Madrid MD - 2025 10:26 AM CDT I have seen and examined the patient on 02/12/25. I agree with the findings and plan of care as documented in the resident's/fellow's note.. 2025 - 37w3d - Ese Dallas MD R2 update Patient in extreme pain and anxiety due to contraction pain. Will lower OT and notify anesthesia for epidural. Patient is not tolerating pain from PCN for GBS ppx. Will switch to ampicillin. Ese Dallas MD PGY-2, Department of Obstetrics and Gynecology 2025 - 37w3d - Anne Jones MD Mechanical Cervical Ripening Device Insertion Note A Cook Catheter was placed and filled with 80 cc of fluid in the uterine balloon and placed on tension at 0345. Anne Jones MD 2025 - 37w3d - Keara Craig MD Labor Update Note S: Patient uncomfortable and tired. Is requesting something for sleep and pain O: BP 133/80 Pulse 88 Temp 36.6 C (97.9 F) (Oral) Resp 20 Ht 160 cm (5' 3) Wt 283 lb 3.2 oz (128.5 kg) LMP 05/26/2024 SpO2 98% BMI 50.17 kg/m SVE: / Monitoring: Baseline: 140 bpm, Variability: Moderate, Accelerations: Present and Decelerations: None Uterine Activity: Irregular contractions A/P: 35 y.o. at 37w3d Category I tracing Vitals: cHTN, most recently within normal limits Additional medications/infusions: - Will order stadol for pain - S/p cervidil, miso #1 placed @0305 - Insulin gtt for T2DM - PCN for GBS+ Keara Craig MD 02/11/2025 - 37w2d - Eagle Charles ace, MD R1 Labor Update Note S: Patient comfortable O: BP 144/85 Pulse 95 Temp 36.9 C (98.4 F) (Oral) Resp 20 Ht 160 cm (5' 3) Wt 283 lb 3.2 oz (128.5 kg) LMP 05/26/2024 SpO2 98% BMI 50.17 kg/m SVE: Fingertip / / Monitoring: Baseline: 135 bpm, Variability: Moderate, Accelerations: Present and Decelerations: None Uterine Activity: uterine irritability A/P: 35 y.o. at 37w2d Category I tracing Vitals: cHTN Additional medications/infusions: insulin gtt ordered on standby and antibiotics PCN for GBSuria Cervidil placed at 1345 Audelia Charles MD PGY-1 02/11/2025 - 37w2d - Margaret Arias NP Images from the original note were not included. VINI Albright is a 35 y.o. female female at 37w2d gestation S: Presents for extended monitoring from clinic for 2 min long decel. Per MU Cruz pt to stay for iol for decel at term and pt was counseled appropriately. Pt agreeable with plan. O: Vital signs: BP 147/85 Pulse 95 Temp 36.7 C (98.1 F) (Oral) Resp 20 Ht 160 cm (5' 3) Wt 128.5 kg (283 lb 3.2 oz) LMP 05/26/2024 SpO2 97% BMI 50.17 kg/m Monitoring: Baseline: 150 bpm, Variability: Moderate, Accelerations: Present and Decelerations: variables Uterine Activity: No contractions seen on toco Interpretation: Reactive Ultrasound: Vertex presentation Diagnostic Review Lab Results Component Value Date WBC 13.61 (H) 02/11/2025 HGB 11.1 (L) 02/11/2025 HCT 32.7 (L) 02/11/2025 MCV 84.5 02/11/2025 LABPLAT 347 02/11/2025 A/P: Vivien Albright is a 35 y.o. female female at 37w2d gestation #FWB NST reactive with variables at term -Pt to be admitted for iol for decels at term. Labor team notifed. Labor team to assume care. Margaret Velazquez NP Progress Notes - Documentati on - 02/09/2025 - GA:37w0d 02/09/2025 - 37w0d - Sis Edwards MD Images from the original note were not included. Glycemic Control Meeting 02/09/2025 This patient was discussed at the glycemic control meeting on 02/09/2025. I have analyzed and interpreted > 72 hours of ambulatory continuous glucose monitoring of interstitial fluid via a subcutaneous sensor for Vivien Albright. In review of her blood sugars, low values sensed by the Dexcom are noted to be false lows due to pressure. Occasional increases in mealtime postprandial glucoses at breakfast but these are less consistent than lunch and dinner. Recommend minor increase in lunch and dinnertime insulin. The following adjustments have been proposed: Current regimen: 02/09/2025 Lantus 28q qHS Lispro 24/30/40 > Lispro 24/36/42 Metformin 1000 mg BID This note has been sent to [facility] RN clinical pool for coordination of patient care and to communicate proposed adjustments. The problem list has been updated. I have spent 10 total minutes on remote diabetes management. Sis Edwards MD Computer Systems Security Administrator Division of Maternal- Medicine and Ultrasound Department of Obstetrics and Gynecology [facility] Progress Notes - Office Visi t - 02/01/2025 - GA:35w6d 02/01/2025 - 35w6d - Sumaya Manley MD Images from the original note were not included. [facility] Return Visit 02/01/2025 Vivien Albright is a 34 y.o. at 35w6d by LMP consistent with 1st trimester Ultrasound who is here for a return OB visit. Her is complicated by T2DM, obesity, anxiety, and polyhydramnios. Subjective: She reports felling well, denies any vaginal bleeding, contractions, or leakage of fluid. Reports positive movement. Denies fatigue, polydipsia or polyuria. Pt reports laying on Dexcom at night and falsely reporting low sugars. Not symptomatic at night. Objective: BP 125/82 (BP Location: Left arm, Patient Position: Sitting) Pulse 96 Ht 160 cm (5' 3) Wt 278 lb 3.2 oz (126.2 kg) LMP 05/26/2024 SpO2 98% BMI 49.28 kg/m General: NAD Heart: regular rate Lungs: non-labored respirations Abdomen: Soft, gravid, NT Extremities: WWP, no edema FHR: 154 bpm Assessment/Plan: Vivien Albright is a 34 y.o. at 35w6d with a complicated by: Problem List RUPA 03/02/25 Obesity affecting , antepartum - Primary Overview Previously counseled Plan: [x] Initiate aspirin 81 mg at 12 weeks for preeclampsia risk reduction [x] Specialized anatomic survey at 20 weeks [] Anesthesia consult 02/01/25 @ 1300 [] testing per T2DM Pre-existing type 2 diabetes mellitus during , antepartum Overview History & Counseling Diagnosed age 29 ( 2019 with A1C 7.4) History of DKA? N Last hemoglobin A1C: 6.6% on 08/06/24 Pre- regimen: metformin, Rybelsus and Jardiance OD Pre- weight: 246 lbs MFM counselin08/27/2024 Dexcom: clinic login, name is Vivien Mena Plan Current regimen: 02/01/2025 Lantus 28q qHS Lispro > Lispro Metformin 500 mg BID - Feels her Dexcom is more accurate now - Encouraged changing her alarm on her dexcom to go off if <65 and verifying all lows with accu check. Hypoglycemic precautions reviewed. - Physician adjusting insulin dosage: MFM [x] Counseling performed - done 08/27/24 [x] Diabetes education, completed on 08/20/24 [x] Recommend weekly review of BG/insulin data to adjust insulin dosing [x] Glucagon prescribed - sent [x] Needs ophthalmology for comprehensive eye exam ( last eye exam 2022) [x] Baseline CMP wnl, recommend baseline UP:C, done on 08/27/24 [] A1c qTrimester [x] 1st T: 6.6% [x] 3rd T: 6.2% at 29 weeks [x] First trimester TSH - normal [x] ASA starting at 12 weeks gestation [x] Baseline EKG, consider maternal TTE [x] Specialized anatomy ultrasound at 18-20 weeks [x] echocardiogram at 20-22 weeks - wnl [] Serial growth scans starting at 24 weeks- scheduled [] Twice weekly testing starting at 32 weeks - scheduled [x] insulin plan by 32 weeks - metformin 500mg daily since she was well-controlled pre- [] Delivery at [id number] ([id number] with vascular complications or poorly controlled). Scheduled for 03/02/25. Supervision of high-risk , third trimester Overview [x] Full MFM Care; [x] Blue Team MEI per pt request, Primary OB aware per the pt, email for global sent on 09/30 Referring Provider: Glen Velazquez [phone] [] [place] or Medicare Insurance [x] Dating Criteria: LMP [...] MOD: IOL to be scheduled at 39w, 03/02/25 [x] Place of delivery: [facility] [] Epidural: [] Accepts Blood Products: [] Stop ASA: [x] MOC: Nexplanon [x] Method of feeding: breast [] Artificial Intelligence Specialist (specifically which provider): pt calling around [x] [...] labor after 39w. Will continue to address. Anxiety and depression Overview History of MDD and CAN since 14 Previously treated by [facility] ([facility] [employer]) Previously on Duloxetine, Aripiprazole, Buspirone OD and Clonidine as needed Current regimen: No meds Info provided for [facility] psych and therapy Close monitoring of her mood with restart of pharmacologic therapy if needed. Pre-existing essential hypertension complicating in second trimester Overview Ms Albright does not have a formal diagnosis of HTN but review of her notes after she was seen is consistent with HTN. Her DBP is mildly elevated at initial [facility] visit Previously counseled Current regimen: No meds Plan [x] ASA 81 mg daily [x] Labs: Baseline wnl [x] EKG - ordered 09/24/24 WNL [] Growth and testing per GDM Polyhydramnios in third trimester, not applicable or unspecified fetus Overview 12/24/2024 mild poly, counseled in US -> resolved 01/0401/18/2025 Mild poly with amniotic fluid 26.4 cm Recommend tight glycemic control Continue to monitor Noticed elevated sugars after lunch and dinner. Falsely low overnight sugars. Will increase Lispro to . Continue Lantus 28 and Metformin 500 BID. Patient was seen and discussed with Dr. Madrid who agrees with the above documented assessment and plan. Sumaya Manley MD LEAD FRONT DESK AGENT Resident, PGY1 Cosigned by Yuval Madrid MD at 02/03/2025 11:13 AM CDT Associated attestation - Yuval Madrid MD - 02/03/2025 11:13 AM CDT I have seen and examined the patient. I agree with the findings and plan of care as documented in the resident/fellow's note. Progress Notes - Office Visi t - 01/18/2025 - GA:33w6d 01/18/2025 - 33w6d - Sumaya Manley MD Images from the original note were not included. MFM Return Visit 01/18/2025 Vivien Albright is a 34 y.o. at 33w6d who is here for a return OB visit. Her is complicated by T2DM. Subjective: She reports felling well, denies any vaginal bleeding, contractions, or leakage of fluid. Reports positive movement. No headaches that don't go away with tylenol, no changes to vision, no swelling, no SOB. Patient is calling different pediatricians right now. Interested in Nexplanon post- for contraception. She is scheduled for induction on 02/25/25. Objective: BP 140/92 Pulse 110 Ht 160 cm (5' 3) Wt 269 lb (122 kg) LMP 05/26/2024 SpO2 99% BMI 47.65 kg/m Repeat BP: 126/84 General: NAD Heart: regular rate Lungs: non-labored respirations Abdomen: Soft, gravid, NT Extremities: WWP, no edema Ultrasound: 01/18/2025 33w6d Normal biometry 2390 g at 56%. Mild polyhydramnios with amniotic fluid 26.4 cm. The biophysical profile is 8/8 with normal breathing motion, body motion, tone and amniotic fluid volume. Stable fibroid. Assessment/Plan: Vivien Albright is a 34 y.o. at 33w6d with a complicated by: Problem List Cardiac and Vasculature Pre-existing essential hypertension complicating in second trimester Overview Ms Albright does not have a formal diagnosis of HTN but review of her notes after she was seen is consistent with HTN. Her DBP is mildly elevated at initial MFM visit Previously counseled Current regimen: No meds Plan [x] ASA 81 mg daily [x] Labs: Baseline wnl [x] EKG - ordered 09/24/24 WNL [] Growth and testing per GDM Relevant Orders US Ob Follow Up nonstress test - Endocrine and Metabolic Pre-existing type 2 diabetes mellitus during , antepartum Overview History & Counseling Diagnosed age 29 ( 2019 with A1C 7.4) History of DKA? N Last hemoglobin A1C: 6.6% on 08/06/24 Pre- regimen: metformin, Rybelsus and Jardiance OD Pre- weight: 246 lbs MFM counselin08/27/2024 Dexcom: clinic login, name is Vivien Mena Plan Current regimen: 01/12/2025 Lantus 26q qHS--> Lantus 28u qHS Lispro --> --> Metformin 1000 mg BID - Feels her Dexcom is more accurate now - Encouraged changing her alarm on her dexcom to go off if <65 and verifying all lows with accu check. Hypoglycemic precautions reviewed. - Physician adjusting insulin dosage: MFM [x] Counseling performed - done 08/27/24 [x] Diabetes education, completed on 08/20/24 [x] Recommend weekly review of BG/insulin data to adjust insulin dosing [x] Glucagon prescribed - sent [x] Needs ophthalmology for comprehensive eye exam ( last eye exam 2022) [x] Baseline CMP wnl, recommend baseline UP:C, done on 08/27/24 [] A1c qTrimester [x] 1st T: 6.6% [x] 3rd T: 6.2% at 29 weeks [x] First trimester TSH - normal [x] ASA starting at 12 weeks gestation [x] Baseline EKG, consider maternal TTE [x] Specialized anatomy ultrasound at 18-20 weeks [x] echocardiogram at 20-22 weeks - wnl [] Serial growth scans starting at 24 weeks- scheduled [] Twice weekly testing starting at 32 weeks - scheduled [x] insulin plan by 32 weeks - metformin 500mg daily since she was well-controlled pre- [] Delivery at [id number] ([id number] with vascular complications or poorly controlled). Scheduled for 02/25/25. Current Assessment & Plan Relevant Orders US Ob Follow Up nonstress test - Gravid and Pyelectasis of fetus on ultrasound Overview Noted on US 11/26/2024 and counseled S/p low risk NIPT 12/24/2024 Left renal pelvis is dilated to 7.4 mm and there is mild ureteral dilation seen. A2-3 UTD, s/p counseling in US- referral to [facility] to help coordinate peds urology 01/04: normal kidneys bilaterally - 6.8 and 6.4 mm. Recommend repeating kidney assessment on next US but no need for f/u if UTD remains resolved. If returns, can coordinate follow-up for baby. Back to [facility] Obesity affecting , antepartum - Primary Overview Previously counseled Plan: [x] Initiate aspirin 81 mg at 12 weeks for preeclampsia risk reduction [x] Specialized anatomic survey at 20 weeks [] Current BMI 48, if >50, will need 3rd tri anesthesia consult - testing per T2DM Supervision of high-risk , third trimester Overview [x] Full [facility] Care; [x] Blue Team MEI per pt request, Primary OB aware per the pt, email for global sent on 09/30 Referring Provider: Glen Velazquez [phone] [] or Medicare Insurance [x] Dating Criteria: [...] Nexplanon [x] Method of feeding: breast [] Artificial Intelligence Specialist (specifically which provider): pt calling around [x] PP Depression Discussed: [] PP visits scheduled: Vaccines [] Flu Shot (Sep-Jun): [] COVID vaccine: [x] Tdap (27-36wks): 12/15/2024 [...] labor after 39w. Will continue to address. Polyhydramnios in third trimester, not applicable or unspecified fetus Overview 12/24/2024 mild poly, counseled in US -> resolved 01/0401/18/2025 Mild poly with amniotic fluid 26.4 cm Recommend tight glycemic control Continue to monitor Mental Health Anxiety and depression Overview History of MDD and CAN since 14 Previously treated by [facility] ([facility] [employer]) Previously on Duloxetine, Aripiprazole, Buspirone OD and Clonidine as needed Current regimen: No meds Info provided for [facility] psych and therapy Close monitoring of her mood with restart of pharmacologic therapy if needed. Pt will increase Lispro from to . Will repeat growth US in 4 weeks with BPP. Patient was seen and discussed with Dr. Edwards who agrees with the above documented assessment and plan. Sumaya Manley MD LEAD FRONT DESK AGENT Resident, PGY1 Cosigned by Dian Edwards MD at 01/19/2025 2:55 PM CDT Associated attestation - Dian Edwards MD - 01/19/2025 2:55 PM CDT I have seen and examined the patient. I agree with the findings and plan of care as documented in the resident/fellow's note and as discussed with the resident/fellow. BP mild range, normal on recheck. No preeclampsia symptoms. Precautions reviewed. Persistent postprandial hyperglycemia, will increase lispro. US shows normal kidneys, mild polyhydramnios (CAMILA 26cm) and AGA growth. BPP 02/26. Will order Anesthesia consult given BMI > 50. Continue twice weekly surveillance. Progress Notes - Documentati on - 01/12/2025 - GA:33w0d 01/12/2025 - 33w0d - Sis Edwards MD Images from the original note were not included. Glycemic Control Meeting 01/12/2025 This patient was discussed at the glycemic control meeting on 01/12/2025. I have analyzed and interpreted > 72 hours of ambulatory continuous glucose monitoring of interstitial fluid via a subcutaneous sensor for Vivien Albright. Fasting values are slightly elevated the majority of days throughout the week. Prandial glycemic spikes are generally pretty reasonable. Will mildly increase Lantus dosing. The following adjustments have been proposed: - Current regimen: 01/12/2025 Lantus 26 units qHS > Lantus 28u qHS Lispro Metformin 1000 mg BID This note has been sent to [facility] RN clinical pool for coordination of patient care and to communicate proposed adjustments. The problem list has been updated. I have spent 5 total minutes on remote diabetes management. Sis Edwards MD Computer Systems Security Administrator Division of Maternal- Medicine and Ultrasound Department of Obstetrics and Gynecology [facility] Progress Notes - Office Visi t - 01/12/2025 - GA:33w0d 01/12/2025 - 33w0d - Beulah Wilson NP [facility] Return Visit 01/12/2025 Vivien Albright is a 34 y.o. at 33w0d who is here for a return OB visit. Her is complicated by T2DM, BMI 41 and depression/anxiety. Subjective: Reports a pain in her abdomen that radiates from her umbilicus to her right upper quadrant. It completely resolves with rest and tylenol but she likes to avoid meds when possible. She denies contractions, loss of fluid, or vaginal bleeding and reports good movement. Objective: BP 110/80 (BP Location: Left arm, Patient Position: Sitting) Comment: Manual Pulse 101 Wt 271 lb 3.2 oz (123 kg) LMP 05/26/2024 SpO2 96% BMI 48.04 kg/m General: NAD Abdomen: Soft, gravid, NT, no diastasis recti or bulge concerning for hernia on exam FHR + Ultrasound: Bilateral UTD A1 is noted, BPP 8- see finalized US report Assessment/Plan: Vivien Albright is a 34 y.o. at 33w0d with a complicated by the following: Problem List RUPA 03/02/25 Anxiety and depression - Primary Overview History of MDD and CAN since 14 Previously treated by [facility]) Previously on Duloxetine, Aripiprazole, Buspirone OD and Clonidine as needed Current regimen: No meds Info provided for [facility] psych and therapy Close monitoring of her mood with restart of pharmacologic therapy if needed. Obesity affecting , antepartum Overview Previously counseled Plan: [x] Initiate aspirin 81 mg at 12 weeks for preeclampsia risk reduction [x] Specialized anatomic survey at 20 weeks [] NST/BPP ( see DM) Polyhydramnios in third trimester, not applicable or unspecified fetus Overview 12/24/2024 mild poly, counseled in US -> resolved 01/04 Recommend tight glycemic control Continue to monitor Pre-existing essential hypertension complicating in second trimester Overview Ms Albright does not have a formal diagnosis of HTN but review of her notes after she was seen is consistent with HTN. Her DBP is mildly elevated at initial MFM visit Previously counseled Current regimen: 10/29/2024 No meds Plan [x] ASA 81 mg daily [x] Labs: Baseline wnl [x] EKG - ordered 09/24/24 WNL [] Serial US q 4 weeks at 24 weeks [] NST at 32 weeks ( Diabetes Mellitus) [] TOD 38-39 but earlier if indicated Pre-existing type 2 diabetes mellitus during , antepartum Overview History & Counseling Diagnosed age 29 ( 2019 with A1C 7.4) History of DKA? N Last hemoglobin A1C: 6.6% on 08/06/24 Pre- regimen: metformin, Rybelsus and Jardiance OD Pre- weight: 246 lbs MFM counselin08/27/2024 Dexcom: clinic login, name is Vivien Mena Plan Current regimen: 01/12/2025 Lantus 26q qHS--> Lantus 28u qHS Lispro --> Metformin 1000 mg BID - Feels her Dexcom is more accurate now - Encouraged changing her alarm on her dexcom to go off if <65 and verifying all lows with accu check. Hypoglycemic precautions reviewed. - Physician adjusting insulin dosage: MFM [x] Counseling performed - done 08/27/24 [x] Diabetes education, completed on 08/20/24 [x] Recommend weekly review of BG/insulin data to adjust insulin dosing [x] Glucagon prescribed - sent [x] Needs ophthalmology for comprehensive eye exam ( last eye exam 2022) [x] Baseline CMP wnl, recommend baseline UP:C, done on 08/27/24 [] A1c qTrimester [x] 1st T: 6.6% [x] 2nd T: 6.2% at 29 weeks [] 3rd T: [x] First trimester TSH - normal [x] ASA starting at 12 weeks gestation [x] Baseline EKG, consider maternal TTE [x] Specialized anatomy ultrasound at 18-20 weeks [x] echocardiogram at 20-22 weeks - wnl [] Serial growth scans starting at 24 weeks- scheduled [] Twice weekly testing starting at 32 weeks - scheduled [x] insulin plan by 32 weeks - metformin 500mg daily since she was well-controlled pre- [] Delivery at [id number] ([id number] with vascular complications or poorly controlled) Current Assessment & Plan Hypoglycemic precautions reviewed Supervision of high-risk , second trimester Overview [x] Full MFM Care; [x] Blue Team MEI per pt request, Primary OB aware per the pt, email for global sent on 09/30 Referring Provider: Glen Velazquez [phone] [] or Medicare Insurance [x] Dating Criteria: [...] <100,000 colonies/mL GBS [x] Pap: 10/24/21: NILM [] LD ASA (if indicated): [] EPDS [ ]; [facility] referral (if indicated): 2nd Trimester [x] Anatomy ultrasound: complete [x] CBC 24-28wks: [x] Rhogam at 28 wks (if Rh neg): 12/15/2024 3rd Trimester [x] CBC: 12.1/35.5/364K HIV: NR RPR: NR T&S: A negative, negative [x] GBS: +uria [] testinx/weekly at 32w 2/2 diabetes Counseling [] MOD: IOL to be scheduled at 39w [x] Place of delivery: [facility] [] Epidural: [] Accepts Blood Products: [] Stop ASA: [] MOC: [x] Method of feeding: breast [] Artificial Intelligence Specialist (specifically which provider): [x] PP Depression Discussed: [] PP visits scheduled: Vaccines [] Flu Shot (Sep-Jun): [] COVID vaccine: [x] Tdap (27-36wks): 12/15/2024 [...] labor after 39w. Will continue to address. Plan for anesthesia consult. Rh negative state in antepartum period Overview S/p 28w RhoGam #abdominal pain - PTL/abruption precautions reviewed but symptoms not concerning for either - no evidence of diastasis recti or hernia on exam - recommend rest, ice/heat, tylenol, flexeril- pt hoping to avoid meds - discussed belly band and options for PT - WAC precautions reviewed PTL/PEC/FKC precautions reviewed. Reviewed the importance of presenting to her closest hospital in the case of an emergency for evaluation and if necessary and safe will be transferred to [facility]. JESSEE Coronel Progress Notes - Orders Only - 01/07/2025 - GA:32w2d 01/07/2025 - 32w2d - Gennaro Adan RN Unable to monitor, sent to [facility], per Parveen Order already in Progress Notes - Office Visi t - 01/04/2025 - GA:31w6d 01/04/2025 - 31wd - Zakia Pulido MD MFM Return Visit 01/04/2025 Vivien Albright is a 34 y.o. at 31w6d by LMP consistent with 1st trimester Ultrasound who is here for a return OB visit. Her is complicated by T2DM, depression/anxiety, cHTN, and previous UTD. Subjective: She reports no VB/LOF. Her uterus is tender some days but today is OK. She has some tailbone pain and leg swelling. Over the last week she has had the sensation of having to breathe deeper but is not SOB and denies CP. No FLYNN. Objective: BP 137/90 (BP Location: Left arm, Patient Position: Sitting) Comment: Rosey aware LMP 05/26/2024 General: NAD Ultrasound: 01/04 BPP 8/8, no UTD Assessment/Plan: Vivien Albright is a 34 y.o. at 31w6d with a complicated by below. Problem List Obesity affecting , antepartum Overview Previously counseled Plan: [x] Initiate aspirin 81 mg at 12 weeks for preeclampsia risk reduction [x] Specialized anatomic survey at 20 weeks [] NST/BPP ( see DM) Pre-existing type 2 diabetes mellitus during , antepartum Overview History & Counseling Diagnosed age 29 ( 2019 with A1C 7.4) History of DKA? N Last hemoglobin A1C: 6.6% on 08/06/24 Pre- regimen: metformin, Rybelsus and Jardiance OD Pre- weight: 246 lbs MFM counselin08/27/2024 Dexcom: clinic login, name is Vivien Mena Plan - Current regimen: 01/04/2025 - no changes Lantus 26 units qHS Lispro -> Metformin 1000 mg BID - Feels her Dexcom is more accurate now - Encouraged changing her alarm on her dexcom to go off if <65 and verifying all lows with accu check. Hypoglycemic precautions reviewed. - Physician adjusting insulin dosage: MFM [x] Counseling performed - done 08/27/24 [x] Diabetes education, completed on 08/20/24 [x] Recommend weekly review of BG/insulin data to adjust insulin dosing [x] Glucagon prescribed - sent [x] Needs ophthalmology for comprehensive eye exam ( last eye exam 2022) [x] Baseline CMP wnl, recommend baseline UP:C, done on 08/27/24 [] A1c qTrimester [x] 1st T: 6.6% [x] 2nd T: 6.2% at 29 weeks [] 3rd T: [x] First trimester TSH - normal [x] ASA starting at 12 weeks gestation [x] Baseline EKG, consider maternal TTE [x] Specialized anatomy ultrasound at 18-20 weeks [x] echocardiogram at 20-22 weeks - wnl [] Serial growth scans starting at 24 weeks- scheduled [] Twice weekly testing starting at 32 weeks - scheduled [x] insulin plan by 32 weeks - metformin 500mg daily since she was well-controlled pre- [] Delivery at [id number] ([id number] with vascular complications or poorly controlled) Rh negative state in antepartum period Overview S/p 28w RhoGam Supervision of high-risk , second trimester - Primary Overview [x] Full MFM Care; [x] Blue Team MEI per pt request, Primary OB aware per the pt, email for global sent on 09/30 Referring Provider: Glen Velazquez [phone] [] or Medicare Insurance [x] Dating Criteria: [...] <100,000 colonies/mL GBS [x] Pap: 10/24/21: NILM [] LD ASA (if indicated): [] EPDS [ ]; [facility] referral (if indicated): 2nd Trimester [x] Anatomy ultrasound: complete [x] CBC 24-28wks: [x] Rhogam at 28 wks (if Rh neg): 12/15/2024 3rd Trimester [x] CBC: 12.1/35.5/364K HIV: NR RPR: NR T&S: A negative, negative [x] GBS: +uria [] testinx/weekly at 32w 2/2 diabetes Counseling [] MOD: IOL to be scheduled at 39w [x] Place of delivery: [facility] [] Epidural: [] Accepts Blood Products: [] Stop ASA: [] MOC: [x] Method of feeding: breast [] Artificial Intelligence Specialist (specifically which provider): [x] PP Depression Discussed: [] PP visits scheduled: Vaccines [] Flu Shot (Sep-Jun): [] COVID vaccine: [x] Tdap (27-36wks): 12/15/2024 [...] labor after 39w. Will continue to address. Plan for anesthesia consult. Anxiety and depression Overview History of MDD and CAN since 14 Previously treated by [facility]) Previously on Duloxetine, Aripiprazole, Buspirone OD and Clonidine as needed Current regimen: No meds Info provided for [facility] psych and therapy Close monitoring of her mood with restart of pharmacologic therapy if needed. Current Assessment & Plan EPDS 16 today with never for Q10. Her mood is up and down but tolerable off medications. Her partner corroborates this. She declines restarting medication at this time. Pre-existing essential hypertension complicating in second trimester Overview Ms Albright does not have a formal diagnosis of HTN but review of her notes after she was seen is consistent with HTN. Her DBP is mildly elevated at initial [facility] visit Previously counseled Current regimen: 10/29/2024 No meds Plan [x] ASA 81 mg daily [x] Labs: Baseline wnl [x] EKG - ordered 09/24/24 WNL [] Serial US q 4 weeks at 24 weeks [] NST at 32 weeks ( Diabetes Mellitus) [] TOD 38-39 but earlier if indicated Current Assessment & Plan DBP 90 today, asymptomatic. Pyelectasis of fetus on ultrasound Overview Noted on US 11/26/2024 and counseled S/p low risk NIPT 12/24/2024 Left renal pelvis is dilated to 7.4 mm and there is mild ureteral dilation seen. A2-3 UTD, s/p counseling in US- referral to [facility] to help coordinate peds urology 01/04: normal kidneys bilaterally - 6.8 and 6.4 mm. Recommend repeating kidney assessment on next US but no need for f/u if UTD remains resolved. If returns, can coordinate follow-up for baby. Polyhydramnios in third trimester, not applicable or unspecified fetus Overview 12/24/2024 mild poly, counseled in [place] -> resolved 01/04 Recommend tight glycemic control Continue to monitor RTC in 2 weeks with NSTs/BPPs in the interim. Zuly Pulido MA MD Computer Systems Security Administrator Division of Maternal- Medicine and Ultrasound Department of Obstetrics and Gynecology [facility] 01/04/2025 Progress Notes - Office Visi t - 12/24/2024 - GA:30w2d 12/24/2024 - 30w2d - Beulah Wilson NP [facility] Return Visit 12/24/2024 Vivien Albright is a 34 y.o. at 30w2d who is here for a return OB visit. Her is complicated by T2DM, BMI 41 and depression/anxiety. Subjective: Doing well today. She denies regular contractions, loss of fluid, or vaginal bleeding and reports good movement. Denies headaches, visual changes or RUQ pain. Typically takes her insulin 15 minutes before a meal but has had 2 episodes of hypoglycemia because she waited closer to 20 minutes before eating. She does not feel bad when her BS are 65. Not checking bps but willing to start. Objective: BP 124/90 Comment: Lam BP Pulse 125 Ht 160 cm (5' 3) Wt 263 lb 6.4 oz (119.5 kg) LMP 05/26/2024 SpO2 97% BMI 46.66 kg/m General: NAD Abdomen: Soft, gravid, NT, FHR + Ultrasound: EFW 58%, Left renal pelvis is dilated to 7.4 mm and there is mild ureteral dilation seen. A2-3 UTD, mild poly- see finalized US report Assessment/Plan: Vivien Albright is a 34 y.o. at 30w2d with a complicated by the following: Problem List RUPA 03/02/25 Anxiety and depression - Primary Overview History of MDD and CAN since 14 Previously treated by [facility] [employer]) Previously on Duloxetine, Aripiprazole, Buspirone OD and Clonidine as needed Current regimen: No meds Info provided for [facility] psych and therapy Close monitoring of her mood with restart of pharmacologic therapy if needed. Obesity affecting , antepartum Overview Previously counseled Plan: [x] Initiate aspirin 81 mg at 12 weeks for preeclampsia risk reduction [x] Specialized anatomic survey at 20 weeks [] NST/BPP ( see DM) Pre-existing essential hypertension complicating in second trimester Overview Ms Albright does not have a formal diagnosis of HTN but review of her notes after she was seen is consistent with HTN. Her DBP is mildly elevated at initial [facility] visit Previously counseled Current regimen: 10/29/2024 No meds Plan [x] ASA 81 mg daily [x] Labs: Baseline wnl [x] EKG - ordered 09/24/24 WNL [] Serial US q 4 weeks at 24 weeks [] NST at 32 weeks ( Diabetes Mellitus) [] TOD 38-39 but earlier if indicated Current Assessment & Plan BP mild range today. Pt reports bps are always higher in the office and then normalize. Pt asymptomatic. PreE precautions reviewed. Attempted to validate a bp cuff but was not successful. Plan for close monitoring during weekly nst visits. Pre-existing type 2 diabetes mellitus during , antepartum Overview History & Counseling Diagnosed age 29 ( 2019 with A1C 7.4) History of DKA? N Last hemoglobin A1C: 6.6% on 08/06/24 Pre- regimen: metformin, Rybelsus and Jardiance OD Pre- weight: 246 lbs MFM counselin08/27/2024 Dexcom: clinic login, name is Vivien Mena Plan - Current regimen: 12/15/2024 - pt did not make previously recommended changes due to concern for lows and inaccurate sensors Lantus 28u qHS Lispro > Metformin 1000 mg BID - Physician adjusting insulin dosage: MFM [x] Counseling performed - done 08/27/24 [x] Diabetes education, completed on 08/20/24 [x] Recommend weekly review of BG/insulin data to adjust insulin dosing [x] Glucagon prescribed - sent [x] Needs ophthalmology for comprehensive eye exam ( last eye exam 2022) [x] Baseline CMP wnl, recommend baseline UP:C, done on 08/27/24 [] A1c qTrimester [x] 1st T: 6.6% [x] 2nd T: 6.2% at 29 weeks [] 3rd T: [x] First trimester TSH - normal [x] ASA starting at 12 weeks gestation [x] Baseline EKG, consider maternal TTE [x] Specialized anatomy ultrasound at 18-20 weeks [x] echocardiogram at 20-22 weeks - wnl [] Serial growth scans starting at 24 weeks- scheduled [] Twice weekly testing starting at 32 weeks [] insulin plan by 32 weeks [] Delivery at [id number]-[id number] ([id number] with vascular complications or poorly controlled) Relevant Orders US Ob Limited US Ob Follow Up US Ob Limited Pyelectasis of fetus on ultrasound Overview Noted on US 11/26/2024 and counseled S/p low risk NIPT 12/24/2024 Left renal pelvis is dilated to 7.4 mm and there is mild ureteral dilation seen. A2-3 UTD, s/p counseling in [place]- referral to [facility] to help coordinate peds urology Relevant Orders US Ob Limited US Ob Follow Up US Ob Limited Supervision of high-risk , second trimester Overview [x] Full MFM Care; [x] Blue Team MEI per pt request, Primary OB aware per the pt, email for global sent on 09/30 Referring Provider: Glen Velazquez [phone] [] or Medicare Insurance [x] Dating Criteria: [...] <100,000 colonies/mL GBS [x] Pap: 10/24/21: NILM [] LD ASA (if indicated): [] EPDS [ ]; [facility] referral (if indicated): 2nd Trimester [x] Anatomy ultrasound: complete [x] CBC 24-28wks: [x] Rhogam at 28 wks (if Rh neg): 12/15/2024 3rd Trimester [x] CBC: 12.1/35.5/364K HIV: NR RPR: NR T&S: A negative, negative [] GBS: [] testinx/weekly at 32w 2/2 diabetes Counseling [] MOD: IOL to be scheduled at 39w [x] Place of delivery: [facility] [] Epidural: [] Accepts Blood Products: [] Stop ASA: [] MOC: [x] Method of feeding: breast [] Artificial Intelligence Specialist (specifically which provider): [] PP Depression Discussed: [] PP visits scheduled: [...] labor after 39w. Will continue to address. Plan for anesthesia consult. Polyhydramnios in third trimester, not applicable or unspecified fetus Overview 12/24/2024 mild poly, counseled in [place] Recommend tight glycemic control Continue to monitor Relevant Orders US Ob Limited US Ob Follow Up US Ob Limited PTL/PEC/FKC precautions reviewed. Reviewed the importance of presenting to her closest hospital in the case of an emergency for evaluation and if necessary and safe will be transferred to [facility]. JESSEE Coronel Progress Notes - Office Visi t - 12/15/2024 - GA:29w0d 12/15/2024 - - Aarti Schuler CMA Patient here in office today to receive her Rhogam. Injection was given in the Right buttock. Patient had no adverse reactions. Lot# [id number] Exp: 06/23/2025 [facility]:[id number] Pt taken to check-out. Aarti Contreras CMA 12/15/2024 - - Beulah Wilson NP MFM Return Visit 12/15/2024 Vivien Albright is a 34 y.o. at 29w0d who is here for a return OB visit. Her is complicated by T2DM, BMI 41 and depression/anxiety. Subjective: Doing well today. She denies regular contractions, loss of fluid, or vaginal bleeding and reports good movement. She remains on lantus 28 and lispro because when she calibrates her dexcom with an accu check she is usually not as high as her dexcom is reading. Currently not checking bps at home. Denies headaches, visual changes or RUQ pain. Objective: BP 133/91 Pulse 95 Ht 160 cm (5' 3) Wt 259 lb (117.5 kg) LMP 05/26/2024 SpO2 98% BMI 45.88 kg/m General: NAD Abdomen: Soft, gravid, NT, FHR + Ultrasound: n/a Assessment/Plan: Vivien Albright is a 34 y.o. at 29w0d with a complicated by the following: Problem List RUPA 03/02/25 Supervision of high-risk , second trimester - Primary Overview [x] Full MFM Care; [x] Blue Team MEI per pt request, Primary OB aware per the pt, email for global sent on 09/30 Referring Provider: Glen Velazquez [phone] [] or Medicare Insurance [x] Dating Criteria: [...] <100,000 colonies/mL GBS [x] Pap: 10/24/21: NILM [] LD ASA (if indicated): [] EPDS [ ]; [facility] referral (if indicated): 2nd Trimester [x] Anatomy ultrasound: complete [x] CBC 24-28wks: [x] Rhogam at 28 wks (if Rh neg): 12/15/2024 3rd Trimester [] CBC/HIV/RPR/T&S: [] GBS: [] testinx/weekly at 32w 2/2 diabetes Counseling [] MOD: IOL to be scheduled at 39w [x] Place of delivery: [facility] [] Epidural: [] Accepts Blood Products: [] Stop ASA: [] MOC: [x] Method of feeding: breast [] Artificial Intelligence Specialist (specifically which provider): [] PP Depression Discussed: [] PP visits scheduled: [...] labor after 39w. Will continue to address. Plan for anesthesia consult. Pyelectasis of fetus on ultrasound Overview Noted on US 11/26/2024 and counseled S/p low risk NIPT Continue serial growth US Pre-existing type 2 diabetes mellitus during , antepartum Overview History & Counseling Diagnosed age 29 ( 2019 with A1C 7.4) History of DKA? N Last hemoglobin A1C: 6.6% on 08/06/24 Pre- regimen: metformin, Rybelsus and Jardiance OD Pre- weight: 246 lbs MFM counselin08/27/2024 Dexcom: clinic login, name is Vivien Mena Plan - Current regimen: 12/15/2024 - pt did not make previously recommended changes due to concern for lows and inaccurate sensors Lantus 28u qHS Lispro > Metformin 1000 mg BID - Physician adjusting insulin dosage: MFM [x] Counseling performed - done 08/27/24 [x] Diabetes education, completed on 08/20/24 [x] Recommend weekly review of BG/insulin data to adjust insulin dosing [x] Glucagon prescribed - sent [x] Needs ophthalmology for comprehensive eye exam ( last eye exam 2022) [x] Baseline CMP wnl, recommend baseline UP:C, done on 08/27/24 [] A1c qTrimester [x] 1st T: 6.6% [] 2nd T: [] 3rd T: [x] First trimester TSH - normal [x] ASA starting at 12 weeks gestation [x] Baseline EKG, consider maternal TTE [x] Specialized anatomy ultrasound at 18-20 weeks [x] echocardiogram at 20-22 weeks - wnl [] Serial growth scans starting at 24 weeks- scheduled [] Twice weekly testing starting at 32 weeks [] insulin plan by 32 weeks [] Delivery at [id number]-13d6u ([id number]-[id number] with vascular complications or poorly controlled) Current Assessment & Plan Continues to have elevated blood sugars with meals. Slight adjustments made after discussion with the patient. Encouraged continued calibration and making notes when sensor is not accurate. Pre-existing essential hypertension complicating in second trimester Overview Ms Albright does not have a formal diagnosis of HTN but review of her notes after she was seen is consistent with HTN. Her DBP is mildly elevated at initial [facility] visit Previously counseled Current regimen: 10/29/2024 No meds Plan [x] ASA 81 mg daily [x] Labs: Baseline wnl [x] EKG - ordered 09/24/24 WNL [] Serial US q 4 weeks at 24 weeks [] NST at 32 weeks ( Diabetes Mellitus) [] TOD 38-39 but earlier if indicated Current Assessment & Plan BP mild range today, repeat normal. Asymptomatic. PreE precautions reviewed. Obesity affecting , antepartum Overview Previously counseled Plan: [x] Initiate aspirin 81 mg at 12 weeks for preeclampsia risk reduction [x] Specialized anatomic survey at 20 weeks [] NST/BPP ( see DM) Anxiety and depression Overview History of MDD and CAN since 14 Previously treated by [facility] ([facility]) Previously on Duloxetine, Aripiprazole, Buspirone OD and Clonidine as needed Current regimen: No meds Info provided for [facility] psych and therapy Close monitoring of her mood with restart of pharmacologic therapy if needed. PTL/PEC/FKC precautions reviewed. Reviewed the importance of presenting to her closest hospital in the case of an emergency for evaluation and if necessary and safe will be transferred to [facility]. JESSEE Coronel Cosigned by Yana Munoz MD at 12/16/2024 9:45 AM CDT Progress Notes - Telemedicin e - 12/04/2024 - GA:27w3d 12/04/2024 - - Sonia Altamirano MD Images from the original note were not included. This was a telemedicine visit which took place via Real-time video connection (InTouch, Zoom or similar). During the visit, I was located [place] and the patient was located in [place]. My visit with the patient started at 1:43 and ended at 1:51- switched to phone call d/t connectivity issues. Total encounter time was 15 minutes, which includes time spent today on pre charting, the patient encounter, and post charting. The patient has been informed that the visit may not be secure and acknowledged the information. My team explained the option of participating in a telephone or video visit to them. After being given an opportunity to ask questions about and discuss this type of visit, they consented to proceeding with the telephone/video visit and understand that this service replaces an office visit and they may be billed and/or responsible for any applicable copayments. [facility] Return Visit 12/04/2024 Vivien Albright is a 34 y.o. at 27w3d who is here for a glycemic control televisit. Her is complicated by T2DM, cHTN, BMI 41 and depression/anxiety. Subjective: Most recently on Lantus 24u QHS, Lispro 07/02/14 on 12/01- made changes that night. Still globally elevated since that time. Did have low 12/04 AM but this was incorrect and in the setting of changing sensors. Is concerned because she feels that we've never caught up to normal glucoses with her increases and wondering if she needs more. Objective: LMP 05/26/2024 General: NAD Assessment/Plan: Vivien Albright is a 34 y.o. at 27w3d with a complicated by : Pre-existing type 2 diabetes mellitus during , antepartum Will increase dosing another 20% today. Plan - Current regimen: 12/04/2024 Lantus 24u qHS > 28u QHS Lispro 07/02/14 > Metformin 1000 mg BID We have scheduled her to return on 12/15. Thank you for the opportunity to be involved in the care of your patient. Should you have any further questions or concerns, please do not hesitate to call us. Sincerely, Sonia Altamirano MD PGY7 Maternal Medicine Fellow Patient was seen and discussed with Dr. Alvarado. Cosigned by Remedios Alvarado MD at 12/25/2024 2:29 PM CDT Associated attestation - Remedios Alvarado MD - 12/25/2024 2:29 PM CDT I have seen and examined the patient. I agree with the findings and plan of care as documented in the resident/fellow's note. Progress Notes - Office Visi t - 11/26/2024 - GA:26w2d 11/26/2024 - 26w2d - Beulah Wilson NP MFM Return Visit 11/26/2024 Vivien Albright is a 34 y.o. at 26w2d who is here for a return OB visit. Her is complicated by T2DM, BMI 41 and depression/anxiety. Subjective: Doing well today. She denies contractions, loss of fluid, or vaginal bleeding and reports good movement. Objective: BP 127/85 (BP Location: Left arm, Patient Position: Sitting) Pulse 85 Ht 160 cm (5' 3) Wt 250 lb 9.6 oz (113.7 kg) LMP 05/26/2024 SpO2 99% BMI 44.39 kg/m General: NAD Abdomen: Soft, gravid, NT, FHR + Ultrasound: AGA, left kidney 6.2- see finalized US report Assessment/Plan: Vivien Albright is a 34 y.o. at 26w2d with a complicated by the following: Problem List RUPA 03/02/25 Anxiety and depression - Primary Overview History of MDD and CAN since 14 Previously treated by [facility] ([facility]) Previously on Duloxetine, Aripiprazole, Buspirone OD and Clonidine as needed Current regimen: No meds Info provided for [facility] psych and therapy Close monitoring of her mood with restart of pharmacologic therapy if needed. Obesity affecting , antepartum Overview Previously counseled Plan: [x] Initiate aspirin 81 mg at 12 weeks for preeclampsia risk reduction [x] Specialized anatomic survey at 20 weeks [] NST/BPP ( see DM) Relevant Orders US Ob Follow Up Pre-existing essential hypertension complicating in second trimester Overview Ms Albright does not have a formal diagnosis of HTN but review of her notes after she was seen is consistent with HTN. Her DBP is mildly elevated at initial MFM visit Previously counseled Current regimen: 10/29/2024 No meds Plan [x] ASA 81 mg daily [x] Labs: Baseline wnl [x] EKG - ordered 09/24/24 WNL [] Serial US q 4 weeks at 24 weeks [] NST at 32 weeks ( Diabetes Mellitus) [] TOD 38-39 but earlier if indicated Relevant Orders US Ob Follow Up Pre-existing type 2 diabetes mellitus during , antepartum Overview History & Counseling Diagnosed age 29 ( 2019 with A1C 7.4) History of DKA? N Last hemoglobin A1C: 6.6% on 08/06/24 Pre- regimen: metformin, Rybelsus and Jardiance OD Pre- weight: 246 lbs MFM counselin08/27/2024 Dexcom: clinic login, name is Vivien Mena Plan - Current regimen: 11/17/2024 Lantus 18u qHS > Lantus 20u qHS Lispro 02/26/10 > Lispro 04/30/12 Metformin 1000 mg BID - Physician adjusting insulin dosage: MFM [x] Counseling performed - done 08/27/24 [x] Diabetes education, completed on 08/20/24 [x] Recommend weekly review of BG/insulin data to adjust insulin dosing [x] Glucagon prescribed - sent [x] Needs ophthalmology for comprehensive eye exam ( last eye exam 2022) [x] Baseline CMP wnl, recommend baseline UP:C, done on 08/27/24 [] A1c qTrimester [x] 1st T: 6.6% [] 2nd T: [] 3rd T: [x] First trimester TSH - normal [x] ASA starting at 12 weeks gestation [x] Baseline EKG, consider maternal TTE [x] Specialized anatomy ultrasound at 18-20 weeks [x] echocardiogram at 20-22 weeks - wnl [] Serial growth scans starting at 24 weeks- scheduled [] Twice weekly testing starting at 32 weeks [] insulin plan by 32 weeks [] Delivery at [id number]-92p5b ([id number] with vascular complications or poorly controlled) Relevant Orders US Ob Follow Up Supervision of high-risk , second trimester Overview [x] Full MFM Care; [x] Blue Team MEI per pt request, Primary OB aware per the pt, email for global sent on 09/30 Referring Provider: Glen Velazquez [phone] [] or Medicare Insurance [x] Dating Criteria: [...] UCx: 08/06/24: <100,000 colonies/mL GBS [x] Pap: 4/5/22: NILM [] LD ASA (if indicated): [] EPDS [ ]; PNB[facility] referral (if indicated): 2nd Trimester [x] Anatomy ultrasound: complete [] CBC 24-28wks: needs next visit [] Rhogam at 28 wks (if Rh neg): needs next visit 3rd Trimester [] CBC/HIV/RPR/T&S: [] GBS: [] testinx/weekly at 32w 2/2 diabetes Counseling [] MOD: [x] Place of delivery: [facility] [] Epidural: [] Accepts Blood Products: [] Stop ASA: [] MOC: [x] Method of feeding: breast [] Artificial Intelligence Specialist (specifically which provider): [] PP Depression Discussed: [] PP visits scheduled: Vaccines [] Flu Shot (Mar-Jun): [] COVID vaccine: [] Tdap (27-36wks): [] RSV vaccine (32-36wks): [] PP HPV vaccine counseling (<=26 yo): Patient hopes to avoid induction of labor [...] labor after 39w. Will continue to address. Plan for anesthesia consult. Pyelectasis of fetus on ultrasound Overview Noted on US 11/26/2024 and counseled S/p low risk NIPT Continue serial growth US PTL/PEC/FKC precautions reviewed. Reviewed the importance of presenting to her closest hospital in the case of an emergency for evaluation and if necessary and safe will be transferred to [facility]. JESSEE Coronel Progress Notes - Documentati on - 11/10/2024 - GA:24w0d 11/10/2024 - 24w0d - Sis Edwards MD Images from the original note were not included. Glycemic Control Meeting 11/10/2024 This patient was discussed at the glycemic control meeting on 11/10/2024. I have analyzed and interpreted > 72 hours of ambulatory continuous glucose monitoring of interstitial fluid via a subcutaneous sensor for Vivien Albright. Baseline glycemic control overall very good with only mildly elevated overnight glycemic values. Some breakfast and lunch post-prandial highs but not consistent with every meal, however >50% within the last week. Dinner elevations majority of the time despite mild increase is Lispro dosing last week. Will increase all mealtime insulin dosing this week. Also reviewed patient's message in [employer] about her concerns for post-prandial elevations, consistent with review of Dexcom data. Recommended adjustments to mealtime insulin dosing should hopefully address these continued elevations. The following adjustments have been proposed: - Current regimen:11/10/2024 Lantus 18u qHS Lispro > Lispro 02/26/10 Metformin 1000 mg BID This note has been sent to MFM RN for coordination of patient care and to communicate proposed adjustments. The problem list has been updated. I have spent 5 total minutes on remote diabetes management. Sis Edwards MD Computer Systems Security Administrator Division of Maternal- Medicine and Ultrasound Department of Obstetrics and Gynecology [facility] Progress Notes - Office Visi t - 10/29/2024 - GA:22w2d 10/29/2024 - 22w2d - Beulah Wilson NP [facility] Return Visit 11/02/2024 Vivien Albright is a 34 y.o. at 22w2d who is here for a return OB visit. Her is complicated by T2DM, BMI 41 and depression/anxiety. Subjective: Emotional today when discussing her desire to avoid IOL, pitocin and epidural. She has read pitocin increases the risk of pp depression and she already is at risk for that. She hopes to avoid an epidural but understands that is likely in the setting of pitocin. She denies cramping, loss of fluid, or vaginal bleeding. Objective: BP 125/85 Pulse 88 Wt 236 lb 6.4 oz (107.2 kg) LMP 05/26/2024 SpO2 99% BMI 41.88 kg/m General: NAD Abdomen: Soft, gravid, NT, FHR + Ultrasound: incomplete- see finalized US report Assessment/Plan: Vivien Albright is a 34 y.o. at 22w2d with a complicated by the following: Problem List RUPA 03/02/25 Anxiety and depression - Primary Overview History of MDD and CAN since 14 Previously treated by [facility] [employer]) Previously on Duloxetine, Aripiprazole, Buspirone OD and Clonidine as needed Current regimen: No meds Info provided for [facility] psych and therapy Close monitoring of her mood with restart of pharmacologic therapy if needed. Current Assessment & Plan Emotional support provided. Obesity affecting , antepartum Overview Obesity in (BMI >30) is associated with increased risks. Maternal risks include preeclampsia and higher risk of section due to labor abnormalities. risks include anomalies, growth abnormalities (FGR and macrosomia) and stillbirth. Recommended weight gain is a total of 11-20 lbs, with 1-4 lbs in the 1st trimester and 0.5 lb/week in the 2nd and 3rd trimesters. Plan: [x] Initiate aspirin 81 mg at 12 weeks for preeclampsia risk reduction [x] Specialized anatomic survey at 20 weeks [] NST/BPP ( see DM) Pre-existing essential hypertension complicating in second trimester Overview Ms Albright does not have a formal diagnosis of HTN but review of her notes after she was seen is consistent with HTN. Her DBP is mildly elevated at initial [facility] visit Previously counseled Current regimen: 10/29/2024 No meds Plan [x] ASA 81 mg daily [x] Labs: Baseline wnl [x] EKG - ordered 09/24/24 WNL [] Serial US q 4 weeks at 24 weeks [] NST at 32 weeks ( Diabetes Mellitus) [] TOD 38-39 but earlier if indicated Pre-existing type 2 diabetes mellitus during , antepartum Overview History & Counseling Diagnosed age 29 ( 2019 with A1C 7.4) History of DKA? N Last hemoglobin A1C: 6.6% on 08/06/24 Pre- regimen: metformin, Rybelsus and Jardiance OD Pre- weight: 246 lbs MFM counselin08/27/2024 Dexcom: clinic login, name is Vivien Mena Plan Current regimen:10/20/2024 Lantus 18u qHS Lispro with meals: 6 with meals Metformin 1000 mg BID - Physician adjusting insulin dosage: MFM [x] Counseling performed - done 08/27/24 [x] Diabetes education, completed on 08/20/24 [x] Recommend weekly review of BG/insulin data to adjust insulin dosing [x] Glucagon prescribed- sent 11/02/2024 [x] Needs ophthalmology for comprehensive eye exam ( last eye exam 2022) [x] Baseline CMP wnl, recommend baseline UP:C, done on 08/27/24 [] A1c qTrimester [x] 1st T: 6.6% [] 2nd T: [] 3rd T: [x] First trimester TSH - normal [x] ASA starting at 12 weeks gestation [x] Baseline EKG, consider maternal TTE [x] Specialized anatomy ultrasound at 18-20 weeks [x] echocardiogram at 20-22 weeks - wnl [] Serial growth scans starting at 24 weeks- scheduled [] Twice weekly testing starting at 32 weeks [] insulin plan by 32 weeks [] Delivery at 39 0/7-39 6/7 (36 0/7 to 38 6/7 with vascular complications or poorly controlled) Current Assessment & Plan BS reviewed and insulin adjustments above. Hypoglycemic [...] and that these are just our recommendations. Supervision of high-risk , second trimester Overview [x] Full MFM Care; [x] Blue Team MEI per pt request, Primary OB aware per the pt, email for global sent on 09/30 Referring Provider: Glen Velazquez [phone] [] or Medicare Insurance [x] Dating Criteria: [...] <100,000 colonies/mL GBS [x] Pap: 10/24/21: NILM [] LD ASA (if indicated): [] EPDS [ ]; PNBHS referral (if indicated): 2nd Trimester [x] Anatomy ultrasound: complete [] CBC 24-28wks: [] Rhogam at 28 wks (if Rh neg): 3rd Trimester [] CBC/HIV/RPR/T&S: [] GBS: [] GC/CT (if indicated): [] testing: Counseling [] MOD: [] Place of delivery: [] Epidural: [] Accepts Blood Products: [] Stop ASA: [] MOC: [] Method of feeding: [] Artificial Intelligence Specialist (specifically which provider): [] PP Depression Discussed: [] PP visits scheduled: Vaccines [] Flu Shot (Mar-Jun): [] COVID vaccine: [] Tdap (27-36wks): [] RSV vaccine (32-36wks): [] PP HPV vaccine counseling (<=26 yo): Patient hopes to avoid induction of labor [...] labor after 39w. Will continue to address. Plan for anesthesia consult. Hospital precautions reviewed. JESSEE Coronel Progress Notes - Documentati on - 10/19/2024 - GA:20w6d 10/19/2024 - 20w6d - Celine Rose RN Images from the original note were not included. Cosigned by Zakia Giordano MD at 10/20/2024 11:41 AM CDT Associated attestation - Zakia Giordano MD - 10/20/2024 11:41 AM CDT Current regimen:10/20/2024 Add lispro with meals: 4 units 15-20 minutes before meals Lantus 18u qHS Metformin 1000 mg BID I have analyzed and interpreted > 72 hours of ambulatory continuous glucose monitoring of interstitial fluid via a subcutaneous sensor for Vivien Albright. I have made the recommendations above for diabetes management. 10/20/2024 Progress Notes - Office Visi t - 10/15/2024 - GA:20w2d 10/15/2024 - 20w2d - Beulah Wilson NP MFM Return Visit 10/16/2024 Vivien Albright is a 34 y.o. at 20w2d who is here for a return OB visit. Her is complicated by T2DM, BMI 41 and depression/anxiety. Subjective: Feels well today. She denies contractions, loss of fluid, or vaginal bleeding and reports good movement. She has bought ketone strips and reports trace/small ketones at home that have improved with regular meals. Objective: BP 126/89 Pulse 90 Wt 231 lb 12.8 oz (105.1 kg) LMP 05/26/2024 SpO2 99% BMI 41.06 kg/m General: NAD Abdomen: Soft, gravid, NT, FHR + Ultrasound: incomplete- see finalized US report Assessment/Plan: Vivien Albright is a 34 y.o. at 20w2d with a complicated by the following: Problem List RUPA 03/02/25 Pre-existing type 2 diabetes mellitus during , antepartum - Primary Overview History & Counseling Diagnosed age 29 ( 2019 with A1C 7.4) History of DKA? N Last hemoglobin A1C: 6.6% on 08/06/24 Pre- regimen: metformin Pre- weight: 246 lbs MFM counselin08/27/2024 Dexcom: clinic login, name is Vivien Mena Plan Current regimen: 10/16/2024= no changes Lantus 18u qHS Metformin 1000 mg BID - Physician adjusting insulin dosage: MFM [x] Counseling performed - done 08/27/24 [x] Diabetes education, completed on 08/20/24 [x] Recommend weekly review of BG/insulin data to adjust insulin dosing [x] Glucagon prescribed [x] Needs ophthalmology for comprehensive eye exam ( last eye exam 2022) [x] Baseline CMP wnl, recommend baseline UP:C, done on 08/27/24 [] A1c qTrimester [x] 1st T: 6.6% [] 2nd T: [] 3rd T: [x] First trimester TSH - normal [x] ASA starting at 12 weeks gestation [] Baseline EKG, consider maternal TTE - EKG Ordered 09/29/24 [] Specialized anatomy ultrasound at 18-20 weeks- incomplete [] echocardiogram at 20-22 weeks - scheduled [] Serial growth scans starting at 24 weeks [] Twice weekly testing starting at 32 weeks [] insulin plan by 32 weeks [] Delivery at 39 0/7-39 6/7 (36 0/7 to 38 6/7 with vascular complications or poorly controlled) Current Assessment & Plan Overall good control. Continue current regimen. Relevant Orders US Ob Follow Up Hospital precautions reviewed. JESSEE Coronel Progress Notes - Documentati on - 10/06/2024 - GA:19w0d 10/06/2024 - 19w0d - Sis Edwards MD Images from the original note were not included. Glycemic Control Meeting 10/06/2024 This patient was discussed at the glycemic control meeting on 10/06/2024. I have analyzed and interpreted > 72 hours of ambulatory continuous glucose monitoring of interstitial fluid via a subcutaneous sensor for Vivien E Johnielard. Overall very good glycemic control. May need some lunch-time insulin next week however for now will make no changes. The following adjustments have been proposed: - Current regimen: 09/29/2024 - no changes Lantus 18u qHS Metformin 1000 mg BID may need lunch insulin next week This note has been sent to MFM RN for coordination of patient care and to communicate proposed adjustments. The problem list has been updated. I have spent 5 total minutes on remote diabetes management. Sis Edwards MD Computer Systems Security Administrator Division of Maternal- Medicine and Ultrasound Department of Obstetrics and Gynecology [facility] Progress Notes - Documentati on - 09/29/2024 - GA:18w0d 09/29/2024 - 18w0d - Sis Edwards MD Images from the original note were not included. Glycemic Control Meeting 09/29/2024 This patient was discussed at the glycemic control meeting on 09/29/2024. I have analyzed and interpreted > 72 hours of ambulatory continuous glucose monitoring of interstitial fluid via a subcutaneous sensor for Vivien E Brynnuglard. Overall excellent glycemic control however verging on hypoglycemic overnight. Will decrease Lantus dosing mildly. The following adjustments have been proposed: - Current regimen: 09/29/2024 Lantus 20u qHS > Lantus 18u qHS Metformin 1000 mg BID This note has been sent to MFM RN for coordination of patient care and to communicate proposed adjustments. The problem list has been updated. I have spent 5 total minutes on remote diabetes management. Sis Edwards MD Computer Systems Security Administrator Division of Maternal- Medicine and Ultrasound Department of Obstetrics and Gynecology [facility] Progress Notes - Office Visi t - 09/24/2024 - GA:17w2d 09/24/2024 - w2d - Dian Edwards MD Images from the original note were not included. MFM Return Consult Visit 09/24/[address] Velazquez, It was a pleasure meeting again with our mutual patient in continued consultation. Vivien Albright is a 34 y.o. at 17w2d whose is complicated by T2DM, BMI 41 and depression/anxiety. Subjective: She reports no complaints. Doing well with Lantus. She reports that she did not make great diet choices over the past week, which may explain her elevated PP values. Objective: BP 130/84 Pulse 93 Ht 160 cm (5' 3) Wt 229 lb 8 oz (104.1 kg) LMP 05/26/2024 SpO2 98% BMI 40.65 kg/m General: NAD Abdomen: Gravid FHT+ by Doppler Assessment/Plan: Vivien Albright is a 34 y.o. at 17w2d with a complicated by the following: Pre-existing type 2 diabetes mellitus during , antepartum 09/24/24 CGM data reviewed. Fasting values improved [...] 6/7 with vascular complications or poorly controlled) Pre-existing essential hypertension complicating in second trimester Normotensive today Plan [x] ASA 81 mg daily [x] Labs: Baseline wnl [] EKG - ordered 09/24/24 [] Serial US q 4 weeks at 24 weeks [] NST at 32 weeks ( Diabetes Mellitus) [] TOD 38-39 but earlier if indicated Obesity affecting , antepartum Plan: [x] Initiate aspirin 81 mg at 12 weeks for preeclampsia risk reduction [] Specialized anatomic survey at 20 weeks [] 3rd trimester anesthesia consultation if BMI >/=50 [] NST/BPP ( see DM) Anxiety during in first trimester, antepartum Mood is stable. No acute concerns today. Supervision of high-risk , second trimester Continue co-management with primary OB Thank you for your consultation. Please don't hesitate to contact me with any questions. We will continue to follow along with . Vivien Wong Patrickdavid , and will plan to see her back in 3 weeks for a MFM visit and anatomy ultrasound. Dian Edwards MD Maternal Medicine 09/24/2024 SIGN INSTALLER Progress Notes - Documentati on - 09/14/2024 - GA:15w6d 09/14/2024 - 15w6d - Celine Rose RN Images from the original note were not included. - Current regimen: 09/15/2024 - fasting values remain elevated, recommend initiation of insulin Lantus 20u qHS Metformin 1000 mg BID I have analyzed and interpreted > 72 hours of ambulatory continuous glucose monitoring of interstitial fluid via a subcutaneous sensor for Vivien Albright. I have made the recommendations above for diabetes management. Dian Edwards MD Maternal Medicine 09/15/2024 SIGN INSTALLER SIGN INSTALLER Progress Notes - Office Visi t - 09/09/2024 - GA:15w1d 09/09/2024 - 15w1d - Glen Velazquez MD Return OB Visit Vviien Albright is a 34 y.o. at 15w1d Denies bleeding or cramping. Having normal round ligament pains. Not yet perceiving movement. Had initial visit with MFM and is scheduled for follow up. Objective BP 136/88 Ht 160 cm (5' 2.99) Wt 230 lb 9.6 oz (104.6 kg) LMP 05/26/2024 BMI 40.86 kg/m TWG: -5 lb 6.4 oz (-2.449 kg) FHR 160, audible Assessment and Plan We have a redundant ultrasound scheduled with us on October 14, and patient is scheduled with MFM on October 15. We will cancel our ultrasound. Surveillance of EDC by LMP = 9 week US A-/I/-/-, HIV and RPR NR - RhoGAM at 28 weeks or p.r.n. Genetics: low risk Anatomy: With MFM GCT: 26-28 weeks 3rd trim CBC/HIV/RPR Tdap: 27+ weeks GBS: 36 weeks, or sooner if early delivery indicated Social Barriers: none Mode of feeding: Method of contraception: Delivery Planning: TBD Left fibroid 3.8 cm at IOB Depression/ anxiety: Prepregnancy open (discontinued all): Cymbalta, BuSpar, Abilify, occasional p.r.n. clonidine Current meds: None Established with psychiatrist and therapist EPDS at NOB 14 (getting better) Reassess each visit T2DM Metformin XR 1000 mg daily (07/01/2024) hemoglobin A1c 6.8 dASA @ 12 wks MFM comanagement testing Morbid obesity - initial BMI 41 Serial EFW Third trimester anesthesia consult Glen Velazquez MD SIGN INSTALLER Progress Notes - Documentati on - 09/08/2024 - GA:15w0d 09/08/2024 - 15w0d - Sis Edwards MD Images from the original note were not included. Glycemic Control Meeting 09/08/2024 This patient was discussed at the glycemic control meeting on 09/08/2024. I have analyzed and interpreted > 72 hours of ambulatory continuous glucose monitoring of interstitial fluid via a subcutaneous sensor for Vivien Albright. Average glucose 124 with mealtime excursions overall appropriate. Fasting values generally mildly elevated. Call placed to patient to discuss initiation of insulin vs other options. She reports she started metformin 1000 mg BID on 09/01/2024. She is not currently eating a protein snack before bed - generally eats dinner at around 4:40 PM-6 PM and goes to bed around 7 PM-8 PM. She wakes up around 4:30 AM and then goes back to sleep for about 1 hour. She then goes back to sleep and wakes up around 7:30 AM which is when she eats. We reviewed the option of starting some insulin vs trialing a protein snack in the evenings before bed. For now, she would prefer to try a protein snack in the evenings. The following adjustments have been proposed: - Current regimen: 09/08/2024 Metformin 1000 mg BID Add a protein snack before bed This note has been sent to MFM RN for coordination of patient care and to communicate proposed adjustments. The problem list has been updated. I have spent 15 total minutes on remote diabetes management. Sis Edwards MD Computer Systems Security Administrator Division of Maternal- Medicine and Ultrasound Department of Obstetrics and Gynecology [facility] SIGN INSTALLER Progress Notes - Documentati on - 09/01/2024 - GA:14w0d 09/01/2024 - 14w0d - Sis Edwards MD Images from the original note were not included. Entered in error. Patient without data on Dexcom so cannot review today. Please request the patient to upload her CGM data to Dexcom. This note has been sent to MFM RN for coordination of patient care and to communicate proposed adjustments. The problem list has been updated. Sis Edwards MD Computer Systems Security Administrator Division of Maternal- Medicine and Ultrasound Department of Obstetrics and Gynecology [facility] Addendum: Glycemic Control Meeting 09/01/2024 This patient was discussed at the glycemic control meeting on 09/01/2024. I have analyzed and interpreted > 72 hours of ambulatory continuous glucose monitoring of interstitial fluid via a subcutaneous sensor for Vivien Albright. Of note, patient's Dexcom is under Vivien Mena. Global average increase in glucose values throughout the day with mealtime excursional values as well. Recommend max-ing her metformin dosing for now, but may require insulin. The following adjustments have been proposed: - Current regimen: 09/01/2024 Metformin 500 mg BID > Metformin 1000 mg BID This note has been sent to MFRebecca RN for coordination of patient care and to communicate proposed adjustments. The problem list has been updated. I have spent 5 total minutes on remote diabetes management. Sis Edwards MD Computer Systems Security Administrator Division of Maternal- Medicine and Ultrasound Department of Obstetrics and Gynecology [facility] SIGN INSTALLER SIGN INSTALLER SIGN INSTALLER Progress Notes - Office Visi t - 08/27/2024 - GA:13w2d 08/27/2024 - 13w2d - Aimee Flores MD Maternal Medicine Consult Note Reason for Consult: T2DM Requesting Provider: Dr. Glen Velazquez Dear Dr. Velazquez, We had the pleasure of seeing your patient Vivien Albright in our office today. As you know, she is a 34 y.o. at 13w2d by LMP consistent with 1st trimester Ultrasound here today for a consult regarding T2DM. Her is also complicated by BMI 41 and depression/anxiety. Today she is doing well, she reports bleeding and no cramping. Past Medical History: Diagnosis Date Anxiety and depression Diabetes mellitus, type II (HCC) Past Surgical History: Procedure Laterality Date TONSILECTOMY, ADENOIDECTOMY, BILATERAL MYRINGOTOMY AND TUBES Past Gynecologic History: Prior STIs: No History of abnormal pap: No Last pap smear: 2022 Patient's last menstrual period was 05/26/2024. Denies history of uterine anomalies or fibroids OB History Para Term AB Living 1 0 0 0 0 0 SAB IAB Ectopic Multiple Live Births 0 0 0 0 0 # Outcome Date GA Lbr Jordan/2nd Weight Sex Type Anes PTL Lv 1 Current Current Outpatient Medications Medication Sig Dispense Refill aspirin 81 mg chewable tablet Take 1 tablet (81 mg total) by mouth daily 30 tablet 11 blood glucose diagnostic (glucose blood) strip 1 each by other route daily blood-glucose meter,continuous (Dexcom G7 Mounting Machine Operator) misc Use continuously to check blood sugars 1 each 2 blood-glucose sensor (Dexcom G7 Sensor) device Use continuously to check blood sugars 1 each 11 metFORMIN XR (GLUCOPHAGE XR) 500 mg 24 hr tablet Take 2 tablets (1,000 mg total) by mouth daily with breakfast OneTouch Delica Plus Lancet 33 gauge misc CHECK BLOOD SUGAR ONCE A DAY OneTouch Verio test strips strip TEST BLOOD SUGAR ONCE A DAY INSTRUCTED vit 45-[id number] 27mg iron- 800 mcg-250 mg capsule Take by mouth No current facility-administered medications for this visit. Family History: Family History Problem Relation Age of Onset Diabetes Paternal Grandmother Heart disease Maternal Grandfather Heart attack Maternal Grandfather Early Maternal Grandfather Arthritis Father Diabetes Father Hypertension Father Depression Mother Diabetes Father's Brother Breast cancer Neg Hx Colon cancer Neg Hx Ovarian cancer Neg Hx Uterine cancer Neg Hx Neural tube defects: No Down syndrome or other chromosomal anomalies: No Hemophilia, sickle cell, bleeding/clotting disorder: No Muscular dystrophy: No Cystic fibrosis: No Intellectual disability or Fragile X: No [place] disease: No Other defects or genetic disorders: No Allergies Allergen Reactions Adhesive Rash [place] Rash Codeine Rash Lamotrigine Cough Losartan Dizziness and Other (See comments) Social History Tobacco Use Smoking status: Former Types: Vaping Smokeless tobacco: Never Tobacco comments: Will quit when/if I become . Substance and Sexual Activity Drug use: Never Sexual activity: Yes Partners: Male Alcohol Use: Not At Risk (08/27/2024) AUDIT-C Frequency of Alcohol Consumption: Never Average Number of Drinks: Patient does not drink Frequency of Binge Drinking: Never Lives with Ricci Roger, partner Smoke cigarettes, cigars, E-cigs: No Beer, wine, or liquor: No Street drugs/marijuana: No Dating: RUPA of Estimated Date of Delivery: 03/02/25 based on LMP consistent with 1T US Review of Systems All review of systems are negative except for as noted. Physical Exam Vitals BP 137/90 Pulse 92 Ht 160 cm (5' 3) Wt 231 lb (104.8 kg) LMP 05/26/2024 SpO2 98% BMI 40.92 kg/m General: Healthy, alert, active, cooperative, and in no distress The rest of the exam was deferred due to the consultative nature of this visit. Ultrasound 09/01/2024: 13w2d CRL 70.4 mm, FHR 165 bpm Please see the separate report for full details Assessment: Ms. Vivien Albright is a karly 34 y.o. at 13w2d here today for a consult regarding: Recommendations: Problem Anxiety During in First Trimester, Antepartum History of CAN Previously managed by her PCP [facility] Duloxetine. Close monitoring of her mood with restart of pharmacologic therapy if needed. Obesity Affecting , Antepartum Obesity in (BMI >30) is associated with increased risks. Maternal risks include preeclampsia and higher risk of section due to labor abnormalities. risks include anomalies, growth abnormalities (FGR and macrosomia) and stillbirth. Recommended weight gain is a total of 11-20 lbs, with 1-4 lbs in the 1st trimester and 0.5 lb/week in the 2nd and 3rd trimesters. Plan: [x] Initiate aspirin 81 mg at 12 weeks for preeclampsia risk reduction [] Specialized anatomic survey at 20 weeks [] 3rd trimester anesthesia consultation if BMI >/=50 [] NST/BPP ( see DM) Pre-Existing Type 2 Diabetes Mellitus During , Antepartum History Diagnosed age 29 ( 2019 with A1C 7.4) History of DKA? N Last hemoglobin A1C: 6.6% on 08/06/24 Pre- regimen: metformin Pre- weight: 246 lbs Dexcom: clinic login, name is Vivien Mena Current regimen: 08/27/2024 Metformin 500 mg BID Reviewed with patient that type 2 diabetes is the most common form of pregestational diabetes and is characterized by peripheral insulin resistance. is generally a state of increased insulin resistance, the one exception being late first trimester when relatively higher levels of estrogen may enhance insulin sensitivity and increase the maternal hypoglycemia, especially when associated with nausea and vomiting. As such, insulin requirements will likely change during and frequent monitoring throughout . This in combination with diabetic education, exercise, and diet control will be necessary to achieve optimal glycemic control. We reviewed that goal blood glucose values are generally fasting a premeal glucose of 95 mg/dL or less and 1 hour postprandial glucose of 140 mg/dL or less. We recommend checking blood sugar fasting, before each meal, and 1 hour after eating. The patient should also check urine ketones when their glucose level exceeds 200 mg/dL and should have glucagon available in case of hypoglycemic episodes. We also reviewed the increased maternal and risks associated with type 2 diabetes in . Discussed that major congenital anomalies (cardiac, neurologic and skeletal) are the leading cause of mortality in pregnancies complicated by diabetes and is directly related to hemoglobin A1C values. An A1c level of 6.6% is associated with a 5.2% anomaly rate, and an 8% rate of miscarrigae. Other risks include large for gestational age or small for gestational age infants, delivery, and stillbirth. Maternal risks discussed include exacerbation of diabetes-related complications (particularly retinopathy and nephropathy), hypertensive disorders of , shoulder dystocia, and need for section. Also discussed that outcomes are best with optimal glycemic control. Lastly discussed that insulin drip will likely be required in labor. Plan - Physician adjusting insulin dosage: MFM [] Counseling performed [] Diabetes education [] Recommend weekly review of BG/insulin data to adjust insulin dosing [] Glucagon prescribed [] Needs ophthalmology for comprehensive eye exam ( last eye exam 2022) [] Baseline CMP wnl, recommend baseline UP:C, done on 08/27/24 [] A1c qTrimester [x] 1st T: 6.6% [] 2nd T: [] 3rd T: [] First trimester TSH [x] ASA starting at 12 weeks gestation [] Baseline EKG, consider maternal TTE [] Specialized anatomy ultrasound at 18-20 weeks [] echocardiogram at 20-22 weeks [] Serial growth scans starting at 24 weeks [] Twice weekly testing starting at 32 weeks [] insulin plan by 32 weeks [] Delivery at 39 0/7-39 6/7 (36 0/7 to 38 6/7 with vascular complications or poorly controlled) We have scheduled her to return in 4 weeks with an ultrasound. Thank you for the opportunity to be involved in the care of your patient. Should you have any further questions or concerns, please do not hesitate to call us. Aimee Wells MD Professor Division of Maternal Medicine SIGN INSTALLER Progress Notes - Abstract - 08/17/2024 - GA:11w6d 08/17/2024 - wd - Lyssa Hunt RMA Current OB records are in [facility]. PCP records for DM management are under Care Everywhere. Most recent visit was 07/23/24. SIGN INSTALLER Progress Notes - Clinical Sigala pport - 08/12/2024 - GA:11w1d 08/12/2024 - 11w1d - Vita Donovan RN Panorama drawn in office. SIGN INSTALLER Progress Notes - Clinical Sigala pport - 08/05/2024 - GA:10w1d 08/05/2024 - 10w1d - Vita Donovan RN Patient is doing well today. She does c/o greenish colored discharge and would like a exam. Dating US completed in office today. RUPA reviewed with the pt. PNL ordered today. NIPT discussed with the pt. She would like to complete at 11 weeks. T2DM, pt is currently on Metformin. Obesity, anatomy US sent to [facility]. Pap is up to date. STI testing to be collected today. Tdap and flu shot recommendations reviewed with the pt. OB call schedule reviewed with the pt. NOB packet reviewed with the pt and questions were answered. SIGN INSTALLER Progress Notes - Office Visi t - 08/05/2024 - GA:10w1d 08/05/2024 - 10w1d - Glen Velazquez MD New OB Visit Vivien Albright is a 34 y.o. at 10w1d Reports an increase in vaginal discharge. Requesting testing for vaginitis. History of type 2 diabetes, on metformin. History of depression and anxiety, summarized below. Was a mess in June, but improving. Histories Medical has a past medical history of Anxiety and depression and Diabetes mellitus, type II (HCC). Surgical has a past surgical history that includes Tonsilectomy, adenoidectomy, bilateral myringotomy and tubes. Social reports that she has quit smoking. Her smoking use included vaping. She has never used smokeless tobacco. No alcohol history on file. reports no history of drug use. reports being sexually active and has had partner(s) who are male. Meds Current Outpatient Medications: blood glucose diagnostic (glucose blood) strip, 1 each by other route daily, Disp: , Rfl: metFORMIN XR (GLUCOPHAGE XR) 500 mg 24 hr tablet, Take 2 tablets (1,000 mg total) by mouth daily with breakfast, Disp: , Rfl: OneTouch Delica Plus Lancet 33 gauge misc, CHECK BLOOD SUGAR ONCE A DAY, Disp: , Rfl: OneTouch Verio test strips strip, TEST BLOOD SUGAR ONCE A DAY INSTRUCTED, Disp: , Rfl: vit [id number] 27mg iron- 800 mcg-250 mg capsule, Take by mouth, Disp: , Rfl: aspirin 81 mg chewable tablet, Take 1 tablet (81 mg total) by mouth daily, Disp: 30 tablet, Rfl: 11 Allergies Patient is allergic to adhesive, cobalt, codeine, lamotrigine, and losartan. Objective Vitals BP 122/68 Wt 236 lb (107 kg) LMP 05/26/2024 BMI 41.81 kg/m Body mass index is 41.81 kg/m . Physical Exam General Examination: GENERAL APPEARANCE: well developed, well nourished, in no acute distress. HEAD: atraumatic, normocephalic. NEUROLOGIC: cranial nerves 2-12 grossly intact. PSYCH: alert, oriented, judgement and insight good, mood/affect normal. Gynecological: EXTERNAL GENITALIA: no lesions, no erythema, no evidence of trauma. URETHRAL MEATUS: normal. VAGINA: small amount of medium consistency greenish discharge CERVIX: nontender, no lesions. ANUS: not examined. RECTAL: not examined. Assessment/Plan Reviewed ultrasound findings, size consistent with dates, final RUPA based on LMP Advise that speculum exam appears suspicious for BV. Will wait for results and postpone treatment to end of 1st trimester. Counseled regarding options for and maternal genetic screening. Discussed her history of type 2 diabetes, plan for co management with [facility], pattern for Accu-Cheks during and target ranges. Discussed patient's weight and plan to have [facility] complete anatomy ultrasound. Discussed management of depression and anxiety, importance of maintaining good emotional well-being, affirmed establishment with mental health professionals, and discussed safety profile of the medications she was taking should she need to resume prescription medication Surveillance of EDC by LMP = 9 week US Labs: ordered Genetics: NIPT and carrier at 11 weeks Anatomy: With [facility] GCT: 26-28 weeks 3rd trim CBC/HIV/RPR Tdap: 27+ weeks GBS: 36 weeks, or sooner if early delivery indicated Social Barriers: none Mode of feeding: Method of contraception: Delivery Planning: TBD Left fibroid 3.8 cm at IOB Depression/ anxiety: Prepregnancy open (discontinued all): Cymbalta, BuSpar, Abilify, occasional p.r.n. clonidine Current meds: None Established with psychiatrist and therapist EPDS at NOB 14 (getting better) Reassess each visit T2DM Metformin XR 1000 mg daily (07/01/2024) hemoglobin A1c 6.8 dASA @ 12 wks [facility] comanagement testing Morbid obesity - initial BMI 41 Early GCT ordered Serial EFW Third trimester anesthesia consult Diagnoses and all orders for this visit: Encounter for supervision of normal in first trimester, unspecified (Z34.91) (Primary) - CBC without differential; Future - Drugs of Abuse Screen, Urine with Reflex Confirmation; Future - Hemoglobin A1c; Future - Hemoglobin analysis by electrophoresis; Future - Hepatitis B Surface Antigen Blood; Future - Hepatitis C antibody Blood; Future - HIV 1/2 Antibody plus p24 Antigen Blood; Future - RPR Blood; Future - Rubella IgG antibody Blood; Future - Urine culture Urine, clean voided; Future - Type and screen; Future Type 2 diabetes mellitus without complication, without long-term current use of insulin ([facility]) (HCC) (E11.9) - US OB detail anatomy single or first gestation; Future Obesity affecting , antepartum, unspecified obesity type (O99.210) - US OB detail anatomy single or first gestation; Future Vaginal discharge (N89.8) - N. gonorrhoeae/C. trachomatis Amplification Vaginal; Future - Trichomonas vaginalis PCR Vaginal; Future - Vaginitis panel Vaginal; Future Pre-existing type 2 diabetes mellitus during , antepartum (O24.119) - Ambulatory Referral to Maternal - Medicine (Perinatology); Future - aspirin 81 mg chewable tablet; Take 1 tablet (81 mg total) by mouth daily Glen Velazquez MD SIGN INSTALLER Last Filed Vital Signs Vital Sign Reading [...] 02/11/2025 9:30 AM CDT Plan of Treatment Health Maintenance Due Date Last Done Comments Albumin Creatinine Ratio, Urine 1992 Dilated Eye Exam 1992 Foot Exam 1992 Varicella Vaccines (1 of 2 - 13+ 2-dose series) 02/11/2005 Pneumococcal vaccine <65 (1 of 2 - PCV) 02/11/2011 HPV Vaccines (1 - 3-dose SCD M series) 02/11/2019 Cervical Cancer Screening 10/24/2022 10/24/2021 Influenza Vaccine (#1) 2025 Regular Well Visit/Exam 18-64 05/28/2025, 05/09/2023, 10/24/2021 Hemoglobin A1C 06/17/2025 12/15/2024, 08/06/2024 Lipid Panel 07/01/2025 07/01/2024, 03/02/2024 Depression Screening 01/25/2026 01/25/2025, 08/05/19 25 eGFR 02/14/2026 02/14/2025, 01/20, 02/13/2025, Additional history exists DTaP/Tdap/Td Vaccine (8 - Td or Tdap) 12/15/2034 12/15/2024, 05/05/2018, 10/22/1996, Additional history exists Hepatitis B Screening Completed 11/24/1996 , 1992, 1992 Hepatitis C Screening Completed 08/06/2024 Procedures Procedure Name Priority Date/Time Associated Diagnosis [...] 12:52 AM CDT CBC WITHOUT DIFFERENTIAL STAT 12:52 AM CDT POCT GLUCOSE DEVICE Routine [...] GLUCOSE DEVICE Routine 2025 5:57 AM CDT SC AN PROCEDURE PLACEHOLDER Routine 2025 5:23 AM [...] Obesity affecting , antepartum, unspecified obesity type US OB FOLLOW UP Schedule Routine, Read [...] CDT Supervision of high-risk , second trimester US OB FOLLOW UP Schedule Routine, Read Routine (OP Routine) 11/26/2024 2:30 PM CDT Pre-existing type 2 diabetes mellitus during , antepartum HEPATITIS C ANTIBODY Routine 08/06/2024 9:[address] SIGN INSTALLER Encounter for supervision of normal in first trimester, unspecified PAP WITH REFLEX TO HIGH RISK HPV Routine 10/24/2021 11:19 AM CDT Encounter for annual routine gynecological examination from Last 3 Months or Most Recently Relevant to Health Maintenance Results * (ABNORMAL) CBC without differential (02/15/2025 9:59 AM CDT) WBC 16.54(H) 3.80 - 9.90 K/cumm Hgb 8.4(L) 11.9 - 15.5 g/dL [facility] Hct 25.8(L) 35.6 - 45.5 % [facility] Plt 326 150 - 400 K/cumm [facility] MPV 9.6 9.1 - 12.3 fL [facility] RBC 2.94(L) 3.90 - 5.20 M/cumm [facility] MCV 87.8 81.3 - 96.4 fL [facility] MCH 28.6 27.1 - 33.3 pg [facility] MCHC 32.6 32.3 - 35.7 g/dL [facility] RDW CV 14.1 11.1 - 14.9 % [facility] RDW SD 44.7 35.7 - 48.1 fL [facility] NRBC abs 0.03(H) 0.00 - 0.01 K/cumm [facility] Blood 02/15/2025 9:59 AM CDT 02/15/2025 10:10 AM CDT us Khadijah Pate NP LAB BLOOD ORDERABLES Final Result Performing Organization Address City/[facility]/ZIP Co de Phone Number [facility] Department [place] [address] * POCT glucose (02/15/2025 9:01 AM CDT) Glucose, POC 142 70 - 199 mg/dL Blood 02/15/2025 9:01 AM CDT 02/15/2025 9:01 AM CDT us Jeb Swift MD LAB POCT ORDERABLES - DEV ICE Final Result Performing Organization Address City/[facility]/ZIP Co de Phone Number [facility] Department [place] [address] * POCT glucose (02/14/2025 11:34 PM CDT) Glucose, POC 155 70 - 199 mg/dL Blood 02/14/2025 11:3 4 PM CDT 02/14/2025 11:34 PM CDT Jeb Swift MD LAB POCT ORDERABLES - DEV ICE [place] [address] * POCT glucose (02/14/2025 4:48 PM CDT) Glucose, POC 165 70 - 199 mg/dL Blood 02/14/2025 4:48 PM CDT 02/14/2025 4:48 PM CDT Jeb Swift MD LAB POCT ORDERABLES - DEV ICE Final Result Performing Organization Address City/[facility]/ZIP Co de Phone Number [facility] [employer] [place] [address] * POCT glucose (02/14/2025 1:22 PM CDT) Glucose, POC 103 70 - 199 mg/dL Blood 02/14/2025 1:22 PM CDT 02/14/2025 1:22 PM CDT Jeb Swift MD LAB POCT ORDERABLES - DEV ICE Final Result Performing Organization Address City/[facility]/ZIP Co de Phone Number SHAYE [facility] [employer] [place] [address] * (ABNORMAL) CBC without differential (02/14/2025 10:30 AM CDT) WBC 18.68(H) 3.80 - 9.90 K/cumm Hgb 7.6(L) 11.9 - 15.5 g/dL [facility] Hct 23.4(L) 35.6 - 45.5 % [facility] Plt 299 150 - 400 K/cumm [facility] MPV 9.8 9.1 - 12.3 fL [facility] RBC 2.67(L) 3.90 - 5.20 M/cumm [facility] MCV 87.6 81.3 - 96.4 fL [facility] MCH 28.5 27.1 - 33.3 pg [facility] MCHC 32.5 32.3 - 35.7 g/dL [facility] RDW CV 14.2 11.1 - 14.9 % [facility] RDW SD 44.6 35.7 - 48.1 fL [facility] NRBC abs 0.00 0.00 - 0.01 K/cumm [facility] Blood 02/14/2025 10:3 0 AM CDT 02/14/2025 10:53 AM CDT us Jeb Swift MD LAB BLOOD ORDERABLES Farhana l Result [facility] Department of [employer] [place] [address] * POCT glucose (02/14/2025 8:33 AM CDT) Pathologist [facility] Glucose, POC 103 70 - 199 mg/dL Blood 02/14/2025 8:33 AM CDT 02/14/2025 8:33 AM CDT us Jeb wSift MD LAB POCT ORDERABLES - DEV ICE Final Result [facility] [employer] [place] [address] * eGFR (02/14/2025 3:51 AM CDT) [facility] eGFR >90 >=60 mL/min/1. 73 m2 [...] MD LAB BLOOD ORDERABLES Farhana espinoza Result [facility] Department of Laboratories [place], [place] [id number] * (ABNORMAL) CBC without differential (02/14/2025 3:51 AM CDT) WBC 18.03(H) 3.80 - 9.90 K/cumm Hgb 7.1(L) 11.9 - 15.5 g/dL [facility] Hct 21.5(L) 35.6 - 45.5 % [facility] Plt 291 150 - 400 K/cumm [facility] MPV 9.8 9.1 - 12.3 fL [facility] RBC 2.48(L) 3.90 - 5.20 M/cumm [facility] MCV 86.7 81.3 - 96.4 fL [facility] MCH 28.6 27.1 - 33.3 pg [facility] MCHC 33.0 32.3 - 35.7 g/dL [facility] RDW CV 13.9 11.1 - 14.9 % [facility] RDW SD 43.7 35.7 - 48.1 fL [facility] NRBC abs 0.00 0.00 - 0.01 K/cumm [facility] Blood 02/14/2025 3:51 AM CDT 02/14/2025 4:36 AM CDT Jeb Switf MD LAB BLOOD ORDERABLES Farhana olga Result [facility] Department [place] [address] * (ABNORMAL) Basic metabolic panel (02/14/2025 3:51 AM CDT) Sodium 139 135 - 145 mmol/L Potassium, pl 4.1 3.3 - 4.9 mmol/L [facility] Chloride 107 97 - 110 mmol/L [facility] CO2 24 22 - 32 mmol/L [facility] Anion gap 8 2 - 15 mmol/L [facility] BUN 6 6 - 25 mg/dL [facility] Creatinine 0.54(L) 0.60 - 1.10 mg/dL [facility] Glucose 87 70 - 199 mg/dL [facility] Comment: Interpretive Data Fasting glucose >/= 126 [...] 2022. Calcium 8.5 8.5 - 10.3 mg/dL [facility] Blood 02/14/2025 3:51 AM CDT 02/14/2025 4:36 AM CDT Jeb Swift MD LAB BLOOD ORDERABLES Farhana l Result SHAYE JAMISON [facility] Department [place] [address] * POCT glucose (02/13/2025 9:37 PM CDT) Glucose, POC 105 70 - 199 mg/dL Blood 02/13/2025 9:37 PM CDT 02/13/2025 9:37 PM CDT us Jeb Swift MD LAB POCT ORDERABLES - DEV ICE Final Result Performing Organization Address [facility] Co de Phone Number [facility] Department [place] [address] * US Kidney Complete (02/13/2025 8:50 PM [...] hydronephrosis. Electronically signed by: Galen Houser M.D. Jeb Swift MD IMG US PROCEDURES Final R esult * POCT glucose (02/13/2025 6:51 PM CDT) Glucose, POC 115 70 - 199 mg/dL Blood 02/13/2025 6:51 PM CDT 02/13/2025 6:51 PM CDT Jeb Swift MD LAB POCT ORDERABLES - DEV ICE Final Result Performing Organization Address City/[facility]/ZIP Co de Phone Number [facility] Department [place] [address] * ABO/Rh (02/13/2025 1:01 PM CDT) Pathologist [facility] ABO Rh A Negative Blood 02/13/2025 1:01 PM CDT 02/13/2025 1:01 PM CDT Result [facility] Jeb Swift MD LAB BLOOD BANK TEST ORDER SOLOMON Final Result Performing Organization Address [facility] de Phone Number [facility] Department [place] [address] * Rh Immune Globulin Eval (02/13/2025 12:23 PM CDT) Pathologist [facility] RhIg Administration Not applicable RhIg Eligible No, not eligible [facility] Blood 02/13/2025 12:2 3 PM CDT 02/13/2025 12:34 PM CDT Narrative [facility] - 02/13/2025 1:03 PM CDT Number of weeks ?->Greater than or equal to 12 weeks antibody screen result:->Negative Rhogam given?->Unknown Number of vials requested:->1 Jeb Swift MD LAB BLOOD BANK TEST ORDER SOLOMON Final Result Performing Organization Address [facility] Co de Phone Number SHAY[facility] Department [place] [address] * eGFR (02/13/2025 12:23 PM CDT) eGFR [...] ORDERABLES Farhana l Result Performing Organization Address City/[facility]/ZIP Co de Phone Number [facility] Department [place] [address] * (ABNORMAL) CBC without differential (02/13/2025 12:23 PM CDT) Pathologist [facility] WBC 16.71(H) 3.80 - 9.90 K/cumm Hgb 7.7(L) 11.9 - 15.5 g/dL [facility] Hct 23.0(L) 35.6 - 45.5 % [facility] Plt 271 150 - 400 K/cumm [facility] MPV 9.9 9.1 - 12.3 fL [facility] RBC 2.66(L) 3.90 - 5.20 M/cumm [facility] MCV 86.5 81.3 - 96.4 fL [facility] MCH 28.9 27.1 - 33.3 pg [facility] MCHC 33.5 32.3 - 35.7 g/dL [facility] RDW CV 13.8 11.1 - 14.9 % [facility] RDW SD 43.3 35.7 - 48.1 fL [facility] NRBC abs 0.00 0.00 - 0.01 K/cumm [facility] Blood 02/13/2025 12:2 3 PM CDT 02/13/2025 12:32 PM CDT us Jeb Swift MD LAB BLOOD ORDERABLES Farhana l Result [facility] Department [place] [address] * (ABNORMAL) Basic metabolic panel (02/13/2025 12:23 PM CDT) Sodium 135 135 - 145 mmol/L Potassium, pl 3.8 3.3 - 4.9 mmol/L [facility] Chloride 104 97 - 110 mmol/L [facility] CO2 22 22 - 32 mmol/L [facility] Anion gap 9 2 - 15 mmol/L [facility] BUN 9 6 - 25 mg/dL [facility] Creatinine 0.59(L) 0.60 - 1.10 mg/dL [facility] Glucose 171 70 - 199 mg/dL [facility] Comment: Interpretive Data Fasting glucose >/= 126 [...] classification and Diagnosis of Diabetes Diabetes Care 2022; 46: S19-S40. Current interpretive data was last revised 2022. Calcium 8.4(L) 8.5 - 10.3 mg/dL [facility] Blood 02/13/2025 12:2 3 PM CDT 02/13/2025 12:32 PM CDT Jeb Swift MD LAB BLOOD ORDERABLES Farhana l Result Performing Organization Address City/[facility] Co de Phone Number [facility] [employer] [place] [address] * POCT glucose (02/13/2025 7:17 AM CDT) Glucose, POC 147 70 - 199 mg/dL Blood 02/13/2025 7:17 AM CDT 02/13/2025 7:17 AM CDT Jeb Swift MD LAB POCT ORDERABLES - DEV ICE Final Result Performing Organization Address [facility] de Phone Number [facility] [employer] [place] [address] * POCT glucose (02/13/2025 6:11 AM CDT) Glucose, POC 159 70 - 199 mg/dL Blood 02/13/2025 6:11 AM CDT 02/13/2025 6:11 AM CDT Jeb Swift MD LAB POCT ORDERABLES - DEV ICE Final Result Performing Organization Address City/[facility] Co de Phone Number [facility] [employer] [place] [address] * eGFR (02/13/2025 3:21 AM CDT) eGFR >90 >=60 mL/min/1. 73 [...] ORDERABLES Farhana l Result Performing Organization Address City/[facility] Co de Phone Number SHAY[facility] Department [place] [address] * (ABNORMAL) aPTT (02/13/2025 3:21 AM CDT) aPTT 22(L) 28 - 38 sec Comment: Interpretive Data Heparin therapeutic range: 66.0 - 100.0 seconds. Range based on correlation with therapeutic heparin activity range of 0.3 - 0.7 Units/mL. Current interpretive data was last revised on 2023. Blood 02/13/2025 3:21 AM CDT 02/13/2025 4:09 AM CDT Jeb Swift MD LAB BLOOD ORDERABLES Farhana l Result [facility] Department [place] [address] * Protime-INR (02/13/2025 3:21 AM CDT) [facility] PT 10.8 9.7 - 13.0 sec INR 1.00 0.90 - 1.20 [facility] Comment: Interpretive data Oral anticoagulant [...] ORDERABLES Farhana l Result Performing Organization Address City/[facility]/ZIP Co de Phone Number [facility] Department of [employer] [place] [address] * (ABNORMAL) Fibrinogen (02/13/2025 3:21 AM CDT) [facility] Fibrinogen 520(H) 170 - 400 mg/dL Blood 02/13/2025 3:21 AM CDT 02/13/2025 4:09 AM CDT Jeb Swift MD LAB BLOOD ORDERABLES Farhana l Result Performing Organization Address [facility] Co de Phone Number [facility] Department [place] [address] * (ABNORMAL) CBC without differential (02/13/2025 3:21 AM CDT) [facility] WBC 20.21(H) 3.80 - 9.90 K/cumm Hgb 8.1(L) 11.9 - 15.5 g/dL [facility] Hct 24.4(L) 35.6 - 45.5 % [facility] Plt 296 150 - 400 K/cumm [facility] MPV 9.9 9.1 - 12.3 fL [facility] RBC 2.84(L) 3.90 - 5.20 M/cumm [facility] MCV 85.9 81.3 - 96.4 fL [facility] MCH 28.5 27.1 - 33.3 pg [facility] MCHC 33.2 32.3 - 35.7 g/dL [facility] RDW CV 13.7 11.1 - 14.9 % [facility] RDW SD 43.0 35.7 - 48.1 fL [facility] NRBC abs 0.00 0.00 - 0.01 K/cumm [facility] Blood 02/13/2025 3:21 AM CDT 02/13/2025 4:06 AM CDT us Jeb Swift MD LAB BLOOD ORDERABLES Farhana espinoza Result [facility] Department [place] [address] * (ABNORMAL) Comprehensive metabolic panel (02/13/2025 3:21 AM CDT) [facility] Sodium 136 135 - 145 mmol/L Potassium, pl 3.8 3.3 - 4.9 mmol/L [facility] Chloride 106 97 - 110 mmol/L [facility] CO2 19(L) 22 - 32 mmol/L [facility] Anion gap 11 2 - 15 mmol/L [facility] BUN 9 6 - 25 mg/dL [facility] Creatinine 0.56(L) 0.60 - 1.10 mg/dL [facility] Glucose 155 70 - 199 mg/dL [facility] Comment: Interpretive Data Fasting glucose >/= 126 [...] 2022. Calcium 7.7(L) 8.5 - 10.3 mg/dL [facility] Bilirubin, total 0.5 0.1 - 1.2 mg/dL [facility] Protein, pl 5.2(L) 6.5 - 8.5 g/dL [facility] Albumin 2.6(L) 3.5 - 5.0 g/dL [facility] Alk phos 92 40 - 130 Units/L [facility] ALT 10 7 - 45 Units/L [facility] AST 15 10 - 45 Units/L [facility] Blood 02/13/2025 3:21 AM CDT 02/13/2025 4:06 AM CDT Jeb Swift MD LAB BLOOD ORDERABLES Farhana l Result Performing Organization Address [facility] Co de Phone Number [facility] Department [place] [address] * (ABNORMAL) POC Thromboelastometry Panel - Heparin (02/13/2025 1:02 AM CDT) [facility] HEPTEM-CT, POC <122(L) 141 - 215 sec HEPTEM-A5, POC 52(H) 33 - 51 mm [facility] HEPTEM-A10, POC 63(H) 44 - 61 mm [facility] HEPTEM-A20, POC 71(H) 52 - 67 mm [facility] HEPTEM-MCF, POC 75(H) 54 - 69 mm [facility] HEPTEM-Run Time, POC (hh:mm:ss) 02:00:01 [facility] Blood 02/13/2025 1:02 AM CDT 02/13/2025 1:02 AM CDT Jbe Swift MD LAB POCT ORDERABLES - DEV ICE Edited Result - Final Performing Organization Address [facility] Co de Phone Number [facility] Department [place] [address] * (ABNORMAL) POC Thromboelastometry Panel - Intrinsic (02/13/2025 1:01 AM CDT) INTEM-CT, POC <123(L) 139 - 205 sec [...] [facility] INTEM-Run Time, POC (hh:mm:ss) 02:00:01 [facility] Blood 02/13/2025 1:01 AM CDT 02/13/2025 1:01 AM CDT us Jeb Swift MD LAB POCT ORDERABLES - DEV ICE Edited Result - Final SHAYE GUTIERREZ [facility] Department [place] [address] * (ABNORMAL) POC Thromboelastometry Panel - Extrinsic [...] POC (hh:mm:ss) 02:00:01 [facility] Blood 02/13/2025 1:0 1 AM CDT 02/13/2025 1:01 AM CDT Jeb Swift MD LAB POCT ORDERABLES - DEV ICE Edited Result - Final Performing Organization Address [facility] Co de Phone Number [facility] [place] [address] * (ABNORMAL) POC Thromboelastometry Panel - Fibrinogen (02/13/2025 1:00 AM CDT) FIBTEM-A5, POC 24(H) 5 - 16 mm FIBTEM-A10, POC 26(H) 6 - 17 mm [facility] FIBTEM-A20, POC 28(H) 6 - 18 mm [facility] FIBTEM-MCF, POC 30(H) 9 - 19 mm [facility] FIBTEM-Run Time, POC (hh:mm:ss) 02:00:02 [facility] Blood 02/13/2025 1:00 AM CDT 02/13/2025 1:00 AM CDT Jeb Swift MD LAB POCT ORDERABLES - DEV ICE Edited Result - Final Performing Organization Address [facility] Co de Phone Number [facility] [place] [address] * (ABNORMAL) POC Blood Gas and Chemistries, Venous - (02/13/2025 1:00 AM CDT) pH, Gui POC 7.38 7.32 - 7.43 pCO2, gui POC 28(L) 40 - 50 mmHg [facility] pO2, gui POC 69 mmHg [facility] Na, POC 134(L) 135 - 145 mmol/L [facility] K POC 4.2 3.3 - 4.9 mmol/L [facility] Comment: Interpretive Data Not all point of care methods assess for hemolysis. Confirm with instrument and retest K+ if not consistent with clinical signs and symptoms. Current Interpretive Data was last revised on 2023. Cl, POC 109 97 - 110 mmol/L [facility] Ionized Ca, POC 4.04(L) 4.50 - 5.10 mg/dL [facility] Glucose, POC 157 70 - 199 mg/dL [facility] Lactate POC 3.2(H) 0.7 - 2.0 mmol/L [facility] O2 Sat, Gui POC (Ethel) 94 % [facility] Base excess, POC -7.4 mmol/L [facility] HCO3, Gui POC 17(L) 20 - 30 mmol/L [facility] Hct, POC 32.0(L) 36.3 - 45.3 % [facility] Total Hb, POC 10.6(L) 11.9 - 15.5 g/dL [facility] Blood 02/13/2025 1:00 AM CDT 02/13/2025 1:00 AM CDT us Jeb Swift MD LAB POCT ORDERABLES - DEV ICE Final Result Performing Organization Address City/[facility]/ZIP Co de Phone Number [facility] Department of [employer] [place] [address] * Critical Result Callback Hematology (02/13/2025 12:52 AM CDT) Date Notified [id number] Time Notified 156 [facility] TestName aPTT [facility] Called/Read Back Manuel Mcguire [facility] Credentials RN [facility] Called By JÚNIOR [facility] Blood 02/13/2025 12:5 2 AM CDT 02/13/2025 1:17 AM CDT us Ashutosh De Los Santos MD LAB BLOOD ORDERABLES Final Result [facility] Department of [employer] [place] [address] * (ABNORMAL) aPTT (02/13/2025 12:52 AM CDT) [...] BLOOD ORDERABLES Final Result Performing Organization Address [facility] de Phone Number [facility] [employer] [place] [address] * Protime-INR (02/13/2025 12:52 AM CDT) PT 9.9 9.7 - 13.0 sec INR 0.92 0.90 - 1.20 [facility] Comment: Interpretive data Oral anticoagulant [...] BLOOD ORDERABLES Final Result Performing Organization Address [facility] de Phone Number [facility] Department of [employer] [place] [address] * (ABNORMAL) Fibrinogen (02/13/2025 12:52 AM CDT) Fibrinogen 586(H) 170 - 400 mg/dL Blood 02/13/2025 12:5 2 AM CDT 02/13/2025 1:17 AM CDT Ashutosh De Los Santos MD LAB BLOOD ORDERABLES Final Result Performing Organization Address [facility] de Phone Number [facility] Department [place] [address] * (ABNORMAL) CBC without differential (02/13/2025 12:52 AM CDT) WBC 23.41(H) 3.80 - 9.90 K/cumm Hgb 9.8(L) 11.9 - 15.5 g/dL [facility] Hct 29.4(L) 35.6 - 45.5 % [facility] Plt 352 150 - 400 K/cumm [facility] MPV 10.0 9.1 - 12.3 fL [facility] RBC 3.38(L) 3.90 - 5.20 M/cumm [facility] MCV 87.0 81.3 - 96.4 fL [facility] MCH 29.0 27.1 - 33.3 pg [facility] MCHC 33.3 32.3 - 35.7 g/dL [facility] RDW CV 13.8 11.1 - 14.9 % [facility] RDW SD 43.8 35.7 - 48.1 fL [facility] NRBC abs 0.00 0.00 - 0.01 K/cumm [facility] Blood 02/13/2025 12:5 2 AM CDT 02/13/2025 1:05 AM CDT us Ashutosh De Los Santos MD LAB BLOOD ORDERABLES Final Result Performing Organization Address [facility] Co de Phone Number [facility] Department [place] [address] * POCT glucose (2025 11:14 PM CDT) Glucose, POC 111 70 - 199 mg/dL Blood 2025 11:1 4 PM CDT 2025 11:14 PM CDT us Jeb Swift MD LAB POCT ORDERABLES - DEV ICE Final Result SHAYE JAMISON Rad[facility] Department [place] [address] * (ABNORMAL) Urinalysis reflex to microscopic and culture Urine, bladder (2025 10:11 PM CDT) Color, ur Yellow Yellow Clarity, ur Cloudy(A) Clear [facility] Specific gravity, ur 1.037(H) 1.003 - 1.030 [facility] pH, urine 6.0 [facility] Comment: Interpretive Data U rine pH is affected by diet, medications, systemic acid-base disturbances, and renal tubular function. pH may affect urinary stone formation. For example, urine pH below 6.0 may help reduce the tendency for calcium phosphate stones and pH greater than 6.0 may reduce the tendency for uric acid stone formation. Source: [facility] Current Interpretive Data was last revised on 2017 Protein, ur ql 3+(A) Negative [facility] Glucose, ur ql Trace(A) Negative [facility] Ketones, ur 4+(A) Negative [facility] Bilirubin, ur Negative Negative [facility] Blood, ur 3+(A) Negative [facility] Urobilinogen, ur <2.0 <2.0 mg/dL [facility] Nitrite, ur Negative Negative [facility] Leukocyte esterase, ur Trace(A) Negative [facility] UA reflex comment Reflex to microscopic UA will be performed. [facility] Urine, bladder 2025 10 :11 PM CDT 2025 10:23 PM CDT us Jeb Swift MD LAB MICROBIOLOGY - GENERA L ORDERABLES Final Result SHAYE JAMISON Rad[facility] Department [place] [address] * (ABNORMAL) Urinalysis, microscopic only (2025 10:11 PM CDT) WBC, ur 21-50(A) 0 - 5 /HPF RBC, ur >50(A) 0 - 2 /HPF [facility] Epithelial cells, squamous, ur 6-10(A) 0 - 5 /HPF [facility] Comment:Suggestive of contam ination. Consider recollection by clean catch. Mucous, ur Present(A) [facility] Culture Reflex Comment Reflex to urine culture will be performed. [facility] Urine, bladder 2025 10 :11 PM CDT 2025 10:23 PM CDT Jeb Swift MD LAB URINE ORDERABLES Farhana l Result Performing Organization Address [facility] Co de Phone Number [facility] [place] [address] * Urine culture Urine, bladder (2025 10:11 PM CDT) Report Final Report: No growth Urine, bladder 2025 10 :11 PM CDT 2025 10:58 PM CDT Narrative [facility] - 02/14/2025 7:31 AM CDT Urine culture reflexed based upon urinalysis results. Testing performed by [facility] ([phone]) Jeb Swift MD LAB MICROBIOLOGY - GENERA L ORDERABLES Final Result Performing Organization Address [facility] Co de Phone Number [facility] Department [place] [address] * POCT glucose (2025 10:10 PM CDT) Glucose, POC 102 70 - 199 mg/dL Blood 2025 10:1 0 PM CDT 2025 10:10 PM CDT Jeb Swift MD LAB POCT ORDERABLES - DEV ICE Final Result Performing Organization Address [facility] [place] [address] * POCT glucose (2025 9:11 PM CDT) Glucose, POC 110 70 - 199 mg/dL Blood 2025 9:11 PM CDT 2025 9:11 PM CDT Jeb Swift MD LAB POCT ORDERABLES - [place] [address] * POCT glucose (2025 8:06 PM CDT) Glucose, POC 109 70 - 199 mg/dL Blood 2025 8:06 PM CDT 2025 8:06 PM CDT Jeb Swift MD LAB POCT ORDERABLES - DEV ICE Final Result Performing Organization Address City/[facility]/[place] [address] * POCT glucose (2025 7:30 PM CDT) [facility] Glucose, POC 98 70 - 199 mg/dL Blood 2025 7:30 PM CDT 2025 7:30 PM CDT Jeb Swift MD LAB POCT ORDERABLES - DEV ICE Final Result Performing Organization Address City/[facility]/[place] [address] * Varicella Zoster IgG antibody Blood (2025 7:30 PM CDT) [facility] VZV IgG Reactive Reactive Comment:Reactive: Results sigala ggest response to immunization or prior exposure to the virus. Blood 2025 7:30 PM CDT 2025 8:11 PM CDT Yuval Madrid MD LAB MICROBIOLOGY - GENERAL ORDERABLES Final Result Performing Organization Address [facility] de Phone Number [facility] [employer] [place] [address] * POCT glucose (2025 5:17 PM CDT) Glucose, POC 104 70 - 199 mg/dL Blood 2025 5:17 PM CDT 2025 5:17 PM CDT Yuval Madrid MD LAB POCT ORDERABL ES - DEVICE Final Result Performing Organization Address [facility] de Phone Number [facility] [employer] [place] [address] * POCT glucose (2025 2:54 PM CDT) Glucose, POC 98 70 - 199 mg/dL Blood 2025 2:54 PM CDT 2025 2:54 PM CDT Yuval Madrid MD LAB POCT ORDERABL ES - DEVICE Final Result Performing Organization Address [facility] de Phone Number [facility] [employer] [place] [address] * POCT glucose (2025 12:03 PM CDT) Glucose, POC 97 70 - 199 mg/dL Blood 2025 12:0 3 PM CDT 2025 12:03 PM CDT Yuval Madrid MD LAB POCT ORDERABL ES - DEVICE Final Result Performing Organization Address [facility] de Phone Number [facility] [place] [address] * POCT glucose (2025 10:01 AM CDT) Glucose, POC 101 70 - 199 mg/dL Blood 2025 10:0 1 AM CDT 2025 10:01 AM CDT Yuval Madrid MD LAB POCT ORDERABL ES - DEVICE Final Result Performing Organization Address [facility] Phone Number [facility] [place] [address] * POCT glucose (2025 8:01 AM CDT) Glucose, POC 115 70 - 199 mg/dL Blood 2025 8:01 AM CDT 2025 8:01 AM CDT Cecilia Archer MD LAB POCT ORDERABLES - RAKEL CE Final Result Performing Organization Address [facility] de Phone Number [facility] Department [place] [address] * POCT glucose (2025 6:47 AM CDT) Glucose, POC 132 70 - 199 mg/dL Blood 2025 6:47 AM CDT 2025 6:47 AM CDT Cecilia Archer MD LAB POCT ORDERABLES - RAKEL CE Final Result Performing Organization Address [facility] de Phone Number [facility] Department [place] [address] * POCT glucose (2025 5:57 AM CDT) Glucose, POC 130 70 - 199 mg/dL Blood 2025 5:57 AM CDT 2025 5:57 AM CDT Cecilia Archer MD LAB POCT ORDERABLES - RAKEL CE Final Result SHAYE [facility] Department [place] [address] * SC AN PROCEDURE PLACEHOLDER (2025 5:23 AM CDT) [...] patient tolerated procedure well with no complications us Galen Hoover MD ANESTHESIA ORDERABLES Final Re sult * POCT glucose (2025 4:53 AM CDT) Glucose, POC 124 70 - 199 mg/dL Blood 2025 4:53 AM CDT 2025 4:53 AM CDT Cecilia Archer MD LAB POCT ORDERABLES - RAKEL CE Final Result Performing Organization Address City/[facility] Co de Phone Number [facility] [employer] [place] [address] * POCT glucose (2025 2:55 AM CDT) Glucose, POC 103 70 - 199 mg/dL Blood 2025 2:55 AM CDT 2025 2:55 AM CDT Cecilia Archer MD LAB POCT ORDERABLES - RAKEL CE Final Result Performing Organization Address [facility] Co de Phone Number [facility] [employer] [place] [address] * POCT glucose (2025 12:43 AM CDT) Glucose, POC 93 70 - 199 mg/dL Blood 2025 12:4 3 AM CDT 2025 12:43 AM CDT Cecilia Archer MD LAB POCT ORDERABLES - RAKEL CE Final Result Performing Organization Address [facility] Co de Phone Number [facility] [employer] [place] [address] * POCT glucose (02/11/2025 10:22 PM CDT) Glucose, POC 103 70 - 199 mg/dL Blood 02/11/2025 10:2 2 PM CDT 02/11/2025 10:22 PM CDT Cecilia Archer MD LAB POCT ORDERABLES - RAKEL CE Final Result Performing Organization Address [facility] Co de Phone Number [facility] of [employer] [place] [address] * POCT glucose (02/11/2025 8:24 PM CDT) Glucose, POC 89 70 - 199 mg/dL Blood 02/11/2025 8:24 PM CDT 02/11/2025 8:24 PM CDT Cecilia Archer MD LAB POCT ORDERABLES - RAKEL CE Final Result Performing Organization Address [facility] Co de Phone Number [facility] of [employer] [place] [address] * POCT glucose (02/11/2025 6:28 PM CDT) Glucose, POC 93 70 - 199 mg/dL Blood 02/11/2025 6:28 PM CDT 02/11/2025 6:28 PM CDT Yuval Madrid MD LAB POCT ORDERABL ES - DEVICE Final Result Performing Organization Address [facility] Co de Phone Number [facility] [employer] [place] [address] * POCT glucose (02/11/2025 4:57 PM CDT) Glucose, POC 83 70 - 199 mg/dL Blood 02/11/2025 4:5 7 PM CDT 02/11/2025 4:57 PM CDT us Yuval Madrid MD LAB POCT ORDERABL ES - DEVICE Final Result Performing Organization Address [facility] de Phone Number [facility] [place] [address] * POCT glucose (02/11/2025 2:55 PM CDT) Glucose, POC 86 70 - 199 mg/dL Blood 02/11/2025 2:55 PM CDT 02/11/2025 2:55 PM CDT us Yuval Madrid MD LAB POCT ORDERABL ES - DEVICE Final Result Performing Organization Address [facility] de Phone Number [facility] [place] [address] * POCT glucose (02/11/2025 12:35 PM CDT) Glucose, POC 93 70 - 199 mg/dL Blood 02/11/2025 12:3 5 PM CDT 02/11/2025 12:35 PM CDT us Yuval Madrid MD LAB POCT ORDERABL ES - DEVICE Final Result Performing Organization Address [facility] de Phone Number [facility] Department [place] [address] * RPR Blood (02/11/2025 11:27 AM CDT) RPR Nonreactive Nonreactive Blood 02/11/2025 11:2 7 AM CDT 02/11/2025 11:46 AM CDT us Margaret Velazquez NP LAB MICROBIOLOGY - GENERAL ORDERABLES Final Result Performing Organization Address [facility] de Phone Number [facility] [place] [address] * Type and screen (02/11/2025 11:27 AM CDT) Pathologist [facility] Nubia, indirect Negative ABO Rh A Negative [facility] Blood 02/11/2025 11:2 7 AM CDT 02/11/2025 11:39 AM CDT Narrative [facility] - 02/11/2025 12:50 PM CDT Has the patient had Daratumumab or Isatuximab in the past 6 months?->Unknown Margaret Velazquez NP LAB BLOOD BANK MARU T ORDERABLES Final Result [facility] [place] [address] * eGFR (02/11/2025 10:15 AM CDT) [facility] eGFR >90 >=60 mL/min/1. 73 m2 [...] of Race in Diagnosing Kidney Disease, JASN 202). The CKD-EPI equation should not be used for patients with unstable renal function and has not been validated in children and those over 70. Current interpretive data was last reviewed 2021. Blood 02/11/2025 10:1 5 AM CDT 02/11/2025 10:34 AM CDT us Margaret Velazquez NP LAB BLOOD ORDERABL ES Final Result [facility] Department [place] [address] * (ABNORMAL) Differential, auto (02/11/2025 10:15 AM CDT) Neutrophil abs 9.42(H) 1.50 - 6.50 K/cumm Imm gran abs 0.13(H) 0.00 - 0.10 K/cumm [facility] Lymphocyte abs 2.64 0.80 - 3.30 K/cumm [facility] Monocyte abs 1.22(H) 0.20 - 0.80 K/cumm [facility] Eosinophil abs 0.15 0.00 - 0.50 K/cumm [facility] Basophil abs 0.05 0.00 - 0.10 K/cumm [facility] Neutrophil pct 69.1 % [facility] Comment: Interpretive Data Percent cell count reference ranges are not reported, since discordance with absolute values may lead to misinterpretation of CBC data. Current Interpretive Data was last revised on 2017. Imm gran pct 1.0 % [facility] Comment: Interpretive Data Percent cell count reference ranges are not reported, since discordance with absolute values may lead to misinterpretation of CBC data. Current Interpretive Data was last revised on 2017. Lymphocyte pct 19.4 % [facility] Comment: Interpretive Data Percent cell count reference ranges are not reported, since discordance with absolute values may lead to misinterpretation of CBC data. Current Interpretive Data was last revised on 2017. Monocyte pct 9.0 % [facility] Comment: Interpretive Data Percent cell count reference ranges are not reported, since discordance with absolute values may lead to misinterpretation of CBC data. Current Interpretive Data was last revised on 2017. Eosinophil pct 1.1 % [facility] Comment: Interpretive Data Percent cell count reference ranges are not reported, since discordance with absolute values may lead to misinterpretation of CBC data. Current Interpretive Data was last revised on 2017. Basophil pct 0.4 % [facility] Comment: Interpretive Data Percent cell count reference ranges are not reported, since discordance with absolute values may lead to misinterpretation of CBC data. Current Interpretive Data was last revised on 2017. Blood 02/11/2025 10:1 5 AM CDT 02/11/2025 10:36 AM CDT Margaret Velazquez NP LAB BLOOD ORDERABL ES Final Result Performing Organization Address City/[facility] Co de Phone Number [facility] Department [place] [address] * (ABNORMAL) CBC with auto differential (02/11/2025 10:15 AM CDT) WBC 13.61(H) 3.80 - 9.90 K/cumm Hgb 11.1(L) 11.9 - 15.5 g/dL [facility] Hct 32.7(L) 35.6 - 45.5 % [facility] Plt 347 150 - 400 K/cumm [facility] MPV 10.0 9.1 - 12.3 fL [facility] RBC 3.87(L) 3.90 - 5.20 M/cumm [facility] MCV 84.5 81.3 - 96.4 fL [facility] MCH 28.7 27.1 - 33.3 pg [facility] MCHC 33.9 32.3 - 35.7 g/dL [facility] RDW CV 13.7 11.1 - 14.9 % [facility] RDW SD 42.4 35.7 - 48.1 fL [facility] NRBC abs 0.00 0.00 - 0.01 K/cumm [facility] Blood 02/11/2025 10:1 5 AM CDT 02/11/2025 10:36 AM CDT us Margaret Velazquez NP LAB BLOOD ORDERABL ES Final Result Performing Organization Address [facility]/ZIP Co de Phone Number [facility] Department [place] [address] * (ABNORMAL) Protein / creatinine ratio, urine, random (02/11/2025 10:15 AM CDT) [facility] Protein, ur, quant 27.2 mg/dL Comment: Interpretive Data No reference range established. Current interpretive data was last revised 2018. Creatinine Ur 131.4 mg/dL [facility] Comment: Interpretive Data No reference range established. Current interpretive data was last revised 2018. Protein/creatinin e ratio 207.0(H) 0.0 - 180.0 mg/g CR [facility] Urine 02/11/2025 10:1 5 AM CDT 02/11/2025 10:33 AM CDT Margaret Velazquez NP LAB URINE ORDERABL ES Final Result [facility] Department [place] [address] * (ABNORMAL) Comprehensive metabolic panel (02/11/2025 10:15 AM CDT) [facility] Sodium 138 135 - 145 mmol/L Potassium, pl 3.9 3.3 - 4.9 mmol/L [facility] Chloride 105 97 - 110 mmol/L [facility] CO2 21(L) 22 - 32 mmol/L [facility] Anion gap 12 2 - 15 mmol/L [facility] BUN 9 6 - 25 mg/dL [facility] Creatinine 0.54(L) 0.60 - 1.10 mg/dL [facility] Glucose 110 70 - 199 mg/dL [facility] Comment: Interpretive Data Fasting glucose >/= 126 [...] 2022. Calcium 9.0 8.5 - 10.3 mg/dL [facility] Bilirubin, total 0.3 0.1 - 1.2 mg/dL [facility] Protein, pl 7.0 6.5 - 8.5 g/dL [facility] Albumin 3.4(L) 3.5 - 5.0 g/dL [facility] Alk phos 116 40 - 130 Units/L [facility] ALT 15 7 - 45 Units/L [facility] AST 18 10 - 45 Units/L [facility] Blood 02/11/2025 10:1 5 AM CDT 02/11/2025 10:34 AM CDT Margaret Velazquez NP LAB BLOOD ORDERABL ES Final Result [facility] Department [place] [address] * (ABNORMAL) POCT urinalysis (Clinitek) (02/11/2025 10:13 AM CDT) Color, ur, POC Yellow Yellow Clarity, UA, POC Clear Clear [facility] Glucose, ur, POC 2+(A) Negative [facility] Bilirubin, ur, POC Negative Negative [facility] Ketones, ur, POC 1+(A) Negative [facility] Specific gravity, ur, POC >=1.030(A) 1.010 - 1.025 [facility] Blood, ur, POC Negative Negative [facility] pH, ur, POC 6.0 [facility] Comment: Interpretive Data Urine pH is affected by diet, medications, systemic acid-base disturbances, and renal tubular function. pH may affect urinary stone formation. For example, urine pH below 6.0 may help reduce the tendency for calcium phosphate stones and pH greater than 6.0 may reduce the tendency for uric acid stone formation. Source: [employer]. Last Revised Date: 08-01-2017 Protein, ur, POC 1+(A) Negative [facility] Urobilinogen, ur, POC 0.2 mg/dL mg/dL [facility] Nitrites, ur, POC Negative Negative [facility] Leukocyte esterase, ur, POC Trace(A) Negative [facility] Urine 02/11/2025 10:1 3 AM CDT 02/11/2025 10:13 AM CDT Result [facility] Yuval Madrid MD LAB POCT ORDERABL ES - DEVICE Final Result [facility] Department [place] [address] * (ABNORMAL) nonstress test - (02/11/2025 9:56 AM CDT) Result [facility] Beulah Lee NP OB GYNE ORDERABLES Final Result * nonstress test - (02/08/2025 9:59 AM CDT) Result [facility] Gaby Quesada MD OB GYNE ORDERABLES Final Result * nonstress test - (02/04/2025 9:53 AM CDT) Result [facility] Zakia Pulido MD OB GYNE ORDERABLE S Final Result * nonstress test - (02/01/2025 11:05 AM CDT) Yuval Madrid MD OB GYNE ORDERABLE S Final Result * nonstress test - (01/28/2025 9:01 AM CDT) Result [facility] Dian Edwards MD OB GYNE ORDERABLES Final R esult * POCT glucose (01/25/2025 9:55 AM CDT) [facility] Glucose, POC 83 70 - 199 mg/dL Blood 01/25/2025 9:55 AM CDT 01/25/2025 9:55 AM CDT Yuval Madrid MD LAB POCT ORDERABL ES - DEVICE Final Result Performing Organization Address [facility] de Phone Number SHAYE [facility] Department [place] [address] * eGFR (01/25/2025 9:48 AM CDT) eGFR [...] ORDERABL ES Final Result Performing Organization Address [facility] Co de Phone Number [facility] [place] [address] * (ABNORMAL) Differential, auto (01/25/2025 9:48 AM CDT) Neutrophil abs 8.78(H) 1.50 - 6.50 K/cumm Imm gran abs 0.15(H) 0.00 - 0.10 K/cumm [facility] Lymphocyte abs 2.67 0.80 - 3.30 K/cumm [facility] Monocyte abs 0.99(H) 0.20 - 0.80 K/cumm [facility] Eosinophil abs 0.16 0.00 - 0.50 K/cumm [facility] Basophil abs 0.05 0.00 - 0.10 K/cumm [facility] Neutrophil pct 68.5 % [facility] Comment: Interpretive Data Percent cell count reference ranges are not reported, since discordance with absolute values may lead to misinterpretation of CBC data. Current Interpretive Data was last revised on 2017. Imm gran pct 1.2 % [facility] Comment: Interpretive Data Percent cell count reference ranges are not reported, since discordance with absolute values may lead to misinterpretation of CBC data. Current Interpretive Data was last revised on 2017. Lymphocyte pct 20.9 % [facility] Comment: Interpretive Data Percent cell count reference ranges are not reported, since discordance with absolute values may lead to misinterpretation of CBC data. Current Interpretive Data was last revised on 2017. Monocyte pct 7.7 % [facility] Comment: Interpretive Data Percent cell count reference ranges are not reported, since discordance with absolute values may lead to misinterpretation of CBC data. Current Interpretive Data was last revised on 2017. Eosinophil pct 1.3 % [facility] Comment: Interpretive Data Percent cell count reference ranges are not reported, since discordance with absolute values may lead to misinterpretation of CBC data. Current Interpretive Data was last revised on 2017. Basophil pct 0.4 % [facility] Comment: Interpretive Data Percent cell count reference ranges are not reported, since discordance with absolute values may lead to misinterpretation of CBC data. Current Interpretive Data was last revised on 2017. Blood 01/25/2025 9:48 AM CDT 01/25/2025 10:17 AM CDT Margaret Velazquez NP LAB BLOOD ORDERABL ES Final Result [facility] Department [place] [address] * (ABNORMAL) CBC with auto differential (01/25/2025 9:48 AM CDT) [facility] WBC 12.80(H) 3.80 - 9.90 K/cumm Hgb 12.1 11.9 - 15.5 g/dL [facility] Hct 36.1 35.6 - 45.5 % [facility] Plt 368 150 - 400 K/cumm [facility] MPV 9.8 9.1 - 12.3 fL [facility] RBC 4.20 3.90 - 5.20 M/cumm [facility] MCV 86.0 81.3 - 96.4 fL [facility] MCH 28.8 27.1 - 33.3 pg [facility] MCHC 33.5 32.3 - 35.7 g/dL [facility] RDW CV 14.0 11.1 - 14.9 % [facility] RDW SD 43.7 35.7 - 48.1 fL [facility] NRBC abs 0.00 0.00 - 0.01 K/cumm [facility] Blood 01/25/2025 9:48 AM CDT 01/25/2025 10:17 AM CDT Margaret Velazquez NP LAB BLOOD ORDERABL ES Final Result [facility] Department [place] [address] * Protein / creatinine ratio, urine, random (01/25/2025 9:48 AM CDT) [facility] Protein, ur, quant 10.9 mg/dL Comment: Interpretive Data No reference range established. Current interpretive data was last revised 2018. Creatinine Ur 77.9 mg/dL [facility] Comment: Interpretive Data No reference range established. Current interpretive data was last revised 2018. Protein/creatinin e ratio 139.9 0.0 - 180.0 mg/g CR [facility] Urine 01/25/2025 9:48 AM CDT 01/25/2025 10:17 AM CDT Margaret Velazquez NP LAB URINE ORDERABL ES Final Result [facility] Department [place] [address] * (ABNORMAL) Comprehensive metabolic panel (01/25/2025 9:48 AM CDT) Sodium 137 135 - 145 mmol/L Potassium, pl 4.2 3.3 - 4.9 mmol/L [facility] Chloride 103 97 - 110 mmol/L [facility] CO2 22 22 - 32 mmol/L [facility] Anion gap 12 2 - 15 mmol/L [facility] BUN 8 6 - 25 mg/dL [facility] Creatinine 0.51(L) 0.60 - 1.10 mg/dL [facility] Glucose 82 70 - 199 mg/dL [facility] Comment: Interpretive Data Fasting glucose >/= 126 [...] Calcium 9.4 8.5 - 10.3 mg/dL [facility] Bilirubin, total 0.3 0.1 - 1.2 mg/dL [facility] Protein, pl 7.2 6.5 - 8.5 g/dL [facility] Albumin 3.6 3.5 - 5.0 g/dL [facility] Alk phos 107 40 - 130 Units/L [facility] ALT 11 7 - 45 Units/L [facility] AST 14 10 - 45 Units/L [facility] Blood 01/25/2025 9:48 AM CDT 01/25/2025 10:17 AM CDT Margaret Velazquez NP LAB BLOOD ORDERABL ES Final Result [facility] Department [place] [address] * (ABNORMAL) POCT urinalysis (Clinitek) (01/25/2025 9:44 AM CDT) Color, ur, POC Yellow Yellow Clarity, UA, POC Clear Clear [facility] Glucose, ur, POC Negative Negative [facility] Bilirubin, ur, POC Negative Negative [facility] Ketones, ur, POC 2+(A) Negative [facility] Specific gravity, ur, POC 1.015 1.010 - 1.025 [facility] Blood, ur, POC Negative Negative [facility] pH, ur, POC 6.0 [facility] Comment: Interpretive Data Urine pH is affected by diet, medications, systemic acid-base disturbances, and renal tubular function. pH may affect urinary stone formation. For example, urine pH below 6.0 may help reduce the tendency for calcium phosphate stones and pH greater than 6.0 may reduce the tendency for uric acid stone formation. Source: [facility] [employer]. Last Revised Date: 08-01-2017 Protein, ur, POC Negative Negative [facility] Urobilinogen, ur, POC 0.2 mg/dL mg/dL [facility] Nitrites, ur, POC Negative Negative [facility] Leukocyte esterase, ur, POC 1+(A) Negative [facility] Urine 01/25/2025 9:44 AM CDT 01/25/2025 9:44 AM CDT us Yuval Madrid MD LAB POCT ORDERABL ES - DEVICE Final Result Performing Organization Address [facility]/ZIP Co de Phone Number [facility] Department [place] [address] * nonstress test - (01/25/2025 8:52 AM [...] amniotic fluid volume. Stable fibroid. Beulah Lee PIANO REGULATOR IMG OB US PROCEDURE S Final Result [...] The amnioticfluid volume measured within normal limits. us Beulah Lee PIANO REGULATOR IMG OB US PROCEDURE S Final Result [...] Narrative Procedure Note Janae Mayorga MD - 01/07/2025 IMPRESSION: 32w 2d IUP for evaluation of [...] tone and amniotic fluid volume. us Glen Damien Velazquez MD IMG OB US PROCEDURES Final [...] urology recommended through the [facility]. MFM PIANO REGULATOR visit to follow. Narrative Procedure Note Zakia [...] pediatric urologyrecommended through the [facility]. MFM PIANO REGULATOR visit to follow. Beulah Lee PIANO REGULATOR IMG OB US PROCEDURE S Final Result * HIV 1/2 Antibody plus p24 Antigen Blood (12/15/2024 9:14 AM CDT) [facility] HIV 1/2 ab + p24 ag Nonreactive Nonreactive Comment:Nonreactive for HIV- 1 antigen and HIV-1/HIV-2 antibodies. No laboratory evidence of HIV infection. If acute HIV infection is suspected, consider testing for HIV-1 RNA. Current interpretive data was last revised on 22. Blood 12/15/2024 9:14 AM CDT 12/15/2024 10:03 AM CDT Result [facility] Beulah Lee NP LAB MICROBIOLOGY - GENERAL ORDERABLES Final Result Performing Organization Address [facility]/ZIP Co de Phone Number [facility] Department [place] [address] * RPR Blood (12/15/2024 9:14 AM CDT) [facility] RPR Nonreactive Nonreactive Blood 12/15/2024 9:14 AM CDT 12/15/2024 10:03 AM CDT Result [facility] Beulah Lee NP LAB MICROBIOLOGY - GENERAL ORDERABLES Final Result Performing Organization Address [facility] Co de Phone Number [facility] Department of [employer] [place] [address] * (ABNORMAL) CBC without differential (12/15/2024 9:14 AM CDT) [facility] WBC 14.46(H) 3.80 - 9.90 K/cumm Hgb 12.1 11.9 - 15.5 g/dL [facility] Hct 35.5(L) 35.6 - 45.5 % [facility] Plt 364 150 - 400 K/cumm [facility] MPV 10.0 9.1 - 12.3 fL [facility] RBC 4.07 3.90 - 5.20 M/cumm [facility] MCV 87.2 81.3 - 96.4 fL [facility] MCH 29.7 27.1 - 33.3 pg [facility] MCHC 34.1 32.3 - 35.7 g/dL [facility] RDW CV 14.9 11.1 - 14.9 % [facility] RDW SD 47.5 35.7 - 48.1 fL [facility] NRBC abs 0.00 0.00 - 0.01 K/cumm [facility] Blood 12/15/2024 9:14 AM CDT 12/15/2024 10:03 AM CDT Beulah Lee NP LAB BLOOD ORDERABLE S Final Result Performing Organization Address [facility] de Phone Number [facility] [place] [address] * (ABNORMAL) Hemoglobin A1c (12/15/2024 9:14 AM CDT) [facility] Signature Hgb A1C 6.2(H) 4.0 - 5.6 % Estimated Average Glucose 131 mg/dL [facility] Comment: The ADA recommends reporting an estimated [...] ORDERABLE S Final Result Performing Organization Address [facility]/ZIP Co de Phone Number [facility] [employer] [place] [address] * Type and screen (12/15/2024 9:11 AM CDT) ABO Rh A Negative Nubia, indirect Negative [facility] Blood 12/15/2024 9:11 AM CDT 12/15/2024 11:29 AM CDT Narrative SHAYE JAMISON - 12/15/2024 12:45 PM CDT Has the patient had Daratumumab or Isatuximab in the past 6 months?->Unknown us Beulah Lee NP LAB BLOOD BANK TEST ORDERABLES Final Result [facility] Department [place] [address] * US Ob Follow Up (11/26/2024 2:30 PM CDT) Fetus# Fetus1 VIEWPOINT Estimated Weight 942 g&grams [...] repeat evaluation with growthultrasounds. us Beulah Lee PIANO REGULATOR IMG OB US PROCEDURE S Final Result * Hepatitis C antibody Blood (08/06/2024 9:[address] INSTALLER) Hep C Ab Nonreactive Nonreactive Comment: Antibodies [...] revised on 2019. Blood 08/06/2024 9:[address] SIGN INSTALLER 08/06/2024 12:[address] SIGN INSTALLER us Glen Velazquez MD LAB MICROBIOLOGY - GENERAL ORDERABLES Final Result SHAYE [facility] [address] [facility] [place] [address] * Pap with reflex to High Risk HPV (10/24/2021 11:19 AM CDT) Thin prep (Pap test) 10/24/2021 11:19 AM CDT 10/25/2021 11:19 AM CDT Narrative PATHOLOGY [facility] - 10/31/2021 4:06 PM CDT [facility] Department of Pathology [address] [place], [place] [id number] Final Report Note to Patients: This report [...] questions and explain the details. Patient Name: VIVIEN ALBRIGHT Address: [address] [place] [address] Gender: F : 1990 (Age: 31) Service: Laboratory Location: N : [id number] Hospital #: [id number] Patient Type: [facility] SPECIMEN Taken: 10/24/2021 Received: 10/25/2021 Accessioned:: 10/26/2021 Reported: 10/31/2021 Physician(s): Beatriz ArtisNGeorge [facility] Diagnosis: Source of Specimen: Imaged Thinprep Pap Test w/ Reflex HPV - Chief Supply Chain Officer Cytologic Material Specimen Adequacy: - Satisfactory for evaluation; endocervical/transformation zone component present General Category: - Negative for intraepithelial lesion or malignancy HUY Harvey(ASCP) HUY Sanchez(ASCP) Report Electronically Reviewed and Signed Out By HUY Sanchez(ASCP) 10/31/2021 16:06:44 Specimen(s) Received: A: Imaged Thinprep Pap Test w/ Reflex HPV - Chief Supply Chain Officer Cytologic Material Clinical History: Last Menstrual Period: [...] determined by the Surgical Pathology Department at [facility] as part of an ongoing personnel quality assurance auditor program and in compliance with federally mandated [...] characteristics determined by the Surgical Pathology Department [facility]. It has not been cleared or approved by the U. S. Food and Drug Administration. Shante Muhammad NP LAB CYTOLOGY ORDERABLES Final Re sult [facility] from Last 3 Months or Most Recently Relevant to Health Maintenance Insurance [facility] Advance Directives For more information, please contact: [phone] * Full Code (Latest Code Status on File) Date Activated Date Inactivated Comments 02/13/2025 5:53 AM 02/15/2025 9:53 PM * Full Code Date Activated Date Inactivated Comments 02/11/2025 11:03 AM 02/13/2025 5:53 AM Full CPR in case of cardiopulmonary arrest Care Teams Entry Rep Relationship Specialty Start Date End Date No, Physician PCP - General 11/18/24
--- NOTE | 2025-02-17 04:20 | PC.NURSE ---
Patient arrives to OB unit as a walk in patient. Patient is 5 days 37 week vaginal delivery. Patient is a and has type 2 diabetes and is on PO medication for her diabetes. Patient states she did not have high blood pressures during her that she knows of, but that she has been diagnosed with essential hypertension. Patient states she had a forcep delivery. Patient presents today with complaints of lower extremity swelling and high blood pressures at home. Patient states she woke up and noticed her swelling had increased and took her blood pressures and they were 150's-90's at home. Patient denies a headache, RUQ pain, or visual disturbances. Patient states her vaginal bleeding has not increased.
--- OUTSIDE RECORDS SUMMARY | 2025-02-17 04:32 | XMS_ITS | Encounter Summary ---
Author Organization [facility] Address [facility] [place] [address] Care Team Providers Care Leasing Specialist Name Role Phone Suad Haney RIDING DOUBLE Primary Care Provider Cherelle Perez RIDING DOUBLE Primary Care Provider [phone] Nadiya Vidal RIDING DOUBLE Primary Care Provider [phone] Encounter Details Date Type Department Care Team (Late st Contact Info) Description 01/23/2022 Global Locatet Message Enc [facility] Family Medicine - [address] [address] Suad Haney, MU Keto diet [...] documented as of this encounter Care Teams Leasing Specialist Relationship Specialty Start Date End Date Suad Haney, RIDING DOUBLE PCP - General NURSE PRACTITIONER 12/17/18 12/18/23 Cherelle Brown NP [address] [place] [address] PCP - General NURSE PRACTITIONER 12/19/23 05/03/24 Nadiya Vidal NP [address] [place] [address] PCP - General NURSE PRACTITIONER 05/04/24 documented as of this encounter
--- OUTSIDE RECORDS SUMMARY | 2025-02-17 04:32 | XMS_ITS | Encounter Summary ---
Author Organization [facility] Address [facility] [place] [address] Care Team Providers Care Tank Tester Name Role Phone Suad Haney ENVIRONMENTAL CONSERVATION PROFESSOR Primary Care Provider Cherelle Perez ENVIRONMENTAL CONSERVATION PROFESSOR Primary Care Provider [phone] Nadiya Vidal ENVIRONMENTAL CONSERVATION PROFESSOR Primary Care Provider [phone] Encounter Details Date Type Department Care Team (Late st Contact Info) Description 10/20/2022 China Talent Grouphart Message Enc [facility] Medical [facility] Family Medicine [address] [address] Suad Haney, ENVIRONMENTAL CONSERVATION PROFESSOR Possible trulicity side effect? Social History Tobacco [...] Total Score: 6 08/23/19 23 8:03 AM RADIOCOMMUNICATIONS TECHNICIAN documented as of this encounter Care Teams Tank Tester Relationship Specialty Start Date End Date Suad Haney, ENVIRONMENTAL CONSERVATION PROFESSOR PCP - General NURSE PRACTITIONER 12/17/18 12/18/23 Cherelle Brown, MU [address] [place] [address] PCP - General NURSE PRACTITIONER 12/19/23 05/03/24 Nadi[place] [address] PCP - General NURSE PRACTITIONER 05/04/24 documented as of this encounter
--- OUTSIDE RECORDS SUMMARY | 2025-02-17 04:32 | XMS_ITS | Encounter Summary ---
Author Organization [facility] Address [facility] [place] [address] Care Team Providers Care Early Childhood Worker Name Role Phone Suad Haney NETWORK DEVELOPER Primary Care Provider Cherelle Perez NETWORK DEVELOPER Primary Care Provider [phone] Nadiya Vidal NETWORK DEVELOPER Primary Care Provider [phone] Encounter Details Date Type Department Care Team (Late st Contact Info) Description 05/14/2023 Nublit Message Enc [facility] Medical Group Family Medicine [address] [address] Suad Haney, NETWORK DEVELOPER Lower Left Back Pain Social History Tobacco [...] Total Score: 6 08/23/19 23 8:03 AM POTATO INSPECTOR documented as of this encounter Care Teams Early Childhood Worker Relationship Specialty Start Date End Date Suad Haney NP PCP - General NURSE PRACTITIONER 12/17/18 12/18/23 Cherelle Brown NP [address] [place] [address] PCP - General NURSE PRACTITIONER 12/19/23 05/03/24 Nadiya Vidal [place] [address] PCP - General NURSE PRACTITIONER 05/04/24 documented as of this encounter
--- OUTSIDE RECORDS SUMMARY | 2025-02-17 04:32 | XMS_ITS | Encounter Summary ---
Author Organization [facility] Address [facility] [place] [address] Care Team Providers Care Ditch Tender Name Role Phone Suad Haney PAPER REEL OPERATOR Primary Care Provider Cherelle Perez PAPER REEL OPERATOR Primary Care Provider [phone] Nadiya Vidal PAPER REEL OPERATOR Primary Care Provider [phone] Encounter Details Date Type Department Care Team (Late st Contact Info) Description 07/09/2022 Inform Directt Message Enc [facility] Family Medicine [address] [address] Suad Haney, PAPER REEL OPERATOR Duloxetine refill. Social History Tobacco Use Types [...] - 07/10/2022 12:02 PM CST Please advise. RATIONS EXPERT documented in this encounter Plan of Treatment Not on file documented as of this encounter Visit Diagnoses Not on filedocumented in this encounter Additional Health Concerns Assessment Noted Time PHQ-9 Depression Total Score: 1 10/20/19 22 8:33 AM CDT documented as of this encounter Care Teams Ditch Tender Relationship Specialty Start Date End Date Suad Haney PAPER REEL OPERATOR PCP - General NURSE PRACTITIONER 12/17/18 12/18/23 Cherelle Brown NP [address] [place] [address] PCP - General NURSE PRACTITIONER 12/19/23 05/03/[address] [place] [address] PCP - General NURSE PRACTITIONER 05/04/24 documented as of this encounter
--- OUTSIDE RECORDS SUMMARY | 2025-02-17 04:32 | XMS_ITS | Encounter Summary ---
Author Organization [facility] Address [facility] [place] [address] Care Team Providers Care Extruding Press Operator Name Role Phone Suad Haney MANAGER INPATIENT Primary Care Provider Cherelle Perez MANAGER INPATIENT Primary Care Provider [phone] Nadiya Vidal MANAGER INPATIENT Primary Care Provider [phone] Encounter Details Date Type Department Care Team (Late st Contact Info) Description 09/25/2022 MyChart Message Enc [facility] Medical Group Family Medicine [address] [address] Suad Haney, MANAGER INPATIENT Should I schedule a covid test? Social [...] Coronavirus/COVID-19? No / Unsure 09/10/2022 7:02 AM CELLULAR EQUIPMENT REPAIRER documented as of this encounter Progress Notes * Huy Flores RN - 09/25/2022 12:59 PM CST Please advise. Thanks ULAR EQUIPMENT REPAIRER documented in this encounter Plan of Treatment Not on file documented as of this encounter Visit Diagnoses Not on filedocumented in this encounter Additional Health Concerns Assessment Noted Time PHQ-9 Depression Total Score: 6 08/23/19 23 8:03 AM CELLULAR EQUIPMENT REPAIRER documented as of this encounter Care Teams Extruding Press Operator Relationship Specialty Start Date End Date Suad Haney NP PCP - General NURSE PRACTITIONER 12/17/18 12/18/23 Cherelle Brown NP [address] [place] [address] PCP - General NURSE PRACTITIONER 12/19/23 05/03/24 Nadiya Vidal [place] [address] PCP - General NURSE PRACTITIONER 05/04/24 documented as of this encounter
--- OUTSIDE RECORDS SUMMARY | 2025-02-17 04:32 | XMS_ITS | Encounter Summary ---
Author Organization [facility] Address [facility] [place] [address] Care Team Providers Care Marine Erector Name Role Phone Suad Haney VOCATIONAL REHABILITATION SPECIALIST Primary Care Provider Cherelle Perez VOCATIONAL REHABILITATION SPECIALIST Primary Care Provider [phone] Nadiya Vidal VOCATIONAL REHABILITATION SPECIALIST Primary Care Provider [phone] Encounter Details Date Type Department Care Team (Late st Contact Info) Description 01/10/2023 Heretic Filmst Message Enc [facility] Medical Group Family Medicine [address] [address] Suad Haney, VOCATIONAL REHABILITATION SPECIALIST Question about Ozempic. Social History Tobacco Use [...] Total Score: 6 08/23/19 23 8:03 AM FURNACE KEEPER documented as of this encounter Care Teams Marine Erector Relationship Specialty Start Date End Date Suad Haney NP PCP - General NURSE PRACTITIONER 12/17/18 12/18/23 Cherelle Brown NP [address] [place] [address] PCP - General NURSE PRACTITIONER 12/19/23 05/03/24 N[place] [address] PCP - General NURSE PRACTITIONER 05/04/24 documented as of this encounter
--- OUTSIDE RECORDS SUMMARY | 2025-02-17 04:32 | XMS_ITS | Encounter Summary ---
Author Organization [facility] Address [facility] [place] [address] Care Team Providers Care Picture Hanger Name Role Phone Suad Haney CARDIOPULMONARY SPECIALIST Primary Care Provider Cherelle Perez CARDIOPULMONARY SPECIALIST Primary Care Provider [phone] Nadiya Vidal CARDIOPULMONARY SPECIALIST Primary Care Provider [phone] Encounter Details Date Type Department Care Team (Late st Contact Info) Description 07/26/2023 Farmigo Message Enc [facility] Medical Group Family Medicine [address] [address] Jose, [facility] Provider [facility] Social History Tobacco Use Types [...] Total Score: 6 08/23/19 23 8:03 AM CLIMATE CHANGE RISK ASSESSOR documented as of this encounter Care Teams Picture Hanger Relationship Specialty Start Date End Date Suad Haney NP PCP - General NURSE PRACTITIONER 12/17/18 12/18/23 Cherelle Brown NP [address] [place] [address] PCP - General NURSE PRACTITIONER 12/19/23 05/03/[address] Vidal [place] [address] PCP - General NURSE PRACTITIONER 05/04/24 documented as of this encounter
--- OUTSIDE RECORDS SUMMARY | 2025-02-17 04:32 | XMS_ITS | Encounter Summary ---
Author Organization [facility] Address [facility] [place] [address] Care Team Providers Care Global Account Executive Name Role Phone Cherelle Brown SNAKE CHARMER Primary Care Provider [phone] Nadiya Vidal SNAKE CHARMER Primary Care Provider [phone] Encounter Details Date Type Department Care Team (Late st Contact Info) Description 03/03/2024 [place]ne Parkt Message Enc [facility] Medical Group Family Medicine - [place] [address] [facility] [address] [place], [place] [address] Cherelle Brown, SNAKE CHARMER [address] [place] [address] Question about supplements Social History Tobacco Use [...] documented as of this encounter Care Teams Global Account Executive Relationship Specialty Start Date End Date Cherelle Brown NP [address] [place] [address] PCP - General NURSE PRACTITIONER 12/19/23 05/03/24 Nadiya [place] [address] PCP - General NURSE PRACTITIONER 05/04/24 documented as of this encounter
--- OUTSIDE RECORDS SUMMARY | 2025-02-17 04:32 | XMS_ITS | Encounter Summary ---
Author Organization [facility] Address [facility] [place] [address] Care Team Providers Care Forging Operator Name Role Phone Suad Haney PARTS CLERK PLANT MAINTENANCE Primary Care Provider Cherelle Perez PARTS CLERK PLANT MAINTENANCE Primary Care Provider [phone] Nadiya Vidal PARTS CLERK PLANT MAINTENANCE Primary Care Provider [phone] Encounter Details Date Type Department Care Team (Latest Contact Info) Description 09/11/2023 [place] Message Enc [facility] Medical Group Family Medicine - [address] [address] Suad Haney NP About prior [...] Total Score: 6 08/23/19 23 8:03 AM STATISTICAL METHODS PROFESSOR documented as of this encounter Care Teams Forging Operator Relationship Specialty Start Date End Date Suad Haney NP PCP - General NURSE PRACTITIONER 12/17/18 12/18/23 Cherelle Bronw NP [address] [place] [address] PCP - General NURSE PRACTITIONER 12/19/23 05/03/24 Nadiya [place] [address] PCP - General NURSE PRACTITIONER 05/04/24 documented as of this encounter
--- OUTSIDE RECORDS SUMMARY | 2025-02-17 04:32 | XMS_ITS | Encounter Summary ---
Author Organization [facility] Address Counts include 234 beds at the [facility] [place] [address] Care Team Providers Care Seam Feller Name Role Phone Nadiya Vidal TOOL GRINDING MACHINE OPERATOR Primary Care Provider [phone] Encounter Details Date Type Department Care Team (Late st Contact Info) Description 08/08/2024 Kyphat Message Enc [facility] Medical Group Family Medicine - [place] 5 [place] [address] Nadiya Vidal NP 5 [place] [address] About nurse Gilma Mantilla Social [...] Total Score: 0 07/23/19 25 3:42 PM SQE documented as of this encounter Care Teams Seam Feller Relationship Specialty Start Date End Date Nadiya [place] [address] PCP - General NURSE PRACTITIONER 05/04/24 documented as of this encounter
--- OUTSIDE RECORDS SUMMARY | 2025-02-17 04:32 | XMS_ITS | Encounter Summary ---
Author Organization [facility] Address [facility] [place] [address] Care Team Providers Care Farm Forestry And Garden Workers Name Role Phone Nadiya Vidal EXTERIOR WORK HELPER Primary Care Provider [phone] Encounter Details Date Type Department Care Team (Late st Contact Info) Description 08/07/2024 AppsFlyert Message Enc [facility] Medical Group Family Medicine - [place] 5 [place] [address] Nadiya Vidal NP 5 [place] [address] Continuous Glucose Meter Question. Social [...] Total Score: 0 07/23/19 25 3:42 PM CLOTH PATTERN MAKER documented as of this encounter Care Teams Farm Forestry And Garden Workers Relationship Specialty Start Date End Date Nadiya [place] [address] PCP - General NURSE PRACTITIONER 05/04/24 documented as of this encounter
--- OUTSIDE RECORDS SUMMARY | 2025-02-17 04:32 | XMS_ITS | Encounter Summary ---
Author Organization [facility] Address [facility] [place] [address] Care Team Providers Care Plate Gauger Name Role Phone Suad Haney SAND TECHNOLOGIST Primary Care Provider Cherelle Perez SAND TECHNOLOGIST Primary Care Provider [phone] Nadiya Vidal SAND TECHNOLOGIST Primary Care Provider [phone] Encounter Details Date Type Department Care Team (Late st Contact Info) Description [facility] Medical Group Family Medicine [address] [address] Suad Haney, SAND TECHNOLOGIST Scheduling Labs Social History Tobacco Use Types [...] Total Score: 6 08/23/19 23 8:03 AM MOISTURE CONDITIONER OPERATOR documented as of this encounter Care Teams Plate Gauger Relationship Specialty Start Date End Date Suad Haney NP PCP - General NURSE PRACTITIONER 12/17/18 12/18/23 Cherelle Brown NP [address] [place] [address] PCP - General NURSE PRACTITIONER 12/19/23 05/03/[address] [place] [address] PCP - General NURSE PRACTITIONER 05/04/24 documented as of this encounter
--- OUTSIDE RECORDS SUMMARY | 2025-02-17 04:32 | XMS_ITS | Encounter Summary ---
Author Organization [facility] Address [facility]6 [place] [address] Care Team Providers Care Steam Roller Operator Name Role Phone Suad Haney PATCHER BOWLING BALL Primary Care Provider Cherelle Perez PATCHER BOWLING BALL Primary Care Provider [phone] Nadiya Vidal PATCHER BOWLING BALL Primary Care Provider Encounter Details Date Type Department Care Team (Late st Contact Info) Description 06/05/2022 LetMeGot Message Enc [facility] Medical Group Family Medicine - [address] [address] Suad Haney, PATCHER BOWLING BALL About Rybelsus Social History Tobacco Use Types [...] 06/05/2022 2:19 PM CST Please advise. Thanks GER INTELLIGENCE documented in this encounter Plan of Treatment Not on file documented as of this encounter Visit Diagnoses Not on filedocumented in this encounter Additional Health Concerns Assessment Noted Time PHQ-9 Depression Total Score: 1 10/20/19 22 8:33 AM CDT documented as of this encounter Care Teams Steam Roller Operator Relationship Specialty Start Date End Date Suad Haney NP PCP - General NURSE PRACTITIONER 12/17/18 12/18/23 Cherelle Brown NP [address] [place] [address] PCP - General NURSE PRACTITIONER 12/19/23 05/03/24 Nadiya Vidal NP [address] [place] [address] PCP - General NURSE PRACTITIONER 05/04/24 documented as of this encounter
--- OUTSIDE RECORDS SUMMARY | 2025-02-17 04:32 | XMS_ITS | Encounter Summary ---
Author Organization [facility] Address On license of [facility] [place] [address] Care Team Providers Care Shirt Maker Name Role Phone Suad Haney ACCOUNT SERVICES ASSOCIATE Primary Care Provider Cherelle Perez ACCOUNT SERVICES ASSOCIATE Primary Care Provider [phone] Nadiya Vidal ACCOUNT SERVICES ASSOCIATE Primary Care Provider [phone] Encounter Details Date Type Department Care Team (Late st Contact Info) Description 10/27/2022 MyChart Message Enc [facility] Medical Group Family Medicine [address] [address] Suad Haney, ACCOUNT SERVICES ASSOCIATE Trulicity Social History Tobacco Use Types Packs/Day [...] Total Score: 6 08/23/19 23 8:03 AM ORTHODONTIST VICE PRESIDENT documented as of this encounter Care Teams Shirt Maker Relationship Specialty Start Date End Date Suad Haney, MU PCP - General NURSE PRACTITIONER 12/17/18 12/18/23 Cherelle Brown NP [address] [place] [address] PCP - General NURSE PRACTITIONER 12/19/23 05/03/24 Nadiya V[place] [address] PCP - General NURSE PRACTITIONER 05/04/24 documented as of this encounter
--- OUTSIDE RECORDS SUMMARY | 2025-02-17 04:32 | XMS_ITS | Encounter Summary ---
Author Organization [facility] Address [facility]6 [place] [address] Care Team Providers Care Service Shop Foreman Name Role Phone Suad Haney PACKAGING COORDINATOR Primary Care Provider Cherelle Perez PACKAGING COORDINATOR Primary Care Provider [phone] Nadiya Vidal PACKAGING COORDINATOR Primary Care Provider [phone] Encounter Details Date Type Department Care Team (Late st Contact Info) Description 04/30/2022 Michelson Diagnosticst Message Enc [facility] Medical Group Family Medicine - [address] [address] Suad Haney, PACKAGING COORDINATOR Home tests and diabetes/medications Social History Tobacco [...] documented as of this encounter Care Teams Service Shop Foreman Relationship Specialty Start Date End Date Suad Haney NP PCP - General NURSE PRACTITIONER 12/17/18 12/18/23 Cherelle Brown NP [address] [place] [address] PCP - General NURSE PRACTITIONER 12/19/23 05/03/24 Nadi[place] [address] PCP - General NURSE PRACTITIONER 05/04/24 documented as of this encounter
--- OUTSIDE RECORDS SUMMARY | 2025-02-17 04:32 | XMS_ITS | Encounter Summary ---
Author Organization [facility] Address [address] [place] [address] Phone Care Team Providers Care Agile Developer Name Role Phone No, Physician Primary Care Provider [phone] Reason for Visit * Reason Onset Date Comments Glycemic control meeting 02/16/2025 Encounter Details Date Type Department Care Team (Late st Contact Info) Description 02/16/2025 [facility]ation [facility] [address] [facility] [address] [place] [address] Sis Edwards MD [address] [facility] [address] [address] [place] [address] Glycemic control meeting Social History Tobacco Use Types Packs/Day Years Used Date Smoking Tobacco: Former Vaping Smokeless Tobacco: Never Comments:Will quit when/if I become . [facility] Utilities Answer Date Recorded In the past 12 months has [employer] electric, gas, oil, or water company threatened [...] often do you attend chur ch or amish services? Never 02/14/2025 Do you belong to any clubs o r organizations such as uatsdin groups, unions, fraternal or athletic groups, or [...] things needed for daily living? No 02/14/2025 Delphos Depression Scale Answer Date Recorded Delphos Depression Scale Total 14 08/05/2024 The thought [...] any time in the past 12 [facility], were you homeless or living in a group home (including now)? No 02/14/2025 Personal Safety Answer Date Recorded Have you ever been in or are you currently in a harmful physical or emotional relationship or is someone making you feel afraid or unsafe? Denies 02/11/2025 Comments No Sex and Gender Information Value Date Recorded Sex Assigned at Not on file Legal Sex Female 9:29 PM MACHINE OPERATOR CANE CUTTER Gender Identity Not on file Sexual Orientation [...] - no changes Metformin 500 mg qD museum or zoo director - patient now discharged from the hospital [...] on remote diabetes management. Sis Edwards MD Is Support Analyst Division of Maternal- Medicine and Ultrasound Department of Obstetrics and Gynecology [facility] [employer] ~~~~~~~~~~~~~~~~~~~~~~~~~~~~~~~~~~~~~~~~~~~~~~~~~~~~~~~~~~ Addendum: Patient plans to follow with endocrinology in the future for diabetes care. MFM to suspend weekly glycemic control reviews for now after discussing with patient. PL updated. documented in this encounter Plan of Treatment Not on file documented as of this encounter Visit Diagnoses Diagnosis - Type 2 diabetes- Primary documented in this encounter Care Teams Agile Developer Relationship Specialty Start Date End Date No, Physician PCP - General 11/18/24 documented as of this encounter
--- OUTSIDE RECORDS SUMMARY | 2025-02-17 04:32 | XMS_ITS | Encounter Summary ---
Author Organization [facility] Address [facility] [place] [address] Care Team Providers Care Beet Flumer Name Role Phone Nadiya Vidal MU Primary Care Provider [phone] Encounter Details Date Type Department Care Team (Late st Contact Info) Description 08/11/2024 MooBella Message [facility] [address] [place] [address] [place], [facility] Provider Patient Amendment Request Social History Tobacco [...] Total Score: 0 07/23/19 25 3:42 PM DISABILITY AIDE documented as of this encounter Care Teams Beet Flumer Relationship Specialty Start Date End Date Nadiya Vidal [place] [address] PCP - General NURSE PRACTITIONER 05/04/24 documented as of this encounter
--- OUTSIDE RECORDS SUMMARY | 2025-02-17 04:32 | XMS_ITS | Encounter Summary ---
Author Organization [facility] Address [facility]6 [place] [address] Care Team Providers Care Manager Nicu Name Role Phone Cherelle Brown SCHEDULE HANGER Primary Care Provider [phone] Nadiya Vidal SCHEDULE HANGER Primary Care Provider [phone] Encounter Details Date Type Department Care Team (Late st Contact Info) Description 05/01/2024 Brian Industriest Message Enc [facility] Medical Group Family Medicine - [place] [address] [facility] [address] [place], [place] [address] Cherelle Brown, SCHEDULE HANGER [address] [place] [address] Question about Rybelsus and at home testing [...] documented as of this encounter Care Teams Manager Nicu Relationship Specialty Start Date End Date Cherelle Brown NP [address] [place] [address] PCP - General NURSE PRACTITIONER 12/19/23 05/03/24 Nadiya Vidal [place] [address] PCP - General NURSE PRACTITIONER 05/04/24 documented as of this encounter
--- OUTSIDE RECORDS SUMMARY | 2025-02-17 04:32 | XMS_ITS | Encounter Summary ---
Author Organization [facility] Address [facility] [place] [address] Care Team Providers Care Real Estate Transaction Coordinator Name Role Phone Suad Haney PROJECT PORTFOLIO ANALYST Primary Care Provider Cherelle Perez PROJECT PORTFOLIO ANALYST Primary Care Provider [phone] Nadiya Vidal PROJECT PORTFOLIO ANALYST Primary Care Provider [phone] Encounter Details Date Type Department Care Team (Late st Contact Info) Description 06/05/2023 MyChart Message Enc [facility] Medical Group Family Medicine - [address] [address] Suad Haney, PROJECT PORTFOLIO ANALYST psychiatry Social History Tobacco Use Types Packs/Day [...] 06/05/2023 2:53 PM CST See pt response. MER AND REINFORCER documented in this encounter Plan of Treatment Not on file documented as of this encounter Visit Diagnoses Not on filedocumented in this encounter Additional Health Concerns Assessment Noted Time PHQ-9 Depression Total Score: 6 08/23/19 23 8:03 AM TRIMMER AND REINFORCER documented as of this encounter Care Teams Real Estate Transaction Coordinator Relationship Specialty Start Date End Date Suad Haney NP PCP - General NURSE PRACTITIONER 12/17/18 12/18/23 Cherelle Brown NP [address] [place] [address] PCP - General NURSE PRACTITIONER 12/19/23 05/03/[address] V[address] [place] [address] PCP - General NURSE PRACTITIONER 05/04/24 documented as of this encounter
--- OUTSIDE RECORDS SUMMARY | 2025-02-17 04:32 | XMS_ITS | Encounter Summary ---
Author Organization [facility] Address [facility] [place] [address] Care Team Providers Care Housekeeping Staff Name Role Phone Suad Haney BOILER OR ENGINE OPERATOR Primary Care Provider Cherelle Perez BOILER OR ENGINE OPERATOR Primary Care Provider [phone] Nadiya Vidal BOILER OR ENGINE OPERATOR Primary Care Provider [phone] Encounter Details Date Type Department Care Team (Late st Contact Info) Description 10/25/2023 Mandata (Management & Data Services)hart Message Enc [facility] Medical Group Family Medicine [address] [address] [place], [facility] Provider Cruz Social History Tobacco Use Types [...] Total Score: 6 08/23/19 23 8:03 AM ARMATURE WINDER REPAIRER documented as of this encounter Care Teams Housekeeping Staff Relationship Specialty Start Date End Date Suad Haney NP PCP - General NURSE PRACTITIONER 12/17/18 12/18/23 Cherelle Brown NP [address] [place] [address] PCP - General NURSE PRACTITIONER 12/19/23 05/03/[address] V[address] [place] [address] PCP - General NURSE PRACTITIONER 05/04/24 documented as of this encounter
--- OUTSIDE RECORDS SUMMARY | 2025-02-17 04:32 | XMS_ITS | Encounter Summary ---
Author Organization [facility] Address [facility] [place] [address] Care Team Providers Care Supervisor [employer] Name Role Phone Suad Haney CORPORATE TRAFFIC MANAGER Primary Care Provider Cherelle Perez CORPORATE TRAFFIC MANAGER Primary Care Provider [phone] Nadiya Vidal CORPORATE TRAFFIC MANAGER Primary Care Provider [phone] Encounter Details Date Type Department Care Team (Late st Contact Info) Description 06/21/2023 MyChart Message Enc [facility] Medical Group Family Medicine - [address] [address] Suad Haney, CORPORATE TRAFFIC MANAGER Today's dose of Trulicity malfunctioned. Social History [...] - 06/21/2023 10:30 AM CST Please advise. ICAL SUPERVISOR documented in this encounter Plan of Treatment Not on file documented as of this encounter Visit Diagnoses Not on filedocumented in this encounter Additional Health Concerns Assessment Noted Time PHQ-9 Depression Total Score: 6 08/23/19 23 8:03 AM CLERICAL SUPERVISOR documented as of this encounter Care Teams Supervisor [employer] Relationship Specialty Start Date End Date Suad Haney CORPORATE TRAFFIC MANAGER PCP - General NURSE PRACTITIONER 12/17/18 12/18/23 Cherelle Brown NP [address] [place] [address] PCP - General NURSE PRACTITIONER 12/19/23 05/03/24 Nadi[place] [address] PCP - General NURSE PRACTITIONER 05/04/24 documented as of this encounter
--- OUTSIDE RECORDS SUMMARY | 2025-02-17 04:32 | XMS_ITS | Referral Summary ---
Author Organization [facility] Address [address] [place] [address] Care Team Providers Care Director Of Rotc Name Role Phone No, Physician Primary Care Provider [phone] Encounters Date Type Department Care Team Description 02/16/2025 Documentation [facility] Maternal- Medicine [facility] [address] [place] [phone] Sis Edwards MD Glycemic control meeting 02/15/2025 Telephone [facility] Maternal- Medicine [facility] Outpatient Health 7th Floor [address] [place] [address] Tressa Soares, CONSERVATION TECHNICIAN Appointment 02/11/2025 9:25 AM CDT - 02/15/2025 5:43 PM CDT Hospital Encounter [address] [address] Yuval Madrid MD Whitley, Julia D.E., Jeb Arango MD care following vaginal delivery (Primary Dx) Discharge Disposition: Discharge to home or self care 02/13/2025 - 02/13/2025 1:40 AM CDT Surgery [address] [address] Jeb Swift MD REPAIR VAGINA 2025 5:18 AM CDT Anesthesia Event [facility] [address] [place] [address] Galen Hoover MD Uche, Chiamaka P., MD 02/11/2025 Telephone [facility] Maternal- Medicine [address] [place] [address] Floor [address] [place] [address] Beulah Lee NP 02/11/2025 8:30 AM CDT Clinical Support [facility] Obstetrics and Gynecology [address] [place] [phone] Pre-existing type 2 diabetes mellitus during , antepartum (Primary Dx); Obesity affecting , antepartum, unspecified obesity type 02/09/2025 Documentation [facility] Maternal- Medicine [facility] [address] [place] [address] Sis Edwards MD Glycemic control meeting 02/08/2025 9:00 AM CDT Clinical Support [facility] Obstetrics and Gynecology [address] [place] [phone] Pre-existing type 2 diabetes mellitus during , antepartum (Primary Dx); Supervision of high-risk , third trimester; Obesity affecting , antepartum, unspecified obesity type 02/04/2025 8:30 AM CDT Clinical Support [facility] Obstetrics and Gynecology [address] [place] [phone] Pre-existing type 2 diabetes mellitus during , antepartum (Primary Dx); Pre-existing essential hypertension complicating in third trimester; Obesity affecting , antepartum, unspecified obesity type 02/01/2025 10:30 AM CDT Clinical Support [facility] Obstetrics and Gynecology [address] [place] [phone] Supervision of high-risk , third trimester (Primary Dx); Pre-existing type 2 diabetes mellitus during , antepartum; Pre-existing essential hypertension complicating in second trimester 02/01/2025 11:15 AM CDT Office Visit [facility] Maternal- Medicine [address] [place] [address] Floor [address] [place] [address] Obesity affecting , antepartum, unspecified obesity type (Primary Dx); Pre-existing type 2 diabetes mellitus during , antepartum; Supervision of high-risk , third trimester; Anxiety and depression; Pre-existing essential hypertension complicating in second trimester; Polyhydramnios in third trimester, not applicable or unspecified fetus 01/28/2025 8:30 AM CDT Clinical Support [facility] Obstetrics and Gynecology [address] [place] [phone] Pre-existing type 2 diabetes mellitus during , antepartum (Primary Dx); Pre-existing essential hypertension complicating in third trimester; Obesity affecting , antepartum, unspecified obesity type 01/26/[address] [address] Sis Edwards MD Glycemic control meeting 01/25/2025 8:30 AM CDT Clinical Support [facility] Obstetrics and Gynecology [address] [place] [phone] Supervision of high-risk , third trimester (Primary Dx); Pre-existing type 2 diabetes mellitus during , antepartum; Pre-existing essential hypertension complicating in second trimester 01/25/2025 9:04 AM CDT - 01/25/2025 12:26 PM CDT Hospital [address] [phone] Yuval Madrid MD Discharge Disposition: Discharge to home or self care 01/21/2025 9:00 AM CDT Clinical Support [facility] Obstetrics and Gynecology [address] [place] [phone] Pre-existing type 2 diabetes mellitus during , antepartum (Primary Dx); Pre-existing essential hypertension complicating in third trimester; Obesity affecting , antepartum, unspecified obesity type 01/19/2025 Orders Only [facility] Maternal- Medicine [address] [place] [address] Floor [address] [place] [phone] Regina Adan, RN Supervision of high-risk , third trimester (Primary Dx); Obesity affecting , antepartum, unspecified obesity type 01/18/2025 8:45 AM CDT Office Visit [facility] Maternal- Medicine [address] [place] [address] Health 7th Floor [address] [place] [address] Obesity affecting , antepartum, unspecified obesity type (Primary Dx); Pre-existing essential hypertension complicating in second trimester; Pre-existing type 2 diabetes mellitus during , antepartum; Polyhydramnios in third trimester, not applicable or unspecified fetus 01/18/2025 7:42 AM CDT - 01/18/2025 11:59 PM CDT Hospital Encounter [facility] Outpatient [facility] - Ultrasound [address] [place] [address], [address] [place] [address], [address] [place], [place] [phone] Pre-existing type 2 diabetes mellitus during , antepartum; Pyelectasis of fetus on ultrasound; Polyhydramnios in third trimester, not applicable or unspecified fetus Discharge Disposition: Discharge to home or self care 01/15/2025 9:00 AM CDT Clinical Support [facility] Obstetrics and Gynecology [address] [place] [phone] Pre-existing type 2 diabetes mellitus during , antepartum (Primary Dx); Pre-existing essential hypertension complicating in third trimester 01/12/2025 Documentation [facility] Maternal- Medicine [facility] [address] [place] [phone] Sis Edwards MD Glycemic control meeting 01/12/2025 8:20 AM CDT Office Visit [facility] Maternal- Medicine [address] [place] [address] [address] [place] [address] Anxiety and depression (Primary Dx); Obesity affecting , antepartum, unspecified obesity type; Polyhydramnios in third trimester, not applicable or unspecified fetus; Pre-existing essential hypertension complicating in second trimester; Pre-existing type 2 diabetes mellitus during , antepartum; Supervision of high-risk , second trimester; Rh negative state in antepartum period 01/12/2025 7:24 AM CDT - 01/12/2025 11:59 PM CDT Hospital Encounter [facility] Outpatient Health - Ultrasound [address] [place] [address], [address] [place] [address] Pre-existing type 2 diabetes mellitus during , antepartum; Pyelectasis of fetus on ultrasound; Polyhydramnios in third trimester, not applicable or unspecified fetus Discharge Disposition: Discharge to home or self care 01/07/2025 9:38 AM CDT - 01/07/2025 11:59 PM CDT Hospital Encounter [facility] - Ultrasound [address] [place] [address], [address] [place] [address] Pre-existing type 2 diabetes mellitus during , antepartum; Pyelectasis of fetus on ultrasound; Polyhydramnios in third trimester, not applicable or unspecified fetus Discharge Disposition: Discharge to home or self care 01/07/2025 Orders Only [facility] Maternal- Medicine [address] [place] [address] [address] [place] [address] Regina Adan RN 01/07/2025 9:00 AM CDT Clinical Support [facility] Obstetrics and Gynecology [address] [place] [phone] 01/05/2025 Documentation [facility] 1 [place] [address] Sis Edwards MD Glycemic control meeting 01/04/2025 11:52 AM CDT - 01/04/2025 11:59 PM CDT Hospital Encounter [facility] - Ultrasound [address] [place] [address], [address] [place] [address] Pyelectasis of fetus on ultrasound; Polyhydramnios in third trimester, not applicable or unspecified fetus; Supervision of high-risk , second trimester Discharge Disposition: Discharge to home or self care 01/04/2025 1:30 PM CDT Office Visit [facility] Obstetrics and Gynecology [address] [place] [address] [address] [place] [address] Supervision of high-risk , second trimester (Primary Dx); Rh negative state in antepartum period; Pyelectasis of fetus on ultrasound; Pre-existing type 2 diabetes mellitus during , antepartum; Pre-existing essential hypertension complicating in second trimester; Polyhydramnios in third trimester, not applicable or unspecified fetus; Obesity affecting , antepartum, unspecified obesity type; Anxiety and depression 12/29/2024 Documentation [facility] 1 [place] [address] Sis Edwards MD Glycemic control review 12/24/2024 3:20 PM CDT Office Visit [facility] Maternal- Medicine [address] [place] [address] 7th Floor [address] [place] [address] Anxiety and depression (Primary Dx); Obesity affecting , antepartum, unspecified obesity type; Pre-existing essential hypertension complicating in second trimester; Pre-existing type 2 diabetes mellitus during , antepartum; Pyelectasis of fetus on ultrasound; Supervision of high-risk , second trimester; Polyhydramnios in third trimester, not applicable or unspecified fetus 12/24/2024 2:30 PM CDT - 12/24/2024 11:59 PM CDT Hospital Encounter [facility] Outpatient [facility] - Ultrasound [address] [place] [address], [address] [facility], [address] [place] [address] Obesity affecting , antepartum, unspecified obesity type; Pre-existing essential hypertension complicating in second trimester; Pre-existing type 2 diabetes mellitus during , antepartum Discharge Disposition: Discharge to home or self care 12/15/2024 9:05 AM CDT Lab [facility] Outpatient Health [address] [place] [address] Pre-existing type 2 diabetes mellitus during , antepartum; Supervision of high-risk , second trimester 12/15/2024 11:00 AM CDT Office Visit [facility] Maternal- Medicine [address] [place] [address] 7th Floor [address] [place] [phone] Supervision of high-risk , second trimester (Primary Dx); Pyelectasis of fetus on ultrasound; Pre-existing type 2 diabetes mellitus during , antepartum; Pre-existing essential hypertension complicating in second trimester; Obesity affecting , antepartum, unspecified obesity type; Anxiety and depression 12/08/[address] [phone] Yumiko Cox MD 12/04/2024 1:45 PM CDT Telemedicine [facility] Maternal- Medicine [facility] [address] [place] [phone] Obesity affecting , antepartum, unspecified obesity type (Primary Dx); Pre-existing type 2 diabetes mellitus during , antepartum; GBS bacteriuria; Rh negative state in antepartum period; Supervision of high-risk , second trimester; Anxiety and depression; Pre-existing essential hypertension complicating in second trimester; Pyelectasis of fetus on ultrasound; Polyhydramnios in third trimester, not applicable or unspecified fetus 12/03/2024 Orders Only [facility] Maternal- Medicine [address] [place] [address] Outpatient Health 7th Floor [address] [place] [address] Celine Rose RN 12/01/[address] [phone] Dian Edwards MD 11/26/2024 4:20 PM CDT Office Visit [facility] Maternal- Medicine [address] [place] [address] Outpatient Health 7th Floor [address] [place] [address] Anxiety and depression (Primary Dx); Obesity affecting , antepartum, unspecified obesity type; Pre-existing essential hypertension complicating in second trimester; Pre-existing type 2 diabetes mellitus during , antepartum; Supervision of high-risk , second trimester; Pyelectasis of fetus on ultrasound 11/26/2024 2:30 PM CDT - 11/26/2024 11:59 PM CDT Hospital Encounter [facility] - Ultrasound [address] [place] [address], 7th Floor, [address] [facility] [place] [address] Pre-existing type 2 diabetes mellitus during , antepartum Discharge Disposition: Discharge to home or self care from Last 3 Months Allergies Active Allergy Reactions Criticality Noted Date Comments Adhesive Rash Medium 10/18/2015 Cecil Rash Medium 10/18/2015 Codeine Rash Medium 10/18/2015 Lamotrigine Cough Low 01/20/2024 Losartan Dizziness,Other (See comments) Low 01/19 Medications OneTouch Delica Plus Lancet 33 gauge misc CHECK BLOOD SUGAR ONCE A DAY 07/17/20 24 Active vit 31-uyfd-osblp -dha 27mg iron- 800 mcg-250 mg capsule Take by mouth Active blood-glucose meter,continu ous ([employer] G7 [employer] General Manager) miscIndicatio ns:Pre-existi ng type 2 diabetes mellitus during in first trimester Use continuously to check blood sugars 1 each 2 08/10/19 25 Active blood-glucose sensor (Dexcom G7 Sensor) deviceIndicat ions:Pre-exis ting type 2 diabetes mellitus during in first trimester Use with [employer] clarity quirino to monitor your blood sugar [...] # Disposition: Follow up task sent to [facility] scheduling pool for appointments in 2 [...] UTD, s/p counseling in [place]- referral to [facility] to help coordinate peds urology 01/04: normal kidneys bilaterally - 6.8 and 6.4 mm. Recommend repeating kidney assessment on next US but no need for f/u if UTD remains resolved. If returns, can coordinate follow-up for baby. Back to [facility] Assessment & Plan (01/12/2025 12:20 PM CDT): Continue to monitor with serial US Anxiety and depression 09/01/2024 Overview (11/02/2024): History of MDD and CAN since 14 Previously treated by [facility] Previously on Duloxetine, Aripiprazole, Buspirone OD and [...] provided. Assessment & Plan (09/24/2024 3:50 PM MEDICAL CODING INSTRUCTOR): Mood is stable. No acute concerns today. [...] reviewed. Assessment & Plan (09/24/2024 3:49 PM MEDICAL CODING INSTRUCTOR): Normotensive today Plan [x] ASA 81 mg [...] sent on 09/30 Referring Provider: Glen Velazquez [phone] [] or Medicare Insurance [x] Dating Criteria: [...] Nexplanon [x] Method of feeding: breast [] Housekeeping Aide (specifically which provider): pt calling around [x] [...] address. Assessment & Plan (09/24/2024 3:50 PM MEDICAL CODING INSTRUCTOR): Continue co-management with primary OB GBS bacteriuria 08/10/2024 Obesity affecting , antepartum 08/05/19 Overview (02/01/2025): Previously counseled Plan: [x] Initiate aspirin 81 mg at 12 weeks for preeclampsia risk reduction [x] Specialized anatomic survey at 20 weeks [] Anesthesia consult 02/01/25 @ 1300 [] testing per T2DM Assessment & Plan (09/24/2024 3:49 PM MEDICAL CODING INSTRUCTOR): Plan: [x] Initiate aspirin 81 mg at [...] regimen. Assessment & Plan (09/24/2024 3:48 PM MEDICAL CODING INSTRUCTOR): 09/24/24 CGM data reviewed. Fasting values improved [...] Answered Comments:Will quit when/if I become . [facility] Utilities Answer Date Recorded In the past 12 months has th e [email or web address], gas, oil, or water company threatened to [...] often do you attend chur ch or church services? Never 02/14/2025 Do you belong to any clubs o r organizations such as orthodoxy groups, unions, fraternal or athletic groups, or [...] things needed for daily living? No 02/14/2025 [place] Depression Scale Answer Date Recorded [place] Depression Scale Total 14 08/05/2024 The thought [...] any time in the past 12 m [facility], were you homeless or living in a [place] health care facility (including now)? No 02/14/2025 Personal Safety Answer Date Recorded Have you ever been in or are you currently in a harmful physical or emotional relationship or is someone making you feel afraid or unsafe? Denies 02/11/2025 Comments No Sex and Gender Information Value Date Recorded Sex Assigned at Not on file Legal Sex Female 9:29 PM MEDICAL CODING INSTRUCTOR Gender Identity Not on file Sexual Orientation [...] GLUCOSE DEVICE Routine 2025 5:57 AM CDT [place] AN PROCEDURE PLACEHOLDER Routine 2025 5:23 AM [...] HEPATITIS C ANTIBODY Routine 08/06/2024 9:00 AM MEDICAL CODING INSTRUCTOR Encounter for supervision of normal in first trimester, unspecified PAP WITH REFLEX TO HIGH RISK HPV Routine 10/24/2021 11:19 AM CDT Encounter for annual routine gynecological examination from Last 3 Months or Most Recently Relevant to Health Maintenance Results * (ABNORMAL) CBC without differential (02/15/2025 9:59 AM CDT) WBC 16.54(H) 3.80 - 9.90 K/cumm Hgb 8.4(L) 11.9 - 15.5 g/dL [facility] Hct 25.8(L) 35.6 - 45.5 % [facility] Plt 326 150 - 400 K/cumm [facility] MPV 9.6 9.1 - 12.3 fL [facility] RBC 2.94(L) 3.90 - 5.20 M/cumm [facility] MCV 87.8 81.3 - 96.4 fL [facility] MCH 28.6 27.1 - 33.3 pg [facility] MCHC 32.6 32.3 - 35.7 g/dL [facility] RDW CV 14.1 11.1 - 14.9 % [facility] RDW SD 44.7 35.7 - 48.1 fL [facility] NRBC abs 0.03(H) 0.00 - 0.01 K/cumm [facility] Blood 02/15/2025 9:59 AM CDT 02/15/2025 10:10 AM CDT Khadijah Pate NP LAB BLOOD ORDERABLES Final Result Performing Organization Address [facility] de Phone Number [facility] [place] [address] * POCT glucose (02/15/2025 9:01 AM CDT) Glucose, POC 142 70 - 199 mg/dL Blood 02/15/2025 9:01 AM CDT 02/15/2025 9:01 AM CDT Jeb Swift MD LAB POCT ORDERABLES - DEV ICE Final Result Performing Organization Address [facility] de Phone Number [facility] [place] [address] * POCT glucose (02/14/2025 11:34 PM CDT) Glucose, POC 155 70 - 199 mg/dL Blood 02/14/2025 11:3 4 PM CDT 02/14/2025 11:34 PM CDT Jeb Swift MD LAB POCT ORDERABLES - DEV ICE Final Result Performing Organization Address [facility] de Phone Number [facility] [place] [address] * POCT glucose (02/14/2025 4:48 PM CDT) Glucose, POC 165 70 - 199 mg/dL Blood 02/14/2025 4:48 PM CDT 02/14/2025 4:48 PM CDT Jeb Swift MD LAB POCT ORDERABLES - DEV ICE Final Result Performing Organization Address [facility] de Phone Number [facility] Department [place] [address] * POCT glucose (02/14/2025 1:22 PM CDT) [facility] Glucose, POC 103 70 - 199 mg/dL Blood 02/14/2025 1:22 PM CDT 02/14/2025 1:22 PM CDT us Jeb Swift MD LAB POCT ORDERABLES - DEV ICE Final Result Performing Organization Address [facility] de Phone Number [facility] [place] [address] * (ABNORMAL) CBC without differential (02/14/2025 10:30 AM CDT) [facility] WBC 18.68(H) 3.80 - 9.90 K/cumm Hgb 7.6(L) 11.9 - 15.5 g/dL [facility] Hct 23.4(L) 35.6 - 45.5 % [facility] Plt 299 150 - 400 K/cumm [facility] MPV 9.8 9.1 - 12.3 fL [facility] RBC 2.67(L) 3.90 - 5.20 M/cumm [facility] MCV 87.6 81.3 - 96.4 fL [facility] MCH 28.5 27.1 - 33.3 pg [facility] MCHC 32.5 32.3 - 35.7 g/dL [facility] RDW CV 14.2 11.1 - 14.9 % [facility] RDW SD 44.6 35.7 - 48.1 fL [facility] NRBC abs 0.00 0.00 - 0.01 K/cumm [facility] Blood 02/14/2025 10:3 0 AM CDT 02/14/2025 10:53 AM CDT us Jeb Swift MD LAB BLOOD ORDERABLES Farhana l Result Performing Organization Address City/[facility]/ZIP Co de Phone Number [facility] [place] [address] * POCT glucose (02/14/2025 8:33 AM CDT) Glucose, POC 103 70 - 199 mg/dL Blood 02/14/2025 8:33 AM CDT 02/14/2025 8:33 AM CDT Jeb Swift MD LAB POCT ORDERABLES - DEV ICE Final Result Performing Organization Address [facility] Co de Phone Number [facility] [place] [address] * eGFR (02/14/2025 3:51 AM CDT) [facility] eGFR >90 >=60 mL/min/1. 73 m2 Comment: [...] [place]/ZIP Co de Phone Number [facility] Department [place] [address] * (ABNORMAL) CBC without differential (02/14/2025 3:51 AM CDT) [facility] WBC 18.03(H) 3.80 - 9.90 K/cumm Hgb 7.1(L) 11.9 - 15.5 g/dL [facility] Hct 21.5(L) 35.6 - 45.5 % [facility] Plt 291 150 - 400 K/cumm [facility] MPV 9.8 9.1 - 12.3 fL [facility] RBC 2.48(L) 3.90 - 5.20 M/cumm [facility] MCV 86.7 81.3 - 96.4 fL [facility] MCH 28.6 27.1 - 33.3 pg [facility] MCHC 33.0 32.3 - 35.7 g/dL [facility] RDW CV 13.9 11.1 - 14.9 % [facility] RDW SD 43.7 35.7 - 48.1 fL [facility] NRBC abs 0.00 0.00 - 0.01 K/cumm [facility] Blood 02/14/2025 3:51 AM CDT 02/14/2025 4:36 AM CDT us Jeb Swift MD LAB BLOOD ORDERABLES Farhana l Result [facility] [place] [address] * (ABNORMAL) Basic metabolic panel (02/14/2025 3:51 AM CDT) [facility] Sodium 139 135 - 145 mmol/L Potassium, pl 4.1 3.3 - 4.9 mmol/L [facility] Chloride 107 97 - 110 mmol/L [facility] CO2 24 22 - 32 mmol/L [facility] Anion gap 8 2 - 15 mmol/L [facility] BUN 6 6 - 25 mg/dL [facility] Creatinine 0.54(L) 0.60 - 1.10 mg/dL [facility] Glucose 87 70 - 199 mg/dL [facility] Comment: Interpretive Data Fasting glucose >/= [...] 2022. Calcium 8.5 8.5 - 10.3 mg/dL [facility] Blood 02/14/2025 3:51 AM CDT 02/14/2025 4:36 AM CDT Jeb Swift MD LAB BLOOD ORDERABLES Farhana l Result Performing Organization Address City/[facility]/ZIP Co de Phone Number [facility] [place] [address] * POCT glucose (02/13/2025 9:37 PM CDT) [facility] Signature Glucose, POC 105 70 - 199 mg/dL Blood 02/13/2025 9:37 PM CDT 02/13/2025 9:37 PM CDT Jeb Swift MD LAB POCT ORDERABLES - DEV ICE Final Result Performing Organization Address [facility]/ZIP Co de Phone Number [facility] [place] [address] * US Kidney Complete (02/13/2025 8:50 PM [...] POCT ORDERABLES - DEV ICE Final Result [facility] Department [place] [address] * ABO/Rh (02/13/2025 1:01 PM CDT) ABO Rh A Negative Blood 02/13/2025 1:01 PM CDT 02/13/2025 1:01 PM CDT us Jeb Swift MD LAB BLOOD BANK TEST ORDER SOLOMON Final Result Performing Organization Address [facility] Co de Phone Number [facility] [place] [address] * Rh Immune Globulin Eval (02/13/2025 12:23 PM CDT) RhIg Administration Not applicable RhIg Eligible No, not eligible [facility] Blood 02/13/2025 12:2 3 PM CDT 02/13/2025 12:34 PM CDT Narrative [facility] - 02/13/2025 1:03 PM CDT Number of weeks ?->Greater than or equal to 12 weeks antibody screen result:->Negative Rhogam given?->Unknown Number of vials requested:->1 Jeb Swift MD LAB BLOOD BANK TEST ORDER SOLOMON Final Result Performing Organization Address [facility] de Phone Number [facility] [place] [address] * eGFR (02/13/2025 12:23 PM CDT) eGFR [...] ORDERABLES Farhana espinoza Result Performing Organization Address [facility]/ZIP Co de Phone Number [facility] [place] [address] * (ABNORMAL) CBC without differential (02/13/2025 12:23 PM CDT) WBC 16.71(H) 3.80 - 9.90 K/cumm Hgb 7.7(L) 11.9 - 15.5 g/dL [facility] Hct 23.0(L) 35.6 - 45.5 % [facility] Plt 271 150 - 400 K/cumm [facility] MPV 9.9 9.1 - 12.3 fL [facility] RBC 2.66(L) 3.90 - 5.20 M/cumm [facility] MCV 86.5 81.3 - 96.4 fL [facility] MCH 28.9 27.1 - 33.3 pg [facility] MCHC 33.5 32.3 - 35.7 g/dL [facility] RDW CV 13.8 11.1 - 14.9 % [facility] RDW SD 43.3 35.7 - 48.1 fL [facility] NRBC abs 0.00 0.00 - 0.01 K/cumm [facility] Blood 02/13/2025 12:2 3 PM CDT 02/13/2025 12:32 PM CDT us Jeb Swift MD LAB BLOOD ORDERABLES Farhana l Result Performing Organization Address City/[facility]/ZIP Co de Phone Number [facility] Department [place] [address] * (ABNORMAL) Basic metabolic panel (02/13/2025 12:23 PM CDT) Pathologist [facility] Sodium 135 135 - 145 mmol/L Potassium, pl 3.8 3.3 - 4.9 mmol/L [facility] Chloride 104 97 - 110 mmol/L [facility] CO2 22 22 - 32 mmol/L [facility] Anion gap 9 2 - 15 mmol/L [facility] BUN 9 6 - 25 mg/dL [facility] Creatinine 0.59(L) 0.60 - 1.10 mg/dL [facility] Glucose 171 70 - 199 mg/dL [facility] Comment: Interpretive Data Fasting glucose >/= [...] 2022. Calcium 8.4(L) 8.5 - 10.3 mg/dL [facility] Blood 02/13/2025 12:2 3 PM CDT 02/13/2025 12:32 PM CDT Jeb Swift MD LAB BLOOD ORDERABLES Farhana l Result Performing Organization Address City/[facility]/ZIP Co de Phone Number [facility] [place] [address] * POCT glucose (02/13/2025 7:17 AM CDT) Glucose, POC 147 70 - 199 mg/dL Blood 02/13/2025 7:17 AM CDT 02/13/2025 7:17 AM CDT Jeb Swift MD LAB POCT ORDERABLES - DEV ICE Final Result Performing Organization Address [facility]/ZIP Co de Phone Number [facility] [place] [address] * POCT glucose (02/13/2025 6:11 AM CDT) Glucose, POC 159 70 - 199 mg/dL Blood 02/13/2025 6:11 AM CDT 02/13/2025 6:11 AM CDT Jeb Swift MD LAB POCT ORDERABLES - DEV ICE Final Result Performing Organization Address [facility] Co de Phone Number [facility] [place] [address] * eGFR (02/13/2025 3:21 AM CDT) Pathologist [facility] eGFR >90 >=60 mL/min/1. 73 m2 Comment: [...] [facility] [place]/ZIP Co de Phone Number [facility] [place] [address] * (ABNORMAL) aPTT (02/13/2025 3:21 AM CDT) [...] ORDERABLES Farhana l Result Performing Organization Address [facility] Co de Phone Number [facility] [employer] [place] [address] * Protime-INR (02/13/2025 3:21 AM CDT) Pathologist [facility] PT 10.8 9.7 - 13.0 sec INR 1.00 0.90 - 1.20 [facility] Comment: Interpretive data Oral anticoagulant therapeutic ranges: Venous thromboembolism prophylaxis or treatment: 2.0-3.0 CARDIOLOGY Standard range: 2.0-3.0 High-intensity range: 2.5-3.5 Refer to indication-specific guidelines for appropriate target ranges for prosthetic heart valve replacement. Current interpretive data was last revised on 2019. Blood 02/13/2025 3:21 AM CDT 02/13/2025 4:09 AM CDT Jeb Swift MD LAB BLOOD ORDERABLES Farhana l Result Performing Organization Address [facility] Co de Phone Number [facility] [place] [place] [address] * (ABNORMAL) Fibrinogen (02/13/2025 3:21 AM CDT) Fibrinogen 520(H) 170 - 400 mg/dL Blood 02/13/2025 3:21 AM CDT 02/13/2025 4:09 AM CDT Jeb Swift MD LAB BLOOD ORDERABLES Farhana l Result [facility] [place] [address] * (ABNORMAL) CBC without differential (02/13/2025 3:21 AM CDT) Pathologist [facility] WBC 20.21(H) 3.80 - 9.90 K/cumm Hgb 8.1(L) 11.9 - 15.5 g/dL [facility] Hct 24.4(L) 35.6 - 45.5 % [facility] Plt 296 150 - 400 K/cumm [facility] MPV 9.9 9.1 - 12.3 fL [facility] RBC 2.84(L) 3.90 - 5.20 M/cumm [facility] MCV 85.9 81.3 - 96.4 fL [facility] MCH 28.5 27.1 - 33.3 pg [facility] MCHC 33.2 32.3 - 35.7 g/dL [facility] RDW CV 13.7 11.1 - 14.9 % [facility] RDW SD 43.0 35.7 - 48.1 fL [facility] NRBC abs 0.00 0.00 - 0.01 K/cumm [facility] Blood 02/13/2025 3:21 AM CDT 02/13/2025 4:06 AM CDT us Jeb Swift MD LAB BLOOD ORDERABLES Farhana l Result [facility] Department of [place], [place] [id number] * (ABNORMAL) Comprehensive metabolic panel (02/13/2025 3:21 AM CDT) Pathologist [facility] Sodium 136 135 - 145 mmol/L Potassium, pl 3.8 3.3 - 4.9 mmol/L [facility] Chloride 106 97 - 110 mmol/L [facility] CO2 19(L) 22 - 32 mmol/L [facility] Anion gap 11 2 - 15 mmol/L [facility] BUN 9 6 - 25 mg/dL [facility] Creatinine 0.56(L) 0.60 - 1.10 mg/dL [facility] Glucose 155 70 - 199 mg/dL [facility] Comment: Interpretive Data Fasting glucose >/= [...] 2022. Calcium 7.7(L) 8.5 - 10.3 mg/dL [facility] Bilirubin, total 0.5 0.1 - 1.2 mg/dL [facility] Protein, pl 5.2(L) 6.5 - 8.5 g/dL [facility] Albumin 2.6(L) 3.5 - 5.0 g/dL [facility] Alk phos 92 40 - 130 Units/L [facility] ALT 10 7 - 45 Units/L [facility] AST 15 10 - 45 Units/L [facility] Blood 02/13/2025 3:21 AM CDT 02/13/2025 4:06 AM CDT us Jeb Swift MD LAB BLOOD ORDERABLES Farhana l Result [facility] [place] [address] * (ABNORMAL) POC Thromboelastometry Panel - Heparin (02/13/2025 1:02 AM CDT) HEPTEM-CT, POC <122(L) 141 - 215 sec [facility]PT[facility]-A5, POC 52(H) 33 - 51 mm [facility] HEPTEM-A10, POC 63(H) 44 - 61 mm [facility] HEPTEM-A20, POC 71(H) 52 - 67 mm [facility] HEPTEM-MCF, POC 75(H) 54 - 69 mm [facility] HEPTEM-Run Time, POC (hh:mm:ss) 02:00:01 [facility] Blood 02/13/2025 1:02 AM CDT 02/13/2025 1:02 AM CDT Jeb Swift MD LAB POCT ORDERABLES - DEV ICE Edited Result - Final Performing Organization Address [facility]/ZIP Co de Phone Number [facility] [place] [address] * (ABNORMAL) POC Thromboelastometry Panel - Intrinsic (02/13/2025 1:01 AM CDT) [facility] INTEM-CT, POC <123(L) 139 - 205 sec [...] [facility] INTEM-Run Time, POC (hh:mm:ss) 02:00:01 [facility] Blood 02/13/2025 1:01 AM CDT 02/13/2025 1:01 AM CDT us Jeb Swift MD LAB POCT ORDERABLES - DEV ICE Edited Result - Final Performing Organization Address City/[facility]/ZIP Co de Phone Number [facility] [place] [address] * (ABNORMAL) POC Thromboelastometry Panel - Extrinsic [...] Edited Result - Final [facility] GUTIER[facility] [place] [address] * (ABNORMAL) POC Thromboelastometry Panel - Fibrinogen [...] [place]/ZIP Co de Phone Number [facility] [place] [address] * (ABNORMAL) POC Blood Gas and Chemistries, Venous - (02/13/2025 1:00 AM CDT) pH, Dalila POC 7.38 7.32 - 7.43 pCO2, dalila POC 28(L) 40 - 50 mmHg [facility] pO2, dalila POC 69 mmHg [facility] Na, POC 134(L) 135 - 145 mmol/L [facility] K POC 4.2 3.3 - 4.9 mmol/L [facility] Comment: Interpretive Data Not all point of care methods assess for hemolysis. Confirm with instrument and retest K+ if not consistent with clinical signs and symptoms. Current Interpretive Data was last revised on 2023. Cl, POC 109 97 - 110 mmol/L [facility] Ionized Ca, POC 4.04(L) 4.50 - 5.10 mg/dL [facility] Glucose, POC 157 70 - 199 mg/dL [facility] Lactate POC 3.2(H) 0.7 - 2.0 mmol/L [facility] O2 Sat, Dalila POC (Ethel) 94 % [facility] Base excess, POC -7.4 mmol/L [facility] HCO3, Dalila POC 17(L) 20 - 30 mmol/L [facility] Hct, POC 32.0(L) 36.3 - 45.3 % [facility] Total Hb, POC 10.6(L) 11.9 - 15.5 g/dL [facility] Blood 02/13/2025 1:00 AM CDT 02/13/2025 1:00 AM CDT us Jeb Swift MD LAB POCT ORDERABLES - DEV ICE Final Result [facility] [address] [place] [address] * Critical Result Callback Hematology (02/13/2025 12:52 AM CDT) Date Notified [id number] Time Notified 156 [facility] TestName aPTT [facility] Called/Read Back Manuel CR [facility] Credentials RN [facility] Called By JÚNIOR CR [facility] Blood 02/13/2025 12:5 2 AM CDT 02/13/2025 1:17 AM CDT Ashutosh De Los Santos MD LAB BLOOD ORDERABLES Final Result Performing Organization Address [facility] Co de Phone Number [facility] [place] [address] * (ABNORMAL) aPTT (02/13/2025 12:52 AM CDT) [...] BLOOD ORDERABLES Final Result Performing Organization Address [facility] de Phone Number [facility] [place] [address] * Protime-INR (02/13/2025 12:52 AM CDT) PT 9.9 9.7 - 13.0 sec INR 0.92 0.90 - 1.20 [facility] Comment: Interpretive data Oral anticoagulant therapeutic [...] BLOOD ORDERABLES Final Result Performing Organization Address [facility] de Phone Number [facility] [place] [address] * (ABNORMAL) Fibrinogen (02/13/2025 12:52 AM CDT) Fibrinogen 586(H) 170 - 400 mg/dL Blood 02/13/2025 12:5 2 AM CDT 02/13/2025 1:17 AM CDT Ashutosh De Los Santos MD LAB BLOOD ORDERABLES Final Result Performing Organization Address [facility] de Phone Number [facility] [place] [address] * (ABNORMAL) CBC without differential (02/13/2025 12:52 AM CDT) Pathologist [facility] WBC 23.41(H) 3.80 - 9.90 K/cumm Hgb 9.8(L) 11.9 - 15.5 g/dL [facility] Hct 29.4(L) 35.6 - 45.5 % [facility] Plt 352 150 - 400 K/cumm [facility] MPV 10.0 9.1 - 12.3 fL [facility] RBC 3.38(L) 3.90 - 5.20 M/cumm [facility] MCV 87.0 81.3 - 96.4 fL [facility] MCH 29.0 27.1 - 33.3 pg [facility] MCHC 33.3 32.3 - 35.7 g/dL [facility] RDW CV 13.8 11.1 - 14.9 % [facility] RDW SD 43.8 35.7 - 48.1 fL [facility] NRBC abs 0.00 0.00 - 0.01 K/cumm [facility] Blood 02/13/2025 12:5 2 AM CDT 02/13/2025 1:05 AM CDT us Ashutosh De Los Santos MD LAB BLOOD ORDERABLES Final Result Performing Organization Address City/[facility]/ZIP Co de Phone Number [facility] [place] [address] * POCT glucose (2025 11:14 PM CDT) Glucose, POC 111 70 - 199 mg/dL Blood 2025 11:1 4 PM CDT 2025 11:14 PM CDT Jeb Swift MD LAB POCT ORDERABLES - DEV ICE Final Result Performing Organization Address [facility] de Phone Number [facility] [place] [address] * (ABNORMAL) Urinalysis reflex to microscopic and culture Urine, bladder (2025 10:11 PM CDT) Color, ur Yellow Yellow Clarity, ur Cloudy(A) Clear [facility] Specific gravity, ur 1.037(H) 1.003 - 1.030 [facility] pH, urine 6.0 [facility] Comment: Interpretive Data U rine pH is affected by diet, medications, systemic acid-base disturbances, and renal tubular function. pH may affect urinary stone formation. For example, urine pH below 6.0 may help reduce the tendency for calcium phosphate stones and pH greater than 6.0 may reduce the tendency for uric acid stone formation. Source: [facility] [place] Current Interpretive Data was last revised on 2017 Protein, ur ql 3+(A) Negative [facility] Glucose, ur ql Trace(A) Negative [facility] Ketones, ur 4+(A) Negative [facility] Bilirubin, ur Negative Negative [facility] Blood, ur 3+(A) Negative [facility] Urobilinogen, ur <2.0 <2.0 mg/dL [facility] Nitrite, ur Negative Negative [facility] Leukocyte esterase, ur Trace(A) Negative [facility] UA reflex comment Reflex to microscopic UA will be performed. [facility] Urine, bladder 2025 10 :11 PM CDT 2025 10:23 PM CDT Jeb Swift MD LAB MICROBIOLOGY - GENERA L ORDERABLES Final Result Performing Organization Address [facility] de Phone Number [facility] [place] [address] * (ABNORMAL) Urinalysis, microscopic only (2025 10:11 PM CDT) WBC, ur 21-50(A) 0 - 5 /HPF RBC, ur >50(A) 0 - 2 /HPF [facility] Epithelial cells, squamous, ur 6-10(A) 0 - 5 /HPF [facility] Comment:Suggestive of contam ination. Consider recollection by clean catch. Mucous, ur Present(A) [facility] Culture Reflex Comment Reflex to urine culture will be performed. [facility] Urine, bladder 2025 10 :11 PM CDT 2025 10:23 PM CDT Jeb Swift MD LAB URINE ORDERABLES Farhana l Result Performing Organization Address [facility] de Phone Number [facility] [place] [address] * Urine culture Urine, bladder (2025 10:11 PM CDT) Report Final Report: No growth Urine, bladder 2025 10 :11 PM CDT 2025 10:58 PM CDT Narrative [facility] - 02/14/2025 7:31 AM CDT Urine culture reflexed based upon urinalysis results. Testing performed by [facility] ([phone]) Jeb Swift MD LAB MICROBIOLOGY - GENERA L ORDERABLES Final Result Performing Organization Address [facility] de Phone Number [facility] [place] [address] * POCT glucose (2025 10:10 PM CDT) Glucose, POC 102 70 - 199 mg/dL Blood 2025 10:1 0 PM CDT 2025 10:10 PM CDT us Jeb Swift MD LAB POCT ORDERABLES - DEV ICE Final Result Performing Organization Address [facility] de Phone Number [facility] Department [place] [address] * POCT glucose (2025 9:11 PM CDT) Glucose, POC 110 70 - 199 mg/dL Blood 2025 9:11 PM CDT 2025 9:11 PM CDT Jeb Swift MD LAB POCT ORDERABLES - DEV ICE Final Result Performing Organization Address [facility] de Phone Number [facility] Department [place] [address] * POCT glucose (2025 8:06 PM CDT) Glucose, POC 109 70 - 199 mg/dL Blood 2025 8:06 PM CDT 2025 8:06 PM CDT Jeb Swift MD LAB POCT ORDERABLES - DEV ICE Final Result Performing Organization Address [facility]/ZIP Co de Phone Number [facility] [place] [address] * POCT glucose (2025 7:30 PM CDT) Glucose, POC 98 70 - 199 mg/dL Blood 2025 7:30 PM CDT 2025 7:30 PM CDT us Jeb Swift MD LAB POCT ORDERABLES - DEV ICE Final Result Performing Organization Address [facility] [place] [address] * Varicella Zoster IgG antibody Blood (2025 7:30 PM CDT) [facility] VZV IgG Reactive Reactive Comment:Reactive: Results zaman ggest response to immunization or prior exposure to the virus. Blood 2025 7:30 PM CDT 2025 8:11 PM CDT Yuval Madrid MD LAB MICROBIOLOGY - GENERAL ORDERABLES Final Result Performing Organization Address [facility] Co de Phone Number [facility] [place] [address] * POCT glucose (2025 5:17 PM CDT) [facility] Glucose, POC 104 70 - 199 mg/dL Blood 2025 5:17 PM CDT 2025 5:17 PM CDT Yuval Madrid MD LAB POCT ORDERABL ES - DEVICE Final Result Performing Organization Address [facility] Co de Phone Number [facility] [place] [address] * POCT glucose (2025 2:54 PM CDT) Glucose, POC 98 70 - 199 mg/dL Blood 2025 2:54 PM CDT 2025 2:54 PM CDT Yuval Madrid MD LAB POCT ORDERABL ES - DEVICE Final Result Performing Organization Address [facility] Co de Phone Number [facility] [place] [address] * POCT glucose (2025 12:03 PM CDT) Glucose, POC 97 70 - 199 mg/dL Blood 2025 12:0 3 PM CDT 2025 12:03 PM CDT Yuval Madrid MD LAB POCT ORDERABL ES - DEVICE Final Result Performing Organization Address [facility] Co de Phone Number [facility] [place] [address] * POCT glucose (2025 10:01 AM CDT) Glucose, POC 101 70 - 199 mg/dL Blood 2025 10:0 1 AM CDT 2025 10:01 AM CDT Yuval Madrid MD LAB POCT ORDERABL ES - DEVICE Final Result Performing Organization Address City/[facility] Co de Phone Number [facility] [place] [address] * POCT glucose (2025 8:01 AM CDT) Glucose, POC 115 70 - 199 mg/dL Blood 2025 8:01 AM CDT 2025 8:01 AM CDT Cecilia Archer MD LAB POCT ORDERABLES - RAKEL CE Final Result Performing Organization Address [facility] de Phone Number [facility] [place] [address] * POCT glucose (2025 6:47 AM CDT) Glucose, POC 132 70 - 199 mg/dL Blood 2025 6:47 AM CDT 2025 6:47 AM CDT Cecilia Archer MD LAB POCT ORDERABLES - RAKEL CE Final Result Performing Organization Address [facility] Phone Number [facility] [place] [address] * POCT glucose (2025 5:57 AM CDT) Glucose, POC 130 70 - 199 mg/dL Blood 2025 5:57 AM CDT 2025 5:57 AM CDT Cecilia Archer MD LAB POCT ORDERABLES - RAKEL CE Final Result Performing Organization Address [facility] [place] [address] * [place] AN PROCEDURE PLACEHOLDER (2025 5:23 AM CDT) [...] RAKEL CE Final Result Performing Organization Address [facility] Co [place] Phone Number [facility] [address] [place] [address] * POCT glucose (2025 2:55 AM CDT) Glucose, POC 103 70 - 199 mg/dL Blood 2025 2:55 AM CDT 2025 2:55 AM CDT Cecilia Archer MD LAB POCT ORDERABLES - RAKEL CE Final Result Performing Organization Address [facility] Co de Phone Number [facility] [place] [address] * POCT glucose (2025 12:43 AM CDT) Glucose, POC 93 70 - 199 mg/dL Blood 2025 12:4 3 AM CDT 2025 12:43 AM CDT Cecilia Archer MD LAB POCT ORDERABLES - RAKEL CE Final Result Performing Organization Address [facility] [place] [address] * POCT glucose (02/11/2025 10:22 PM CDT) Glucose, POC 103 70 - 199 mg/dL Blood 02/11/2025 10:2 2 PM CDT 02/11/2025 10:22 PM CDT Cecilia Archer MD LAB POCT ORDERABLES - RAKEL CE Final Result Performing Organization Address [facility] Co de Phone Number [facility] [place] [address] * POCT glucose (02/11/2025 8:24 PM CDT) Glucose, POC 89 70 - 199 mg/dL Blood 02/11/2025 8:24 PM CDT 02/11/2025 8:24 PM CDT Cecilia Archer MD LAB POCT ORDERABLES - RAKEL CE Final Result Performing Organization Address [facility] Co de Phone Number [facility] [place] [address] * POCT glucose (02/11/2025 6:28 PM CDT) Glucose, POC 93 70 - 199 mg/dL Blood 02/11/2025 6:28 PM CDT 02/11/2025 6:28 PM CDT Yuval Madrid MD LAB POCT ORDERABL ES - DEVICE Final Result Performing Organization Address [facility] Co de Phone Number [facility] [place] [address] * POCT glucose (02/11/2025 4:57 PM CDT) Glucose, POC 83 70 - 199 mg/dL Blood 02/11/2025 4:57 PM CDT 02/11/2025 4:57 PM CDT Yuval Madrid MD LAB POCT ORDERABL ES - DEVICE Final Result Performing Organization Address [facility] de Phone Number [facility] [place] [address] * POCT glucose (02/11/2025 2:55 PM CDT) Glucose, POC 86 70 - 199 mg/dL Blood 02/11/2025 2:55 PM CDT 02/11/2025 2:55 PM CDT Yuval Madrid MD LAB POCT ORDERABL ES - DEVICE Final Result Performing Organization Address [facility] de Phone Number [facility] [place] [address] * POCT glucose (02/11/2025 12:35 PM CDT) Glucose, POC 93 70 - 199 mg/dL Blood 02/11/2025 12:3 5 PM CDT 02/11/2025 12:35 PM CDT Yuval Madrid MD LAB POCT ORDERABL ES - DEVICE Final Result Performing Organization Address City/[facility] Co de Phone Number [facility] [place] [address] * RPR Blood (02/11/2025 11:27 AM CDT) Pathologist [facility] RPR Nonreactive Nonreactive Blood 02/11/2025 11:2 7 AM CDT 02/11/2025 11:46 AM CDT Margaret Velazquez NP LAB MICROBIOLOGY - GENERAL ORDERABLES Final Result Performing Organization Address [facility] Co de Phone Number [facility] [place] [address] * Type and screen (02/11/2025 11:27 AM CDT) [facility] Nubia, indirect Negative ABO Rh A Negative [facility] Blood 02/11/2025 11:2 7 AM CDT 02/11/2025 11:39 AM CDT Narrative [facility] - 02/11/2025 12:50 PM CDT Has the patient had Daratumumab or Isatuximab in the past 6 months?->Unknown Margaret Velazquez NP LAB BLOOD BANK MARU T ORDERABLES Final Result Performing Organization Address [facility] Co de Phone Number [facility] [place] [address] * eGFR (02/11/2025 10:15 AM CDT) [facility] eGFR >90 >=60 mL/min/1. 73 m2 Comment: [...] NP LAB BLOOD ORDERABL ES Final Result [facility] [address] [facility] [place] [address] * (ABNORMAL) Differential, auto (02/11/2025 10:15 AM CDT) Neutrophil abs 9.42(H) 1.50 - 6.50 K/cumm Imm gran abs 0.13(H) 0.00 - 0.10 K/cumm [facility] Lymphocyte abs 2.64 0.80 - 3.30 K/cumm [facility] Monocyte abs 1.22(H) 0.20 - 0.80 K/cumm [facility] Eosinophil abs 0.15 0.00 - 0.50 K/cumm [facility] Basophil abs 0.05 0.00 - 0.10 K/cumm [facility] Neutrophil pct 69.1 % [facility] Comment: Interpretive Data Percent cell count reference ranges are not reported, since discordance with absolute values may lead to misinterpretation of CBC data. Current Interpretive Data was last revised on 2017. Imm gran pct 1.0 % [facility] Comment: Interpretive Data Percent cell count reference ranges are not reported, since discordance with absolute values may lead to misinterpretation of CBC data. Current Interpretive Data was last revised on 2017. Lymphocyte pct 19.4 % [facility] Comment: Interpretive Data Percent cell count reference ranges are not reported, since discordance with absolute values may lead to misinterpretation of CBC data. Current Interpretive Data was last revised on 2017. Monocyte pct 9.0 % [facility] Comment: Interpretive Data Percent cell count reference ranges are not reported, since discordance with absolute values may lead to misinterpretation of CBC data. Current Interpretive Data was last revised on 2017. Eosinophil pct 1.1 % [facility] Comment: Interpretive Data Percent cell count reference ranges are not reported, since discordance with absolute values may lead to misinterpretation of CBC data. Current Interpretive Data was last revised on 2017. Basophil pct 0.4 % [facility] Comment: Interpretive Data Percent cell count reference ranges are not reported, since discordance with absolute values may lead to misinterpretation of CBC data. Current Interpretive Data was last revised on 2017. Blood 02/11/2025 10:1 5 AM CDT 02/11/2025 10:36 AM CDT Margaret Velazquez NEWSPAPER VENDOR LAB BLOOD ORDERABL ES Final Result [facility] [address] [facility] [place] [address] * (ABNORMAL) CBC with auto differential (02/11/2025 10:15 AM CDT) WBC 13.61(H) 3.80 - 9.90 K/cumm Hgb 11.1(L) 11.9 - 15.5 g/dL [facility] Hct 32.7(L) 35.6 - 45.5 % [facility] Plt 347 150 - 400 K/cumm [facility] MPV 10.0 9.1 - 12.3 fL [facility] RBC 3.87(L) 3.90 - 5.20 M/cumm [facility] MCV 84.5 81.3 - 96.4 fL [facility] MCH 28.7 27.1 - 33.3 pg [facility] MCHC 33.9 32.3 - 35.7 g/dL [facility] RDW CV 13.7 11.1 - 14.9 % [facility] RDW SD 42.4 35.7 - 48.1 fL [facility] NRBC abs 0.00 0.00 - 0.01 K/cumm [facility] Blood 02/11/2025 10:1 5 AM CDT 02/11/2025 10:36 AM CDT Margaret Velazquez NP LAB BLOOD ORDERABL ES Final Result Performing Organization Address [facility] de Phone Number [facility] [place] [address] * (ABNORMAL) Protein / creatinine ratio, urine, random (02/11/2025 10:15 AM CDT) Protein, ur, quant 27.2 mg/dL Comment: Interpretive Data No reference range established. Current interpretive data was last revised 2018. Creatinine Ur 131.4 mg/dL [facility] Comment: Interpretive Data No reference range established. Current interpretive data was last revised 2018. Protein/creatinin e ratio 207.0(H) 0.0 - 180.0 mg/g CR [facility] Urine 02/11/2025 10:1 5 AM CDT 02/11/2025 10:33 AM CDT Margaret Velazquez NP LAB URINE ORDERABL ES Final Result Performing Organization Address [facility] de Phone Number [facility] [place] [address] * (ABNORMAL) Comprehensive metabolic panel (02/11/2025 10:15 AM CDT) [facility] Sodium 138 135 - 145 mmol/L Potassium, pl 3.9 3.3 - 4.9 mmol/L [facility] Chloride 105 97 - 110 mmol/L [facility] CO2 21(L) 22 - 32 mmol/L [facility] Anion gap 12 2 - 15 mmol/L [facility] BUN 9 6 - 25 mg/dL [facility] Creatinine 0.54(L) 0.60 - 1.10 mg/dL [facility] Glucose 110 70 - 199 mg/dL [facility] Comment: Interpretive Data Fasting glucose >/= [...] 2022. Calcium 9.0 8.5 - 10.3 mg/dL [facility] Bilirubin, total 0.3 0.1 - 1.2 mg/dL [facility] Protein, pl 7.0 6.5 - 8.5 g/dL [facility] Albumin 3.4(L) 3.5 - 5.0 g/dL [facility] Alk phos 116 40 - 130 Units/L [facility] ALT 15 7 - 45 Units/L [facility] AST 18 10 - 45 Units/L [facility] Blood 02/11/2025 10:1 5 AM CDT 02/11/2025 10:34 AM CDT Margaret Velazquez NP LAB BLOOD ORDERABL ES Final Result [facility] [address] [place] [address] * (ABNORMAL) POCT urinalysis (Clinitek) (02/11/2025 10:13 AM CDT) Color, ur, POC Yellow Yellow Clarity, UA, POC Clear Clear [facility] Glucose, ur, POC 2+(A) Negative [facility] Bilirubin, ur, POC Negative Negative [facility] Ketones, ur, POC 1+(A) Negative [facility] Specific gravity, ur, POC >=1.030(A) 1.010 - 1.025 [facility] Blood, ur, POC Negative Negative [facility] pH, ur, POC 6.0 [facility] Comment: Interpretive Data Urine pH is affected by diet, medications, systemic acid-base disturbances, and renal tubular function. pH may affect urinary stone formation. For example, urine pH below 6.0 may help reduce the tendency for calcium phosphate stones and pH greater than 6.0 may reduce the tendency for uric acid stone formation. Source: [facility] [place]. Last Revised Date: 08-01-2017 Protein, ur, POC 1+(A) Negative [facility] Urobilinogen, ur, POC 0.2 mg/dL mg/dL [facility] Nitrites, ur, POC Negative Negative [facility] Leukocyte esterase, ur, POC Trace(A) Negative [facility] Urine 02/11/2025 10:1 3 AM CDT 02/11/2025 10:13 AM CDT Yuval Madrid MD LAB POCT ORDERABL ES - DEVICE Final Result Performing Organization Address City/State/[facility] Co de Phone Number [facility] [address] [place] [address] * (ABNORMAL) nonstress test - (02/11/2025 9:56 AM CDT) Beulah Lee NP OB GYNE ORDERABLES Final Result * nonstress test - (02/08/2025 9:59 AM CDT) Result [facility] Gaby Quesada MD OB GYNE ORDERABLES Final [...] - DEVICE Final Result Performing Organization Address City/State/[facility] Co de Phone Number [facility] [address] [place] [address] * eGFR (01/25/2025 9:48 AM CDT) eGFR [...] CDT 01/25/2025 10:17 AM CDT Margaret Velazquez NEWSPAPER VENDOR LAB BLOOD ORDERABL ES Final Result [facility] [address] [place] [address] * (ABNORMAL) Differential, auto (01/25/2025 9:48 AM CDT) Neutrophil abs 8.78(H) 1.50 - 6.50 K/cumm Imm gran abs 0.15(H) 0.00 - 0.10 K/cumm [facility] Lymphocyte abs 2.67 0.80 - 3.30 K/cumm [facility] Monocyte abs 0.99(H) 0.20 - 0.80 K/cumm [facility] Eosinophil abs 0.16 0.00 - 0.50 K/cumm [facility] Basophil abs 0.05 0.00 - 0.10 K/cumm [facility] Neutrophil pct 68.5 % [facility] Comment: Interpretive Data Percent cell count reference ranges are not reported, since discordance with absolute values may lead to misinterpretation of CBC data. Current Interpretive Data was last revised on 2017. Imm gran pct 1.2 % [facility] Comment: Interpretive Data Percent cell count reference ranges are not reported, since discordance with absolute values may lead to misinterpretation of CBC data. Current Interpretive Data was last revised on 2017. Lymphocyte pct 20.9 % [facility] Comment: Interpretive Data Percent cell count reference ranges are not reported, since discordance with absolute values may lead to misinterpretation of CBC data. Current Interpretive Data was last revised on 2017. Monocyte pct 7.7 % [facility] Comment: Interpretive Data Percent cell count reference ranges are not reported, since discordance with absolute values may lead to misinterpretation of CBC data. Current Interpretive Data was last revised on 2017. Eosinophil pct 1.3 % [facility] Comment: Interpretive Data Percent cell count reference ranges are not reported, since discordance with absolute values may lead to misinterpretation of CBC data. Current Interpretive Data was last revised on 2017. Basophil pct 0.4 % [facility] Comment: Interpretive Data Percent cell count reference ranges are not reported, since discordance with absolute values may lead to misinterpretation of CBC data. Current Interpretive Data was last revised on 2017. Blood 01/25/2025 9:48 AM CDT 01/25/2025 10:17 AM CDT us Margaret Velazquez NEWSPAPER VENDOR LAB BLOOD ORDERABL ES Final Result [facility] [address] [place] [address] * (ABNORMAL) CBC with auto differential (01/25/2025 9:48 AM CDT) WBC 12.80(H) 3.80 - 9.90 K/cumm Hgb 12.1 11.9 - 15.5 g/dL [facility] Hct 36.1 35.6 - 45.5 % [facility] Plt 368 150 - 400 K/cumm [facility] MPV 9.8 9.1 - 12.3 fL [facility] RBC 4.20 3.90 - 5.20 M/cumm [facility] MCV 86.0 81.3 - 96.4 fL [facility] MCH 28.8 27.1 - 33.3 pg [facility] MCHC 33.5 32.3 - 35.7 g/dL [facility] RDW CV 14.0 11.1 - 14.9 % [facility] RDW SD 43.7 35.7 - 48.1 fL [facility] NRBC abs 0.00 0.00 - 0.01 K/cumm [facility] Blood 01/25/2025 9:48 AM CDT 01/25/2025 10:17 AM CDT us Margaret Velazquez NP LAB BLOOD ORDERABL ES Final Result Performing Organization Address [facility] Co de Phone Number [facility] [place] [address] * Protein / creatinine ratio, urine, random (01/25/2025 9:48 AM CDT) Protein, ur, quant 10.9 mg/dL Comment: Interpretive Data No reference range established. Current interpretive data was last revised 2018. Creatinine Ur 77.9 mg/dL [facility] Comment: Interpretive Data No reference range established. Current interpretive data was last revised 2018. Protein/creatinin e ratio 139.9 0.0 - 180.0 mg/g CR [facility] Urine 01/25/2025 9:48 AM CDT 01/25/2025 10:17 AM CDT Margaret Velazquez NP LAB URINE ORDERABL ES Final Result Performing Organization Address [facility] de Phone Number [facility] Department [place] [address] * (ABNORMAL) Comprehensive metabolic panel (01/25/2025 9:48 AM CDT) [facility] Sodium 137 135 - 145 mmol/L Potassium, pl 4.2 3.3 - 4.9 mmol/L [facility] Chloride 103 97 - 110 mmol/L [facility] CO2 22 22 - 32 mmol/L [facility] Anion gap 12 2 - 15 mmol/L [facility] BUN 8 6 - 25 mg/dL [facility] Creatinine 0.51(L) 0.60 - 1.10 mg/dL [facility] Glucose 82 70 - 199 mg/dL [facility] Comment: Interpretive Data Fasting glucose >/= [...] Calcium 9.4 8.5 - 10.3 mg/dL [facility] Bilirubin, total 0.3 0.1 - 1.2 [...] NP LAB BLOOD ORDERABL ES Final Result [facility] [address] [place] [address] * (ABNORMAL) POCT urinalysis (Clinitek) (01/25/2025 9:44 [...] [facility] pH, ur, POC 6.0 [facility] Comment: Interpretive Data Urine pH is affected by diet, medications, systemic acid-base disturbances, and renal tubular function. pH may affect urinary stone formation. For example, urine pH below 6.0 may help reduce the tendency for calcium phosphate stones and pH greater than 6.0 may reduce the tendency for uric acid stone formation. Source: [employer]. Last Revised Date: 08-01-2017 Protein, ur, POC Negative Negative [facility] Urobilinogen, ur, POC 0.2 mg/dL mg/dL [facility] Nitrites, ur, POC Negative Negative [facility] Leukocyte esterase, ur, POC 1+(A) Negative [facility] Urine 01/25/2025 9:44 AM CDT 01/25/2025 9:44 AM CDT Yuval Madrid MD LAB POCT ORDERABL ES - DEVICE Final Result [facility] [address] [place] [address] * nonstress test - (01/25/2025 8:52 AM [...] urology recommended through the [facility]. MFM NEWSPAPER VENDOR visit to follow. Narrative Procedure Note Zakia [...] pediatric urologyrecommended through the [facility]. MFM NEWSPAPER VENDOR visit to follow. us Beulah Lee NP [...] MICROBIOLOGY - GENERAL ORDERABLES Final Result [facility] [address] [place] [address] * RPR Blood (12/15/2024 9:14 AM CDT) Pathologist [facility] RPR Nonreactive Nonreactive Blood 12/15/2024 9:14 AM CDT 12/15/2024 10:03 AM CDT Beulah Lee NEWSPAPER VENDOR LAB MICROBIOLOGY - GENERAL ORDERABLES Final Result Performing Organization Address City/[facility]/ZIP Co de Phone Number [facility] [place] [address] * (ABNORMAL) CBC without differential (12/15/2024 9:14 AM CDT) [facility] WBC 14.46(H) 3.80 - 9.90 K/cumm Hgb 12.1 11.9 - 15.5 g/dL [facility] Hct 35.5(L) 35.6 - 45.5 % [facility] Plt 364 150 - 400 K/cumm [facility] MPV 10.0 9.1 - 12.3 fL [facility] RBC 4.07 3.90 - 5.20 M/cumm [facility] MCV 87.2 81.3 - 96.4 fL [facility] MCH 29.7 27.1 - 33.3 pg [facility] MCHC 34.1 32.3 - 35.7 g/dL [facility] RDW CV 14.9 11.1 - 14.9 % [facility] RDW SD 47.5 35.7 - 48.1 fL [facility] NRBC abs 0.00 0.00 - 0.01 K/cumm [facility] Blood 12/15/2024 9:14 AM CDT 12/15/2024 10:03 AM CDT Beulah Lee NEWSPAPER VENDOR LAB BLOOD ORDERABLE S Final Result [facility] Department [place] [address] * (ABNORMAL) Hemoglobin A1c (12/15/2024 9:14 AM CDT) [facility] Hgb A1C 6.2(H) 4.0 - 5.6 % Estimated Average Glucose 131 mg/dL [facility] Comment: The ADA recommends reporting an [...] Organization Address City/[facility] Co de Phone Number [facility] Department [place] [address] * Type and screen (12/15/2024 9:11 AM CDT) [facility] ABO Rh A Negative Nubia, indirect Negative [facility] Blood 12/15/2024 9:11 AM CDT 12/15/2024 11:29 AM CDT Narrative [facility] - 12/15/2024 12:45 PM CDT Has the patient had Daratumumab or Isatuximab in the past 6 months?->Unknown Beluah Lee NP LAB BLOOD BANK TEST ORDERABLES Final Result [facility] [place] [address] * US Ob Follow Up (11/26/2024 2:30 PM CDT) [facility] Fetus# Fetus1 [place] Estimated Weight 942 g&grams [...] Hepatitis C antibody Blood (08/06/2024 9:00 AM MEDICAL CODING INSTRUCTOR) Hep C Ab Nonreactive Nonreactive Comment: Antibodies [...] revised on 2019. Blood 08/06/2024 9:00 AM MEDICAL CODING INSTRUCTOR 08/06/2024 12:38 PM MEDICAL CODING INSTRUCTOR us Glen Velazquez MD LAB MICROBIOLOGY - GENERAL ORDERABLES Final Result Performing Organization Address City/State/[facility] Co n[place] Phone Number [facility] [address] Department [place] [address] * Pap with reflex to High Risk HPV (10/24/2021 11:19 AM CDT) Thin prep (Pap test) 10/24/2021 11:19 AM CDT 10/25/2021 11:19 AM CDT Narrative PATHOLOGY [facility] - 10/31/2021 4:06 PM CDT [facility] Department of Pathology [address] [place] [id number] Final Report Note to Patients: This [...] the details. Patient Name: KEISHA YOUSSEF Address: [address] [place] [id number] Gender: F : 1990 (Age: 31) Service: Laboratory Location: Hospital #: [id number] Patient Type: [facility] SPECIMEN Taken: 10/24/2021 Received: 10/25/2021 Accessioned:: 10/26/2021 Reported: 10/31/2021 Physician(s): Melida Artis [facility] Diagnosis: Source of Specimen: Imaged Thinprep Pap Test w/ Reflex HPV - Beekeeper Farmer Cytologic Material Specimen Adequacy: - Satisfactory for evaluation; endocervical/transformation zone component present General Category: - Negative for intraepithelial lesion or malignancy HUY Harvey(ASCP) HUY Sanchez(ASCP) Report Electronically Reviewed and Signed Out By HUY Sanchez(ASCP) 10/31/2021 16:06:44 Specimen(s) Received: A: Imaged Thinprep Pap Test w/ Reflex HPV - Beekeeper Farmer Cytologic Material Clinical History: Last Menstrual Period: [...] determined by the Surgical Pathology Department at [facility] as part of an ongoing coding quality analyst program and in compliance with federally [...] characteristics determined by the Surgical Pathology Department [facility]. It has not been cleared or approved by the U. S. Food and Drug Administration. Shante Muhammad NP LAB CYTOLOGY ORDERABLES Final Re sult PATHOLOGY [facility] from Last 3 Months or Most Recently Relevant to Health Maintenance Insurance [facility] Advance Directives For more information, please contact: [phone] * Full Code (Latest Code Status on File) Date Activated Date Inactivated Comments 02/13/2025 5:53 AM 02/15/2025 9:53 PM * Full Code Date Activated Date Inactivated Comments 02/11/2025 11:03 AM 02/13/2025 5:53 AM Full CPR in case of cardiopulmonary arrest Care Teams Director Of Rotc Relationship Specialty Start Date End Date No, Physician PCP - General 11/18/24
--- OUTSIDE RECORDS SUMMARY | 2025-02-17 04:32 | XMS_ITS | Encounter Summary ---
Author Organization [facility] Address [facility] [place] [address] Care Team Providers Care Management Supervisor Name Role Phone Suad Haney COMPETENCY EVALUATED NURSE AIDE Primary Care Provider Cherelle Perez COMPETENCY EVALUATED NURSE AIDE Primary Care Provider [phone] Nadiya Vidal COMPETENCY EVALUATED NURSE AIDE Primary Care Provider [phone] Encounter Details Date Type Department Care Team (Late st Contact Info) Description 01/09/2023 MyChart Message Enc [facility] Family Medicine - [address] [id number] Suad Haney, COMPETENCY EVALUATED NURSE AIDE Rash around neck. Social History Tobacco Use [...] Total Score: 6 08/23/19 23 8:03 AM [employer] documented as of this encounter Care Teams Management Supervisor Relationship Specialty Start Date End Date Suad Haney NP PCP - General NURSE PRACTITIONER 12/17/18 12/18/23 Cherelle Brown NP [address] [place] [address] PCP - General NURSE PRACTITIONER 12/19/23 05/03/24 [address] [place] [address] PCP - General NURSE PRACTITIONER 05/04/24 documented as of this encounter
--- OUTSIDE RECORDS SUMMARY | 2025-02-17 04:32 | XMS_ITS | Clinical Summary ---
Author Organization [facility] Address [facility] [place] [address] Care Team Providers Care [employer] Principal Solution Specialist Name Role Phone Nadiya Vidal MU Primary Care Provider [phone] Allergies Active Allergy Reactions Criticality Noted Date Comments [place] Unknown,Rash Medium 10/18/2015 Codeine Unknown,Rash Medium 10/18/2015 Lamotrigine Cough 01/20/2024 Losartan Dizziness,Other (see comment) 2023 Tape Unknown,Rash Medium 10/18/2015 Medications Blood Glucose Monitoring Suppl (BLOOD GLUCOSE MONITOR SYSTEM) w/Device KitIndications: Diabetes mellitus type 2 in obese ([facility]) Please give what is covered by insurance. Use with each blood sugar check once daily and when symtomatic 1 kit 9 Active Lancets MiscIndications :Type 2 diabetes mellitus with hyperglycemia, without long-term current use of insulin ([facility]) Ar finger qd for blood sugar check. 100 each 1 4 Active Glucose Blood (ONETOUCH VERIO) test stripIndication s:Type 2 diabetes mellitus with hyperglycemia, without long-term current use of insulin ([facility]) 1 strip by Other route daily. 100 [...] complication, without long-term current use of insulin ([facility]) 02/19/2019 Overview (03/02/2024): Type 2 DM- Last [...] exam 09/06/2016 024 Bipolar disorder, unspecifie d ([facility]) 10/18/2015 01/20/2024 Encounter for preventive health examination [...] Comments Blood Pressure 132/89 07/01/2024 10:04 AM HERPETOLOGY TEACHER Pulse 95 07/01/2024 9:56 AM HERPETOLOGY TEACHER Temperature 36.9 C (98.5 F) 07/01/2024 9:56 AM HERPETOLOGY TEACHER Respiratory Rate 14 07/01/2024 9:56 AM HERPETOLOGY TEACHER Oxygen Saturation 100% 07/01/2024 9:56 AM HERPETOLOGY TEACHER Inhaled Oxygen Concentration - - Weight 108.9 kg (240 lb) 07/01/2024 9:56 AM HERPETOLOGY TEACHER Height 160 cm (5' 3) 07/01/2024 9:56 AM HERPETOLOGY TEACHER Body Mass Index 42.51 07/01/2024 9:56 AM HERPETOLOGY TEACHER Plan of Treatment Health Maintenance Due Date [...] Vaccines Completed 11/24/1996, 1992, 1992 PHQ-2 (Physician [place]) Completed 07/23/2024 Hepatitis C Completed 08/06/2024, 06/21, [...] HEPATITIS C ANTIBODY Routine 07/01/2024 11:07 AM HERPETOLOGY TEACHER Type 2 diabetes mellitus with hyperglycemia, without long-term current use of insulin ([facility]) Positive test ([facility]) LIPID PANEL Routine 07/01/2024 11:07 AM HERPETOLOGY TEACHER Type 2 diabetes mellitus with hyperglycemia, without long-term current use of insulin ([facility]) Positive test ([facility]) HEMOGLOBIN, GLYCOSYLATED Routine 07/01/2024 11:07 AM HERPETOLOGY TEACHER Type 2 diabetes mellitus with hyperglycemia, without long-term current use of insulin ([facility]) Positive test ([facility]) DIABETIC RETINOPATHY EXAM (NEGATIVE)(SCAN ORDER) Routine 12/22/2022 from Last 3 Months or Most Recently Relevant to Health Maintenance Results * (ABNORMAL) HEMOGLOBIN, GLYCOSYLATED (07/01/2024 11:07 AM HERPETOLOGY TEACHER) HGB A1C 6.8(H) <5.7 % 07/01/2024 12:07 PM [facility] Comment: ADA GUIDELINES 2010 5.7 TO 6.4% INCREASED RISK OF DIABETES > OR = 6.5% CONSISTENT WITH DIABETES ESTIMATED AVG GLUCOSE 148 mg/dL 07/01/2024 12:07 PM [facility] 07/01/2024 11:0 7 AM HERPETOLOGY TEACHER Nadiya Vidal NP LABORATORY Final Result [facility] [address] [place] [address], * (ABNORMAL) LIPID PANEL (07/01/2024 11:07 AM HERPETOLOGY TEACHER) CHOLESTEROL 188 <200 MG/DL 07/01/2024 12:04 PM [facility] TRIGLYCERIDES 90 <150 MG/DL 07/01/2024 12:04 PM [facility] HDL 59 >40.0 MG/DL 07/01/2024 12:04 PM [facility] LDL (CALCULATED) 111(H) <100 MG/DL 07/01/2024 12:04 PM [facility] NON HDL CHOLESTEROL 129 <130 MG/DL 07/01/2024 12:04 PM [facility] CHOL/HDL RATIO 3.2 0.0 - 4.5 07/01/2024 12:04 PM HERPETOLOGY TEACHER [facility] VLDL CALCULATION 18 5 - 55 MG/DL 07/01/2024 12:04 PM HERPETOLOGY TEACHER [facility] LIPID INTERPRETATION 07/01/2024 12:04 PM HERPETOLOGY TEACHER [facility] Comment: [facility] CONCENSUS REPORT RECOMMENDATIONS: ADULT CHILD LOW RISK: CHOLESTEROL <200 <170 TRIGLYCERIDE <150 --- HDL >=60 --- LDL <100 <110 BORDERLINE: CHOLESTEROL 200-239 170-199 TRIGLYCERIDE 150-199 --- HDL 40-59 --- LDL 100-159 110-129 HIGH RISK: CHOLESTEROL >=240 >=200 TRIGLYCERIDE >=200 --- HDL <40 --- LDL >=160 >=130 07/01/2024 11:0 7 AM HERPETOLOGY TEACHER Nadiya Vidal DEVELOPMENT COACH LABORATORY Final Result Performing Organization Address City/[facility]/ZIP Co de Phone Number [facility] [address] [place] [address], [place] [phone] * HEPATITIS C ANTIBODY (07/01/2024 11:07 AM HERPETOLOGY TEACHER) HEPATITIS C AB NON-REACTI VE NON-REACTI VE 07/01/2024 12:35 PM HERPETOLOGY TEACHER [facility] 07/01/2024 11:0 7 AM HERPETOLOGY TEACHER Nadiya Marcy DEVELOPMENT COACH LABORATORY Final Result Performing Organization Address City/[facility]/ZIP Co de Phone Number [facility] [address] [place] [address], [place] [phone] * DIABETIC RETINOPATHY EXAM (NEGATIVE)(SCAN) (12/22/2022) [facility] Scanned SCANNING Final Resu lt Performing Organization Address City/[facility]/ZIP Co de Phone Number [facility] ONBASE from Last 3 Months or Most Recently Relevant to Health Maintenance Insurance [employer] Care Teams [employer] Specialist Relationship Specialty Start Date End Date Nadiya [place] [address] PCP - General NURSE PRACTITIONER 05/04/24
--- OUTSIDE RECORDS SUMMARY | 2025-02-17 04:33 | XMS_ITS | Clinical Summary ---
Author Organization [facility] Address [address] [place] [address] Care Team Providers Care Community Health Program Coordinator Name Role Phone No, Physician Primary Care Provider [phone] Allergies Active Allergy Reactions Criticality Noted Date Comments Adhesive Rash Medium 10/18/2015 Tolar Rash Medium 10/18/2015 Codeine Rash Medium 10/18/2015 Lamotrigine Cough Low 01/20/2024 Losartan Dizziness,Other (See comments) Low 01/19 Medications OneTouch Delica Plus Lancet 33 gauge misc CHECK BLOOD SUGAR ONCE A DAY 07/17/20 24 Active vit 62-bujz-vajms -dha 27mg iron- 800 mcg-250 mg capsule Take by mouth Active blood-glucose meter,continu ous ([employer] G7 Director Multimedia) miscIndicatio ns:Pre-existi ng type 2 diabetes mellitus [...] # Disposition: Follow up task sent to [facility] scheduling pool for appointments in 2 [...] UTD, s/p counseling in US- referral to [facility] to help coordinate peds urology 01/04: normal kidneys bilaterally - 6.8 and 6.4 mm. Recommend repeating kidney assessment on next US but no need for f/u if UTD remains resolved. If returns, can coordinate follow-up for baby. Back to [facility] Assessment & Plan (01/12/2025 12:20 PM CDT): Continue to monitor with serial US Anxiety and depression 09/01/2024 Overview (11/02/2024): History of MDD and CAN since 14 Previously treated by [facility]) Previously on Duloxetine, Aripiprazole, Buspirone OD and [...] provided. Assessment & Plan (09/24/2024 3:50 PM FLOOR MECHANIC): Mood is stable. No acute concerns today. Pre-existing essential hyper tension complicating in second trimester 09/01/2024 Overview (01/15/2025): Ms Albright does not have a formal diagnosis of HTN but review of her notes after she was seen is consistent with HTN. Her DBP is mildly elevated at initial [facility] visit Previously counseled Current regimen: No [...] reviewed. Assessment & Plan (09/24/2024 3:49 PM FLOOR MECHANIC): Normotensive today Plan [x] ASA 81 mg [...] sent on 09/30 Referring Provider: Glen Velazquez [phone] [] or Medicare Insurance [x] Dating Criteria: [...] Nexplanon [x] Method of feeding: breast [] People Greeter (specifically which provider): pt calling around [x] [...] address. Assessment & Plan (09/24/2024 3:50 PM FLOOR MECHANIC): Continue co-management with primary OB GBS bacteriuria 08/10/2024 Obesity affecting , antepartum 08/05/19 Overview (02/01/2025): Previously counseled Plan: [x] Initiate aspirin 81 mg at 12 weeks for preeclampsia risk reduction [x] Specialized anatomic survey at 20 weeks [] Anesthesia consult 02/01/25 @ 1300 [] testing per T2DM Assessment & Plan (09/24/2024 3:49 PM FLOOR MECHANIC): Plan: [x] Initiate aspirin 81 mg at [...] regimen. Assessment & Plan (09/24/2024 3:48 PM FLOOR MECHANIC): 09/24/24 CGM data reviewed. Fasting values improved [...] Team Description 02/16/2025 Documentation [facility] [address] [facility] Medical Office Building [address] [place] [phone] Sis Edwards MD Glycemic control meeting 02/15/2025 Telephone [facility] Maternal- Medicine [address] [place] [address] 7th Floor [address] [place] [phone] Tressa Soares CMA Appointment 02/13/2025 - 02/13/2025 1:40 AM CDT Surgery [address] [phone] Jeb Swift MD REPAIR VAGINA 2025 5:18 AM CDT Anesthesia Event [address] [phone] Galen Hoover MD Uche, Chiamaka P., MD 02/11/2025 9:25 AM CDT - 02/15/2025 5:43 PM CDT Hospital Encounter [address] [phone] Yuval Madrid MD Whitley, Julia D.E., MD Hensel, Drew Michael, MD care following vaginal delivery (Primary Dx) Discharge Disposition: Discharge to home or self care 02/11/2025 8:30 AM CDT Clinical Support [facility] Obstetrics and Gynecology [address] [place] [phone] Pre-existing type 2 diabetes mellitus during , antepartum (Primary Dx); Obesity affecting , antepartum, unspecified obesity type 02/11/2025 Telephone [facility] Maternal- Medicine [address] [place] [address] 7th Floor [address] [place] [address] Beulah Lee, MU 02/09/2025 Documentation [facility] Maternal- Medicine [facility] [address] [facility] Medical Office Building [address] [place] [phone] Sis Edwards MD Glycemic control meeting 02/08/2025 9:00 AM CDT Clinical Support [facility] Ob[facility]etrics [facility] Gynecology [address] [place] [phone] Pre-existing type 2 diabetes mellitus during , antepartum (Primary Dx); Supervision of high-risk , third trimester; Obesity affecting , antepartum, unspecified obesity type 02/04/2025 8:30 AM CDT Clinical Support [facility] Obstetrics and Gynecology [address] [place] [address] Outpatient Health [address] [place] [phone] Pre-existing type 2 diabetes mellitus during , antepartum (Primary Dx); Pre-existing essential hypertension complicating in third trimester; Obesity affecting , antepartum, unspecified obesity type 02/01/2025 11:15 AM CDT Office Visit [facility] Maternal- Medicine [address] [place] [address] [address] [place] [address] Obesity affecting , antepartum, unspecified obesity type (Primary Dx); Pre-existing type 2 diabetes mellitus during , antepartum; Supervision of high-risk , third trimester; Anxiety and depression; Pre-existing essential hypertension complicating in second trimester; Polyhydramnios in third trimester, not applicable or unspecified fetus 02/01/2025 10:30 AM CDT Clinical Support [facility]necology [address] [place] [phone] Supervision of high-risk , third trimester (Primary Dx); Pre-existing type 2 diabetes mellitus during , antepartum; Pre-existing essential hypertension complicating in second trimester 01/28/2025 8:30 AM CDT Clinical Support [facility] Ob[facility]etrics [facility] Gynecology [address] [place] [address] [place] [phone] Pre-existing type 2 diabetes mellitus during , antepartum (Primary Dx); Pre-existing essential hypertension complicating in third trimester; Obesity affecting , antepartum, unspecified obesity type 01/26/[address] [phone] Sis Edwards MD Glycemic control meeting 01/25/2025 9:04 AM CDT - 01/25/2025 12:26 PM CDT [address] [place] [address] Yuval Madrid MD Discharge Disposition: Discharge to home or self care 01/25/2025 8:30 AM CDT Clinical Support [facility] Ob[facility]s [facility]necology [address] [place] [phone] Supervision of high-risk , third trimester (Primary Dx); Pre-existing type 2 diabetes mellitus during , antepartum; Pre-existing essential hypertension complicating in second trimester 01/21/2025 9:00 AM CDT Clinical Support [facility]s [facility] Gynecology [address] [place] [phone] Pre-existing type 2 diabetes mellitus during , antepartum (Primary Dx); Pre-existing essential hypertension complicating in third trimester; Obesity affecting , antepartum, unspecified obesity type 01/19/2025 Orders Only [facility] Maternal- Medicine [address] [place] [address] Floor [address] [place] [address] Regina Adan, ADELAIDE Supervision of high-risk , third trimester (Primary Dx); Obesity affecting , antepartum, unspecified obesity type 01/18/2025 8:45 AM CDT Office Visit [facility] Maternal- Medicine [address] [place] [address] Floor [address] [place] [phone] Obesity affecting , antepartum, unspecified obesity type (Primary Dx); Pre-existing essential hypertension complicating in second trimester; Pre-existing type 2 diabetes mellitus during , antepartum; Polyhydramnios in third trimester, not applicable or unspecified fetus 01/18/2025 7:42 AM CDT - 01/18/2025 11:59 PM CDT Hospital Encounter [facility] Outpatient Health - Ultrasound [address] [place] [address], [address] [place] [address], [address] [place] [address] Pre-existing type 2 diabetes mellitus during , antepartum; Pyelectasis of fetus on ultrasound; Polyhydramnios in third trimester, not applicable or unspecified fetus Discharge Disposition: Discharge to home or self care 01/15/2025 9:00 AM CDT Clinical Support [facility] Ob[facility]etrics [facility] Gynecology [address] [place] [phone] Pre-existing type 2 diabetes mellitus during , antepartum (Primary Dx); Pre-existing essential hypertension complicating in third trimester 01/12/2025 8:20 AM CDT Office Visit [facility] Maternal- Medicine [address] [place] [address] 7th Floor [address] [place] [phone] Anxiety and depression (Primary Dx); Obesity affecting , antepartum, unspecified obesity type; Polyhydramnios in third trimester, not applicable or unspecified fetus; Pre-existing essential hypertension complicating in second trimester; Pre-existing type 2 diabetes mellitus during , antepartum; Supervision of high-risk , second trimester; Rh negative state in antepartum period 01/12/2025 7:24 AM CDT - 01/12/2025 11:59 PM CDT Hospital Encounter [facility] Outpatient Health - Ultrasound [address] [place] [address], [address] [place] [address] Pre-existing type 2 diabetes mellitus during , antepartum; Pyelectasis of fetus on ultrasound; Polyhydramnios in third trimester, not applicable or unspecified fetus Discharge Disposition: Discharge to home or self care 01/12/2025 Documentation [facility] Maternal- Medicine [facility] [address] [facility] Office Building [address] [place] [address] Sis Edwards MD Glycemic control meeting 01/07/2025 9:38 AM CDT - 01/07/2025 11:59 PM CDT Hospital Encounter [facility] Outpatient Health - Ultrasound [address] [place] [address], [address] [place] [address] Pre-existing type 2 diabetes mellitus during , antepartum; Pyelectasis of fetus on ultrasound; Polyhydramnios in third trimester, not applicable or unspecified fetus Discharge Disposition: Discharge to home or self care 01/07/2025 9:00 AM CDT Clinical Support [facility] Obstetrics and Gynecology [address] [place] [phone] 01/07/2025 Orders Only [facility] Maternal- Medicine [address] [facility] 7th Floor [address] [place] [address] Regina Adan RN 01/05/[address] [phone] Sis Edwards MD Glycemic control meeting 01/04/2025 1:30 PM CDT Office Visit [facility] Obstetrics and Gynecology [address] [facility] 7th Floor [address] [place] [address] Supervision of high-risk , second trimester (Primary [...] - 01/04/2025 11:59 PM CDT Hospital Encounter [facility] Outpatient [facility] - Ultrasound [address] [facility], 7th Floor, [address] [place] [address] Pyelectasis of fetus on ultrasound; Polyhydramnios in third trimester, not applicable or unspecified fetus; Supervision of high-risk , second trimester Discharge Disposition: Discharge to home or self care 12/29/[address] [phone] Sis Edwards MD Glycemic control review 12/24/2024 3:20 PM CDT Office Visit [facility] Maternal- Medicine [address] [facility] 7th Floor [address] [place] [phone] Anxiety and depression (Primary Dx); Obesity affecting , antepartum, unspecified obesity type; Pre-existing essential hypertension complicating in second trimester; Pre-existing type 2 diabetes mellitus during , antepartum; Pyelectasis of fetus on ultrasound; Supervision of high-risk , second trimester; Polyhydramnios in third trimester, not applicable or unspecified fetus 12/24/2024 2:30 PM CDT - 12/24/2024 11:59 PM CDT Hospital Encounter [facility] - [facility], 7th Floor, [address] [place] [address] Obesity affecting , antepartum, unspecified obesity type; Pre-existing essential hypertension complicating in second trimester; Pre-existing type 2 diabetes mellitus during , antepartum Discharge Disposition: Discharge to home or self care 12/15/2024 11:00 AM CDT Office Visit [facility] Maternal- Medicine [address] [place] [address] 7th Floor [address] [place] [address] Supervision of high-risk , second trimester (Primary Dx); Pyelectasis of fetus on ultrasound; Pre-existing type 2 diabetes mellitus during , antepartum; Pre-existing essential hypertension complicating in second trimester; Obesity affecting , antepartum, unspecified obesity type; Anxiety and depression 12/15/2024 9:05 AM CDT Lab [facility] Outpatient Health [address] [place] [address] Pre-existing type 2 diabetes mellitus during , antepartum; Supervision of high-risk , second trimester 12/08/[address] [phone] Yumiko Cox MD 12/04/2024 1:45 PM CDT Telemedicine [facility] Maternal- Medicine [address] Medical Office Building [address] [place] [phone] Obesity affecting , antepartum, unspecified obesity type (Primary Dx); Pre-existing type 2 diabetes mellitus during , antepartum; GBS bacteriuria; Rh negative state in antepartum period; Supervision of high-risk , second trimester; Anxiety and depression; Pre-existing essential hypertension complicating in second trimester; Pyelectasis of fetus on ultrasound; Polyhydramnios in third trimester, not applicable or unspecified fetus 12/03/2024 Orders Only [facility] Maternal- Medicine [address] [facility] 7th Floor [address] [place] [address] Celine Rose RN 12/01/2024 Documentation [facility] [address] [place] [address] Dian Edwards MD 11/26/2024 4:20 PM CDT Office Visit [facility] [address] [facility] 7th Floor [address] [place] [address] Anxiety and depression (Primary Dx); Obesity affecting , antepartum, unspecified obesity type; Pre-existing essential hypertension complicating in second trimester; Pre-existing type 2 diabetes mellitus during , antepartum; Supervision of high-risk , second trimester; Pyelectasis of fetus on ultrasound 11/26/2024 2:30 PM CDT - 11/26/2024 11:59 PM CDT Hospital Encounter [facility] Outpatient [facility] - Ultrasound [facility], 7th Floor, [address] [place] [address] Pre-existing type 2 diabetes mellitus during , [...] Father Nasir Albright Diabetes Father's Brother Ricardo Albright Early Maternal Grandfather Cristofer Geronimo Heart attack [...] Answered Comments:Will quit when/if I become . [facility] Utilities Answer Date Recorded In the past [...] often do you attend chur ch or mu-ism services? Never 02/14/2025 Do you belong to any clubs o r organizations such as bahai groups, unions, fraternal or athletic groups, or [...] things needed for daily living? No 02/14/2025 [place] Depression Scale Answer Date Recorded [place] Depression Scale Total 14 08/05/2024 The thought [...] [facility] the [facility], were you homeless or living in a alf (including now)? No 02/14/2025 Personal Safety Answer Date Recorded Have you ever been in or are you currently in a harmful physical or emotional relationship or is someone making you feel afraid or unsafe? Denies 02/11/2025 Comments No Sex and Gender Information Value Date Recorded Sex Assigned at Not on file Legal Sex Female 9:29 PM FLOOR MECHANIC Gender Identity Not on file Sexual Orientation [...] khurram espinoza, Jeb puente MD Complications:None Delivery Location:[facility] Main C ampus ([facility] 58LD) Summary Episode Dates Number of Fetuses [...] Delivery Plans Planned delivery method:Vaginal Planned delivery location:[facility] Overview Surveillance of EDC by LMP = [...] - no changes Metformin 500 mg qD rubber thread spooler - patient now discharged from the hospital [...] on remote diabetes management. Sis Edwards MD Chute Worker Division of Maternal- Medicine and Ultrasound Department of Obstetrics and Gynecology [facility] in [employer] ~~~~~~~~~~~~~~~~~~~~~~~~~~~~~~~~~~~~~~~~~~~~~~~~~~~~~~~~~~ Addendum: Patient plans [...] treatment team and contact the PT or HEALTH SCIENCE WRITER currently assigned to this patient. If a physical therapy clinician is not assigned to this patient, please call [phone]. 02/15/25 1248 General Chart Reviewed Yes Session Type Evaluation (initial discharge) PT Received On 02/15/25 Subjective Agreeable to Therapy Physical Therapy-Patient Goal No goals identified for continued acute care PT. Precautions Precautions None Home Living Home Mobility Equipment-Available None Home Mobility Equipment-Currently Using None Additional Comments Patient does not state any concerns about accessing their home. Prior Function Level of [place] Independent with ADLs;Independent functional transfers;Independent with ambulation [...] Not on file 02/15/2025 - 37w3d - Khadjiah Pate NP Post Progress Note Admission Date: [...] ABORH A Negative 02/13/2025 IDCOOMB Negative 02/11/2025 [id number] Nonreactive 12/15/2024 LABRPR Nonreactive 02/11/2025 RUBELIGG Reactive [...] benzocaine-menthoL calcium carbonate sodium chloride 0.9% hydrocortisone abhgecs-gvoyb-wlkyude oxyCODONE varicella zoster ASSESSMENT/PLAN Vivien Albright is [...] # Disposition: Follow up task sent to [facility] scheduling pool for appointments in 2 [...] Date/Time: 2025t 11:31 PM Delivery method: Vaginal [[id number]] Subjective Flatus: Yes Pain: Well controlled Diet: [...] BID PRN Medications benzocaine-menthoL calcium carbonate hydrocortisone hfffifo-glwem-jwkayrp ondansetron ODT OR ondansetron oxyCODONE varicella zoster [...] # Disposition: Follow up task sent to [facility] scheduling pool for appointments in 2 [...] Date/Time: 2025t 11:31 PM Delivery method: Vaginal [[id number]] Subjective Flatus: No Pain: Well controlled Diet: [...] PRN Medications benzocaine-menthoL calcium carbonate cefOXitin hydrocortisone gbqrzza-bbjhm-dravkkq ondansetron ODT OR ondansetron oxyCODONE sodium chloride [...] meds. For SW PP Hazel Teixeira MD FARM FACILITY MANAGER PGY-4 Cosigned by Yumiko Cox MD at [...] Continue ampicillin for GBS Hazel Teixeira MD FARM FACILITY MANAGER PGY-4 2025 - 37wanaly - Jeb Swift [...] will ctm FHT. If no cervical change management manager time with continued shallow decels on FHT, [...] BID This note has been sent to [facility] RN clinical pool for coordination of patient care and to communicate proposed adjustments. The problem list has been updated. I have spent 10 total minutes on remote diabetes management. Sis Edwards MD Chute Worker Division of Maternal- Medicine and Ultrasound Department of Obstetrics and Gynecology [facility] in [facility] Progress Notes - Office Visi t - 02/01/2025 - GA:35w6d 02/01/2025 - 35w6d - Sumaya Manley MD Images from the original note were not included. [facility] Return Visit 02/01/2025 Vivien Albright is [...] she was well-controlled pre- [] Delivery at [id number] (96r9o-36o7a with vascular complications or poorly controlled). Scheduled for 03/02/25. Supervision of high-risk , third trimester Overview [x] Full MFM Care; [x] Blue Team MEI per pt request, Primary OB aware per the pt, email for global sent on 09/30 Referring Provider: Glen Velazquez [phone] [] [employer] or Medicare Insurance [x] Dating Criteria: LMP [...] Nexplanon [x] Method of feeding: breast [] People Greeter (specifically which provider): pt calling around [x] [...] and CAN since 12 Previously treated by [facility] ([facility] Previously on Duloxetine, Aripiprazole, Buspirone OD and [...] Her DBP is mildly elevated at initial [facility] visit Previously counseled Current regimen: No [...] documented assessment and plan. Sumaya Manley MD FARM FACILITY MANAGER Resident, PGY1 Cosigned by Yuval Madrid MD [...] she was well-controlled pre- [] Delivery at [id number]-51h1o (19j9h-47u9g with vascular complications or poorly controlled). Scheduled [...] UTD, s/p counseling in US- referral to [facility] to help coordinate peds urology 01/04: normal kidneys bilaterally - 6.8 and 6.4 mm. Recommend repeating kidney assessment on next US but no need for f/u if UTD remains resolved. If returns, can coordinate follow-up for baby. Back to [facility] Obesity affecting , antepartum - Primary Overview Previously counseled Plan: [x] Initiate aspirin 81 mg at 12 weeks for preeclampsia risk reduction [x] Specialized anatomic survey at 20 weeks [] Current BMI 48, if >50, will need 3rd tri anesthesia consult - testing per T2DM Supervision of high-risk , third trimester Overview [x] Full [facility] Care; [x] Blue Team MEI per pt request, Primary OB aware per the pt, email for global sent on 09/30 Referring Provider: Glen Velazquez [phone] [] or Medicare Insurance [x] Dating Criteria: [...] Nexplanon [x] Method of feeding: breast [] People Greeter (specifically which provider): pt calling around [x] [...] and CAN since 12 Previously treated by [facility] ([facility]) Previously on Duloxetine, Aripiprazole, Buspirone OD and [...] documented assessment and plan. Sumaya Manley MD FARM FACILITY MANAGER Resident, PGY1 Cosigned by Dian Edwards MD [...] BID This note has been sent to [facility] RN clinical pool for coordination of patient care and to communicate proposed adjustments. The problem list has been updated. I have spent 5 total minutes on remote diabetes management. Sis Edwards MD Chute Worker Division of Maternal- Medicine and Ultrasound Department of Obstetrics and Gynecology [facility] in [facility] Progress Notes - Office Visi t - 01/12/2025 - GA:33w0d 01/12/2025 - 33w0d - Beulah Wilson NP [facility] Return Visit 01/12/2025 Vivien Albright is [...] Previously treated by [facility] Previously on Duloxetine, Aripiprazole, Buspirone OD and [...] she was well-controlled pre- [] Delivery at 83w5b-15m1v (19t8m-19j1r with vascular complications or poorly controlled) Current Assessment & Plan Hypoglycemic precautions reviewed Supervision of high-risk , second trimester Overview [x] Full MFM Care; [x] Blue Team MEI per pt request, Primary OB aware per the pt, email for global sent on 09/30 Referring Provider: Glen Velazquez [phone] [] or Medicare Insurance [x] Dating Criteria: [...] MOC: [x] Method of feeding: breast [] People Greeter (specifically which provider): [x] PP Depression Discussed: [...] Adan RN Unable to monitor, sent to [facility], per Parveen Order already in Progress Notes [...] she was well-controlled pre- [] Delivery at 06w2w-08r2u (27a0u-37e1y with vascular complications or poorly controlled) Rh negative state in antepartum period Overview S/p 28w RhoGam Supervision of high-risk , second trimester - Primary Overview [x] Full MFM Care; [x] Blue Team MEI per pt request, Primary OB aware per the pt, email for global sent on 09/30 Referring Provider: Glen Velazquez [phone] [] or Medicare Insurance [x] Dating Criteria: [...] MOC: [x] Method of feeding: breast [] People Greeter (specifically which provider): [x] PP Depression Discussed: [...] and CAN since 14 Previously treated by [facility] [facility] (Now [facility]) Previously on Duloxetine, Aripiprazole, Buspirone OD and [...] Her DBP is mildly elevated at initial [facility] visit Previously counseled Current regimen: 10/29/2024 [...] in the interim. Zuly Pulido MA MD Chute Worker Division of Maternal- Medicine and Ultrasound Department of Obstetrics and Gynecology [facility] in [facility] 01/04/2025 Progress Notes - Office Visi t - 12/24/2024 - GA:30w2d 12/24/2024 - 30w2d - Beulah Wilson NP [facility] Return Visit 12/24/2024 Vivien Albright is [...] Previously treated by [facility] Previously on Duloxetine, Aripiprazole, Buspirone OD and [...] Her DBP is mildly elevated at initial [facility] visit Previously counseled Current regimen: 10/29/2024 [...] plan by 32 weeks [] Delivery at 37o4m-82c9m (78k8m-73z0g with vascular complications or poorly controlled) Relevant Orders US Ob Limited US Ob Follow Up US Ob Limited Pyelectasis of fetus on ultrasound Overview Noted on US 11/26/2024 and counseled S/p low risk NIPT 12/24/2024 Left renal pelvis is dilated to 7.4 mm and there is mild ureteral dilation seen. A2-3 UTD, s/p counseling in [place]- referral to [facility] to help coordinate peds urology Relevant Orders US Ob Limited US Ob Follow Up US Ob Limited Supervision of high-risk , second trimester Overview [x] Full MFM Care; [x] Blue Team MEI per pt request, Primary OB aware per the pt, email for global sent on 09/30 Referring Provider: Glen Velazquez [phone] [] or Medicare Insurance [x] Dating Criteria: [...] MOC: [x] Method of feeding: breast [] People Greeter (specifically which provider): [] PP Depression Discussed: [...] buttock. Patient had no adverse reactions. Lot# [id number] Exp: 06/23/2025 [facility]:[id number] Pt taken to check-out. Aarti Contreras CMA [...] sent on 09/30 Referring Provider: Glen Velazquez [phone] [] or Medicare Insurance [x] Dating Criteria: [...] MOC: [x] Method of feeding: breast [] People Greeter (specifically which provider): [] PP Depression Discussed: [...] plan by 32 weeks [] Delivery at 82d5h-54d8w (13h2d-38o0z with vascular complications or poorly controlled) Current [...] Her DBP is mildly elevated at initial [facility] visit Previously counseled Current regimen: 10/29/2024 [...] Previously treated by [facility] Previously on Duloxetine, Aripiprazole, Buspirone OD and [...] similar). During the visit, I was located [place] and the patient was located in [place]. My visit with the patient started at [...] billed and/or responsible for any applicable copayments. [facility] Return Visit 12/04/2024 Vivien Albright is [...] and CAN since 12 Previously treated by [facility] ([facility]) Previously on Duloxetine, Aripiprazole, Buspirone OD and [...] plan by 32 weeks [] Delivery at 40m1j-20l5w (49c6x-53q6y with vascular complications or poorly controlled) Relevant Orders US Ob Follow Up Supervision of high-risk , second trimester Overview [x] Full MFM Care; [x] Blue Team MEI per pt request, Primary OB aware per the pt, email for global sent on 09/30 Referring Provider: Glen Velazquez [phone] [] or Medicare Insurance [x] Dating Criteria: [...] MOC: [x] Method of feeding: breast [] People Greeter (specifically which provider): [] PP Depression Discussed: [...] this week. Also reviewed patient's message in [employer] about her concerns for post-prandial elevations, consistent [...] on remote diabetes management. Sis Edwards MD Chute Worker Division of Maternal- Medicine and Ultrasound Department of Obstetrics and Gynecology [facility] in [facility] Progress Notes - Office Visi t - 10/29/2024 - GA:22w2d 10/29/2024 - 22w2d - Beulah Wilson NP [facility] Return Visit 11/02/2024 Vivien Albright is [...] Previously treated by [facility] Previously on Duloxetine, Aripiprazole, Buspirone OD and [...] Her DBP is mildly elevated at initial [facility] visit Previously counseled Current regimen: 10/29/2024 [...] sent on 09/30 Referring Provider: Glen Velazquez [phone] [] or Medicare Insurance [x] Dating Criteria: [...] [] MOC: [] Method of feeding: [] People Greeter (specifically which provider): [] PP Depression Discussed: [...] on remote diabetes management. Sis Edwards MD Chute Worker Division of Maternal- Medicine and Ultrasound Department of Obstetrics and Gynecology [facility] Progress Notes - Documentati on [...] on remote diabetes management. Sis Edwards MD Chute Worker Division of Maternal- Medicine and Ultrasound Department of Obstetrics and Gynecology [facility] Progress Notes - Office Visi [...] ultrasound. Dian Edwards MD Maternal Medicine 09/24/2024 R MECHANIC Progress Notes - Documentati on - 09/14/2024 [...] management. Dian Edwards MD Maternal Medicine 09/15/2024 R MECHANIC R MECHANIC Progress Notes - Office Visi t - 09/09/2024 - GA:15w1d 09/09/2024 - 15w1d - Glen Velazquez MD Return OB Visit Vivien Albright is a 34 y.o. at 15w1d [...] Third trimester anesthesia consult Glen Velazquez MD R MECHANIC Progress Notes - Documentati on - 09/08/2024 [...] on remote diabetes management. Sis Edwards MD Chute Worker Division of Maternal- Medicine and Ultrasound Department of Obstetrics and Gynecology [facility] in [facility] R MECHANIC Progress Notes - Documentati on - 09/01/2024 [...] list has been updated. Sis Edwards MD Chute Worker Division of Maternal- Medicine and Ultrasound Department of Obstetrics and Gynecology [facility] Addendum: Glycemic Control Meeting 09/01/2024 [...] on remote diabetes management. Sis Edwards MD Chute Worker Division of Maternal- Medicine and Ultrasound Department of Obstetrics and Gynecology [facility] R MECHANIC R MECHANIC R MECHANIC Progress Notes - Office Visi t - [...] other route daily blood-glucose meter,continuous ([employer] G7 Director Multimedia) misc Use continuously to check blood sugars [...] BLOOD SUGAR ONCE A DAY INSTRUCTED vit 42-liea-lqwah-dha 27mg iron- 800 mcg-250 mg capsule Take [...] No Intellectual disability or Fragile X: No Sanborn disease: No Other defects or genetic disorders: No Allergies Allergen Reactions Adhesive Rash Tolar Rash Codeine Rash Lamotrigine Cough Losartan Dizziness [...] of CAN Previously managed by her PCP [employer] [employer] [facility] Duloxetine. Close monitoring of her mood [...] Wells MD Professor Division of Maternal Medicine R MECHANIC Progress Notes - Abstract - 08/17/2024 - GA:11w6d 08/17/2024 - wd - Lyssa Hunt RMA Current OB records are in [facility]. PCP records for DM management are under Care Everywhere. Most recent visit was 07/23/24. R MECHANIC Progress Notes - Clinical Sigala pport - 08/12/2024 - GA:11w1d 08/12/2024 - 11w1d - Vita Donovan RN Panorama drawn in office. R MECHANIC Progress Notes - Clinical Sigala pport - [...] on Metformin. Obesity, anatomy US sent to [facility]. Pap is up to date. STI testing to be collected today. Tdap and flu shot recommendations reviewed with the pt. OB call schedule reviewed with the pt. NOB packet reviewed with the pt and questions were answered. R MECHANIC Progress Notes - Office Visi t - [...] A DAY INSTRUCTED, Disp: , Rfl: vit 63-reny-puevu-dha 27mg iron- 800 mcg-250 mg capsule, Take [...] 2 diabetes, plan for co management with [facility], pattern for Accu-Cheks during and target ranges. Discussed patient's weight and plan to have [facility] complete anatomy ultrasound. Discussed management of depression and anxiety, importance of maintaining good emotional well-being, affirmed establishment with mental health professionals, and discussed safety profile of the medications she was taking should she need to resume prescription medication Surveillance of EDC by LMP = 9 week US Labs: ordered Genetics: NIPT and carrier at 11 weeks Anatomy: With [facility] GCT: 26-28 weeks 3rd trim CBC/HIV/RPR [...] hemoglobin A1c 6.8 dASA @ 12 wks [facility] comanagement testing Morbid obesity - initial [...] complication, without long-term current use of insulin ([facility]) (HCC) (E11.9) - US OB [...] total) by mouth daily Glen Velazquez MD R MECHANIC Last Filed Vital Signs Vital Sign Reading [...] GLUCOSE DEVICE Routine 2025 5:57 AM CDT OH AN PROCEDURE PLACEHOLDER Routine 2025 5:23 AM [...] HEPATITIS C ANTIBODY Routine 08/06/2024 9:00 AM FLOOR MECHANIC Encounter for supervision of normal in first [...] BLOOD ORDERABLES Final Result Performing Organization Address City/[facility]/ZIP Co de Phone Number [facility] Department [place] [address] * POCT glucose (02/15/2025 9:01 AM CDT) Glucose, POC 142 70 - 199 mg/dL Blood 02/15/2025 9:01 AM CDT 02/15/2025 9:01 AM CDT us Jeb Swift MD LAB POCT ORDERABLES - DEV ICE Final Result Performing Organization Address City/[facility]/ZIP Co de Phone Number [facility] Department [place] [address] * POCT glucose (02/14/2025 11:34 PM CDT) Glucose, POC 155 70 - 199 mg/dL Blood 02/14/2025 11:3 4 PM CDT 02/14/2025 11:34 PM CDT Jeb Swift MD LAB POCT ORDERABLES - DEV [place] [address] * POCT glucose (02/14/2025 4:48 PM CDT) Glucose, POC 165 70 - 199 mg/dL Blood 02/14/2025 4:48 PM CDT 02/14/2025 4:48 PM CDT Jeb Swift MD LAB POCT ORDERABLES - DEV ICE Final Result Performing Organization Address City/[facility]/ZIP Co de Phone Number [facility] [place] [address] * POCT glucose (02/14/2025 1:22 PM CDT) Glucose, POC 103 70 - 199 mg/dL Blood 02/14/2025 1:22 PM CDT 02/14/2025 1:22 PM CDT Jeb Swift MD LAB POCT ORDERABLES - DEV ICE Final Result Performing Organization Address City/[facility]/ZIP Co de Phone Number SHAYE [facility] [place] [address] * (ABNORMAL) CBC without differential (02/14/2025 10:30 [...] MD LAB BLOOD ORDERABLES Farhana l Result [facility] Department [place] [address] * POCT glucose (02/14/2025 8:33 AM CDT) Pathologist [facility] Glucose, POC 103 70 - 199 mg/dL Blood 02/14/2025 8:33 AM CDT 02/14/2025 8:33 AM CDT us Jeb Swift MD LAB POCT ORDERABLES - DEV ICE Final Result [facility] [place] [address] * eGFR (02/14/2025 3:51 AM CDT) [facility] eGFR >90 >=60 mL/min/1. 73 m2 Comment: [...] MD LAB BLOOD ORDERABLES Farhana espinoza Result [facility] Department of Laboratories [place], [place] [id number] * (ABNORMAL) CBC without differential (02/14/2025 3:51 [...] Jeb Swift MD LAB BLOOD ORDERABLES Farhana olga Result [facility] [place] [address] * (ABNORMAL) Basic metabolic panel (02/14/2025 3:51 [...] ORDERABLES Farhana l Result SHAYE JAMISON Radha [facility] [place] [address] * POCT glucose (02/13/2025 9:37 PM CDT) Glucose, POC 105 70 - 199 mg/dL Blood 02/13/2025 9:37 PM CDT 02/13/2025 9:37 PM CDT us Jeb Swift MD LAB POCT ORDERABLES - DEV ICE Final Result Performing Organization Address [facility] Co de Phone Number [facility] [place] [address] * US Kidney Complete (02/13/2025 8:50 PM [...] DEV ICE Final Result Performing Organization Address City/[facility]/ZIP Co de Phone Number [facility] [place] [address] * ABO/Rh (02/13/2025 1:01 PM CDT) Pathologist [facility] ABO Rh A Negative Blood 02/13/2025 1:01 PM CDT 02/13/2025 1:01 PM CDT Result [facility] Jeb Swift MD LAB BLOOD BANK TEST ORDER SOLOMON Final Result Performing Organization Address [facility] de Phone Number [facility] [place] [address] * Rh Immune Globulin Eval (02/13/2025 12:23 PM CDT) Pathologist [facility] RhIg Administration Not applicable RhIg Eligible No, not eligible [facility] Blood 02/13/2025 12:2 3 PM CDT 02/13/2025 12:34 PM CDT Narrative [facility] - 02/13/2025 1:03 PM CDT Number of weeks ?->Greater than or equal to 12 weeks antibody screen result:->Negative Rhogam given?->Unknown Number of vials requested:->1 Jeb Swift MD LAB BLOOD BANK TEST ORDER SOLOMON Final Result Performing Organization Address [facility] Co de Phone Number SHAYE [facility] Department [place] [address] * eGFR (02/13/2025 12:23 PM CDT) eGFR [...] ORDERABLES Farhana l Result Performing Organization Address City/[facility]/ZIP Co de Phone Number [facility] [place] [address] * (ABNORMAL) CBC without differential (02/13/2025 12:23 PM CDT) Pathologist [facility] WBC 16.71(H) 3.80 - 9.90 K/cumm Hgb [...] Result [facility] [place] [address] * (ABNORMAL) Basic metabolic panel (02/13/2025 12:23 [...] ORDERABLES Farhana l Result Performing Organization Address City/[facility] Co de Phone Number [facility] [place] [address] * POCT glucose (02/13/2025 7:17 AM CDT) Glucose, POC 147 70 - 199 mg/dL Blood 02/13/2025 7:17 AM CDT 02/13/2025 7:17 AM CDT Jeb Swift MD LAB POCT ORDERABLES - DEV ICE Final Result Performing Organization Address [facility] de Phone Number [facility] [place] [address] * POCT glucose (02/13/2025 6:11 AM CDT) Glucose, POC 159 70 - 199 mg/dL Blood 02/13/2025 6:11 AM CDT 02/13/2025 6:11 AM CDT Jeb Swift MD LAB POCT ORDERABLES - DEV ICE Final Result Performing Organization Address City/[facility] Co de Phone Number [facility] [place] [address] * eGFR (02/13/2025 3:21 AM CDT) eGFR [...] ORDERABLES Farhana l Result Performing Organization Address City/[facility] Co de Phone Number SHAYE [facility] Department [place] [address] * (ABNORMAL) aPTT (02/13/2025 3:21 AM CDT) [...] LAB BLOOD ORDERABLES Farhana l Result [facility] [place] [address] * Protime-INR (02/13/2025 3:21 AM CDT) [facility] PT 10.8 9.7 - 13.0 sec INR [...] ORDERABLES Farhana l Result Performing Organization Address City/[facility]/ZIP Co de Phone Number [facility] Department [place] [address] * (ABNORMAL) Fibrinogen (02/13/2025 3:21 AM CDT) [facility] Fibrinogen 520(H) 170 - 400 mg/dL Blood 02/13/2025 3:21 AM CDT 02/13/2025 4:09 AM CDT Jeb Swift MD LAB BLOOD ORDERABLES Farhana l Result Performing Organization Address [facility] Co de Phone Number [facility] Department [place] [address] * (ABNORMAL) CBC without differential (02/13/2025 3:21 AM CDT) [facility] WBC 20.21(H) 3.80 - 9.90 K/cumm Hgb [...] MD LAB BLOOD ORDERABLES Farhana espinoza Result [facility] [place] [address] * (ABNORMAL) Comprehensive metabolic panel (02/13/2025 3:21 AM CDT) [facility] Sodium 136 135 - 145 mmol/L Potassium, [...] phos 92 40 - 130 Units/L [facility] ALT 10 7 - 45 Units/L [facility] AST 15 10 - 45 Units/L [facility] Blood 02/13/2025 3:21 AM CDT 02/13/2025 4:06 AM CDT Jeb Swift MD LAB BLOOD ORDERABLES Farhana l Result Performing Organization Address [facility] Co de Phone Number [facility] [place] [address] * (ABNORMAL) POC Thromboelastometry Panel - Heparin (02/13/2025 1:02 AM CDT) [facility] HEPTEM-CT, POC <122(L) 141 - 215 sec HEPTEM-A5, POC 52(H) 33 - 51 mm [facility] HEPTEM-A10, POC 63(H) 44 - 61 mm [facility] HEPTEM-A20, POC 71(H) 52 - 67 mm [facility] HEPTEM-MCF, POC 75(H) 54 - 69 mm [facility] HEPTEM-Run Time, POC (hh:mm:ss) 02:00:01 [facility] Blood 02/13/2025 1:02 AM CDT 02/13/2025 1:02 AM CDT Jeb Swift MD LAB POCT ORDERABLES - DEV ICE Edited Result - Final Performing Organization Address [facility] Co de Phone Number [facility] Department [place] [address] * (ABNORMAL) POC Thromboelastometry Panel - Intrinsic [...] Edited Result - Final SHAYE GUTIERREZ [facility] [place] [address] * (ABNORMAL) POC Thromboelastometry Panel - Extrinsic [...] Edited Result - Final Performing Organization Address [facility] Co de Phone Number [facility] [place] [address] * (ABNORMAL) POC Thromboelastometry Panel - Fibrinogen (02/13/2025 1:00 AM CDT) FIBTEM-A5, POC 24(H) 5 - 16 mm FIBTEM-A10, POC 26(H) 6 - 17 mm [facility] FIBTEM-A20, POC 28(H) 6 - 18 [facility] FIB[facility]-MCF, POC 30(H) 9 - 19 mm [facility] FIBTEM-Run Time, POC (hh:mm:ss) 02:00:02 [facility] Blood 02/13/2025 1:00 AM CDT 02/13/2025 1:00 AM CDT Jeb Swift MD LAB POCT ORDERABLES - DEV ICE Edited Result - Final Performing Organization Address [facility] Co de Phone Number [facility] [place] [address] * (ABNORMAL) POC Blood Gas and Chemistries, Venous - (02/13/2025 1:00 AM CDT) pH, Gui POC 7.38 7.32 - 7.43 pCO2, gui POC 28(L) 40 - 50 mmHg [facility] pO2, gui POC 69 mmHg [facility] Na, POC 134(L) 135 - 145 [...] [facility] O2 Sat, Gui POC (Ethel) 94 % [facility] Base excess, POC -7.4 mmol/L [facility] HCO3, Gui POC 17(L) 20 - 30 mmol/L [facility] Hct, POC 32.0(L) 36.3 - 45.3 % [facility] Total Hb, POC 10.6(L) 11.9 - 15.5 g/dL [facility] Blood 02/13/2025 1:00 AM CDT 02/13/2025 1:00 AM CDT us Jeb Swift MD LAB POCT ORDERABLES - DEV ICE Final Result Performing Organization Address City/[facility]/ZIP Co de Phone Number [facility] Department [place] [address] * Critical Result Callback Hematology (02/13/2025 12:52 AM CDT) Date Notified [id number] Time Notified 156 [facility] TestName aPTT [facility] Called/Read Back Manuel Mcguire [facility] Credentials RN [facility] Called By JÚNIOR [facility] Blood 02/13/2025 12:5 2 AM CDT 02/13/2025 1:17 AM CDT us Ashutosh De Los Santos MD LAB BLOOD ORDERABLES Final Result [facility] Department [place] [address] * (ABNORMAL) aPTT (02/13/2025 12:52 AM CDT) [...] Final Result Performing Organization Address [facility] de Phone Number [facility] [place] [address] * Protime-INR (02/13/2025 12:52 AM CDT) PT 9.9 9.7 - 13.0 sec INR 0.92 0.90 - 1.20 [facility] [...] BLOOD ORDERABLES Final Result Performing Organization Address [facility] de Phone Number [facility] Department [place] [address] * (ABNORMAL) Fibrinogen (02/13/2025 12:52 AM CDT) Fibrinogen 586(H) 170 - 400 mg/dL Blood 02/13/2025 12:5 2 AM CDT 02/13/2025 1:17 AM CDT Ashutosh De Los Santos MD LAB BLOOD ORDERABLES Final Result Performing Organization Address [facility] de Phone Number [facility] [place] [address] * (ABNORMAL) CBC without differential (02/13/2025 12:52 [...] [facility] Blood 02/13/2025 12:5 2 AM CDT 02/13/2025 1:05 AM CDT us Ashutosh De Los Santos MD LAB BLOOD ORDERABLES Final Result Performing Organization Address [facility] Co de Phone Number [facility] [place] [address] * POCT glucose (2025 11:14 PM CDT) Glucose, POC 111 70 - 199 mg/dL Blood 2025 11:1 4 PM CDT 2025 11:14 PM CDT us Jeb Swift MD LAB POCT ORDERABLES - DEV ICE Final Result SHAYE JAMISON Radha [facility] [place] [address] * (ABNORMAL) Urinalysis reflex to microscopic and [...] tendency for uric acid stone formation. Source: [facility] Current Interpretive Data was last [...] L ORDERABLES Final Result SHAYE JAMISON Radha [facility] [place] [address] * (ABNORMAL) Urinalysis, microscopic only (2025 10:11 [...] ORDERABLES Farhana l Result Performing Organization Address [facility] Co de Phone Number [facility] [place] [address] * Urine culture Urine, bladder (2025 10:11 PM CDT) Report Final Report: No growth Urine, bladder 2025 10 :11 PM CDT 2025 10:58 PM CDT Narrative [facility] - 02/14/2025 7:31 AM CDT Urine culture reflexed based upon urinalysis results. Testing performed by [facility] ([phone]) Jeb Swift MD LAB MICROBIOLOGY - GENERA L ORDERABLES Final Result Performing Organization Address [facility] Co de Phone Number [facility] [place] [address] * POCT glucose (2025 10:10 PM CDT) Glucose, POC 102 70 - 199 mg/dL Blood 2025 10:1 0 PM CDT 2025 10:10 PM CDT Jeb Swift MD LAB POCT ORDERABLES - DEV ICE Final Result Performing Organization Address [facility] [place] [address] * POCT glucose (2025 9:11 PM CDT) Glucose, POC 110 70 - 199 mg/dL Blood 2025 9:11 PM CDT 2025 9:11 PM CDT Jeb Swift MD LAB POCT ORDERABLES [place] [address] * POCT glucose (2025 8:06 PM CDT) Glucose, POC 109 70 - 199 mg/dL Blood 2025 8:06 PM CDT 2025 8:06 PM CDT Jeb Swift MD LAB POCT ORDERABLES - DEV ICE Final Result Performing Organization Address City/[facility]/[place] [address] * POCT glucose (2025 7:30 PM CDT) [facility] Glucose, POC 98 70 - 199 mg/dL Blood 2025 7:30 PM CDT 2025 7:30 PM CDT Jeb Swift MD LAB POCT ORDERABLES - DEV ICE Final Result Performing Organization Address City/[facility]/[place] [address] * Varicella Zoster IgG antibody Blood (2025 7:30 PM CDT) [facility] VZV IgG Reactive Reactive Comment:Reactive: Results sigala ggest response to immunization or prior exposure to the virus. Blood 2025 7:30 PM CDT 2025 8:11 PM CDT Yuval Madrid MD LAB MICROBIOLOGY - GENERAL ORDERABLES Final Result Performing Organization Address [facility] de Phone Number [facility] [place] [address] * POCT glucose (2025 5:17 PM CDT) Glucose, POC 104 70 - 199 mg/dL Blood 2025 5:17 PM CDT 2025 5:17 PM CDT Yuval Madrid MD LAB POCT ORDERABL ES - DEVICE Final Result Performing Organization Address [facility] de Phone Number [facility] [place] [address] * POCT glucose (2025 2:54 PM CDT) Glucose, POC 98 70 - 199 mg/dL Blood 2025 2:54 PM CDT 2025 2:54 PM CDT Yuval Madrid MD LAB POCT ORDERABL ES - DEVICE Final Result Performing Organization Address [facility] de Phone Number [facility] [place] [address] * POCT glucose (2025 12:03 PM CDT) Glucose, POC 97 70 - 199 mg/dL Blood 2025 12:0 3 PM CDT 2025 12:03 PM CDT Yuval Madrid MD LAB POCT ORDERABL ES - DEVICE Final Result Performing Organization Address [facility] de Phone Number [facility] [place] [address] * POCT glucose (2025 10:01 AM CDT) Glucose, POC 101 70 - 199 mg/dL Blood 2025 10:0 1 AM CDT 2025 10:01 AM CDT Yuval Madrid MD LAB POCT ORDERABL ES - DEVICE Final Result Performing Organization Address [facility] Phone Number [facility] [place] [address] * POCT glucose (2025 8:01 AM CDT) Glucose, POC 115 70 - 199 mg/dL Blood 2025 8:01 AM CDT 2025 8:01 AM CDT Cecilia Archer MD LAB POCT ORDERABLES - RAKEL CE Final Result Performing Organization Address [facility] de Phone Number [facility] [place] [address] * POCT glucose (2025 6:47 AM CDT) Glucose, POC 132 70 - 199 mg/dL Blood 2025 6:47 AM CDT 2025 6:47 AM CDT Cecilia Archer MD LAB POCT ORDERABLES - RAKEL CE Final Result Performing Organization Address [facility] de Phone Number [facility] [place] [address] * POCT glucose (2025 5:57 AM CDT) Glucose, POC 130 70 - 199 mg/dL Blood 2025 5:57 AM CDT 2025 5:57 AM CDT Cecilia Archer MD LAB POCT ORDERABLES - RAKEL CE Final Result [facility] [place] [address] * OH AN PROCEDURE PLACEHOLDER (2025 5:23 AM CDT) [...] RAKEL CE Final Result Performing Organization Address City/[facility] Co de Phone Number [facility] [place] [address] * POCT glucose (2025 2:55 AM CDT) Glucose, POC 103 70 - 199 mg/dL Blood 2025 2:55 AM CDT 2025 2:55 AM CDT Cecilia Archer MD LAB POCT ORDERABLES - RAKEL CE Final Result Performing Organization Address [facility] Co de Phone Number [facility] [place] [address] * POCT glucose (2025 12:43 AM CDT) Glucose, POC 93 70 - 199 mg/dL Blood 2025 12:4 3 AM CDT 2025 12:43 AM CDT Cecilia Archer MD LAB POCT ORDERABLES - RAKEL CE Final Result Performing Organization Address [facility] Co de Phone Number [facility] [place] [address] * POCT glucose (02/11/2025 10:22 PM CDT) Glucose, POC 103 70 - 199 mg/dL Blood 02/11/2025 10:2 2 PM CDT 02/11/2025 10:22 PM CDT Cecilia Archer MD LAB POCT ORDERABLES - RAKEL CE Final Result Performing Organization Address [facility] Co de Phone Number [facility] [place] [address] * POCT glucose (02/11/2025 8:24 PM CDT) Glucose, POC 89 70 - 199 mg/dL Blood 02/11/2025 8:24 PM CDT 02/11/2025 8:24 PM CDT Cecilia Archer MD LAB POCT ORDERABLES - RAKEL CE Final Result Performing Organization Address [facility] Co de Phone Number [facility] [place] [address] * POCT glucose (02/11/2025 6:28 PM CDT) Glucose, POC 93 70 - 199 mg/dL Blood 02/11/2025 6:28 PM CDT 02/11/2025 6:28 PM CDT Yuval Madrid MD LAB POCT ORDERABL ES - DEVICE Final Result Performing Organization Address [facility] Co de Phone Number [facility] [place] [address] * POCT glucose (02/11/2025 4:57 PM CDT) Glucose, POC 83 70 - 199 mg/dL Blood 02/11/2025 4:5 7 PM CDT 02/11/2025 4:57 PM CDT us Yuval Madrid MD LAB POCT ORDERABL ES - DEVICE Final Result Performing Organization Address [facility] de Phone Number [facility] [place] [address] * POCT glucose (02/11/2025 2:55 PM CDT) Glucose, POC 86 70 - 199 mg/dL Blood 02/11/2025 2:55 PM CDT 02/11/2025 2:55 PM CDT us Yuval Madrid MD LAB POCT ORDERABL ES - DEVICE Final Result Performing Organization Address [facility] de Phone Number [facility] [place] [address] * POCT glucose (02/11/2025 12:35 PM CDT) Glucose, POC 93 70 - 199 mg/dL Blood 02/11/2025 12:3 5 PM CDT 02/11/2025 12:35 PM CDT us Yuval Madrid MD LAB POCT ORDERABL ES - DEVICE Final Result Performing Organization Address [facility] de Phone Number [facility] Department [place] [address] * RPR Blood (02/11/2025 11:27 AM CDT) RPR Nonreactive Nonreactive Blood 02/11/2025 11:2 7 AM CDT 02/11/2025 11:46 AM CDT us Margaret Velazquez NP LAB MICROBIOLOGY - GENERAL ORDERABLES Final Result Performing Organization Address [facility] de Phone Number [facility] [place] [address] * Type and screen (02/11/2025 11:27 AM CDT) Pathologist [facility] Unbia, indirect Negative ABO Rh A Negative [facility] Blood 02/11/2025 11:2 7 AM CDT 02/11/2025 11:39 AM CDT Narrative [facility] - 02/11/2025 12:50 PM CDT Has the patient had Daratumumab or Isatuximab in the past 6 months?->Unknown Margaret Velazquez NP LAB BLOOD BANK MARU T ORDERABLES Final Result [facility] [place] [address] * eGFR (02/11/2025 10:15 AM CDT) [facility] eGFR >90 >=60 mL/min/1. 73 m2 Comment: [...] Result [facility] [place] [address] * (ABNORMAL) Differential, auto (02/11/2025 10:15 AM CDT) Neutrophil abs 9.42(H) 1.50 - 6.50 K/cumm Imm gran abs 0.13(H) 0.00 - 0.10 K/cumm [facility] Lymphocyte abs 2.64 0.80 - 3.30 K/cumm [facility] Monocyte abs 1.22(H) 0.20 - 0.80 [...] revised on 2017. Basophil pct 0.4 % [facility] Comment: Interpretive Data Percent cell count reference ranges are not reported, since discordance with absolute values may lead to misinterpretation of CBC data. Current Interpretive Data was last revised on 2017. Blood 02/11/2025 10:1 5 AM CDT 02/11/2025 10:36 AM CDT Margaret Velazquez NP LAB BLOOD ORDERABL ES Final Result Performing Organization Address City/[facility] Co de Phone Number [facility] Department [place] [address] * (ABNORMAL) CBC with auto differential (02/11/2025 [...] ORDERABL ES Final Result Performing Organization Address [facility]/ZIP Co de Phone Number [facility] [place] [address] * (ABNORMAL) Protein / creatinine ratio, urine, random (02/11/2025 10:15 AM CDT) [facility] Protein, ur, quant 27.2 mg/dL Comment: Interpretive [...] NP LAB URINE ORDERABL ES Final Result [facility] [place] [address] * (ABNORMAL) Comprehensive metabolic panel (02/11/2025 10:15 AM CDT) [facility] Sodium 138 135 - 145 mmol/L Potassium, [...] Calcium 9.0 8.5 - 10.3 mg/dL [facility] Bilirubin, total 0.3 0.1 - 1.2 mg/dL [facility] Protein, pl 7.0 6.5 - 8.5 g/dL [facility] Albumin 3.4(L) 3.5 - 5.0 g/dL [facility] Alk phos 116 40 - 130 Units/L [facility] ALT 15 7 - 45 Units/L [facility] AST 18 10 - 45 Units/L [facility] Blood 02/11/2025 10:1 5 AM CDT 02/11/2025 10:34 AM CDT Margaret Velazquez NP LAB BLOOD ORDERABL ES Final Result [facility] [place] [address] * (ABNORMAL) POCT urinalysis (Clinitek) (02/11/2025 10:13 AM CDT) Color, ur, POC Yellow Yellow Clarity, UA, POC Clear Clear [facility] Glucose, ur, POC 2+(A) Negative [facility] Bilirubin, ur, POC Negative Negative [facility] Ketones, ur, POC 1+(A) Negative [facility] Specific gravity, ur, POC >=1.030(A) 1.010 - 1.025 [facility] Blood, ur, POC Negative Negative [facility] H pH, ur, POC 6.0 [facility] Comment: Interpretive Data Urine pH is affected by diet, medications, systemic acid-base disturbances, and renal tubular function. pH may affect urinary stone formation. For example, urine pH below 6.0 may help reduce the tendency for calcium phosphate stones and pH greater than 6.0 may reduce the tendency for uric acid stone formation. Source: [employer]. Last Revised Date: 08-01-2017 Protein, ur, POC 1+(A) Negative [facility] Urobilinogen, ur, POC 0.2 mg/dL mg/dL [facility] Nitrites, ur, POC Negative Negative [facility] Leukocyte esterase, ur, POC Trace(A) Negative [facility] Urine 02/11/2025 10:1 3 AM CDT 02/11/2025 10:13 AM CDT Result [facility] Yuval Madrid MD LAB POCT ORDERABL ES - DEVICE Final Result [facility] [place] [address] * (ABNORMAL) nonstress test - (02/11/2025 9:56 AM CDT) Result [facility] Beulah Lee NP OB GYNE ORDERABLES Final Result * nonstress test - (02/08/2025 9:59 AM CDT) Result [facility] Gaby Quesada MD OB GYNE ORDERABLES Final Result * nonstress test - (02/04/2025 9:53 AM CDT) Result [facility] Zakia Pulido MD OB GYNE ORDERABLE S Final Result * nonstress test - (02/01/2025 11:05 AM CDT) Yuval Madrid MD OB GYNE ORDERABLE S Final Result * nonstress test - (01/28/2025 9:01 AM CDT) Result [facility] Dian Edwards MD OB GYNE ORDERABLES Final R esult * POCT glucose (01/25/2025 9:55 AM CDT) [facility] Glucose, POC 83 70 - 199 mg/dL Blood 01/25/2025 9:55 AM CDT 01/25/2025 9:55 AM CDT Yuval Madrid MD LAB POCT ORDERABL ES - DEVICE Final Result Performing Organization Address [facility] de Phone Number [facility] [place] [address] * eGFR (01/25/2025 9:48 AM CDT) eGFR [...] ORDERABL ES Final Result Performing Organization Address [facility] Co de Phone Number [facility] [place] [address] * (ABNORMAL) Differential, auto (01/25/2025 9:48 AM CDT) Neutrophil abs 8.78(H) 1.50 - 6.50 K/cumm Imm gran abs 0.15(H) 0.00 - 0.10 K/cumm [facility] Lymphocyte abs 2.67 0.80 - 3.30 K/cumm [facility] Monocyte abs 0.99(H) 0.20 - 0.80 [...] Result [facility] [place] [address] * (ABNORMAL) CBC with auto differential (01/25/2025 9:48 AM CDT) [facility] WBC 12.80(H) 3.80 - 9.90 K/cumm Hgb [...] Result [facility] [place] [address] * Protein / creatinine ratio, urine, random (01/25/2025 9:48 AM CDT) [facility] Protein, ur, quant 10.9 mg/dL Comment: Interpretive [...] NP LAB URINE ORDERABL ES Final Result [facility] [place] [address] * (ABNORMAL) Comprehensive metabolic panel (01/25/2025 9:48 AM CDT) Sodium 137 135 - 145 mmol/L Potassium, pl 4.2 3.3 - 4.9 mmol/L [facility] Chloride 103 97 - 110 mmol/L [facility] CO2 22 22 - 32 mmol/L [facility] Anion gap 12 2 - 15 mmol/L [facility] BUN 8 6 - 25 mg/dL [...] Calcium 9.4 8.5 - 10.3 mg/dL [facility] Bilirubin, total 0.3 0.1 - 1.2 mg/dL [facility] Protein, pl 7.2 6.5 - 8.5 g/dL [facility] Albumin 3.6 3.5 - 5.0 g/dL [facility] Alk phos 107 40 - 130 Units/L [facility] ALT 11 7 - 45 Units/L [facility] AST 14 10 - 45 Units/L [facility] Blood 01/25/2025 9:48 AM CDT 01/25/2025 10:17 AM CDT Margaret Velazquez NP LAB BLOOD ORDERABL ES Final Result [facility] [place] [address] * (ABNORMAL) POCT urinalysis (Clinitek) (01/25/2025 9:44 AM CDT) Color, ur, POC Yellow Yellow Clarity, UA, POC Clear Clear [facility] Glucose, ur, POC Negative Negative [facility] Bilirubin, ur, POC Negative Negative [facility] Ketones, ur, POC 2+(A) Negative [facility] Specific gravity, ur, POC 1.015 1.010 - 1.025 [facility] Blood, ur, POC Negative Negative [facility] pH, ur, POC 6.0 [facility] Comment: Interpretive Data Urine pH is affected by diet, medications, systemic acid-base disturbances, and renal tubular function. pH may affect urinary stone formation. For example, urine pH below 6.0 may help reduce the tendency for calcium phosphate stones and pH greater than 6.0 may reduce the tendency for uric acid stone formation. Source: [facility] [employer]. Last Revised Date: 08-01-2017 Protein, ur, POC Negative Negative [facility] Urobilinogen, ur, POC 0.2 mg/dL mg/dL [facility] Nitrites, ur, POC Negative Negative [facility] Leukocyte esterase, ur, POC 1+(A) Negative [facility] Urine 01/25/2025 9:44 AM CDT 01/25/2025 9:44 AM CDT us Yuval Madrid MD LAB POCT ORDERABL ES - DEVICE Final Result Performing Organization Address [facility]/ZIP Co de Phone Number [facility] [place] [address] * nonstress test - (01/25/2025 8:52 AM [...] amniotic fluid volume. Stable fibroid. Beulah Lee SATELLITE TV TECHNICIAN IMG OB US PROCEDURE S Final Result [...] measured within normal limits. us Beulah Lee SATELLITE TV TECHNICIAN IMG OB US PROCEDURE S Final Result [...] of wellbeing ? BPP 8/8. Vertexpresentation. Normal CAIMLA. us Beulah Lee NP IMG OB US [...] urology recommended through the [facility]. MFM SATELLITE TV TECHNICIAN visit to follow. Narrative Procedure Note Zakia [...] pediatric urologyrecommended through the [facility]. MFM SATELLITE TV TECHNICIAN visit to follow. Beulah Lee SATELLITE TV TECHNICIAN IMG OB US PROCEDURE S Final Result * HIV 1/2 Antibody plus p24 Antigen Blood (12/15/2024 9:14 AM CDT) [facility] HIV 1/2 ab + p24 ag Nonreactive Nonreactive Comment:Nonreactive for HIV- 1 antigen and HIV-1/HIV-2 antibodies. No laboratory evidence of HIV infection. If acute HIV infection is suspected, consider testing for HIV-1 RNA. Current interpretive data was last revised on 22. Blood 12/15/2024 9:14 AM CDT 12/15/2024 10:03 AM CDT Result [facility] Beulah Lee NP LAB MICROBIOLOGY - GENERAL ORDERABLES Final Result Performing Organization Address [facility]/ZIP Co de Phone Number [facility] [place] [address] * RPR Blood (12/15/2024 9:14 AM CDT) [facility] RPR Nonreactive Nonreactive Blood 12/15/2024 9:14 AM CDT 12/15/2024 10:03 AM CDT Result [facility] Beulah Lee NP LAB MICROBIOLOGY - GENERAL ORDERABLES Final Result Performing Organization Address [facility] Co de Phone Number [facility] [place] [address] * (ABNORMAL) CBC without differential (12/15/2024 9:14 AM CDT) [facility] WBC 14.46(H) 3.80 - 9.90 K/cumm Hgb [...] ORDERABLE S Final Result Performing Organization Address [facility] de Phone Number [facility] [place] [address] * (ABNORMAL) Hemoglobin A1c (12/15/2024 9:14 AM CDT) [facility] Signature Hgb A1C 6.2(H) 4.0 - 5.6 [...] ORDERABLE S Final Result Performing Organization Address City/[facility]/ZIP Co de Phone Number [facility] [place] [address] * Type and screen (12/15/2024 9:11 AM CDT) ABO Rh A Negative Nubia, indirect Negative [facility] Blood 12/15/2024 9:11 AM CDT 12/15/2024 11:29 AM CDT Narrative [facility] - 12/15/2024 12:45 PM CDT Has the patient had Daratumumab or Isatuximab in the past 6 months?->Unknown us Beulah Lee NP LAB BLOOD BANK TEST ORDERABLES Final Result [facility] [place] [address] * US Ob Follow Up (11/26/2024 2:30 [...] repeat evaluation with growthultrasounds. us Beulah Lee SATELLITE TV TECHNICIAN IMG OB US PROCEDURE S Final Result * Hepatitis C antibody Blood (08/06/2024 9:00 AM FLOOR MECHANIC) Hep C Ab Nonreactive Nonreactive Comment: Antibodies [...] revised on 2019. Blood 08/06/2024 9:00 AM FLOOR MECHANIC 08/06/2024 12:38 PM FLOOR MECHANIC us Glen Velazquez MD LAB MICROBIOLOGY - GENERAL ORDERABLES Final Result [facility] [address] [facility] [place] [address] * Pap with reflex to High Risk HPV (10/24/2021 11:19 AM CDT) Thin prep (Pap test) 10/24/2021 11:19 AM CDT 10/25/2021 11:19 AM CDT Narrative PATHOLOGY [facility] - 10/31/2021 4:06 PM CDT [facility] Department of Pathology [address] [place], [place] [id number] Final Report Note to Patients: This report [...] the details. Patient Name: VIVIEN ALBRIGHT Address: [address] [place] [address] Gender: F : 1990 (Age: 31) Service: Laboratory Location: N : [id number] Hospital #: [id number] Patient Type: [facility] SPECIMEN Taken: 10/24/2021 Received: 10/25/2021 Accessioned:: 10/26/2021 Reported: 10/31/2021 Physician(s): [facility] Diagnosis: Source of Specimen: Imaged Thinprep Pap Test w/ Reflex HPV - Signal Engineer Cytologic Material Specimen Adequacy: - Satisfactory for evaluation; endocervical/transformation zone component present General Category: - Negative for intraepithelial lesion or malignancy HUY Harvey(ASCP) HUY Sanchez(ASCP) Report Electronically Reviewed and Signed Out By HUY Sanchez(ASCP) 10/31/2021 16:06:44 Specimen(s) Received: A: Imaged Thinprep Pap Test w/ Reflex HPV - Signal Engineer Cytologic Material Clinical History: Last Menstrual Period: [...] determined by the Surgical Pathology Department at [facility] as part of an ongoing manager of quality program and in compliance with federally mandated [...] characteristics determined by the Surgical Pathology Department [facility]. It has not been cleared or approved by the U. [place]. Food and Drug Administration. Shante Muhammad NP LAB CYTOLOGY ORDERABLES Final Re sult [facility] from Last 3 Months or Most Recently Relevant to Health Maintenance Insurance [facility] Advance Directives For more information, please contact: [phone] * Full Code (Latest Code Status on File) Date Activated Date Inactivated Comments 02/13/2025 5:53 AM 02/15/2025 9:53 PM * Full Code Date Activated Date Inactivated Comments 02/11/2025 11:03 AM 02/13/2025 5:53 AM Full CPR in case of cardiopulmonary arrest Care Teams Community Health Program Coordinator Relationship Specialty Start Date End Date No, Physician PCP - General 11/18/24
[2025-02-17 04:43] LABS: Hematocrit 28.0 % (37.0-47.0); Hemoglobin 9.0 g/dL (12.0-15.0); Immature Granulocyte Percent A 3.3 % (0-0.5); Lymphocytes Absolute Auto 4.62 K/mm3 (0.9-3.2); Mean Corpuscular HGB Conc 32.1 g/dl (32-36); Mean Corpuscular Hemoglobin 29.0 pg (26-34); Mean Corpuscular Volume 90.3 fl (80-100); Nucleated Red Blood Cells Absolute Auto 0.090 K/mm3 (0.0-0.012); Nucleated Red Blood Cells Perc 0.5 % (0.0-0.2); Platelet Count Result 405 k/mm3 (150-375); Red Blood Count 3.10 M/mm3 (4.2-5.4); White Blood Count 16.5 K/mm3 (4.5-10.0)
[2025-02-17 05:07] LABS: Alanine Aminotransferase 26 U/L (6-35); Albumin Level 3.5 g/dL (3.5-5.1); Alkaline Phosphatase 114 U/L (38-126); Anion Gap 6 mmol/L (4-12); Aspartate Amino Transferase 30 U/L (14-36); Bilirubin,Total 0.4 mg/dL (0.2-1.3); Blood Urea Nitrogen 9 mg/dL (7-17); Calcium 9.4 mg/dL (8.4-10.2); Carbon Dioxide 23 mmol/L (22-30); Chloride 104 mmol/L (98-107); Estimated CRCL calculation 175 ml/min; Estimated Glomerular Filt Rate > 60; Glucose 117 mg/dL (65-110); Potassium 3.9 mmol/L (3.4-5.0); Sodium 133 mmol/L (137-145); Total Protein 7.1 g/dL (6.3-8.2); Uric Acid 3.4 mg/dL (2.5-7.5)
--- NOTE | 2025-02-17 05:14 | PC.NURSE ---
RN phoned Dr. Avila with patient arrival and patent complaints as well as patient history. RN notified MD of VS as well as assessment and labs. MD gave orders to d/c patient.
== END 2025-02-17 05:25 | disposition home or self-care (01) ==
LOC: ANHOBOP 04:36 → ANHOBPP 04:47
PROVIDERS: PCP Nurse Practitioner; Visit Provider Obstetrics & Gynecology
DX: O13.9 Gestational [pregnancy-induced] hypertension without significant proteinuria, unspecified trimester (principal); Z3A.00 Weeks of gestation of pregnancy not specified
CPT/HCPCS: 36415; 80053; 84550; 85025; 99199